=== PATIENT | male | born 1940 | race Two or more races ===

== ENCOUNTER 2024-06-25 07:15 | Emergency (ER) | payer MEDICARE, SELFPAY ==
[2024-06-25 07:17] VITALS: BP 165/66; PULSE 73; RESP 20; TEMP 37; O2SAT 99
[2024-06-25 07:27] VITALS: PULSE 68; RESP 16; O2SAT 99; BMI 21.2
[2024-06-25 08:15] VITALS: BP 168/70; PULSE 66; RESP 19; TEMP 37; O2SAT 99
--- NOTE | 2024-06-25 08:31 | XR_ITS ---
EXAMINATION: CT lumbar spine wo con ORDERING PROVIDER: Nathen Rey MD HISTORY: Lower back pain status post fall this morning. TECHNIQUE: Volumetric, helical CT was used in the non-contrast imaging acquisition of the lumbar spine with 2-D and 3-D reformats. Institutional dose reducing protocols were utilized. RADIATION DOSE: DLP 772 mGy-cm COMPARISON: 02/21/2024, CT chest abdomen pelvis. 07/25/2023, lumbar spine radiographs. FINDINGS: Compared to 02/21/2024, there has been interval development of an L2 anterior compression fracture with 35% height loss. There is no retropulsion of bony fragments. No additional fractures identified. Findings are in the setting of osteoporosis. There is L1-L2 vacuum disc phenomenon. There is a broad-based posterior disc protrusion at L3-L4. There are multilevel small to moderate syndesmophytes and osteophytes. There is mild L4-L5 left greater than right and bilateral L5-S1 facet arthrosis. There are mild osteoarthritic changes of the bilateral sacroiliac joints. 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 There is a similar appearing exophytic rounded hypodensity measuring up to 3.1 cm arising from the posterior aspect of the left kidney. Additional too small to characterize hypodensity is again seen in the superior pole of the right kidney. There is atrophy of the paraspinal musculature. IMPRESSION: Compared to 02/21/2024, interval development of moderate L2 anterior compression fracture in the setting of osteoporosis.
--- NOTE | 2024-06-25 08:33 | PD.EDBACK ---
ED Back Injury Pain RME/HPI General Chief Complaint: Back Pain/Injury Stated Complaint: BACK PAIN Time Seen by Provider: 06/25/24 08:05 Arrival date/time: 06/25/24 07:15 RME / HPI RME / HPI Narrative: Patient 84-year-old gentleman who is got Parkinson's who evidently slipped from the bed and fell on his stool striking his lumbar back as well as this was not witnessed. Besides back pain patient has no other acute problem or complaint. No fever cough runny nose no chest pain no abdominal pain he does complain of pain in his left inguinal area. states he is acting his usual self at this time. Patient is on Eliquis for previous heart issues. Related Data Home Medications ?Medication ?Instructions ?Recorded ?Confirmed simvastatin 40 mg tablet (Zocor) 40 mg PO HS CHOLESTEROL #0 tabs 06/12/14 01/20/24 tamsulosin 0.4 mg capsule (Flomax) 0.4 mg PO QDAY Prostate ##0 06/12/14 01/20/24 solifenacin 10 mg tablet 10 mg PO QDAY 03/03/22 01/20/24 Previous Rx's ?Medication ?Instructions ?Recorded apixaban 5 mg tablet (Eliquis) 5 mg PO BID #60 tabs 01/21/24 carbidopa 25 mg-levodopa 100 mg 1 tab PO TID #30 tabs 01/21/24 tablet entacapone 200 mg tablet 400 mg (2 x 200 mg) PO TID #60 tabs 01/21/24 lisinopril 5 mg tablet 5 mg PO QDAY #30 tabs 01/21/24 pregabalin 50 mg capsule 50 mg PO DAILY #30 caps 01/21/24 tramadol 50 mg tablet 50 mg PO Q8H PRN pain #12 tabs 02/23/24 Allergies Allergy/AdvReac Type Severity Reaction Status Date / Time No Known Allergies Allergy Verified 04/29/19 17:19 Review of Systems Review of Systems Narrative Review of Systems: Review of Systems: Constitutional: DENIES: Fevers,; Eyes: DENIES: Loss of vision, Head/Ear/Nose: DENIES: Loss of hearing. Throat: Denies dysphagia. Cardiovascular: Denies chest pain, Dyspnea or syncope. Respiratory: DENIES: Shortness of breath, Gastrointestinal: DENIES: Rectal bleeding or melena. Genitourinary: DENIES: Dysuria (painful or difficult urination),; Musculoskeletal: See HPI DENIES: Arthralgia (pain in a joint),; Skin: DENIES: Rash,; Neurological: Has Parkinson's see HPI DENIES: loss of function or movement,; Psychiatric: DENIES: recent major life stressor, emotional problem, illicit drug use or abuse,; Endocrinology: DENIES: Weight change,; Hematologic/Lymphatic: DENIES: Abnormal bruising. Allergic/Immunologic: DENIES: Urticaria (hives), Past Medical History Past Medical History NEUROLOGIC: Positive Neurological Disorders, Transient Ischemic Attacks (TIA) and Parkinson's Disease CARDIAC: Positive Cardiac Disorders, Coronary Artery Disease, Atherosclerotic Heart Disease and Hypertension GASTROINTESTINAL: Positive Gastrointestinal Disorders and Gastroesophageal Reflux Disease GENITOURINARY: Positive Prostate Cancer and Benign Prostatic Hyperplasia MUSCULOSKELETAL: Positive Musculoskeletal Disorders OTHER HISTORY: Positive Radiation Therapy and Prostate Cancer Surgical History SURGICAL: Positive Cardiac Surgery and Coronary Artery Bypass Graft; Negative Abdominal Surgery Social History SMOKING STATUS: Never smoker SUBSTANCE USE: does not use ED Exam Narrative Physical exam: Physical Exam: General: The vital signs were reviewed. Has bradykinesia, soft-spoken left hand arm resting tremor the patient is non-toxic, in no apparent distress and appears healthy with a patent airway, no respiratory distress and has no apparent circulatory problems. Head & Scalp: Normocephalic, atraumatic. Face: Appears normal and is without lesions, deformity. Ears: Left external pinna appears normal. Right external pinna appears normal. Eyes: The sclera is anicteric. No obvious photophobia. The Left and Right Orbit/Lid/Conjunctiva appears normal without swelling, discoloration or injection. Nose: The nose is without deformity, discharge or tenderness; Throat: Appears normal. The mucous membranes are pink and moist without exudates, redness or mass seen. The tongue appears normal. Neck: The neck is supple and no apparent mass or adenopathy. Chest: The chest wall is normal in size and symmetry and has no chest wall tenderness or crepitus. The patient displays normal ventilator effort without retractions, accessory muscle use and has adequate air movement bilaterally with no wheezes and no rales. Cardiovascular: Regular rate and rhythm; No murmurs, rubs, or gallops; Gastrointestinal: The abdomen appears normal. No obvious hernias or mass. The abdomen is soft and benign, non-distended, with no pain, no guarding and no rebound tenderness. Bowel sounds are present and normal sounding. No CVA tenderness. Genitourinary: Back/Spine: Patient has tenderness on palpation of the mid lumbar spine. The rest of the spine is nontender to palpation. There is no ecchymosis seen. There is no wound the skin is intact. Extremities/Musculoskeletal/lymphatic: The bilateral upper and lower extremities are warm. There is no evidence of arterial insufficiency. There is no evidence of venous insufficiency/edema. The patient spontaneously moves bilateral upper and lower extremities with no pain and no limitation of movement. There is no apparent, injury or trauma. Skin: The skin is warm, dry and intact. No rashes. No petechia. No purpura. No abnormal bruising. The color is appropriate with no cyanosis. Mental status/Psychiatric: Mental status is baseline for this patient The patient has no apparent delusions, visual hallucinations, no apparent audible hallucinations. The patient has no apparent suicidal thoughts/ideation and no apparent homicidal thoughts/ideation. Neurological: The patient is awake, alert, interactive, cordial, cooperative and is oriented to name and situation. The patient follows commands and answers historical question with no impairment. There is no visual disturbance apparent. The pupils are equal and reactive bilaterally with normal eye movements and no diplopia The bilateral upper and lower extremities have normal strength, normal range of motion and normal functioning. The gait, station and balance were not tested due to Parkinson's and acute back injury Course Quality Measures none Orders Category Date Time Status IV [Insert IV] NOW Care 06/25/24 08:44 Completed Miscellaneous Nursing Order NOW Care 06/25/24 14:[address] lumbar spine wo con Stat Exams 06/25/24 08:31 Completed XR HIP LT W PELVIS (DO NOT USE) Stat Exams 06/25/24 08:37 Completed CBC Stat Lab 06/25/24 09:13 Completed CRP [C-Reactive Protein] Stat Lab 06/25/24 09:13 Completed Comprehensive Metabolic Panel Stat Lab 06/25/24 09:13 Completed Lactate (Lactic Acid) Stat Lab 06/25/24 09:13 Completed Lipase Stat Lab 06/25/24 09:13 Completed Sed Rate (ESR) Stat Lab 06/25/24 09:13 Completed Troponin I Stat Lab 06/25/24 09:13 Completed Urinalysis Stat Lab 06/25/24 09:37 Completed Acetaminophen Tab [Tylenol ES Tab] Med 06/25/24 08:31 Discontinued 1,000 mg PO X1 ONE HYDROmorphone INJ [Dilaudid Inj] Med 06/25/24 12:54 Discontinued 0.5 mg IVP X1 ONE Morphine Inj Med 06/25/24 08:44 Discontinued 4 mg IVP X1 ONE Morphine Inj Med 06/25/24 16:02 Discontinued 5 mg IVP X1 ONE Ondansetron Inj [Zofran Inj] Med 06/25/24 08:31 Discontinued 4 mg IV X1 ONE fentaNYL INJ [Sublimaze Inj] Med 06/25/24 08:31 Discontinued 50 mcg IVP X1 ONE Vital Signs Vital signs: Vital Signs Temperature 98.6 F 06/25/24 07:17 Pulse Rate 73 06/25/24 07:17 Respiratory Rate 20 06/25/24 07:17 Blood Pressure 165/66 H 06/25/24 07:17 Pulse Oximetry (%) 99 06/25/24 07:17 Oxygen Delivery Method Room Air 06/25/24 07:17 Back Pain / Injury MDM Narrative MDM Narrative:: Patient slipped and fell from his bed striking his lumbar area with pain since the fall. He is got Parkinson's and walks evidently with a walker normally we will work him up to rule out back injury/fracture. He also has some left inguinal pain. Will get a pelvic x-ray all. X-ray of the pelvis and left hip reveal no fracture seen. In note the patient does move the hip quite well CT of the lumbar spine came back positive for a anterior L2 compression fracture. There is no retropulsion reported. Abnormality reported Laboratory studies show UA unremarkable. CMP reveals a sodium 138 potassium 3.5 chloride 110 CO2 is 24 renal function is normal transaminases are slightly elevated 44 and 50 range. Troponin is negative C-reactive protein slightly elevated at 4.8. Sed rate came back at 5. White count 6.2 hemoglobin of 12.0. Reevaluation the patient at 1405 hrs. shows him to be comfortable we have not gotten up to walk yet. Had a long discussion with the and daughter and she is aware that he is can have a painful compression fracture for a week or 3. They know to follow-up with her regular doctor and return if make transfers safely. They just want to use acetaminophen at this time Patient data External records reviewed:: [facility] previous records and EMS form Clinical information provided by:: patient and EMS Social determinants that could affect healthcare access:: none Patient has the following chronic illnesses:: Parkinson's disease, TIA, CAD s/p CABG, hypertension, hyperlipidemia, BPH How is presenting disease/condition affected by chronic disease/condition?: exacerbated by Evaluation data The following diagnostics were reviewed and interpreted by me:: lab results and radiology exam(s) Lab and/or radiology exams considered but not ordered:: none Interpretation Summary: Ordering Physician: Nathen Rey MD Date of Service: 06/25/24 Procedure(s): CT lumbar spine wo con Accession Number(s): [id number] cc: Nadya Hartley MD; Tj Mariscal MD; Nathen Rey MD~ EXAMINATION: CT lumbar spine wo con ORDERING PROVIDER: Nathen Rey MD HISTORY: Lower back pain status post fall this morning. TECHNIQUE: Volumetric, helical CT was used in the non-contrast imaging acquisition of the lumbar spine with 2-D and 3-D reformats. Institutional dose reducing protocols were utilized. RADIATION DOSE: DLP 772 mGy-cm COMPARISON: 02/21/2024, CT chest abdomen pelvis. 07/25/2023, lumbar spine radiographs. FINDINGS: Compared to 02/21/2024, there has been interval development of an L2 anterior compression fracture with 35% height loss. There is no retropulsion of bony fragments. No additional fractures identified. Findings are in the setting of osteoporosis. There is L1-L2 vacuum disc phenomenon. There is a broad-based posterior disc protrusion at L3-L4. There are multilevel small to moderate syndesmophytes and osteophytes. There is mild L4-L5 left greater than right and bilateral L5-S1 facet arthrosis. There are mild osteoarthritic changes of the bilateral sacroiliac joints. 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 There is a similar appearing exophytic rounded hypodensity measuring up to 3.1 cm arising from the posterior aspect of the left kidney. Additional too small to characterize hypodensity is again seen in the superior pole of the right kidney. There is atrophy of the paraspinal musculature. IMPRESSION: Compared to 02/21/2024, interval development of moderate L2 anterior compression fracture in the setting of osteoporosis. Dictated By: Tj Mariscal MD Signed By: <Electronically signed by Tj Mariscal MD in [place]> 06/25/24 1049 rdering Physician: Nathen Rey MD Date of Service: 06/25/24 Procedure(s): XR hip LT w pelvis 2-3V Accession Number(s): [id number] cc: Nadya Hartley MD; Nathen Rey MD; Kurt Sexton MD~ Examination:Right hip AP, lateral, AP pelvis 3 views Technique: Hip AP lateral, AP pelvis, 3 views Exam date and time:June 25, 2024 0741 hrs. Indications: Patient fell today with injury to the left hip, left hip pain. Findings: No acute left hip fracture or dislocation Right hip bones of the pelvis intact Moderate bilateral hip osteoarthritis Impression: No acute hip or pelvic fracture. Dictated By: Kurt Sexton MD Signed By: <Electronically signed by Kurt Sexton MD in OV> 06/25/24 0905 Medications / Prescriptions Medications or Prescriptions considered but not ordered:: none Medication administrations:: Medication Administration History Discontinued Medications Acetaminophen (Acetaminophen 500 Mg Tablet) 1,000 mg PO X1 ONE Stop: 06/25/24 08:32 Last Admin: 06/25/24 09:19 Dose: 1,000 mg Documented By: SANNA Fentanyl Citrate (Fentanyl Cit Inj 50 Mcg/Ml Amp 2ml) 50 mcg IVP X1 ONE Stop: 06/25/24 08:32 Last Admin: 06/25/24 09:18 Dose: 50 mcg Documented By: SANNA Hydromorphone HCl (Hydromorphone Inj 2 Mg/Ml Vial) 0.5 mg IVP X1 ONE Stop: 06/25/24 12:55 Last Admin: 06/25/24 13:10 Dose: 0.5 mg Documented By: SANNA Morphine Sulfate (Morphine Sulf Inj 10 Mg/Ml Vial) 4 mg IVP X1 ONE Stop: 06/25/24 08:45 Last Admin: 06/25/24 09:28 Dose: 4 mg Documented By: SANNA Morphine Sulfate (Morphine Sulf Inj 10 Mg/Ml Vial) 5 mg IVP X1 ONE Stop: 06/25/24 16:03 Last Admin: 06/25/24 16:10 Dose: 5 mg Documented By: SANNA Ondansetron HCl (Ondansetron Inj 2 Mg/Ml Inj 2 Ml) 4 mg IV X1 ONE; Protocol Stop: 06/25/24 08:32 Last Admin: 06/25/24 09:19 Dose: 4 mg Documented By: SANNA see above Consultations Consultation(s) initiated? (list below): No Diagnosis Differential diagnosis back pain/injury: lumbar radiculopathy, sciatica, strain of lumbar region, renal colic, pyelonephritis, thoracic back pain, AAA and discitis Most likely diagnosis given after review of the tests above:: Accidental fall Parkinson's disease Closed compression fracture of L2 vertebra Admission Indicated Admission indicated?: not indicated Admission Request Was there a request for admission?: No Disposition Plan Disposition Plan: Discharge Discharge Attestation Discharge Attestation: The patient and all family members were given an opportunity to ask questions and understood the discharge instructions. Discharge instructions specifically effects, indications for sooner follow up or return to the emergency department, and the expected course of current diagnosis. Patient condition: Stable Discharge Plan Plan Patient Disposition: HOME (Self Care) Prescriptions/Referrals Prescriptions/Med Rec: No Action simvastatin [Zocor] 40 MG tablet 40 mg PO HS Qty: 0 tamsulosin [Flomax] 0.4 MG capsule,extended release 24hr 0.4 mg PO QDAY Qty: 0 carbidopa-levodopa 25-100 mg tablet 1 tab PO TID Qty: 30 2RF entacapone 200 mg Tablet 400 mg PO TID Qty: 60 1RF pregabalin 50 mg Capsule 50 mg PO DAILY Qty: 30 0RF lisinopril 5 mg tablet 5 mg PO QDAY Qty: 30 0RF Eliquis 5 mg tablet 5 mg PO BID Qty: 60 0RF solifenacin 10 mg Tablet 10 mg PO QDAY tramadol 50 mg tablet 50 mg PO Q8H PRN (Reason: pain) Qty: 12 0RF Referrals: Nadya Hartley MD [Primary Care Provider] - In 1 week Problem List Clinical Impression: Accidental fall, Parkinsons disease, Closed compression fracture of L2 vertebra Patient/Caregiver Discharge Instructions Additional Instructions: You have an L2 compression fracture with 25% loss of height on the CT scan. There is no evidence of violation of the spinal canal or the spinal cord. You may have increasing pain for the next 3 to 5 days that should last 1 to 2 months but should rapidly improve after a month. Be cautious with transfers getting from bed and going to the bathroom and back. As we discussed get assistance every time you get up and move slowly as this will hurt. You can use Tylenol for pain. Make an appointment see your regular doctor in 2 to 3 days and let them know you have an L2 compression fracture. If you are needing increasing pain medication discussed this with your doctor as this may make your Parkinson's worse. Return if you are worse. Print Language: Pashto Stand Alone Forms: [employer] Info., Patient Portal Info Letter
--- NOTE | 2024-06-25 08:37 | XR_ITS ---
Examination:Right hip AP, lateral, AP pelvis 3 views Technique: Hip AP lateral, AP pelvis, 3 views Exam date and time:June 25, 2024 0741 hrs. Indications: Patient fell today with injury to the left hip, left hip pain. Findings: No acute left hip fracture or dislocation Right hip bones of the pelvis intact Moderate bilateral hip osteoarthritis Impression: No acute hip or pelvic fracture.
[2024-06-25] MEDS: fentaNYL CIT INJ 50 mCg/ML AMP 2ML IVP (09:18)
[2024-06-25] MEDS: ACETAMINOPHEN 500 MG TABLET 1000 MG PO (09:19)
[2024-06-25] MEDS: ONDANSETRON INJ 2 MG/ML INJ 2 ML 4 MG IV (09:19)
[2024-06-25 09:22] LABS: Lactate (Lactic Acid) 0.7 mMol/L (0.4-2.0)
[2024-06-25 09:24] LABS: Basophils % (Auto) 0 % (0-2.5); Eosinophils % (Auto) 1 % (0-10); Hematocrit 32.9 % (41.0-53.0); Immature Granulocytes % (Auto) 0 % (0-0); Immature Granulocytes Auto 0.02 Thou/mm3 (0.00-0.00); Lymphocytes # (Auto) 0.7 Thou/mm3 (1.0-4.8); Lymphocytes % (Auto) 12 % (10-50); Mean Corpuscular HGB Conc 36.5 g/dl (31.0-37.0); Mean Corpuscular Hemoglobin 30.5 pg (25.0-35.0); Mean Corpuscular Volume 84 fL (80-100); Monocytes # (Auto) 0.8 Thou/mm3 (0.0-0.8); Monocytes % (Auto) 12 % (0-12); Neutrophils # (Auto) 4.7 Thou/mm3 (1.8-7.7); Neutrophils % (Auto) 75 % (37-80); Nucleated Red Blood Cell % 0 /100 WBC (0); Platelet Count 150 Thou/mm3 (140-440); RDW Standard Deviation 40.2 fL (35.1-43.9); Red Blood Count 3.93 Miln/mm3 (4.50-5.90); White Blood Count 6.2 Thou/mm3 (3.8-10.6)
[2024-06-25] MEDS: MORPHINE SULF INJ 10 MG/ML VIAL 4 MG IVP (09:28)
[2024-06-25 09:38] LABS: Sed Rate (ESR) 5 mm/hr (0-20)
[2024-06-25 09:51] LABS: Collection Type, Urine Clean Catch
[2024-06-25 10:21] LABS: Alanine Aminotransferase 50 U/L (10-49); Albumin, Serum 3.7 gm/dL (3.4-4.8); Albumin/Globulin Ratio 1.4 (1.2-2.2); Alkaline Phosphatase 93 U/L (46-116); Anion Gap 4 (7-16); Aspartate Amino Transferase 44 U/L (0-34); BUN/Creatinine Ratio 14 Ratio (12-20); Bilirubin,Total 1.2 mg/dL (0.3-1.2); Blood Urea Nitrogen 14 mg/dL (9-23); C-Reactive Protein 4.8 mg/dL (0.0-0.9); Calcium 8.8 mg/dL (8.3-10.6); Carbon Dioxide 24.4 mMol/L (20.0-31.0); Chloride 110 mMol/L (98-107); Estimated Creatinine Clearance 50.3 mL/min (>60); Globulin 2.7 gm/dL (2.3-3.5); Glucose 91 mg/dL (74-106); Lipase 26 U/L (12-53); Osmolality,Calculated 276 (275-295); Potassium 3.5 mMol/L (3.4-5.1); Sodium 138 mMol/L (136-145); Total Protein 6.4 gm/dL (5.7-8.2); Troponin I < 0.020 ng/mL (0.0-0.045); eGFR > 60 See Note
[2024-06-25 10:30] LABS: Bilirubin,Urine Negative (Negative); Blood,Urine 1+ (Negative); Clarity,Urine Clear (Clear/Hazy); Color,Urine Yellow (Lt Yel-Yel); Glucose, Urine Negative (Negative); Ketones,Urine Negative (Negative); Leukocyte Esterase,Urine Negative (Negative); Nitrite,Urine Negative (Negative); Protein,Urine Negative (Neg - Trace); RBC,Urine 4 /hpf (0-3); Specific Gravity,Urine 1.012 (1.001-1.035); Squamous Epithelial Cell,Urine < 1 /hpf (0-5); Urobilinogen,Urine Negative mg/dL (0.0-1.0); WBC,Urine < 1 /hpf (0-5)
[2024-06-25 12:13] VITALS: BP 174/72; PULSE 72; RESP 18; TEMP 36.3; O2SAT 99
--- NOTE | 2024-06-25 12:52 | PC.NURSE ---
Patient states pain 9/10. Informed ER provider and received verbal order for 0.5mg hydromorphone.
[2024-06-25] MEDS: HYDROmorphone INJ 2 MG/ML VIAL 0.5 MG IVP (13:10)
[2024-06-25 15:12] VITALS: BP 151/68; PULSE 73; RESP 17; TEMP 36.5; O2SAT 96
--- NOTE | 2024-06-25 15:58 | PC.NURSE ---
Patient states pain 7/10. ER provider informed and verbal order for 5mg morphine IV given prior to discharge.
[2024-06-25] MEDS: MORPHINE SULF INJ 10 MG/ML VIAL 5 MG IVP (16:10)
== END 2024-06-25 16:44 | disposition home or self-care (01) ==
PROVIDERS: Emergency Provider Emergency Medicine; PCP Internal Medicine
DX: S32.029A Unspecified fracture of second lumbar vertebra, initial encounter for closed fracture (principal); G20.A1 Parkinson's disease without dyskinesia, without mention of fluctuations; I25.10 Atherosclerotic heart disease of native coronary artery without angina pectoris; I10 Essential (primary) hypertension; E78.5 Hyperlipidemia, unspecified; N40.0 Benign prostatic hyperplasia without lower urinary tract symptoms; Z86.73 Personal history of transient ischemic attack (TIA), and cerebral infarction without residual deficits; Z95.1 Presence of aortocoronary bypass graft; Z92.3 Personal history of irradiation; Z85.46 Personal history of malignant neoplasm of prostate; Z79.01 Long term (current) use of anticoagulants; W06.XXXA Fall from bed, initial encounter
CPT/HCPCS: 36415; 72131; 73502; 80053; 81001; 83605; 83690; 84484; 85025; 85652; 86140; 96374; 96375; 96376; 99284; J2270; J2405; J3010; J3490; A9270

== ENCOUNTER 2024-10-01 15:38 | Inpatient (IN) | payer MEDICARE, BC, SELFPAY ==
[2024-10-01] VITALS (10 sets, daily range): BP systolic 129–147; BP diastolic 43–66; PULSE 57–85; RESP 18–96; TEMP 37.2–37.4; O2SAT 90–97; BMI 23.3
--- NOTE | 2024-10-01 | XR_ITS ---
Examinations: MRI Brain without intravenous contrast. MRA brain without intravenous contrast. MRA carotids without intravenous contrast 3-D vascular reconstructions Date and time of exam: October 01, 2024 1833 hours Indication: Focal neurologic deficit today, confusion disorientation and difficulty with balance Technique: Multiple axial and sagittal images of the brain have been obtained MRA brain carotid images without contrast obtained, including 3-D postprocessing, vascular maximum intensity projection images Findings: Sellaturcica is not enlarged. The optic chiasm and infundibular stalk are not remarkable. Prepontine and interpeduncular cisterns are not enlarged. No localized enlargement of the medulla or jackie. Fourth ventricle and cerebellar tonsils normal in position. Subacute hemorrhage is not seen. Fourth ventricle is midline. Mass in the cerebellopontine angle region is not evident. 7th and 8th nerve complexes exhibits symmetry. Globes are symmetrical with no retro-orbital mass. Increased white matter signal prominent Diffusion-weighted images demonstrate no focus of restricted diffusion Mass-effect upon the ventricular system is not identified. MRA carotid images degraded by patient motion. MRA brain images no large vessel occlusion Impression: Negative for acute hemorrhage mass effect or midline shift No acute infarct. Prominent chronic microvascular white matter change No cerebral large vessel arterial occlusions
--- NOTE | 2024-10-01 16:02 | XR_ITS ---
Examination: CTA carotids with intravenous contrast CTA brain, head with intravenous contrast. 2-D sagittal, coronal reconstructions. 3-D reconstructions. Exam date and time: October 01, 2024 1623 hours INDICATIONS: Stroke alert, onset focal neurologic deficit today CTDI: vol (mGy) 16.5 DLP: (mGycm) 462 Technique: Multiple CTA axial brain, head carotid images post intravenous contrast injection 75 cc, [id number]. 2-D sagittal, coronal reconstructions. 3-D reconstructions, 3-D post processing including vascular maximum intensity projection images. Low dose protocols were performed. One or more of the following dose reduction techniques were used; automated exposure control, adjustment of the mA and/or KV according to patient size, use of iterative reconstruction technique. Findings: No significant common carotid carotid bifurcation or internal carotid artery stenoses Dominant right vertebral artery, no critical vertebral artery stenoses in the neck Intracranial vertebral arteries and basilar artery posterior cerebral branches fill with no large vessel occlusions Juxtasellar supraclinoid portions internal carotid arteries, M1 segments middle cerebral arteries and middle cerebral artery trifurcation vessels fill, no large vessel occlusions Anterior cerebral vessels intact IMPRESSION: No significant neck arterial stenoses No cerebral large vessel arterial occlusions
--- NOTE | 2024-10-01 16:02 | XR_ITS ---
Examination: CT brain head without contrast. 2-D sagittal coronal reconstructions Date and time of exam:October 01, 2024 1610 hours INDICATIONS: Stroke alert, onset focal neurologic deficit today CTDI: vol (mGy):49.5 DLP: (mGycm):1006 Technique: Multiple CT axial sections of the brain have been obtained, 5 mm slice thickness. Contrast has not been administered. 2-D sagittal, coronal reconstructions have been obtained Low dose protocols were performed. One or more of the following dose reduction techniques were used; automated exposure control, adjustment of the mA and/or KV according to patient size, use of iterative reconstruction technique. Findings: No significant ventricular enlargement. 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 No mass effect or midline shift Basal cisterns are not remarkable. Fourth ventricle is midline. Cranial vault intact. Impression: Negative for acute hemorrhage, mass effect or midline shift
--- NOTE | 2024-10-01 16:02 | EKG_ITS ---
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
[2024-10-01 16:14] LABS: Base Excess, Venous 0 (-3-3); O2 Saturation, Venous 88 % (96-97); PCO2, Venous 33 mmHg (36-56); PO2, Venous 49 mmHg (15-58); pH, Venous 7.46 (7.33-7.66)
--- NOTE | 2024-10-01 16:22 | PD.EDAMS ---
Altered Mental Status RME/HPI General Chief Complaint: Altered Mental Status Stated Complaint: AMS & GEN PAIN STARTING THIS AFTERNOON Time Seen by Provider: 10/01/24 16:02 Arrival date/time: 10/01/24 15:38 Limitations: no limitations RME / HPI RME / HPI narrative: 84 year old male with history of Parkinson?s disease, TIA, CAD s/p CABG, hypertension, hyperlipidemia, prostate cancer presents to the ED brought in by family for concerns of altered mental status today. Per , the patient is typically at baseline conversive, and sharp. However, after eating breakfast at 09:00 AM today, she noticed he appeared to be staring blankly and confused. Prior to this, the patient was in his usual state of health yesterday. The family denies any recent infections or illnesses. The also reports that the patient is compliant with his Parkinson?s medications and took his usual doses today, both in the morning and at midday. Related Data Home Medications ?Medication ?Instructions ?Recorded ?Confirmed simvastatin 40 mg tablet (Zocor) 40 mg PO HS CHOLESTEROL #0 tabs 06/12/14 01/20/24 tamsulosin 0.4 mg capsule (Flomax) 0.4 mg PO QDAY Prostate ##0 06/12/14 01/20/24 solifenacin 10 mg tablet 10 mg PO QDAY 03/03/22 01/20/24 Previous Rx's ?Medication ?Instructions ?Recorded apixaban 5 mg tablet (Eliquis) 5 mg PO BID #60 tabs 01/21/24 carbidopa 25 mg-levodopa 100 mg 1 tab PO TID #30 tabs 01/21/24 tablet entacapone 200 mg tablet 400 mg (2 x 200 mg) PO TID #60 tabs 01/21/24 lisinopril 5 mg tablet 5 mg PO QDAY #30 tabs 01/21/24 pregabalin 50 mg capsule 50 mg PO DAILY #30 caps 01/21/24 tramadol 50 mg tablet 50 mg PO Q8H PRN pain #12 tabs 02/23/24 Allergies Allergy/AdvReac Type Severity Reaction Status Date / Time No Known Allergies Allergy Verified 10/01/24 15:43 Review of Systems Review of Systems ROS Unobtainable: unobtainable due to mental status Past Medical History Past Medical History NEUROLOGIC: Positive Neurological Disorders, Transient Ischemic Attacks (TIA) and Parkinson's Disease CARDIAC: Positive Cardiac Disorders, Coronary Artery Disease, Atherosclerotic Heart Disease and Hypertension GASTROINTESTINAL: Positive Gastrointestinal Disorders and Gastroesophageal Reflux Disease GENITOURINARY: Positive Genitourinary Disorders, Prostate Cancer and Benign Prostatic Hyperplasia MUSCULOSKELETAL: Positive Musculoskeletal Disorders OTHER HISTORY: Positive Radiation Therapy and Prostate Cancer Surgical History SURGICAL: Positive Cardiac Surgery and Coronary Artery Bypass Graft; Negative Abdominal Surgery Social History SMOKING STATUS: Never smoker SUBSTANCE USE: does not use ED Exam General Limitations: Present no limitations General appearance: Present alert and in no apparent distress Head Head exam: Present atraumatic Eye Eye exam: Present normal appearance, PERRL and EOMI ENT ENT exam: Present normal exam, normal oropharynx and mucous membranes moist Neck Neck exam: Present normal inspection, full ROM and trachea midline Chest Chest inspection: Present normal inspection and symmetric chest wall rise Respiratory Respiratory exam: Present normal lung sounds bilaterally Cardiovascular Cardiovascular exam: Present regular rate, normal rhythm and normal heart sounds Abdominal Exam Abdominal exam: Present soft and normal bowel sounds Extremities Exam Extremities exam: Present normal inspection and full ROM Back Exam Back exam: Present normal inspection and full ROM Neurological Exam Neurological exam: Present alert, oriented X3, CN II-XII intact and other (Cogwheeling, resting tremor in the left upper extremity, bradykenetic) Psychiatric Psychiatric exam: Present normal affect and normal mood Skin Skin exam: Present warm, dry, intact and normal color Course Quality Measures Suspected type of Stroke: Non Acute Last known well (date): 09/30/24 Last known well (time): 21:00 Tenecteplase given: Reason(s) TPA not given: Use of NOAC (eliquis, xarelto, or pradaxa) not given stroke Orders Category Date Time Status Bedside Blood Glucose NOW Care 10/01/24 16:02 Active COVID-19 Screening Questionnaire NOW Care 10/01/24 16:16 Active COVID-19 Screening Questionnaire NOW Care 10/01/24 17:13 Completed Electrical Development Engineer NOW Care 10/01/24 16:02 Active Continuous Pulse Oximetry NOW Care 10/01/24 16:02 Completed Decision to Admit X1 Care 10/01/24 17:13 Active EKG (ED ONLY) *Do not use* NOW Care 10/01/24 16:02 Completed In and Out Catheter NEEDED Care 10/01/24 16:02 Active Insert IV NOW Care 10/01/24 16:02 Active NIH Stroke Scale now Care 10/01/24 16:02 Active NPO NOW Care 10/01/24 16:02 Active Neuro Check Q15MIN Care 10/01/24 16:02 Active Nurse Swallow Screen x1 Care 10/01/24 16:02 Active Consult to Neurology / Tele-Neurology Routine Cons 10/01/24 16:[address] angio stroke protocol Stat Exams 10/01/24 16:[address] stroke protocol Stat Exams 10/01/24 16:02 Completed EKG (ED Only) Stat Exams 10/01/24 16:02 Draft Alcohol, Blood Medical Stat Lab 10/01/24 16:04 Completed B-Type Natriuretic Peptide Stat Lab 10/01/24 16:04 Completed CBC Stat Lab 10/01/24 16:04 Completed Comprehensive Metabolic Panel Stat Lab 10/01/24 16:04 Completed Drug Screen,Urine Stat Lab 10/01/24 17:15 Received Magnesium Stat Lab 10/01/24 16:04 Completed Partial Thromboplastin Time Stat Lab 10/01/24 16:04 Completed Prothrombin Time with INR Stat Lab 10/01/24 16:04 Completed Troponin I Stat Lab 10/01/24 16:04 Completed Urinalysis Stat Lab 10/01/24 17:15 Received Urine Culture Stat Lab 10/01/24 17:15 Received Venous Blood Gas Stat Lab 10/01/24 16:04 Completed Aspirin Med 10/01/24 17:12 Discontinued 325 mg PO X1 ONE Sodium Chloride 0.9% 1000 ml [Ns] 1,000 ml Med 10/01/24 16:15 Active IV Q10H Oxygen Delivery NOW RT 10/01/24 16:02 Active Vital Signs Vital signs: Vital Signs Temperature 98.9 F 10/01/24 15:48 Pulse Rate 79 10/01/24 15:48 Respiratory Rate 18 10/01/24 15:48 Blood Pressure 129/66 10/01/24 15:48 Pulse Oximetry (%) 95 10/01/24 15:48 Oxygen Delivery Method Room Air 10/01/24 15:48 Altered Mental Status MDM Narrative MDM Narrative:: Birgit Mercer am scribing for and in the presence of Dr. Ferrer. Patient data External records reviewed:: [facility] previous records (I reviewed ED Visit on 06/25/24 ) Clinical information provided by:: family ( and daughter ) Social determinants that could affect healthcare access:: none Patient has the following chronic illnesses:: Parkinson?s disease, TIA, CAD s/p CABG, hypertension, hyperlipidemia, prostate cancer How is presenting disease/condition affected by chronic disease/condition?: exacerbated by Evaluation data The following diagnostics were reviewed and interpreted by me:: lab results, radiology exam(s) and EKG tracing(s) (10/01/24 @ 16:36. Sinus rhythm with first degree AV block, HR 82, left axis deviation. ) Lab and/or radiology exams considered but not ordered:: None Interpretation Summary: Ordering Physician: Tray Ferrer MD Date of Service: 10/01/24 Procedure(s): CT stroke protocol Accession Number(s): [id number] cc: rTay Ferrer MD; Kurt Sexton MD~ Examination: CT brain head without contrast. 2-D sagittal coronal reconstructions Date and time of exam:October 01, 2024 1610 hours INDICATIONS: Stroke alert, onset focal neurologic deficit today CTDI: vol (mGy):49.5 DLP: (mGycm):1006 Technique: Multiple CT axial sections of the brain have been obtained, 5 mm slice thickness. Contrast has not been administered. 2-D sagittal, coronal reconstructions have been obtained Low dose protocols were performed. One or more of the following dose reduction techniques were used; automated exposure control, adjustment of the mA and/or KV according to patient size, use of iterative reconstruction technique. Findings: No significant ventricular enlargement. 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 No mass effect or midline shift Basal cisterns are not remarkable. Fourth ventricle is midline. Cranial vault intact. Impression: Negative for acute hemorrhage, mass effect or midline shift Dictated By: Kurt Sexton MD Signed By: <Electronically signed by Kurt Sexton MD in [place]> 10/01/24 1614 Ordering Physician: Tray Ferrer MD Date of Service: 10/01/24 Procedure(s): CT angio stroke protocol Accession Number(s): [id number] cc: Tray Ferrer MD; Kurt Sexton MD~ Examination: CTA carotids with intravenous contrast CTA brain, head with intravenous contrast. 2-D sagittal, coronal reconstructions. 3-D reconstructions. Exam date and time: October 01, 2024 1623 hours INDICATIONS: Stroke alert, onset focal neurologic deficit today CTDI: vol (mGy) 16.5 DLP: (mGycm) 462 Technique: Multiple CTA axial brain, head carotid images post intravenous contrast injection 75 cc, [id number]. 2-D sagittal, coronal reconstructions. 3-D reconstructions, 3-D post processing including vascular maximum intensity projection images. Low dose protocols were performed. One or more of the following dose reduction techniques were used; automated exposure control, adjustment of the mA and/or KV according to patient size, use of iterative reconstruction technique. Findings: No significant common carotid carotid bifurcation or internal carotid artery stenoses Dominant right vertebral artery, no critical vertebral artery stenoses in the neck Intracranial vertebral arteries and basilar artery posterior cerebral branches fill with no large vessel occlusions Juxtasellar supraclinoid portions internal carotid arteries, M1 segments middle cerebral arteries and middle cerebral artery trifurcation vessels fill, no large vessel occlusions Anterior cerebral vessels intact IMPRESSION: No significant neck arterial stenoses No cerebral large vessel arterial occlusions Dictated By: Kurt Sexton MD Signed By: <Electronically signed by Kurt Sexton MD in OV> 10/01/24 6713 Medications / Prescriptions Medications or Prescriptions considered but not ordered:: None Medication administrations:: Medication Administration History Sodium Chloride (Ns) 1,000 mls @ 100 mls/hr IV Q10H ARIAN Stop: 10/31/24 16:14 Last Admin: 10/01/24 17:02 Dose: 100 mls/hr Documented By: CG Discontinued Medications Aspirin (Aspirin 325 Mg Tablet) 325 mg PO X1 ONE Stop: 10/01/24 17:13 See above Consultations Consultation(s) initiated? (list below): Yes Consultation #1 (Physician, Specialty, Details): I spoke with teleneuro Dr. Carty. States patient is not a candidate for TNK due to being on Eliquis. Advised holding the Eliquis and starting patient on Aspirin. Recommends admission for further stroke work up. Time: 16:30 Consultation #2 (Physician, Specialty, Details): I spoke with hospitalist Dr. Roche. Discussed patients PMHx, HPI, ED course, exam findings, labs, and radiology results. The hospitalist agree to accept the patient for admission. Time: 17:10 Diagnosis Differential diagnosis altered mental status: altered mental status, delirium, dementia, hypoglycemia, hyponatremia, subarachnoid hemorrhage, sepsis and other Most likely diagnosis given after review of the tests above:: CVA vs TIA Exacerbation of Parkinson's disease Admission Indicated Admission indicated?: indicated Admission Request Was there a request for admission?: Yes Admission Attestation Admission request attestation: Discussed case with [] from Hospitalist service regarding admission. Discussed patients ED course, exam findings, labs, and radiology results. The Hospitalist [agrees,declines] to accept the patient for admission. Disposition Plan Disposition Plan: Admit Critical Care Time Critical Care Time Critical Care Time: Yes Total Critical Care Time (min.): 45 Attestation: The high probability of sudden, clinically significant deterioration in the patient's condition required the highest level of my preparedness to intervene urgently. The services I provided to this patient were to treat and/or prevent clinically significant deterioration. Services included the following: chart data review, reviewing nursing notes and/or old charts, documentation time, software security consultant collaboration regarding findings and treatment options, medication orders and management, direct patient care, vital sign assessments and ordering, interpreting and reviewing diagnostic studies and lab tests. Aggregate critical care time includes only time during which I was engaged in work directly related to the patient's care, as described above, whether at bedside or elsewhere in the Emergency Department. It did not include time spent performing other reported procedures or the services of residents, students, nurses or physician assistants. Discharge Plan Plan Patient Disposition: Admit Acute Care w/in Hospital Prescriptions/Referrals Prescriptions/Med Rec: No Action simvastatin [Zocor] 40 MG tablet 40 mg PO HS Qty: 0 tamsulosin [Flomax] 0.4 MG capsule,extended release 24hr 0.4 mg PO QDAY Qty: 0 carbidopa-levodopa 25-100 mg tablet 1 tab PO TID Qty: 30 2RF entacapone 200 mg Tablet 400 mg PO TID Qty: 60 1RF pregabalin 50 mg Capsule 50 mg PO DAILY Qty: 30 0RF lisinopril 5 mg tablet 5 mg PO QDAY Qty: 30 0RF Eliquis 5 mg tablet 5 mg PO BID Qty: 60 0RF solifenacin 10 mg Tablet 10 mg PO QDAY tramadol 50 mg tablet 50 mg PO Q8H PRN (Reason: pain) Qty: 12 0RF Referrals: Fany Hartley MD [Primary Care Provider] - In 1 week Problem List Clinical Impression: Parkinson's disease with fluctuating manifestations, CVA (cerebral vascular accident) Impression comment: CVA vs TIA Patient/Caregiver Discharge Instructions Print Language: Bulgarian Stand Alone Forms: [employer] Info., Patient Portal Info Letter
[2024-10-01 16:31] LABS: Basophils % (Auto) 0 % (0-2.5); Eosinophils % (Auto) 0 % (0-10); Hematocrit 32.1 % (41.0-53.0); Immature Granulocytes % (Auto) 0 % (0-0); Immature Granulocytes Auto 0.04 Thou/mm3 (0.00-0.00); Lymphocytes # (Auto) 0.9 Thou/mm3 (1.0-4.8); Lymphocytes % (Auto) 9 % (10-50); Mean Corpuscular HGB Conc 37.4 g/dl (31.0-37.0); Mean Corpuscular Hemoglobin 32.1 pg (25.0-35.0); Mean Corpuscular Volume 86 fL (80-100); Monocytes % (Auto) 10 % (0-12); Neutrophils # (Auto) 7.5 Thou/mm3 (1.8-7.7); Neutrophils % (Auto) 80 % (37-80); Nucleated Red Blood Cell % 0 /100 WBC (0); Platelet Count 166 Thou/mm3 (140-440); RDW Standard Deviation 38.7 fL (35.1-43.9); Red Blood Count 3.74 Miln/mm3 (4.50-5.90); White Blood Count 9.4 Thou/mm3 (3.8-10.6)
[2024-10-01 16:35] LABS: INR 1.1 (0.9-1.3); Partial Thromboplastin Time 30.8 Seconds (22.0-36.0); Prothrombin Time 11.5 Seconds (9.0-12.2)
[2024-10-01 16:48] LABS: Alanine Aminotransferase < 7 U/L (10-49); Albumin/Globulin Ratio 1.7 (1.2-2.2); Alcohol, Blood Medical < 10.0 mg/dL (0-10.0); Alkaline Phosphatase 73 U/L (46-116); Anion Gap 2 (7-16); Aspartate Amino Transferase 19 U/L (0-34); BUN/Creatinine Ratio 9 Ratio (12-20); Bilirubin,Total 2.2 mg/dL (0.3-1.2); Blood Urea Nitrogen 11 mg/dL (9-23); Calcium 8.6 mg/dL (8.3-10.6); Calcium (Corrected) 8.6 mg/dL (8.5-10.1); Carbon Dioxide 22.3 mMol/L (20.0-31.0); Chloride 112 mMol/L (98-107); Creatinine (Component) 1.2 mg/dL (0.6-1.3); Estimated Creatinine Clearance 42.1 mL/min (>60); Globulin 2.4 gm/dL (2.3-3.5); Glucose 114 mg/dL (74-106); Magnesium 1.9 mg/dL (1.6-2.6); Osmolality,Calculated 272 (275-295); Potassium 3.4 mMol/L (3.4-5.1); Sodium 136 mMol/L (136-145); Total Protein 6.4 gm/dL (5.7-8.2); Troponin I < 0.020 ng/mL (0.0-0.045); eGFR > 60 See Note
--- NOTE | 2024-10-01 16:52 | ESCONSULT_ITS ---
Tele Neuro Consultation Consultation Date 10/01/24 Most Recent Vital Signs Last Vital Signs Temp 98.9 F 10/01/24 15:48 Pulse 79 10/01/24 15:48 Resp 18 10/01/24 15:48 BP 129/66 10/01/24 15:48 Pulse Ox 95 10/01/24 15:48 O2 Del Method Room Air 10/01/24 15:48 Laboratory-Coagulation Panel PT 11.5 Seconds (9.0-12.2) 10/01/24 16:04 INR 1.1 (0.9-1.3) 10/01/24 16:04 APTT 30.8 Seconds (22.0-36.0) 10/01/24 16:04 Consultation Narrative [facility] Tele[facility]rology Consult [facility] Patient Name:???GENE ABEL Date of :???1940 Identification Number:??? Date of Service:???10/01/2024 16:00:57 Diagnosis:?G93.41 - Encephalopathy Metabolic ?R47.01 - Aphasia Impression: ?This is an 84-year-old male with history of Parkinson disease with limited mobility normally uses a walker for short distances and a wheelchair but no dementia. Prior history of stroke with recovery. History of hypertension, coronary artery disease. He is likely on Eliquis at least per last documentation his was unsure about his medication. His last known well was 9 PM yesterday when he went to sleep. ?This morning when he woke up around 830 his felt that he was not doing well he is confused he was having difficulty understanding her he did not eat so well. They eventually came to the emergency room. ?On his exam he was awake alert slow to respond. He was unable to tell me his age or month. ?He has no drift of his extremities his face is symmetric. He scored one on aphasia but his rate he is more slow to respond than anything. Speech is dysarthric. ? ?At baseline per he has no history of dementia but he has limited mobility and he requires a lot of help for his ADL this is all related to his limited mobility secondary to Parkinson disease. ? ?While this could be an acute ischemic stroke acute also acute metabolic encephalopathy is not ruled out. ?He is not a candidate for thrombolytic given the fact is outside the window. He had a CT angiogram as per hospital protocol but his modified Stamford scale is advanced I doubt will be a candidate for intervention. ? ?If there is no LVO will plan for admission for stroke/metabolic encephalopathy workup. ?Hold Eliquis until MRI is obtained and in mean time ASA 325 mg x1 now then tomorrow ASA 81 mg daily. if not able to swallow ASA 300 mg rectally daily. ?Brain MRI without contrast if this is positive we will do echocardiogram with bubble study, fasting lipid profile, hemoglobin A1c. ?Toxic metabolic workup as per routine. But at least consider CBC CMP UA, ammonia level, TSH, B12 and folic acid. ?PT, OT, speech. ?Permissive hypertension as below. ?Telemetry monitoring. ?DVT prophylaxis per primary team choice. ?Neuro to follow. ? ? Recommendations: ? Stroke/Telemetry Floor ? Neuro Checks (Q2) ? Bedside Swallow Eval ? DVT Prophylaxis ? IV Fluids, Normal Saline ? Head of Bed 30 Degrees ? Euglycemia and Avoid Hyperthermia (PRN Acetaminophen) ? Antihypertensives PRN if Blood pressure is greater than 220/120 or there is a concern for End organ damage/contraindications for permissive HTN. If blood pressure is greater than 220/120 give labetalol PO or IV or Vasotec IV with a goal of 15% reduction in BP during the first 24 hours. Sign Out: ? Discussed with Emergency Department Provider ? Discussed with Rapid Response Team Advanced Imaging:Advanced imaging has been ordered. Results pending. Metrics: Last Known Well: 09/30/2024 21:00:01 Dispatch Time: 10/01/2024 16:00:57 Arrival Time: 10/01/2024 15:38:00 Initial Response Time: 10/01/2024 16:04:58Symptoms: Confusion difficulty understanding. . Initial patient interaction: 10/01/2024 16:11:16 NIHSS Assessment Completed: 10/01/2024 16:19:00Patient is not a candidate for Thrombolytic. Thrombolytic Medical Decision: 10/01/2024 16:19:00Patient was not deemed candidate for Thrombolytic because of following reasons: LKW outside 4.[address] Head: CT head unremarkable for acute infarction or hemorrhage per Radiology: no acute findings. I personally reviewed all the CT images that were available to me and it showed: No acute finding but atrophy. Images were unavailable to me at the time of the exam, and I personally reviewed the study with attending radiologist. Primary Provider Notified of Diagnostic Impression and Management Plan on: 10/01/2024 16:32:00 History of Present Illness:Patient is a 84 year old Male. Patient was brought by private transportation with symptoms of Confusion difficulty understanding. . This is an 84-year-old male with history of Parkinson disease with limited mobility normally uses a walker for short distances and a wheelchair but no dementia. Prior history of stroke with recovery. History of hypertension, coronary artery disease. He is likely on Eliquis at least per last documentation his was unsure about his medication. His last known well was 9 PM yesterday when he went to sleep. This morning when he woke up around 830 his felt that he was not doing well he is confused he was having difficulty understanding her he did not eat so well. They eventually came to the emergency room. On his exam he was awake alert slow to respond. He was unable to tell me his age or month. He has no drift of his extremities his face is symmetric. He scored one on aphasia but his rate he is more slow to respond than anything. Speech is dysarthric. At baseline per he has no history of dementia but he has limited mobility and he requires a lot of help for his ADL this is all related to his limited mobility secondary to Parkinson disease. ? Past Medical History: ?Hypertension ?Coronary Artery Disease ?There is no history of Stroke Medications: Anticoagulant use:??Yes?? Eliquis. No Antiplatelet use Reviewed EMR for current medications Allergies:? Reviewed Social History: Smoking: No Alcohol Use: No Family History: There is no family history of premature cerebrovascular disease pertinent to this consultation ROS : 14 Points Review of Systems was performed and was negative except mentioned in HPI. Past Surgical History: There Is No Surgical History Contributory To Today?s Visit ? Examination: BP(157/68),?Pulse(77), 1A: Level of Consciousness - Alert; keenly responsive?+ 0 1B: Ask Month and Age - Could Not Answer Either Question Correctly?+ 2 1C: Blink Eyes & Squeeze Hands - Performs Both Tasks?+ 0 2: Test Horizontal Extraocular Movements - Normal?+ 0 3: Test Visual Patton - No Visual Loss?+ 0 4: Test Facial Palsy (Use Grimace if Obtunded) - Normal symmetry?+ 0 5A: Test Left Arm Motor Drift - No Drift for 10 Seconds?+ 0 5B: Test Right Arm Motor Drift - No Drift for 10 Seconds?+ 0 6A: Test Left Leg Motor Drift - No Drift for 5 Seconds?+ 0 6B: Test Right Leg Motor Drift - No Drift for 5 Seconds?+ 0 7: Test Limb Ataxia (FNF/Heel-Enciso) - No Ataxia?+ 0 8: Test Sensation - Normal; No sensory loss?+ 0 9: Test Language/Aphasia - Mild-Moderate Aphasia: Some Obvious Changes, Without Significant Limitation?+ 1 10: Test Dysarthria - Mild-Moderate Dysarthria: Slurring but can be understood?+ 1 11: Test Extinction/Inattention - No abnormality?+ 0 NIHSS Score:?4 Pre-Morbid Modified Stamford Scale:4 Points = Moderately severe disability; unable to walk and attend to bodily needs without assistance Spoke with :?ER provider. This consult was conducted in real time using interactive audio and video technology. Patient was informed of the technology being used for this visit and agreed to proceed. Patient located in hospital and provider located at home/office setting. Patient is being evaluated for possible acute neurologic impairment and high probability of imminent or life-threatening deterioration. I spent total of 60 minutes providing care to this patient, including time for face to face visit via telemedicine, review of medical records, imaging studies and discussion of findings with providers, the patient and/or family. Dr Kisha Carty [facility] For Inpatient follow-up with [facility] physician please call [facility] at . As we are not an outpatient service for any post hospital discharge needs please contact the hospital for assistance. If you have any questions for the [facility] physicians or need to reconsult for clinical or diagnostic changes please contact us via [facility] at . ?
[2024-10-01 17:01] LABS: B-Type Natriuretic Peptide 84 pg/mL (0-100)
[2024-10-01] MEDS: SODIUM CHLORIDE 0.9% 1000 ML 1,000 ML 100 ML IV (17:02)
[2024-10-01 17:20] LABS: Collection Type, Urine Catheter; Squamous Epithelial Cell,Urine 0 /hpf (0-5)
[2024-10-01 17:37] LABS: Bilirubin,Urine Negative (Negative); Blood,Urine Trace (Negative); Clarity,Urine Clear (Clear/Hazy); Color,Urine Drk-Yellow (Lt Yel-Yel); Glucose, Urine Negative (Negative); Ketones,Urine 1+ (Negative); Leukocyte Esterase,Urine Negative (Negative); Nitrite,Urine Negative (Negative); Protein,Urine Negative (Neg - Trace); RBC,Urine 2 /hpf (0-3); Specific Gravity,Urine 1.044 (1.001-1.035); Urobilinogen,Urine Negative mg/dL (0.0-1.0); WBC,Urine 1 /hpf (0-5)
[2024-10-01 17:47] LABS: Amphetamine/Methamp Scrn,U Negative (Negative); Barbiturate Screen,Urine Negative (Negative); Benzodiazepines Screen,Urine Negative (Negative); Benzoylecgonine Screen, Ur Negative (Negative); Fentanyl Screen,Urine Negative (Negative); Opiate Screen,Urine Positive (Negative); THC Screen,Urine Negative (Negative)
[2024-10-01] MEDS: Aspirin 325 MG TABLET PO (17:48)
--- NOTE | 2024-10-01 17:57 | ESHP_ITS ---
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 After breakfast this morning, patient appeared to be confused and unable to communicate clearly/difficult to understand. Daughter at bedside states that when she had arrived patient was disoriented, could not control his balance, and was difficult to understand and so brought him to the ED. In ED teleneurology was consulted and upon their evaluation patient was awake and alert but slow to respond, unable to tell age or month. NIHSS score of 4, patient not a candidate for thrombolytics given that last known well was approximately 9 PM night prior to admission. Patient subsequently given aspirin 325 mg x 1 and started on maintenance fluids. CT head negative for acute hemorrhage, mass effect, or midline shift but did note a small and old infarct in the left cerebellar hemisphere. CTA head/neck did not show any significant neck arterial stenoses or large vessel occlusions. EKG showed NSR with first- degree block and moderate conduction delay. Upon presentation vital signs stable, CBC unremarkable, CHEM panel showed T. bili 2.2 but otherwise unremarkable. UA showed 1+ ketones but no signs of infection. U tox positive for opiates. 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, CAD status post CABG x 3, A-flutter on Eliquis, prostate cancer, hypertension, hyperlipidemia, and GERD Medications: family at bedside did not bring medications but will bring tomorrow PSHx: CABG x3 SHx: denies smoking, alcohol, or illicit drug use Allergies: NKDA Review of Systems Review of Systems Systems Reviewed: All systems reviewed, normal except as documented Exam Vital Signs Temp Pulse Resp BP Pulse Ox O2 Del Method 98.9 F 82 26 H 147/43 H 97 Room Air 10/01/24 15:48 10/01/24 17:00 10/01/24 17:00 10/01/24 17:00 10/01/24 17:00 10/01/24 15:48 Narrative Exam General: alert and oriented to self/birthdate/place/year, no acute distress, able to speak full sentences HEENT: NC/AT, mucous membranes moist, bilateral sclera anicteric Cardiovascular: regular rate and rhythm, S1/S2 present, no murmurs appreciated Pulmonary: clear to auscultation bilaterally, no rales/rhonchi/wheezes Abdominal: soft, non-tender, non-distended, no rebound/guarding, normal bowel sounds present Musculoskeletal: normal ROM, no peripheral edema Skin: warm and dry, intact, no rashes Neuro: CN II-XII intact, no focal deficits Results: Labs 10/01/24 16:04 10/01/24 16:04 Labs: Short CBC 10/01/24 Range/Units 16:04 WBC 9.4 (3.8-10.6) Thou/mm3 Hgb 12.0 L (13.5-16.0) g/dL Hct 32.1 L (41.0-53.0) % Plt Count 166 (140-440) Thou/mm3 BMP 10/01/24 16:04 Sodium 136 Potassium 3.4 Chloride 112 H Carbon Dioxide 22.3 BUN 11 Creatinine 1.2 Glucose 114 H Calcium 8.6 Cardiac Enzymes 10/01/24 Range/Units 16:04 Troponin I < 0.020 (0.0-0.045) ng/mL Liver Function 10/01/24 Range/Units 16:04 Total Bilirubin 2.2 H (0.3-1.2) mg/dL AST 19 (0-34) U/L ALT < 7 L (10-49) U/L Alkaline Phosphatase 73 (46-116) U/L Albumin 4.0 (3.4-4.8) gm/dL ABG Interpretation ABG results: 10/01/24 16:04 VBG pH 7.46 VBG pCO2 33 L VBG pO2 49 VBG Base Excess 0 Quality Measures Quality Measures stroke Suspected type of Stroke: Non Acute Last known well (date): 09/30/24 Last known well (time): 21:00 Tenecteplase given: Reason(s) Tenecteplase not given: Use of NOAC (eliquis, xarelto, or pradaxa) not given Rehab services: PT evaluation ordered VTE Prophylaxis: pharmaceutical Antithrombotic by day 2:: not indicated (describe) Statin ordered: >75 y/o moderate or high intensity dose Anticoagulation ordered for A-fib or flutter (current or hx): not indicated Advance care planning discussed with:: patient, significant other and child Medications Home Medications and Allergies Home Medications ?Medication ?Instructions ?Recorded ?Confirmed ?Type simvastatin 40 mg tablet (Zocor) 40 mg PO HS CHOLESTER OL #0 tabs 06/12/14 01/20/24 History tamsulosin 0.4 mg capsule (Flomax) 0.4 mg PO QDAY Pros wong ##0 06/12/14 01/20/24 History solifenacin 10 mg tablet 10 mg PO QDAY 03/03/2201/19 History Allergies Allergy/AdvReac Type Severity Reaction Status Date / Time No Known Allergies Allergy Verified 10/01/24 15:43 Visit Medications Acetaminophen (Acetaminophen 325 Mg Tablet) 650 mg PO Q6H PRN PRN Reason: PAIN OR FEVER > 100.4 Stop: 10/31/24 17:48 Sodium Chloride (Ns) 1,000 mls @ 100 mls/hr IV Q10H ARIAN Stop: 10/31/24 16:14 Last Admin: 10/01/24 17:02 Dose: 100 mls/hr Ondansetron HCl (Ondansetron Inj 2 Mg/Ml Inj 2 Ml) 4 mg IVP Q6H PRN; Protocol PRN Reason: NAUSEA OR VOMITING Stop: 10/31/24 17:48 Pantoprazole Sodium (Pantoprazole Inj 40 Mg Vial) 40 mg IVP QDAY ARIAN Stop: 11/01/24 08:59 Discontinued Medications Aspirin (Aspirin 325 Mg Tablet) 325 mg PO X1 ONE Stop: 10/01/24 17:13 Last Admin: 10/01/24 17:48 Dose: 325 mg Assessment & Plan Plan Mac Brar is an 84-year-old male with a past medical history of stroke, 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 #Acute encephalopathy secondary to possible stroke #Dysarthria #History of stroke #Stroke rule-out Presented after noted being encephalopathic this morning with associated dysarthria. Initial NIHSS score of 4, not candidate for thrombolytics. Given aspirin 325 mg x [address] head negative but did note a small and old infarct in the left cerebellar hemisphere. CTA head/neck did not show any significant neck arterial stenoses or large vessel occlusions. EKG showed NSR with first- degree block and moderate conduction delay. UA showed 1+ ketones but no signs of infection. U tox positive for opiates. ? In-house neurology following, appreciate recommendations ? MR stroke protocol ? Echo with bubble study ? Aspirin 81 mg, atorvastatin 80 mg ? Follow-up TSH, A1c, lipid panel ? Every 4 hours neurochecks ? Speech therapy, n.p.o. until evaluation ? Physical therapy ? Permissive hypertension; labetalol 10 mg IV as needed if BP >2 20/120 or concern for endorgan damage #Parkinson's disease without dementa ? Pending med rec #CAD s/p CABG x3 ? On aspirin and statin as above #Atrial flutter on eliquis ? Eliquis held #Hyperlipidemia ? Atorvastatin as above #History of prostate cancer #Hypertension ? Permissive hypertension for 24 hours Hospital management: Disposition: stroke rule-out, pending MRI/echo, neuro recs Fluids: NS at 100 cc/hr Diet: NPO until speech evaluation Lines: PIV DVT prophylaxis: SCDs GI prophylaxis: pantoprazole CODE STATUS: full code ----- Plan discussed with attending physician Dr. Melchor Rodarte MD PGY-1 Internal Medicine Attending Provider Attestation/Addendum I have examined the patient, reviewed labs and imaging findings, discussed the case with the resident(s), and reviewed entered orders. I agree with the plan of care as outlined in this note, with these additional summaries/recommendations: After examination of the patient and review of the clinical data, I feel that this patient needs admission to the hospital for further treatment and evaluation. Patient is a 84-year-old male with a medical history of Parkinson's disease, primary hypertension, neuropathy, hyperlipidemia, chronic pain, previous CVA, CAD status post CABG, BPH, and on Eliquis for unknown reason presents to [facility] emergency department on 10/01/2024 with chief complaints of altered mental status. Patient seen at bedside. Stroke alert was called in the emergency room. Patient was seen by teleneurology. CT head was negative for acute hemorrhage, mass effect or midline shift. CTA head and neck showed no LVO. Teleneurology recommends admission for CVA rule out. Aspirin 325 mg p.o. x 1. Start aspirin 81 mg p.o. daily. Start high intensity statin. Consult in-house neurology, recommendations appreciated. Consult physical therapy and speech therapy. If MRI positive we will obtain echocardiogram with bubble study, lipid panel, A1c. At bedside now patient appears to be trending back towards baseline. Possible acute encephalopathy secondary to Parkinson medications. Order TSH. Urinalysis pending to rule out urinary tract infection. Order B12 and folic acid. If passes swallow screen then okay to resume home Parkinson's meds. Family is unsure why patient is taking Eliquis although we will hold now anyways until MRI brain complete. Will allow permissive hypertension for the first 24 hours. Hyperbilirubinemia present on chemistry panel although no abdominal complaints at this time. Monitor for now and will order further workup if worsens. Patient and family updated on the plan at bedside and in agreement. All questions answered to satisfaction. Please see residents note for additional details and management. Dr. Melchor MD
--- NOTE | 2024-10-01 20:13 | PC.NURSE ---
Report call to floor nurse, FORTINO Giang
--- NOTE | 2024-10-01 21:00 | PC.NURSE ---
MADE DAUGHTER TRIXIE AND PAMELA AT BEDSIDE AWARE OF TO BRING HOME MEDS/LIST FROM HOME. TRIXIE RELAYED INFORMATION TO PT'S VIA PHONE. STATES WILL BRING TOMORROW.
--- NOTE | 2024-10-01 21:00 | PC.NURSE ---
SPOKE WITH DR. ERNST, PT PASSED BEDSIDE SWALLOW. PER MD, OK TO GIVE MEDS AND ENSURE PROVIDED BY FAMILY. PT WITH COMPLAINTS OF LEFT SIDE ARM, LEG, RIB CAGE, AND MID BACK PAIN. PER FAMILY, NO RECENT FALLS THEY ARE AWARE OF. INCREASE PAIN TO BACK WITH INSPIRATION. NO OBVIOUS SIGNS OF TRAUMA. OK TO GIVE TYLENOL FOR PAIN.
--- NOTE | 2024-10-01 21:21 | PC.NURSE ---
spoke with Dr. Chin, pt coughing when taking pills one by one, sitting upright. Will make pt strict NPO at this time. Tylenol to be changed to [place].
[2024-10-01] MEDS: ATORVASTATIN CALCIUM 20 MG TABLET 80 MG PO (21:26)
[2024-10-01] MEDS: ACETAMINOPHEN SUPP 650 MG SUPP PR (22:11)
[2024-10-02] VITALS (8 sets, daily range): BP systolic 127–144; BP diastolic 54–73; PULSE 56–83; RESP 16–98; TEMP 36.6–37.4; O2SAT 94–96; BMI 22.7; BMI 12.0
--- NOTE | 2024-10-02 02:19 | PC.NURSE ---
DR. ZULETA NOTIFIED OF 1 MINUTE EPISODE OF AFLUTTER HR 155. ASYMPTOMATIC. PT NOW BACK TO SR HR 60'S. ELIQUIS ON HOLD FOR NOW. ASA 325 MG GIVEN IN ED. NO NEW ORDERS FOR NOW.
[2024-10-02] MEDS: SODIUM CHLORIDE 0.9% 1000 ML 1,000 ML 100 ML IV ×2 (04:35→16:17)
[2024-10-02 06:52] LABS: Basophils % (Auto) 0 % (0-2.5); Eosinophils % (Auto) 0 % (0-10); Hematocrit 32.8 % (41.0-53.0); Hemoglobin 12.4 g/dL (13.5-16.0); Immature Granulocytes % (Auto) 0 % (0-0); Immature Granulocytes Auto 0.04 Thou/mm3 (0.00-0.00); Lymphocytes % (Auto) 11 % (10-50); Mean Corpuscular HGB Conc 37.8 g/dl (31.0-37.0); Mean Corpuscular Hemoglobin 32.5 pg (25.0-35.0); Mean Corpuscular Volume 86 fL (80-100); Monocytes % (Auto) 10 % (0-12); Neutrophils # (Auto) 7.5 Thou/mm3 (1.8-7.7); Neutrophils % (Auto) 78 % (37-80); Nucleated Red Blood Cell % 0 /100 WBC (0); Platelet Count 135 Thou/mm3 (140-440); RDW Standard Deviation 39.2 fL (35.1-43.9); Red Blood Count 3.81 Miln/mm3 (4.50-5.90); White Blood Count 9.6 Thou/mm3 (3.8-10.6)
--- NOTE | 2024-10-02 08:19 | ESPR_ITS ---
Documentation for date of: 10/02/24 Subjective Subjective Interval history: The patient was seen and examined at the bedside. No acute overnight events. Today, the patient reported right-sided chest pain, described as musculoskeletal and worse with deep breaths. Chest X-ray showed no acute fracture but did reveal findings consistent with pneumonia. A lidocaine patch was applied for pain relief. Due to pleuritic chest pain and X-ray findings, the patient was started on azithromycin. CBC was within normal limits with no leukocytosis. CMP showed mild hypokalemia and hypophosphatemia, both of which were replaced. MRI of the brain showed no acute hemorrhage, mass, or midline shift but did reveal microvascular changes. Neurology was consulted and recommended starting Plavix; the patient will continue aspirin, atorvastatin, and home carbidopa/levodopa. Patient will also work with physical therapy. Final neurology recommendations are pending. Echo is pending The plan was discussed with the patient?s family at the bedside. Exam Vital Signs Temp Pulse Resp BP Pulse Ox O2 Del Method 98.8 F 83 22 H 144/61 H 96 Room Air 10/02/24 04:00 10/02/24 07:09 10/02/24 07:09 10/02/24 04:00 10/02/24 04:00 10/02/24 04:00 Narrative Exam General: alert and oriented to self/birthdate/place/year, no acute distress, able to speak full sentences HEENT: NC/AT, mucous membranes moist, bilateral sclera anicteric Cardiovascular: regular rate and rhythm, S1/S2 present, no murmurs appreciated Pulmonary: clear to auscultation bilaterally, no rales/rhonchi/wheezes Abdominal: soft, non-tender, non-distended, no rebound/guarding, normal bowel sounds present Musculoskeletal: normal ROM, no peripheral edema Skin: warm and dry, intact, no rashes Neuro: CN II-XII intact, no focal deficits however limited exam Objective Labs 10/02/24 06:12 10/02/24 04:37 Labs: Laboratory Results - last 24 hr 10/01/24 10/01/24 10/02/24 16:04 17:15 06:12 WBC 9.4 9.6 RBC 3.74 L 3.81 L Hgb 12.0 L 12.4 L Hct 32.1 L 32.8 L MCV 86 86 MCH 32.1 32.5 MCHC 37.4 H 37.8 H RDW Std Deviation 38.7 39.2 Plt Count 166 135 L D Neut % (Auto) 80 78 Lymph % (Auto) 9 L 11 Wirt % (Auto) 10 10 Eos % (Auto) 0 0 Baso % (Auto) 0 0 Neut # (Auto) 7.5 7.5 Lymph # (Auto) 0.9 L 1.0 Wirt # (Auto) 1.0 H 1.0 H Eos # (Auto) 0.0 0.0 Baso # (Auto) 0.0 0.0 Immature Gran # (Auto) 0.04 H 0.04 H Absolute Nucleated RBC 0.00 0.00 Immature Gran % 0 0 Nucleated RBC % 0 0 PT 11.5 INR 1.1 APTT 30.8 VBG pH 7.46 VBG pCO2 33 L VBG pO2 49 VBG O2 Sat (Jeff) 88 L VBG Base Excess 0 Sodium 136 Potassium 3.4 Chloride 112 H Carbon Dioxide 22.3 Anion Gap 2 L BUN 11 Creatinine 1.2 Estim Creat Clear Calc 42.1 L eGFR > 60 BUN/Creatinine Ratio 9 L Glucose 114 H Calculated Osmolality 272 L Calcium 8.6 Corrected Calcium 8.6 Magnesium 1.9 Total Bilirubin 2.2 H AST 19 ALT < 7 L Alkaline Phosphatase 73 Troponin I < 0.020 B-Natriuretic Peptide 84 Total Protein 6.4 Albumin 4.0 Globulin 2.4 Albumin/Globulin Ratio 1.7 Ur Collection Type Catheter Urine Color Drk-Yellow A Urine Clarity Clear Urine pH 6.0 Ur Specific [place] 1.044 H Urine Protein Negative Urine Glucose (UA) Negative Urine Ketones 1+ A Urine Blood Trace Urine Nitrite Negative Urine Bilirubin Negative Urine Urobilinogen (Auto) Negative Ur Leukocyte Esterase Negative Urine RBC 2 Urine WBC 1 Ur Squamous Epith Cells 0 Urine Bacteria None Urine Opiates Screen Positive A Urine Fentanyl Screen Negative Ur Barbiturates Screen Negative U Amphetamin/Meth Scrn Negative U Benzodiazepines Scrn Negative U Cocaine Metab Screen Negative U Marijuana (THC) Screen Negative Ethyl Alcohol < 10.0 ABG Interpretation ABG results: 10/01/24 16:04 VBG pH 7.46 VBG pCO2 33 L VBG pO2 49 VBG Base Excess 0 Quality Measures Quality Measures stroke Suspected type of Stroke: Non Acute Last known well (date): 09/30/24 Last known well (time): 08:00 Tenecteplase given: Reason(s) Tenecteplase not given: Use of NOAC (eliquis, xarelto, or pradaxa) not given Rehab services: PT evaluation ordered VTE Prophylaxis: mechanical Antithrombotic by day 2:: not indicated (describe) Statin ordered: >75 y/o moderate or high intensity dose Anticoagulation ordered for A-fib or flutter (current or hx): not indicated Advance care planning discussed with:: spouse and child Assessment & Plan Assessment Current Active Medications: Generic Name Dose Route Start Last Admin Trade Name Freq PRN Reason Stop Dose Admin Acetaminophen 650 mg 10/01/24 21:21 10/01/24 22:11 Acetaminophen Supp 650 Mg Supp NH 10/31/24 21:20 650 mg Q6HR PRN Administration Pain Or Fever > 100.4 Aspirin 81 mg 10/02/24 09:00 Aspirin Ec 81 Mg Tabec PO 11/01/24 08:59 QDAY ARIAN Atorvastatin Calcium 80 mg 10/01/24 21:00 10/01/24 21:26 Atorvastatin Calcium 20 Mg Tablet PO 10/31/24 20:59 60 mg HS ARIAN Administration Sodium Chloride 1,000 mls @ 100 mls/hr 10/01/24 16:15 10/02/24 04:35 Ns IV 10/31/24 16:14 100 mls/hr Q10H ARIAN Administration Labetalol HCl 10 mg 10/01/24 18:12 Labetalol Inj 5 Mg/Ml Vial 20 Ml IVP 10/31/24 18:14 Q6H PRN hypertention Ondansetron HCl 4 mg 10/01/24 17:49 Ondansetron Inj 2 Mg/Ml Inj 2 Ml IVP 10/31/24 17:48 Q6H PRN NAUSEA OR VOMITING Protocol Pantoprazole Sodium 40 mg 10/02/24 09:00 Pantoprazole Inj 40 Mg Vial IVP 11/01/24 08:59 QDAY ARIAN Plan aMc Brar is an 84-year-old male with a past medical history of stroke, 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 #Acute encephalopathy secondary to TIA versus metabolic?resolved #Dysarthria #History of stroke #TIA Presented after noted being encephalopathic this morning with associated dysarthria. Initial NIHSS score of 4, not candidate for thrombolytics. Given aspirin 325 mg x [address] head negative but did note a small and old infarct in the left cerebellar hemisphere. CTA head/neck did not show any significant neck arterial stenoses or large vessel occlusions. EKG showed NSR with first- degree block and moderate conduction delay. UA showed 1+ ketones but no signs of infection. U tox positive for opiates. 10/02 MRI is negative for hemorrhage, mass or midline shift revealed microvascular changes A1c, TSH within normal limits Speech therapy evaluated the patient, patient started on appropriate diet ? Follow-up echo with bubble study ? Continue aspirin 81 mg, atorvastatin 80 mg ? Started Plavix 75 mg daily ? Will follow-up with vitamin B-12 and folate ? Every 4 hours neurochecks ? Physical therapy ? Permissive hypertension; labetalol 10 mg IV as needed if BP >2 20/120 or concern for endorgan damage ? Final neurology recommendations are pending, will follow-up #Parkinson's disease without dementa ?Restarted home carbidopa levodopa per neurology recommendations #Pleuritic chest pain #PNA seen on chest x-ray ? Started azithromycin 500 mg daily for 3 more days ? Pain managed with topical lidocaine #CAD s/p CABG x3 ? On aspirin and statin as above #Atrial flutter on eliquis ? Kailash zaman, is at bedside who is primary associate store leader, stated that she is not sure if patient was on Eliquis or not, however it was listed in his home medication. Looks like patient was not actively taking them. #Hyperlipidemia ? Atorvastatin as above #History of prostate cancer #Hypertension ? Permissive hypertension for 24 hours Hospital management: Disposition: Patient is coming from home for CVA/TIA workup. Echo, PT and neuro recs Diet: Dysphagia 3 Lines: PIV DVT prophylaxis: SCDs GI prophylaxis: pantoprazole CODE STATUS: full code Patient care was discussed with attending physician Dr. Alexander Murcia MD PGY-2 Attending Provider Attestation/Addendum I attest that I was physically present for the evaluation, physical examination, lab and imaging review of the patient with the residents. I discussed the case with the residents and agree with the findings and plans of care as documented above. At bedside today, patient appears comfortable. ?Denies any new complaints.? Potassium is 3.3, phosphate 1.9, repleted accordingly.? Brain MRI with MRA came back negative for acute infarcts, only shows chronic microvascular changes.? Discussed with neurology, recommended to continue patient on aspirin, Plavix and statin.? Family stated patient is complaining of left-sided chest and back pain, EKG and troponin were negative.? We will obtain chest x-ray, will start on lidocaine patch if pain continues.? Awaiting physical therapy evaluation, echocardiography and neurology recommendations. Duane Munoz MD
[2024-10-02] MEDS: ASPIRIN EC 81 MG TABEC PO (08:42)
[2024-10-02] MEDS: PANTOPRAZOLE INJ 40 MG VIAL IVP (08:42)
--- NOTE | 2024-10-02 09:12 | PCS.ST ---
Swallow Evaluation completed. See report for details. No s/s of aspiration. Dysphagia 3 diet/Reg liquids.
[2024-10-02 09:15] LABS: Glucose Estimated Average 71 mg/dL (80-131); Hemoglobin A1C 4.1 % Hgb (4.8-6.0)
[2024-10-02 09:32] LABS: Alanine Aminotransferase 11 U/L (10-49)
[2024-10-02 09:33] LABS: Alkaline Phosphatase 63 U/L (46-116); Anion Gap 2 (7-16); Aspartate Amino Transferase 17 U/L (0-34); BUN/Creatinine Ratio 11 Ratio (12-20); Blood Urea Nitrogen 10 mg/dL (9-23); Calcium 8.5 mg/dL (8.3-10.6); Carbon Dioxide 25.2 mMol/L (20.0-31.0); Cardiac Risk Estimate 2.9 RATIO (4.0-6.7); Chloride 113 mMol/L (98-107); Cholesterol 102 mg/dL (132-200); Creatinine (Component) 0.9 mg/dL (0.6-1.3); Estimated Creatinine Clearance 56.1 mL/min (>60); Glucose 104 mg/dL (74-106); HDL Cholesterol 35 mg/dL (40-60); LDL Cholesterol,Calculated 53 mg/dL (0-130); Magnesium 2.1 mg/dL (1.6-2.6); Osmolality,Calculated 278 (275-295); Phosphorous 1.9 mg/dL (2.4-5.1); Potassium 3.3 mMol/L (3.4-5.1); Sodium 140 mMol/L (136-145); Total Protein 5.7 gm/dL (5.7-8.2); Triglycerides 68 mg/dL (30-150); eGFR > 60 See Note
--- NOTE | 2024-10-02 09:36 | PC.NURSE ---
PATIENT'S BROUGHT IN AN INCOMPLETE HAND WRITTEN MEDIATION LIST, WAS ASK TO BRING THE MEDICATION BOTTLES, SHE VERBALIZE UNDERSTANDING.
[2024-10-02 10:00] LABS: Albumin, Serum 3.4 gm/dL (3.4-4.8); Albumin/Globulin Ratio 1.5 (1.2-2.2); Calcium (Corrected) 8.8 mg/dL (8.5-10.1); Globulin 2.3 gm/dL (2.3-3.5)
--- NOTE | 2024-10-02 10:02 | PC.SS ---
Update: Echo is pending. Neurology is consulting.
--- NOTE | 2024-10-02 10:37 | XR_ITS ---
Examination: AP chest single view Technique one AP portable semiupright chest single view Date and time: 02/01/2025 1051 hours Comparison January 18, 2024 INDICATIONS: Acute chest pain today. FINDINGS: Significant pneumonia left base obscuring detail left hemidiaphragm Small to moderate left pleural effusion No significant cardiac enlargement Median sternotomy wires Mild vascular congestion IMPRESSION: Significant pneumonia left base
[2024-10-02] MEDS: CLOPIDOGREL BISULFATE 75 MG TABLET PO (11:37)
[2024-10-02] MEDS: LIDOCAINE 5% 1 PATCH TOP (12:08)
[2024-10-02] MEDS: NAPH,KPH MBDB 1 PACKET (1.5 GM) PO (14:28)
[2024-10-02] MEDS: AZITHROMYCIN 250 MG TABLET 500 MG PO (14:28)
[2024-10-02] MEDS: POTASSIUM CHLORIDE 20 mEq TABCR 40 MEQ PO (14:28)
--- NOTE | 2024-10-02 14:29 | PC.PT ---
Patient is okay to transfer to bedside commode with a FWW and 1 staff assist. RN made aware.
--- NOTE | 2024-10-02 16:44 | PC.SS ---
HAND BLOCKER conducted bedside contact with the patient conduct initial assessment and to discuss discharge planning.? At bedside with patient was spouse, Marlen Brar .? Information obtained from spouse.? Patient resides at home with spouse.? Patient is retired.? Patient utilizes a walker to assist with ambulation.? Patient does not utilize home oxygen. ?Patient requires assistance with the completion of ADL?s.? Patient?s spouse assists the patient with completion of ADL?s. Patient?s surrogate medical decision maker is spouse, Marlen Brar.? Patient?s PCP is Dr. Hartley.? Patient?s actuarial trainee is Dr. Allan.? Dr. Oakes is the patient?s neurologist.? Patient utilizes [facility] for medication services.? Spouse informed HAND BLOCKER that patient is aligned with [facility].? Spouse wants to resume hospice services upon the patient?s discharge.? Plan is for the patient to return home at the time of discharge.? Family will provide transportation on behalf of the patient. ?No further discharge needs identified by the patient.? No further intervention required at this time, school social worker will be available to address any further concerns.? Next of Kin: Marlen Caminoza D/C Plan: Home
--- NOTE | 2024-10-02 17:54 | ECHO_ITS ---
Transthoracic Echo Report Ht (in): 66 Wt (lb): 140 Exam Location: Echo Lab Status: Inpatient Product Communications Manager: Princess Parish Indications: Procedure Performed: BP: 144 / 61 HR: 65 Technical Quality: Adequate MEASUREMENTS (Male / Female) Normal Values 2D ECHO LV Diastolic Diameter PLAX 4.1 cm 4.2 - 5.9 / 3.9 - 5.3 cm LV Systolic Diameter PLAX 3.1 cm IVS Diastolic Thickness 0.9 cm 0.6 - 1.0 / 0.6 - 0.9 cm LVPW Diastolic Thickness 0.9 cm 0.6 - 1.0 / 0.6 - 0.9 cm LV Relative Wall Thickness 0.4 LVOT Diameter 2.1 cm LA Volume Index 40.7 cm?/m? 16 - 28 cm?/m? DOPPLER AV Peak Velocity 133.0 cm/s AV Peak Gradient 7.1 mmHg AI Peak Velocity 361.0 cm/s AI Peak Gradient 52.1 mmHg AI Pressure Half Time 399.0 ms LVOT Peak Velocity 64.5 cm/s LVOT Peak Gradient 1.7 mmHg AV Area Cont Eq pk 1.7 cm? MV Area PHT 3.1 cm? Mitral E Point Velocity 61.6 cm/s Mitral A Point Velocity 83.9 cm/s Mitral E to A Ratio 0.7 LV E' Lateral Velocity 6.0 cm/s Mitral E to LV E' Lateral Ratio 10.3 LV E' Septal Velocity 4.6 cm/s Mitral E to LV E' Septal Ratio 13.5 TR Peak Velocity 228.5 cm/s TR Peak Gradient 20.9 mmHg PV Peak Velocity 132.0 cm/s PV Peak Gradient 7.0 mmHg FINDINGS Left Ventricle Normal left ventricular size, wall thickness, systolic function with no obvious regional wall motion abnormalities. Normal left ventricular diastolic filling pattern for age. The ejection fraction is visually estimated at 55%. Right Ventricle The right ventricle is normal in size with moderately reduced systolic function. The estimated right ventricular systolic pressure, 27 mmHg. RAP 5mmHg. Left Atrium The left atrium is moderate left atrial enlargement. Right Atrium The right atrium is severe right atrial enlargement. Atrial Septum Aneursmal atrial septum without shunt per color Doppler. Agitated saline bubble study negative for PFO/ASD. Aorta The aorta is normal by two-dimensional, color flow and Doppler interrogation. Mitral Valve The mitral valve is normal by two-dimensional, color flow and Doppler interrogation. There is trace mitral regurgitation. Aortic Valve The aortic valve is trileaflet and normal by two-dimensional, color flow and Doppler interrogation. There is trace aortic regurgitation. Tricuspid Valve The tricuspid valve is normal by two-dimensional, color flow and Doppler interrogation. There is trace tricuspid regurgitation. Pulmonic Valve The pulmonic valve is not well visualized. There is no significant pulmonic valve regurgitation. Vessels The pulmonary artery appears normal. The inferior vena cava pulmonary and hepatic veins appear normal. Pericardium The pericardium is normal by two-dimensional imaging. There is no significant pericardial effusion. CONCLUSIONS Indications: CVA Normal left ventricular size and function. Approximate ejection fraction is 50-55%. Normal size RV with moderate systolic dysfunction. RVSP 27mmHg. RAP 5mmHg. Trace mitral and trace tricuspid regurgitation noted. Bubble study negative for PFO/ASD. No pericardial effusion. Maura Lambert (Electronically Signed) Final Date: 02 October 2024 23:58
[2024-10-02 19:19] LABS: Thyroid Stimulating Hormone 2.55 uIU/mL (0.55-4.78)
[2024-10-02] MEDS: ATORVASTATIN CALCIUM 20 MG TABLET 80 MG PO (21:14)
--- NOTE | 2024-10-02 21:27 | PC.NURSE ---
PT'S COLT CONTACTED FOR HOME MED [id number] AND SHE WILL BRING IN MED IN AM. DR. ERNST NOTIFIED OF MED UNOBTAINABLE TONIGHT AND OK TO START IN AM WHEN AVAILABLE.
--- NOTE | 2024-10-02 22:01 | PD.NEUROPROG ---
Documentation for date of: 10/02/24 Subjective Subjective Interval history: Patient was seen in telemetry today without any new symptoms, significant improvement noted in mental status, less tremors and more stengthening of his limbs. Exam - Neurology Vital Signs Temp Pulse Resp BP Pulse Ox O2 Del Method 98.9 F 67 16 128/59 L 95 Room Air 10/02/24 20:00 10/02/24 20:00 10/02/24 20:00 10/02/24 20:00 10/02/24 20:00 10/02/24 20:00 Narrative Exam GENERAL APPEARANCE: Well hydrated, well-nourished in no acute distress. HEENT: Normocephalic, atraumatic, extraocular movements intact. Pupils: Equal reacting to light and accommodation, tympanic membranes are bilaterally intact. There is no bulge or retraction. Throat without erythema or exudate. Moist oral mucosa. NECK: Supple, no JVD or bruits. CARDIOVASULAR: Heart: S1, S2 heard, regular without S3-S4 or murmur no rubs or gallops. LUNGS/CHEST: Clear to auscultation bilaterally. No rails, rhonchi, or wheezing. Normal inspection. ABDOMEN: Soft, nontender, with normal bowel sounds. No pulsatile masses. No rebound, rigidity, or guarding. Normal inspection and palpation. EXTREMITIES: Normal inspection and palpation. No edema, clubbing or cyanosis. SKIN: Warm and dry without rashes. Normal inspection. MUSCULOSKELETAL: No cervical, thoracic, lumbar or midline bony tenderness. Normal inspection. NEURO: Alert, awake and oriented x3. Cranial nerves: II through XII grossly intact. Speech and language: Normal with no dysarthria or dysphasia. Motor system: Tone and bulk: Normal: Strength: moves all 4 extremities; No pronator drift noted. Deep tendon reflexes: 2+ bilaterally symmetrical. Plantar reflex: Downgoing bilaterally. Sensory system: Intact to all modalities of sensation bilaterally. Coordination: Intact to mrenbb-ulql-nxvkc and cesk-rfji-nasv test bilaterally. No ataxia, no dysmetria, or dysdiadochokinesia noted. He has resting UE tremors noted. Gait: walks with walker when he stood up with assistance. No signs of meningeal irritation noted. PSYCHIATRIC: Normal mood and affect. Objective Labs 10/02/24 06:12 10/02/24 04:37 Labs: Laboratory Results - last 24 hr 10/02/24 10/02/24 04:37 06:12 WBC 9.6 RBC 3.81 L Hgb 12.4 L Hct 32.8 L MCV 86 MCH 32.5 MCHC 37.8 H RDW Std Deviation 39.2 Plt Count 135 L D Neut % (Auto) 78 Lymph % (Auto) 11 Pershing % (Auto) 10 Eos % (Auto) 0 Baso % (Auto) 0 Neut # (Auto) 7.5 Lymph # (Auto) 1.0 Pershing # (Auto) 1.0 H Eos # (Auto) 0.0 Baso # (Auto) 0.0 Immature Gran # (Auto) 0.04 H Absolute Nucleated RBC 0.00 Immature Gran % 0 Nucleated RBC % 0 Sodium 140 Potassium 3.3 L Chloride 113 H Carbon Dioxide 25.2 Anion Gap 2 L BUN 10 Creatinine 0.9 Estim Creat Clear Calc 56.1 L eGFR > 60 BUN/Creatinine Ratio 11 L Glucose [address] Glu mg/dL 71 L Hemoglobin A1c 4.1 L Calculated Osmolality 278 Calcium 8.5 Corrected Calcium 8.8 Phosphorus 1.9 L Magnesium 2.1 Total Bilirubin 2.0 H AST 17 ALT 11 Alkaline Phosphatase 63 Total Protein 5.7 Albumin 3.4 D Globulin 2.3 Albumin/Globulin Ratio 1.5 Triglycerides 68 Cholesterol 102 L LDL Cholesterol, Calc 53 HDL Cholesterol 35 L Cholesterol/HDL Ratio 2.9 L TSH 2.55 ABG Interpretation ABG results: 10/01/24 16:04 VBG pH 7.46 VBG pCO2 33 L VBG pO2 49 VBG Base Excess 0 Assessment & Plan Assessment and plan (1) Parkinsons disease: Status: Chronic Additional Assessment & Plan Additional Plan: reassurance given to the patient that the he has improvement overall Patient is stable on Sinement and Comtan for discharge. Work with home health PT MRI brain: neg for acute infarction.
[2024-10-03] VITALS: BP 153/80; PULSE 65; PULSE 66; RESP 18; TEMP 36.4; O2SAT 98
[2024-10-03] MEDS: SODIUM CHLORIDE 0.9% 1000 ML 1,000 ML 100 ML IV (01:01)
--- NOTE | 2024-10-03 03:30 | PC.NURSE ---
pt awake,alert to self,place,. pt denies pain. no acute distress. multiple attempts to get out of bed without using call light ,and dangling legs on rail. pt reoriented with fair outcome. telesitter in room, for pt safety pt moved to 271 on bed with belongings.
[2024-10-03 04:00] VITALS: BP 144/62; PULSE 65; PULSE 70; RESP 16; TEMP 36.4; O2SAT 96
[2024-10-03 04:56] VITALS: BMI 22.8
[2024-10-03 05:58] LABS: Basophils % (Auto) 0 % (0-2.5); Eosinophils % (Auto) 1 % (0-10); Hematocrit 30.9 % (41.0-53.0); Hemoglobin 11.6 g/dL (13.5-16.0); Immature Granulocytes % (Auto) 1 % (0-0); Immature Granulocytes Auto 0.08 Thou/mm3 (0.00-0.00); Lymphocytes # (Auto) 0.8 Thou/mm3 (1.0-4.8); Lymphocytes % (Auto) 13 % (10-50); Mean Corpuscular HGB Conc 37.5 g/dl (31.0-37.0); Mean Corpuscular Volume 85 fL (80-100); Monocytes # (Auto) 0.4 Thou/mm3 (0.0-0.8); Monocytes % (Auto) 7 % (0-12); Neutrophils # (Auto) 4.6 Thou/mm3 (1.8-7.7); Neutrophils % (Auto) 77 % (37-80); Nucleated Red Blood Cell % 0 /100 WBC (0); Platelet Count 145 Thou/mm3 (140-440); RDW Standard Deviation 38.9 fL (35.1-43.9); Red Blood Count 3.62 Miln/mm3 (4.50-5.90); White Blood Count 5.9 Thou/mm3 (3.8-10.6)
[2024-10-03 05:59] LABS: Alanine Aminotransferase 14 U/L (10-49); Albumin, Serum 3.4 gm/dL (3.4-4.8); Albumin/Globulin Ratio 1.5 (1.2-2.2); Alkaline Phosphatase 70 U/L (46-116); Anion Gap -1 (7-16); Aspartate Amino Transferase 19 U/L (0-34); BUN/Creatinine Ratio 13 Ratio (12-20); Bilirubin,Total 1.4 mg/dL (0.3-1.2); Blood Urea Nitrogen 10 mg/dL (9-23); Calcium 8.4 mg/dL (8.3-10.6); Calcium (Corrected) 8.9 mg/dL (8.5-10.1); Carbon Dioxide 23.8 mMol/L (20.0-31.0); Chloride 116 mMol/L (98-107); Creatinine (Component) 0.8 mg/dL (0.6-1.3); Estimated Creatinine Clearance 63.1 mL/min (>60); Globulin 2.3 gm/dL (2.3-3.5); Glucose 108 mg/dL (74-106); Magnesium 1.9 mg/dL (1.6-2.6); Osmolality,Calculated 277 (275-295); Phosphorous 1.3 mg/dL (2.4-5.1); Potassium 3.4 mMol/L (3.4-5.1); Sodium 139 mMol/L (136-145); Total Protein 5.7 gm/dL (5.7-8.2); eGFR > 60 See Note
[2024-10-03 07:16] VITALS: PULSE 65; RESP 20; RESP 97
[2024-10-03 08:00] VITALS: BP 148/59; PULSE 67; RESP 20; TEMP 36.4; O2SAT 96
[2024-10-03] MEDS: AZITHROMYCIN 250 MG TABLET 500 MG PO (08:47)
[2024-10-03] MEDS: NAPH,KPH MBDB 1 PACKET (1.5 GM) 2 PACKET PO (08:47)
[2024-10-03] MEDS: POTASSIUM CHLORIDE 10% 20 MEQ/15 ML UDC 40 MEQ PO (08:47)
[2024-10-03] MEDS: PANTOPRAZOLE 40 MG TABLET PO (08:47)
[2024-10-03] MEDS: CLOPIDOGREL BISULFATE 75 MG TABLET PO (08:47)
[2024-10-03] MEDS: ASPIRIN EC 81 MG TABEC PO (08:48)
[2024-10-03] MEDS: ENTACAPONE 200MG TABLET PO (09:42)
--- NOTE | 2024-10-03 09:46 | PD.RESDS ---
Planned Discharge Date 10/03/24 DS: Providers Provider Date of admission: 10/01/24 17:48 Primary care physician: Fany Hartley MD Admitting Provider: Shen Roche MD Attending Provider on Admission: Duane Munoz MD Consults: 10/01/24 16:02 Consult to Neurology / Tele-Neurology Routine Comment: Consulting Provider: [facility] 10/01/24 17:55 Consult to Neurology / Tele-Neurology Routine Comment: CVA rule-out Consulting Provider: Peter Coronado Referral Physical Therapy Routine Comment: Physician Instructions: Referral Speech Therapy Routine Comment: 10/01/24 23:54 Health [facility] Referral - Knowledge Deficit Routine Comment: Positive screening for knowledge deficit needs. Attending Provider on DC: José Rodarte MD Discharging Provider: José Rodarte MD DS: Diagnosis Problem List Completed Was Problem List Reviewed/Reconciled?: Yes Hospital Course Hospital Course Hospital course: Mac Brar is an 84-year-old male with a past medical history of stroke, Parkinson's without dementia, CAD status post CABG x 3, A-flutter on Eliquis, prostate cancer, hypertension, hyperlipidemia, and GERD who presents on 10/01 for confusion and dysarthria. After breakfast, patient appeared to be confused and unable to communicate clearly/difficult to understand. Daughter at bedside states that when she had arrived patient was disoriented, could not control his balance, and was difficult to understand and so brought him to the ED. In ED teleneurology consulted and upon their evaluation patient was awake and alert but slow to respond, unable to tell age or month. NIHSS score of 4, not candidate for thrombolytics given that last known well was approximately 9 PM night prior to admission. Subsequently given aspirin 325 mg x 1 and started on maintenance fluids. CT head negative for acute hemorrhage, mass effect, or midline shift but did note a small and old infarct in the left cerebellar hemisphere. CTA head/neck did not show any significant neck arterial stenoses or large vessel occlusions. EKG showed NSR with first-degree block and moderate conduction delay. Upon presentation vital signs stable, CBC unremarkable, CHEM panel showed T. bili 2.2 but otherwise unremarkable. UA showed 1+ ketones but no signs of infection. U tox positive for opiates. Throughout hospital course, patient's mentation appeared to wax and wane and suspected to be due to in part to delirium as MRI/MRA was also neggative for acute infarcts but did note prominent, chronic microvascular white matter change. Echo showed EF 50 to 55% and negative bubble study for PFO/ASD. Discussed with cardiology and suspect presentation may be due to Parkinson drugs but given that MRI and echo were negative, patient was deemed stable for discharge on carbidopa-levodopa and entacapone. Physical therapy evaluated patient and recommended SNF as he is a high fall risk with Parkinson but family adamantly denied SNF placement due to previous poor experience and thus will be discharged with home health PT. Given that patient is high fall risk, instructed patient and family to not take Eliquis given history of atrial flutter and to schedule an appointment with wildlife ecology professor (Dr. Nur) soon to discuss risks and benefits. Otherwise, vital signs stable, CBC stable and unremarkable, CHEM panel showed K 3.4 that was repleted and hypophosphatemia that was also repleted and cleared for discharge back to home with home health PT as noted previously. Diagnoses during admission: #Acute encephalopathy secondary to TIA versus metabolic?resolved #Dysarthria #History of stroke #Parkinson's disease without dementa #Pleuritic chest pain #PNA seen on chest x-ray #CAD s/p CABG x3 #Atrial flutter on eliquis #Hyperlipidemia #History of prostate cancer #Hypertension Discharge instructions: ? Take atorvastatin 80 mg daily ? Take only one tablet of azithromycin 400 mg to complete treatment of pneumonia ? Do NOT take eliquis, at least until you follow-up with you wildlife ecology professor, Dr. Nur due to risk of fall and bleeding ? Continue taking all other home medications as prescribed ? Follow-up with neurologist, Dr. Coronado, outpatient within 1-2 weeks of discharge ? Follow-up with wildlife ecology professor, Dr. Nur, outpatient within 1-2 weeks of discharge ? Follow-up with PCP within 1-2 weeks of discharge ? If you do not have a PCP, you can follow-up at the [facility] (you can call [phone] to make an appointment) ? If you wish to follow-up with Dr. Rodarte, schedule appointment on Tuesday afternoons ? Return to ED if symptoms worsen or recur Time Spent with Patient Time attestation: Total time spent providing and/or coordinating discharge services: Time spent: Greater than 30 minutes Home Health Home Health Referral Orders: 10/03/24 07:59 Home Health Referral Routine Reason For Exam: Parkinson's disease Home-Bound The patient must either because of illness or injury, need the aid of supportive devices such as crutches, canes, wheelchairs, and walkers; the use of special transportation; or the assistance of another person in order to leave their place of residence; OR have a condition such that leaving his or her home is medically contraindicated. In addition, the patient also meets the following criteria: patient is normally unable to leave the home and leaving home requires considerable taxing effort. Addendum to Home Health Certification Practitioner's Certification: I certify that the patient has been under my care in the hospital and the care of attending physician (see below). We had a nepy-vc-yaoc encounter on (see date below). My clinical findings indicate that the patient is home bound per the above criteria and the Home Health Services noted in these orders are medically necessary. The primary reason for the clan-wx-pmuu encounter is related to the fact that the patient requires home health services. Date Certifying Rgci-mf-Jhxi Physician Encounter: 10/01/24 Physician's Name who will Assume Oversight for Services: Fany Hartley Physician's Phone No.who will Assume Oversight for Service: REVENUE CYCLE ANALYST - Community Resources: No PT to Evaluate: Yes PT to evaluate and provide a treatmnet plan to increase patient's mobility and strength. Wound Care: No IV Therapy: No RN Safety Evaluation: Yes RN to evaluate and create a plan of care that will produce positive outcomes. Palliative Treatment: No Palliative treatment and evaluate the need for hospice. Home Health Aide - Personal Care: No Home Health Aide to assist with any ADL's. Exam Vital Signs Temp Pulse Resp BP Pulse Ox O2 Del Method 97.6 F 67 20 148/59 H 96 Room Air 10/03/24 08:00 10/03/24 08:00 10/03/24 08:00 10/03/24 08:00 10/03/24 08:00 10/03/24 08:00 Narrative Exam General: alert but tired, able to speak in full sentences, in no acute distress HEENT: NC/AT, mucous membranes moist, bilateral sclera anicteric Cardiovascular: regular rate and rhythm, S1/S2 present, no murmurs appreciated Pulmonary: clear to auscultation bilaterally, no rales/rhonchi/wheezes Abdominal: soft, non-tender, non-distended, no rebound/guarding, normal bowel sounds present Musculoskeletal: normal ROM, no peripheral edema Skin: warm and dry, intact, no rashes Neuro: CN II-XII intact, no focal deficits Discharge Plan Plan Patient Disposition: Home w/HOSPICE Care Plan Goals: ? Take atorvastatin 80 mg daily ? Take only one tablet of azithromycin 400 mg to complete treatment of pneumonia ? Do NOT take eliquis, at least until you follow-up with you wildlife ecology professor, Dr. Nur due to risk of fall and bleeding ? Continue taking all other home medications as prescribed ? Follow-up with neurologist, Dr. Coronado, outpatient within 1-2 weeks of discharge ? Follow-up with wildlife ecology professor, Dr. Nur, outpatient within 1-2 weeks of discharge ? Follow-up with PCP within 1-2 weeks of discharge ? If you do not have a PCP, you can follow-up at the [facility] (you can call [phone] to make an appointment) ? If you wish to follow-up with Dr. Rodarte, schedule appointment on Tuesday afternoons ? Return to ED if symptoms worsen or recur Prescriptions/Referrals Prescriptions/Med Rec: New atorvastatin 80 mg tablet 80 mg PO HS 30 Days Qty: 30 0RF azithromycin 500 mg tablet 500 mg PO QDAY Qty: 3 0RF Continued tamsulosin [Flomax] 0.4 MG capsule,extended release 24hr 0.4 mg PO QDAY Qty: 0 pregabalin 50 mg Capsule 50 mg PO DAILY Qty: 30 0RF lisinopril 5 mg tablet 5 mg PO QDAY Qty: 30 0RF kppqxhjms-hnxieroy-osazyfxkqd 12.5-50-200 mg tablet 2 tab PO .FOUR TIMES acetaminophen-codeine 300-15 mg tablet 1 tab PO Q6H PRN (Reason: pain) sennosides [Black-Draught Lax-Senna] 8.6 mg tablet 8.6 mg PO QDAY PRN (Reason: constipation) furosemide 40 mg tablet 20 mg PO DAILY acetaminophen 650 mg tablet extended release 650 mg PO .DAILY PRN (Reason: pain) Patient Comments: PLEASE SEE ATTACHED FOR DETAILED DIRECTIONS solifenacin 10 mg Tablet 10 mg PO QDAY Discontinued simvastatin [Zocor] 40 MG tablet 40 mg PO HS Qty: 0 Eliquis 5 mg tablet 5 mg PO BID Qty: 60 0RF entacapone 200 mg Tablet 200 mg PO TID carbidopa-levodopa 25-100 mg tablet 2 tab PO .FOUR TIMES tramadol 50 mg tablet 50 mg PO Q8H PRN (Reason: pain) Qty: 12 0RF Referrals: Fany Hartley MD [Primary Care Provider] - Patient/Caregiver Discharge Instructions Education Materials: Preventing Pneumonia, Exercise for Parkinson Disease, Healthy Lifestyle to Prevent ..., Parkinson Disease: Home Safety, ED Stroke, Completed, ED Pneumonia (Adult) Print Language: Azerbaijani Stand Alone Forms: [employer] Award Info., Patient Portal Info Letter Discharge Order Discharge Orders: Discharge (Routine); Ordered 10/03/24 Ordered By: José Rodarte Quality Discharge Quality Measures stroke Statin ordered >75 y/o:moderate or high intensity dose on DC: yes Statin ordered <75 y/o: high intensity dose on DC: n/a Anticoagulation ordered for A-fib or flutter (current or hx): not indicated Antithrombotic ordered on DC: contraindicated (describe) (Increased risk bleeding due to high fall risk) Attestestation MD Attestation I attest that I was physically present for the evaluation, physical examination, lab and imaging review of the patient with the residents. I discussed the case with the residents and agree with the findings and plans of care as documented above. Duane Munoz MD
[2024-10-03 10:49] VITALS: BMI 12.0
[2024-10-03 12:00] VITALS: BP 142/63; PULSE 69; PULSE 75; RESP 20; TEMP 36.7; O2SAT 98
[2024-10-03] MEDS: ENTACAPONE PO (12:27)
[2024-10-03] MEDS: LEVODOPA PO (12:27)
[2024-10-03] MEDS: CARBIDOPA PO (12:27)
[2024-10-03 13:05] VITALS: BP 142/63; PULSE 75; RESP 20; TEMP 36.7; O2SAT 98
--- NOTE | 2024-10-03 13:21 | PC.SS ---
Update: Plan is to d/c the patient home today.
--- NOTE | 2024-10-03 13:40 | PC.SS ---
MORGUE KEEPER, attending and resident met with patient and patient's spouse to confirm that re-establishment with hospice services upon discharge. Spouse confirmed plan to resume hospice services with [facility] upon discharge. MORGUE KEEPER informed attending of need to submit hospice order to generate hospice referral. Order pending.
--- NOTE | 2024-10-03 15:37 | PC.SS ---
TOWEL HEMMER notified resident to submit hospice order. Order not present. Order is pending.
--- NOTE | 2024-10-03 16:30 | PC.SS ---
Hospice referral to [facility] submitted on [facility]. Response is pending.
--- NOTE | 2024-10-03 18:14 | PC.CC ---
pt discharged home w/ [facility]. [facility]h ref canceled.
== END 2024-10-03 14:00 | disposition hospice, home (50) | DRG 70 ==
LOC: SERX 17:22 → SERHOLD 18:11 → S2NX 20:22
PROVIDERS: Student in an Organized Health Care Education/Training Program; Admitting Provider Student in an Organized Health Care Education/Training Program; Emergency Provider Family Medicine; PCP Internal Medicine; Visit Provider Student in an Organized Health Care Education/Training Program
DX: G93.41 Metabolic encephalopathy (principal); J18.9 Pneumonia, unspecified organism; R47.01 Aphasia; Z86.73 Personal history of transient ischemic attack (TIA), and cerebral infarction without residual deficits; G20.A2 Parkinson's disease without dyskinesia, with fluctuations; Z95.1 Presence of aortocoronary bypass graft; I25.10 Atherosclerotic heart disease of native coronary artery without angina pectoris; Z85.46 Personal history of malignant neoplasm of prostate; I10 Essential (primary) hypertension; E78.5 Hyperlipidemia, unspecified; R47.1 Dysarthria and anarthria; K21.9 Gastro-esophageal reflux disease without esophagitis; I45.9 Conduction disorder, unspecified; E83.39 Other disorders of phosphorus metabolism; E87.6 Hypokalemia; N40.0 Benign prostatic hyperplasia without lower urinary tract symptoms; Z79.82 Long term (current) use of aspirin
CPT/HCPCS: 36415; 70450; 70496; 70498; 70544; 71045; 80053; 80061; 80307; 80320; 81001; 82607; 82746; 82803; 83036; 83735; 83880; 84100; 84443; 84484; 85025; 85610; 85730; 87086; 92610; 93005; 93306; 97162; 99291; A4649; J2470; J3490; J7030; Q9967; A9270; G0480

== ENCOUNTER 2024-10-04 12:38 | Emergency (ER) | payer MEDICARE, BC, SELFPAY ==
[2024-10-04 12:47] VITALS: PULSE 78; RESP 17; O2SAT 90; BMI 22.8
--- NOTE | 2024-10-04 12:52 | XR_ITS ---
Examination: AP chest single view Technique one AP portable semiupright chest single view Date and time: 06/06/2024 1316 hours Comparison October 02, 2024 INDICATIONS: Patient fell today with into the chest, chest pain FINDINGS: Pneumonia left base obscuring detail left hemidiaphragm No pneumothorax No significant cardiac enlargement Blunting of the left lateral costophrenic angle Ectatic thoracic aorta Median sternotomy wires Clavicles ribs appear intact IMPRESSION: No pneumothorax Opacity left base consistent with pneumonia
--- NOTE | 2024-10-04 12:52 | XR_ITS ---
Examination:Left hip AP, lateral, AP pelvis 3 views Technique: Hip AP lateral, AP pelvis, 3 views Exam date and time:06/06/2024 1313 hours INDICATIONS: Patient fell today with injury to the head, head pain FINDINGS: Acute displaced fracture left subcapital Severe osteopenia Right hip bones of the pelvis intact IMPRESSION: Acute displaced impacted left subcapital hip fracture.
--- NOTE | 2024-10-04 12:54 | EKG_ITS ---
[facility] Test Date: 2024-10-04 Pat Name: GENE ABEL Department: Room: - Gender: Male Application Support Administrator: : 1940 Requested By: Jan Pineda Order Number: [id number] Reading MD: Jan Pineda Measurements Intervals [place] Rate: 80 P: -16 [place]: 186 QRS: 53 QRSD: 104 T: 43 QT: 364 QTc: 422 Interpretive Statements SINUS RHYTHM INCOMPLETE RIGHT BUNDLE BRANCH BLOCK [90+ ms QRS DURATION, TERMINAL R IN V1/V2, 40+ ms S IN I/aVL/V4/V5/V6] SEPTAL MYOCARDIAL INFARCTION , OF INDETERMINATE AGE [40+ ms Q WAVE IN V1/V2] Compared to ECG 10/01/2024 16:36:43 Incomplete right bundle-branch block now present Myocardial infarct finding now present First degree AV block no longer present Left-axis deviation no longer present Intraventricular conduction delay no longer present T-wave abnormality no longer present /store/S0/[id number].pdf
--- NOTE | 2024-10-04 12:56 | XR_ITS ---
Examination: CT brain head without contrast. 2-D sagittal coronal reconstructions Date and time of exam:06/06/2024 1404 hours INDICATIONS: Ground-level fall today with injury to head, head pain CTDI: vol (mGy):48.4 DLP: (mGycm):964 Technique: Multiple CT axial sections of the brain have been obtained, 5 mm slice thickness. Contrast has not been administered. 2-D sagittal, coronal reconstructions have been obtained Low dose protocols were performed. One or more of the following dose reduction techniques were used; automated exposure control, adjustment of the mA and/or KV according to patient size, use of iterative reconstruction technique. Findings: No significant ventricular enlargement. Mild frontal parietal atrophy Again noted old infarct left cerebellar hemisphere Intra-axial or extra-axial hemorrhage density is not seen. No mass effect or midline shift Basal cisterns are not remarkable. Fourth ventricle is midline. Cranial vault intact. Impression: Negative for acute hemorrhage, mass effect or midline shift
--- NOTE | 2024-10-04 12:56 | PD.EDFALL ---
ED Fall Injury RME/HPI General Chief Complaint: Fall Stated Complaint: FALL Time Seen by Provider: 10/04/24 12:50 Arrival date/time: 10/04/24 12:38 RME / HPI RME / HPI Narrative: 84-year-old male patient with significant history of stroke, Parkinson, CABG, A-flutter on Eliquis, prostate cancer hypertension hyperlipidemia GERD, was brought in by EMS for evaluation regarding more confusion. Patient sustained a ground-level fall last night and since then patient is not really talking according to the family.. On my initial evaluation patient was noted to be answering simple question. He is alert and oriented x 3. Patient is complaining of pain to the left hip. No shortening noted. Denies any other complaints. Related Data Home Medications ?Medication ?Instructions ?Recorded ?Confirmed tamsulosin 0.4 mg capsule (Flomax) 0.4 mg PO QDAY Prostate ##0 06/12/14 10/02/24 solifenacin 10 mg tablet 10 mg PO QDAY 03/03/22 10/02/24 acetaminophen 300 mg-codeine 15 mg 1 tab PO Q6H PRN pain 10/02/24 10/02/24 tablet acetaminophen 650 mg 650 mg PO .DAILY PRN pain 10/02/24 10/02/24 tablet,extended release carbidopa 12.5 mg-levodopa 50 2 tab PO .FOUR TIMES 10/02/24 10/02/24 mg-entacapone 200 mg tablet furosemide 40 mg tablet 20 mg PO DAILY 10/02/24 10/02/24 sennosides 8.6 mg tablet 8.6 mg PO QDAY PRN constipation 10/02/24 10/02/24 (Black-Draught Lax-Senna) Previous Rx's ?Medication ?Instructions ?Recorded lisinopril 5 mg tablet 5 mg PO QDAY #30 tabs 01/21/24 pregabalin 50 mg capsule 50 mg PO DAILY #30 caps 01/21/24 atorvastatin 80 mg tablet 80 mg PO HS 30 days #30 tabs 10/03/24 azithromycin 500 mg tablet 500 mg PO QDAY #3 tabs 10/03/24 Allergies Allergy/AdvReac Type Severity Reaction Status Date / Time No Known Allergies Allergy Verified 10/01/24 15:43 Review of Systems Review of Systems Narrative Review of Systems: Review of system reviewed and within normal limits except mentioned in HPI ED Exam Narrative Physical exam: VITAL SIGNS: Reviewed. GENERAL APPEARANCE: Alert and interactive, follows simple commands, no acute distress, alert oriented x 3, GCS of 15 HEAD AND FACE: Non-traumatic. ENT: PERRL, pink conjunctivitis, eyelid no trauma, Mucous membrane moist. NECK: Supple, nontender, no nuchal rigidity. CHEST: No tenderness, no crepitus, no paradoxical movement, no retractions. LUNGS: Clear, well ventilated, symmetric, no rales, no wheezing, no ronchi, no stridor, good breath sounds bilaterally. HEART: Regular rate, regular rhythm, no murmur, no gallops. ABDOMEN: Soft, positive bowel sounds, nondistended, no guarding, nontender, no rebound, no masses, RECTAL: Deferred. GENITAL: Deferred. NEUROLOGICAL: Gross motor function intact sensory function intact, Appropriate for age. MUSCULOSKELETAL: low back nontender, full range of motion. EXTREMITIES: Left hip tenderness mild swelling no shortening noted no deformity noted, limited range of motion. SKIN: Color pink, dry, no rash, no lacerations, no abrasions, no contusions. LYMPHATICS: Deferred. Course Quality Measures none Orders Category Date Time Status EKG (ED ONLY) *Do not use* NOW Care 10/04/24 12:54 Completed Referral - Manufacturing Tech Stat Cons 10/04/24 14:[address] head/brain wo con Stat Exams 10/04/24 12:56 Completed EKG (ED Only) Stat Exams 10/04/24 12:54 Draft XR chest 1V Stat Exams 10/04/24 12:52 Completed XR hip LT w pelvis 2-3V Stat Exams 10/04/24 12:52 Completed Ammonia Stat Lab 10/04/24 13:04 Completed B-Type Natriuretic Peptide Stat Lab 10/04/24 13:04 Completed CBC Stat Lab 10/04/24 13:04 Completed Comprehensive Metabolic Panel Stat Lab 10/04/24 13:04 Completed Partial Thromboplastin Time Stat Lab 10/04/24 13:04 Completed Prothrombin Time with INR Stat Lab 10/04/24 13:04 Completed Troponin I Stat Lab 10/04/24 13:04 Completed Urinalysis, C/S if Indicated Stat Lab 10/04/24 13:12 Completed Morphine Inj Med 10/04/24 14:15 Discontinued 5 mg IVP X1 ONE Ondansetron Inj [Zofran Inj] Med 10/04/24 14:15 Discontinued 4 mg IVP X1 ONE Sodium Chloride 0.9% 1000 ml [Ns] 1,000 ml Med 10/04/24 12:53 Discontinued IV 999 mls/hr Vital Signs Vital signs: Vital Signs Temperature 97.6 F 10/04/24 13:03 Pulse Rate 84 10/04/24 13:03 Respiratory Rate 17 10/04/24 13:03 Blood Pressure 147/67 H 10/04/24 13:03 Pulse Oximetry (%) 96 10/04/24 13:03 Oxygen Delivery Method Room Air 10/04/24 13:03 Fall MDM Narrative MDM Narrative:: 84-year-old male patient with significant history of stroke, Parkinson, CABG, A-flutter on Eliquis, prostate cancer hypertension hyperlipidemia GERD, was brought in by EMS for evaluation regarding more confusion. Patient sustained a ground-level fall last night and since then patient is not really talking according to the family.. On my initial evaluation patient was noted to be answering simple question. He is alert and oriented x 3. Patient is complaining of pain to the left hip. No shortening noted. Denies any other complaints. EKG as interpreted by me showed sinus rhythm, ventricular rate of 80 bpm, no ST segment elevation depression noted. Laboratory workup is significant for total bili of 2.9 urinalysis no UTI. Chest x-ray showed opacity consistent with pneumonia. Currently patient is taking azithromycin. X-ray of the left hip showed subcapital femoral neck fracture. CT scan of the head came back unremarkable. Spoke with transfer center from [facility], and accepted the patient. Patient data External records reviewed:: None Clinical information provided by:: patient and family Social determinants that could affect healthcare access:: none Patient has the following chronic illnesses:: Parkinson, A-flutter, prostate cancer hypertension hyperlipidemia GERD How is presenting disease/condition affected by chronic disease/condition?: exacerbated by Evaluation data The following diagnostics were reviewed and interpreted by me:: lab results, radiology exam(s) and EKG tracing(s) Lab and/or radiology exams considered but not ordered:: None Interpretation Summary: See results MDM Medications / Prescriptions Medications or Prescriptions considered but not ordered:: None Medication administrations:: Medication Administration History Discontinued Medications Sodium Chloride (Ns) 1,000 mls @ 999 mls/hr IV .Q1H1M ONE Stop: 10/04/24 13:53 Last Infusion: 10/04/24 14:10 Dose: Infused Documented By: Admin: 10/04/24 13:09 Dose: 999 mls/hr Documented By: EF Morphine Sulfate (Morphine Sulf Inj 10 Mg/Ml Vial) 5 mg IVP X1 ONE Stop: 10/04/24 14:16 Last Admin: 10/04/24 14:26 Dose: 5 mg Documented By: EF Ondansetron HCl (Ondansetron Inj 2 Mg/Ml Inj 2 Ml) 4 mg IVP X1 ONE; Protocol Stop: 10/04/24 14:16 Last Admin: 10/04/24 14:27 Dose: 4 mg Documented By: EF Morphine, IV fluids, Zofran Consultations Consultation(s) initiated? (list below): Yes Consultation #1 (Physician, Specialty, Details): Transfer center for transfer due to hip fracture Diagnosis Fall Differential Diagnosis: other (Hip fracture, fall, confusion) Most likely diagnosis given after review of the tests above:: Hip fracture, fall, confusion Admission Indicated Admission indicated?: indicated Explain why admission is indicated or not indicated:: Transferred to higher level care Admission Request Was there a request for admission?: No Disposition Plan Disposition Plan: Transfer Discharge Plan Plan Patient Disposition: [facility] Facility Pt Being Transferred to: [facility] Prescriptions/Referrals Prescriptions/Med Rec: No Action tamsulosin [Flomax] 0.4 MG capsule,extended release 24hr 0.4 mg PO QDAY Qty: 0 pregabalin 50 mg Capsule 50 mg PO DAILY Qty: 30 0RF lisinopril 5 mg tablet 5 mg PO QDAY Qty: 30 0RF lppmouzza-pynolrvc-qaymrtcbxo 12.5-50-200 mg tablet 2 tab PO .FOUR TIMES acetaminophen-codeine 300-15 mg tablet 1 tab PO Q6H PRN (Reason: pain) sennosides [Black-Draught Lax-Senna] 8.6 mg tablet 8.6 mg PO QDAY PRN (Reason: constipation) furosemide 40 mg tablet 20 mg PO DAILY acetaminophen 650 mg tablet extended release 650 mg PO .DAILY PRN (Reason: pain) Patient Comments: PLEASE SEE ATTACHED FOR DETAILED DIRECTIONS atorvastatin 80 mg tablet 80 mg PO HS 30 Days Qty: 30 0RF azithromycin 500 mg tablet 500 mg PO QDAY Qty: 3 0RF solifenacin 10 mg Tablet 10 mg PO QDAY Referrals: Nadya Hartley MD [Primary Care Provider] - In 1 week Problem List Clinical Impression: Closed hip fracture, Hyperbilirubinemia, Confusion Patient/Caregiver Discharge Instructions Print Language: Hungarian Stand Alone Forms: [employer] Award Info., Patient Portal Info Letter
[2024-10-04 13:03] VITALS: BP 147/67; PULSE 84; RESP 17; TEMP 36.4; O2SAT 96
[2024-10-04] MEDS: SODIUM CHLORIDE 0.9% 1000 ML 1,000 ML 999 ML IV (13:09)
[2024-10-04 13:14] LABS: Basophils % (Auto) 0 % (0-2.5); Eosinophils # (Auto) 0.1 Thou/mm3 (0.0-0.5); Eosinophils % (Auto) 2 % (0-10); Hematocrit 29.1 % (41.0-53.0); Hemoglobin 10.7 g/dL (13.5-16.0); Immature Granulocytes % (Auto) 0 % (0-0); Immature Granulocytes Auto 0.01 Thou/mm3 (0.00-0.00); Lymphocytes # (Auto) 0.6 Thou/mm3 (1.0-4.8); Lymphocytes % (Auto) 12 % (10-50); Mean Corpuscular HGB Conc 36.8 g/dl (31.0-37.0); Mean Corpuscular Hemoglobin 31.7 pg (25.0-35.0); Mean Corpuscular Volume 86 fL (80-100); Monocytes # (Auto) 0.4 Thou/mm3 (0.0-0.8); Monocytes % (Auto) 8 % (0-12); Neutrophils # (Auto) 4.1 Thou/mm3 (1.8-7.7); Neutrophils % (Auto) 78 % (37-80); Nucleated Red Blood Cell % 0 /100 WBC (0); Platelet Count 164 Thou/mm3 (140-440); RDW Standard Deviation 39.8 fL (35.1-43.9); Red Blood Count 3.38 Miln/mm3 (4.50-5.90); White Blood Count 5.3 Thou/mm3 (3.8-10.6)
[2024-10-04 13:18] LABS: Collection Type, Urine Clean Catch; Squamous Epithelial Cell,Urine 0 /hpf (0-5)
[2024-10-04 13:26] LABS: Bilirubin,Urine Negative (Negative); Blood,Urine Negative (Negative); Clarity,Urine Clear (Clear/Hazy); Color,Urine Drk-Yellow (Lt Yel-Yel); Culture Indicated,Urine Not Indicated; Glucose, Urine Negative (Negative); Hyaline Casts,Urine < 1 /hpf (0-1); Ketones,Urine Negative (Negative); Leukocyte Esterase,Urine Negative (Negative); Nitrite,Urine Negative (Negative); Protein,Urine Negative (Neg - Trace); RBC,Urine 2 /hpf (0-3); Specific Gravity,Urine 1.011 (1.001-1.035); Urobilinogen,Urine Negative mg/dL (0.0-1.0); WBC,Urine 1 /hpf (0-5)
[2024-10-04 13:31] LABS: B-Type Natriuretic Peptide 147 pg/mL (0-100)
[2024-10-04 13:32] LABS: Alanine Aminotransferase < 7 U/L (10-49); Albumin, Serum 3.9 gm/dL (3.4-4.8); Albumin/Globulin Ratio 1.6 (1.2-2.2); Alkaline Phosphatase 88 U/L (46-116); Anion Gap -3 (7-16); Aspartate Amino Transferase 32 U/L (0-34); BUN/Creatinine Ratio 10 Ratio (12-20); Bilirubin,Total 2.9 mg/dL (0.3-1.2); Blood Urea Nitrogen 10 mg/dL (9-23); Calcium 9.2 mg/dL (8.3-10.6); Calcium (Corrected) 9.3 mg/dL (8.5-10.1); Carbon Dioxide 21.5 mMol/L (20.0-31.0); Chloride 117 mMol/L (98-107); Estimated Creatinine Clearance 53.9 mL/min (>60); Globulin 2.4 gm/dL (2.3-3.5); Glucose 106 mg/dL (74-106); INR 1.1 (0.9-1.3); Osmolality,Calculated 270 (275-295); Partial Thromboplastin Time 24.7 Seconds (22.0-36.0); Potassium 3.5 mMol/L (3.4-5.1); Prothrombin Time 11.7 Seconds (9.0-12.2); Sodium 136 mMol/L (136-145); Total Protein 6.3 gm/dL (5.7-8.2); Troponin I 0.041 ng/mL (0.0-0.045); eGFR > 60 See Note
[2024-10-04 13:44] LABS: Ammonia < 10 uMol/L (11-32)
[2024-10-04] MEDS: MORPHINE SULF INJ 10 MG/ML VIAL 5 MG IVP (14:26)
[2024-10-04] MEDS: ONDANSETRON INJ 2 MG/ML INJ 2 ML 4 MG IVP (14:27)
--- NOTE | 2024-10-04 15:30 | PC.CM ---
Addendum entered by Mia Najera RN 10/04/24 18:52: I set up transport with [facility] and and leaf size picker time set for 1999. They will come sooner if they have an available unit. Packet left with ED and packet complete with 1 CD in packet. I will report off to night charge nurse. Addendum entered by Mia Najera RN 10/04/24 17:41: Patient was accepted by [facility] ED to ED with Dr. Serrano. Number to call and give report [phone]. I will get take packet to ED and set up transport. Addendum entered by Mia Najera RN 10/04/24 17:21: 1610 [facility] wanted to speak to Jan Pineda and I forwared the call. 1550 I spoke to Ángel and to [facility] and verified they received my paperwork. I pushed over images to [facility]. Original Note: 1445 I faxed information to [facility] I [facility] to [facility]. Jan SHELTON is following patient. 1415 I received a referral to transfer patient for orthopedics due to femoral neck fx.
[2024-10-04 16:19] VITALS: BP 146/60; PULSE 75; RESP 18; TEMP 36.9; O2SAT 99
[2024-10-04 18:23] VITALS: BP 155/66; PULSE 74; RESP 18; TEMP 36.8; O2SAT 98
[2024-10-04 20:00] VITALS: BP 165/61; PULSE 79; RESP 18; TEMP 36.8; O2SAT 98
--- NOTE | 2024-10-04 20:53 | PC.NURSE ---
report called to [facility] nurse [place] via telephone
== END 2024-10-04 20:58 | disposition short-term general hospital (02) ==
PROVIDERS: Nurse Practitioner Family; Emergency Provider Emergency Medicine; PCP Internal Medicine
DX: S72.012A Unspecified intracapsular fracture of left femur, initial encounter for closed fracture (principal); S09.90XA Unspecified injury of head, initial encounter; E80.6 Other disorders of bilirubin metabolism; R41.0 Disorientation, unspecified; J98.4 Other disorders of lung; I45.10 Unspecified right bundle-branch block; I10 Essential (primary) hypertension; W18.30XA Fall on same level, unspecified, initial encounter; Z75.1 Person awaiting admission to adequate facility elsewhere
CPT/HCPCS: 36415; 70450; 71045; 73502; 80053; 81001; 82140; 83880; 84484; 85025; 85610; 85730; 93005; 96361; 96374; 99285; J2270; J2405; J7030

== ENCOUNTER 2024-10-15 19:02 | Inpatient (IN) | payer MEDICARE, BC, SELFPAY ==
[2024-10-15] VITALS (7 sets, daily range): BP systolic 116–138; BP diastolic 50–109; PULSE 69–106; RESP 18–22; TEMP 36.9–38; O2SAT 95–100; BMI 17.4
--- NOTE | 2024-10-15 19:41 | XR_ITS ---
Examination: AP portable semiupright chest single view TECHNIQUE: October 15, 2024, 2111 hours Comparison October 04, 2024 INDICATIONS: Sepsis chest pain and shortness of breath today. FINDINGS: Bibasilar pneumonia, significant left base Mild enlargement left ventricle No pulmonary edema IMPRESSION: Bibasilar pneumonia, significant left base
--- NOTE | 2024-10-15 19:41 | PD.EDAMS ---
Altered Mental Status RME/HPI General Chief Complaint: Altered Mental Status Stated Complaint: ALTERED Time Seen by Provider: 10/15/24 19:36 Arrival date/time: 10/15/24 19:02 RME / HPI RME / HPI narrative: Dr. Blankenship?s Main ED Evaluation: 84yo male with a history of stroke, Parkinson's without dementia, CAD status post CABG x 3, A-flutter on Eliquis, prostate CA, HTN, HLD BIBA from [facility] presents to the ED for a chief complaint of AMS. Per EMS, patient has been increasingly getting altered for the last 3 days. Full ROS is unobtainable due to the patient being combative and being altered. Related Data Home Medications ?Medication ?Instructions ?Recorded ?Confirmed tamsulosin 0.4 mg capsule (Flomax) 0.4 mg PO QDAY Prostate ##0 06/12/14 10/02/24 solifenacin 10 mg tablet 10 mg PO QDAY 03/03/22 10/02/24 acetaminophen 300 mg-codeine 15 mg 1 tab PO Q6H PRN pain 10/02/24 10/02/24 tablet acetaminophen 650 mg 650 mg PO .DAILY PRN pain 10/02/24 10/02/24 tablet,extended release carbidopa 12.5 mg-levodopa 50 2 tab PO .FOUR TIMES 10/02/24 10/02/24 mg-entacapone 200 mg tablet furosemide 40 mg tablet 20 mg PO DAILY 10/02/24 10/02/24 sennosides 8.6 mg tablet 8.6 mg PO QDAY PRN constipation 10/02/24 10/02/24 (Black-Draught Lax-Senna) Previous Rx's ?Medication ?Instructions ?Recorded lisinopril 5 mg tablet 5 mg PO QDAY #30 tabs 01/21/24 pregabalin 50 mg capsule 50 mg PO DAILY #30 caps 01/21/24 atorvastatin 80 mg tablet 80 mg PO HS 30 days #30 tabs 10/03/24 azithromycin 500 mg tablet 500 mg PO QDAY #3 tabs 10/03/24 Allergies Allergy/AdvReac Type Severity Reaction Status Date / Time banana Allergy Verified 10/15/24 19:39 pork derived (porcine) Allergy Verified 10/15/24 19:39 Review of Systems Review of Systems ROS Unobtainable: unobtainable due to mental status ED Exam Narrative Physical exam: GEN. APPEARANCE: The patient is alerted, combative, is mumbling, does not follow commands. VITALS: All vitals were reviewed and the pulse ox is 96% on room air which is normal according to my interpretation. HEENT: Normocephalic, atraumatic. Pupils are equal and reactive. Oral mucosa is moist. Patent Nares NECK: Supple, nontender, no thyromegaly, no meningismus, no JVD CHEST: Symmetrical, atraumatic, and with equal expansion , Nontender on palpation no deformity and no crepitus. CARDIOVASCULAR: Heart regular rhythm no murmur or gallop rub or extra beats. LUNGS: Clear to auscultation bilaterally with symmetrical chest rise. No laboring tachypnea or wheezing. No intercostal subcostal retraction. No rales and no rhonchi. ABDOMEN: Soft, flat, nontender to palpation, no guarding or rebound tenderness. There are no abnormal masses palpated. Active and normal bowel sounds. EXTREMITIES: Nontender. No edema. No cyanosis. Patient is able to move all 4 extremities well, with full ROM and good CSM. SKIN: Warm and dry, no jaundice or rashes noted. NEURO: Patient is altered, Cranial nerves II through XII grossly intact. PSYCHIATRIC: Patient is in combative mood and affect. Course Course Course Narrative: 1939: Sepsis alert initiated. Orders made at this time are congruent with ED Adult Sepsis Order List. Re-evaluation is to be completed. 2025: LR IVF started. 2220: Sepsis reassessment performed consisting of lab review, vitals, physical exam including auscultation of heart, lungs, and visual evaluation of capillary refills, mucosal membranes and extremities. Patient met SIRS criteria however WBC and pro vashti are all within normal range. Reassessment complete, patient is not septic. Quality Measures Pertinent labs: 10/15/24 10/16/24 20:45 00:09 Lactic Acid 5.1 H* mMol/L 1.2 mMol/L (0.4-2.0) (0.4-2.0) Procalcitonin 0.07 ng/ml (0.0-0.49) sepsis Orders Category Date Time Status 24 HR Medical Restraints Q2HR Care 10/15/24 20:50 Active Bedside COVID-19 Antigen Test NOW Care 10/15/24 19:41 Active Bedside Influenza A&B Antigen Test NOW Care 10/15/24 19:41 Completed EKG (ED ONLY) *Do not use* NOW Care 10/15/24 21:26 Completed Lui [Urinary Catheter] QS Care 10/15/24 20:[address] head/brain wo con Stat Exams 10/15/24 19:41 Completed CXR [XR chest 1V] Stat Exams 10/15/24 19:41 Completed EKG (ED Only) Stat Exams 10/15/24 21:26 Draft Acetaminophen Stat Lab 10/15/24 20:45 Completed Ammonia Stat Lab 10/15/24 20:45 Completed Blood Culture (Lab) Stat Lab 10/15/24 20:45 Received CBC Stat Lab 10/15/24 20:45 Completed CK [Creatine Kinase] Stat Lab 10/15/24 20:45 Completed CMP [Comprehensive Metabolic Panel] Stat Lab 10/15/24 20:45 Completed Drug Screen,Urine Stat Lab 10/15/24 20:48 Ordered INR [Prothrombin Time with INR] Stat Lab 10/15/24 20:45 Completed Lactate (Lactic Acid) Stat Lab 10/15/24 20:45 Completed Lactic Acid, 3 HR Stat Lab 10/15/24 23:52 Completed Procalcitonin Stat Lab 10/15/24 20:45 Completed Salicylate Stat Lab 10/15/24 20:45 Completed T4 (Thyroxine) Stat Lab 10/15/24 20:45 Completed Thyroid Stimulating Hormone Stat Lab 10/15/24 20:45 Completed Troponin I Stat Lab 10/15/24 20:45 Completed Troponin I Stat Lab 10/16/24 03:07 Completed UA, C/S IF [Urinalysis, C/S if Indicated] Stat Lab 10/15/24 20:45 Completed UA, C/S IF [Urinalysis, C/S if Indicated] Stat Lab 10/15/24 20:48 Ordered VBG [Venous Blood Gas] Stat Lab 10/15/24 20:45 Completed ACETAMINOPHEN 325 mg SUPP [Tylenol Supp] Med 10/15/24 19:43 Discontinued 650 mg OR X1 ONE Midazolam Inj [Versed Inj] Med 10/15/24 19:48 Discontinued 1 mg IM X1 ONE Midazolam Inj [Versed Inj] Med 10/15/24 21:00 Discontinued 2 mg IVP X1 ONE Ringers Lactated 1000 ml [Lactated Ringers] 1,000 ml Med 10/15/24 19:42 Discontinued IV 999 mls/hr cefTRIAXone/D5w 1gm IV premix [Rocephin/D5w 1gm IV Med 10/15/24 19:42 Discontinued premix] 1 gm in 50 ml IV X1 Vital Signs Vital signs: Vital Signs Temperature 100.4 F 10/15/24 19:36 Pulse Rate 106 H 10/15/24 19:36 Respiratory Rate 22 H 10/15/24 19:36 Blood Pressure 138/109 H 10/15/24 19:36 Pulse Oximetry (%) 96 10/15/24 19:36 Oxygen Delivery Method Room Air 10/15/24 19:36 Altered Mental Status MDM Narrative MDM Narrative:: Scribe Attestation: 10/15/24 - Maria A Mercer am scribing for and in the presence of Dr. Blankenship. Patient data External records reviewed:: [facility] previous records (Per chart review, patient was seen here on 10/01/24 for CVA.) Clinical information provided by:: EMS Social determinants that could affect healthcare access:: housing (SNF resident) Patient has the following chronic illnesses:: stroke, Parkinson's without dementia, CAD status post CABG x 3, A-flutter on Eliquis, prostate CA, HTN, HLD How is presenting disease/condition affected by chronic disease/condition?: uneffected by Evaluation data The following diagnostics were reviewed and interpreted by me:: lab results and radiology exam(s) Lab and/or radiology exams considered but not ordered:: none Interpretation Summary: COVID/Influenza negative, CBC normal, PT/INR normal, CMP normal, Lactic Acid 5.1, Troponin normal, Procalcitonin normal, UA negative, Salicylates negative. EKG done at 2129, NSR, rate of 72, prolonged OR interval of 224, normal QT, no STEMI, according to my interpretation. [facility] Report Signed Patient: GENE ABEL [facility]. Record#: [id number] Birthdate: 1940 Age/Sex: 84 / M Location: [facility] Attending Dr: Ordering Physician: Eliza Blankenship MD Date of Service: 10/15/24 Procedure(s): XR chest 1V Accession Number(s): [id number] cc: Kurt Sexton MD; NO PRIMARY/FAMILY,PHYSICIAN; Eliza Blankenship MD~ Examination: AP portable semiupright chest single view TECHNIQUE: October 15, 2024, 2112 hours Comparison October 04, 2024 INDICATIONS: Sepsis chest pain and shortness of breath today. FINDINGS: Bibasilar pneumonia, significant left base Mild enlargement left ventricle No pulmonary edema IMPRESSION: Bibasilar pneumonia, significant left base Dictated By: Kurt Sexton MD Signed By: <Electronically signed by Kurt Sexton MD in OV> 10/15/242124 [facility] Signed Patient: GENE ABEL. Record#: [id number] Birthdate: 1940 Age/Sex: 84 / M Location: [facility] Attending Dr: Ordering Physician: Eliza Blankenship MD Date of Service: 10/15/24 Procedure(s): CT head/brain wo con Accession Number(s): [id number] cc: Kurt Sexton MD; NO PRIMARY/FAMILY,PHYSICIAN; Eliza Blankenship MD~ Examination: CT brain head without contrast. 2-D sagittal coronal reconstructions Date and time of exam:October 15, 2024 at 2149 hours Patient's: Sinus CTDI: vol (mGy):28.5 DLP: (mGycm):950 Technique: Multiple CT axial sections of the brain have been obtained, 5 mm slice thickness. Contrast has not been administered. 2-D sagittal, coronal reconstructions have been obtained Low dose protocols were performed. One or more of the following dose reduction techniques were used; automated exposure control, adjustment of the mA and/or KV according to patient size, use of iterative reconstruction technique. Findings: No significant ventricular enlargement. Small infarct left cerebellar hemisphere Intra-axial or extra-axial hemorrhage density is not seen. No mass effect or midline shift Basal cisterns are not remarkable. Fourth ventricle is midline. Cranial vault intact. Impression: Negative for acute hemorrhage, mass effect or midline shift Clinical correlation and follow-up accordingly Dictated By: Kurt Sexton MD Signed By: <Electronically signed by Kurt Sexton MD in OV> 10/15/241 Medications / Prescriptions Medications or Prescriptions considered but not ordered:: none Medication administrations:: Medication Administration History Discontinued Medications Acetaminophen (Acetaminophen Supp 325 Mg Supp) 650 mg OR X1 ONE Stop: 10/15/24 19:44 Last Admin: 10/15/24 20:27 Dose: 650 mg Documented By: EE Ceftriaxone Sodium/Dextrose (Rocephin/D5w 1gm Iv Premix) 1 gm in 50 mls @ 100 mls/hr IV X1 ONE Stop: 10/15/24 20:11 Last Infusion: 10/15/24 21:02 Dose: Infused Documented By: Admin: 10/15/24 20:27 Dose: 100 mls/hr Documented By: EE Lactated Ringer's (Lactated Ringers) 1,000 mls @ 999 mls/hr IV .Q1H1M ONE Stop: 10/15/24 20:42 Last Infusion: 10/15/24 21:51 Dose: Infused Documented By: Admin: 10/15/24 20:26 Dose: 999 mls/hr Documented By: EE Midazolam HCl (Midazolam Inj 1 Mg/Ml Vial 2 Ml) 1 mg IM X1 ONE Stop: 10/15/24 19:49 Last Admin: 10/15/24 20:07 Dose: 1 mg Documented By: EE Midazolam HCl (Midazolam Inj 1 Mg/Ml Vial 2 Ml) 2 mg IVP X1 ONE Stop: 10/15/24 21:01 Last Admin: 10/15/24 21:20 Dose: 2 mg Documented By: EE see above Consultations Consultation(s) initiated? (list below): Yes Consultation #1 (Physician, Specialty, Details): Discussed case with Dr. French from teleneurology regarding consultation. Discussed patients ED course, exam findings, labs, and radiology results. States the patient's small cerebellar infarct is an old finding, but recommends bringing in the patient for further work-up. Time: 03:36 Consultation #2 (Physician, Specialty, Details): Discussed case with the resident physician, attending Dr. Bar from Hospitalist service regarding admission. Discussed patients ED course, exam findings, labs, and radiology results. The Hospitalist agrees to accept the patient for admission. Time: 03:40 Diagnosis Differential diagnosis altered mental status: other (UTI, metabolic encephalopathy, ICH) Most likely diagnosis given after review of the tests above:: see clinical impresison below Admission Indicated Admission indicated?: indicated Admission Request Was there a request for admission?: Yes Admission Attestation Admission request attestation: Discussed case with [] from Hospitalist service regarding admission. Discussed patients ED course, exam findings, labs, and radiology results. The Hospitalist [agrees,declines] to accept the patient for admission. Disposition Plan Disposition Plan: Admit Discharge Plan Plan Patient Disposition: Admit Acute Care w/in Hospital Prescriptions/Referrals Prescriptions/Med Rec: No Action tamsulosin [Flomax] 0.4 MG capsule,extended release 24hr 0.4 mg PO QDAY Qty: 0 pregabalin 50 mg Capsule 50 mg PO DAILY Qty: 30 0RF lisinopril 5 mg tablet 5 mg PO QDAY Qty: 30 0RF ujsvbqfyo-gdgawads-ngdysongra 12.5-50-200 mg tablet 2 tab PO .FOUR TIMES acetaminophen-codeine 300-15 mg tablet 1 tab PO Q6H PRN (Reason: pain) sennosides [Black-Draught Lax-Senna] 8.6 mg tablet 8.6 mg PO QDAY PRN (Reason: constipation) furosemide 40 mg tablet 20 mg PO DAILY acetaminophen 650 mg tablet extended release 650 mg PO .DAILY PRN (Reason: pain) Patient Comments: PLEASE SEE ATTACHED FOR DETAILED DIRECTIONS atorvastatin 80 mg tablet 80 mg PO HS 30 Days Qty: 30 0RF azithromycin 500 mg tablet 500 mg PO QDAY Qty: 3 0RF solifenacin 10 mg Tablet 10 mg PO QDAY Referrals: No Primary/Family,Physician [Primary Care Provider] - In 1 week Problem List Clinical Impression: Metabolic encephalopathy Patient/Caregiver Discharge Instructions Print Language: Swedish Stand Alone Forms: [employer] Award Info., Patient Portal Info Letter
[2024-10-15] MEDS: MIDAZOLAM INJ 1 MG/ML VIAL 2 ML IM (20:07)
[2024-10-15] MEDS: RINGERS LACTATED 1000 ML 1,000 ML 999 ML IV (20:26)
[2024-10-15] MEDS: cefTRIAXone/D5w 1gm IV premix 1 GM/50 ML BAG IV (20:27)
[2024-10-15] MEDS: ACETAMINOPHEN SUPP 325 MG SUPP 650 MG PR (20:27)
[2024-10-15 20:51] LABS: Base Excess, Venous -3 (-3-3); O2 Saturation, Venous 41 % (96-97); PCO2, Venous 46 mmHg (36-56); PO2, Venous 27 mmHg (15-58); pH, Venous 7.32 (7.33-7.66)
[2024-10-15 20:56] LABS: Lactate (Lactic Acid) 5.1 mMol/L (0.4-2.0)
[2024-10-15 21:01] LABS: Basophils # (Auto) 0.0 Thou/mm3 (0.0-0.2); Basophils % (Auto) 0 % (0-2.5); Eosinophils # (Auto) 0.0 Thou/mm3 (0.0-0.5); Eosinophils % (Auto) 1 % (0-10); Hematocrit 29.1 % (41.0-53.0); Hemoglobin 10.1 g/dL (13.5-16.0); Immature Granulocytes Auto 0.03 Thou/mm3 (0.00-0.00); Lymphocytes # (Auto) 0.8 Thou/mm3 (1.0-4.8); Lymphocytes % (Auto) 13 % (10-50); Mean Corpuscular HGB Conc 34.7 g/dl (31.0-37.0); Mean Corpuscular Hemoglobin 31.2 pg (25.0-35.0); Mean Corpuscular Volume 90 fL (80-100); Monocytes # (Auto) 0.6 Thou/mm3 (0.0-0.8); Monocytes % (Auto) 9 % (0-12); Neutrophils # (Auto) 5.1 Thou/mm3 (1.8-7.7); Neutrophils % (Auto) 77 % (37-80); Nucleated Red Blood Cell # 0.00 Thou/mm3 (0.00-0.00); Nucleated Red Blood Cell % 0 /100 WBC (0); Platelet Count 393 Thou/mm3 (140-440); RDW Standard Deviation 42.0 fL (35.1-43.9); Red Blood Count 3.24 Miln/mm3 (4.50-5.90); White Blood Count 6.6 Thou/mm3 (3.8-10.6)
[2024-10-15 21:13] LABS: INR 1.1 (0.9-1.3); Prothrombin Time 12.2 Seconds (9.0-12.2)
[2024-10-15] MEDS: MIDAZOLAM INJ 1 MG/ML VIAL 2 ML 2 MG IVP (21:20)
[2024-10-15 21:21] LABS: Ammonia 36 uMol/L (11-32)
[2024-10-15 21:22] LABS: T4 (Thyroxine) 8.6 mcg/dL (4.5-10.9)
--- NOTE | 2024-10-15 21:26 | EKG_ITS ---
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: : 1940 Requested By: Eliza Valencia Order Number: [id number] Reading MD: Eliza Valencia Measurements Intervals Knickerbocker Rate: 72 P: 68 ME: 224 QRS: -24 QRSD: 122 T: 30 QT: 403 QTc: 443 Interpretive Statements SINUS RHYTHM WITH FIRST DEGREE AV BLOCK BORDERLINE LEFT AXIS DEVIATION [QRS AXIS < -20] MODERATE INTRAVENTRICULAR CONDUCTION DELAY [110+ ms QRS DURATION] Compared to ECG 10/04/2024 12:57:19 First degree AV block now present Intraventricular conduction delay now present Incomplete right bundle-branch block no longer present Myocardial infarct finding no longer present /store/S0/[id number]/[id number]
[2024-10-15 21:32] LABS: Acetaminophen 3.2 mcg/mL (10.0-20.0); Alanine Aminotransferase < 7 U/L (10-49); Albumin, Serum 3.5 gm/dL (3.4-4.8); Albumin/Globulin Ratio 1.5 (1.2-2.2); Alkaline Phosphatase 95 U/L (46-116); Anion Gap 6 (7-16); Aspartate Amino Transferase 25 U/L (0-34); BUN/Creatinine Ratio 22 Ratio (12-20); Bilirubin,Total 1.4 mg/dL (0.3-1.2); Blood Urea Nitrogen 24 mg/dL (9-23); Calcium 8.9 mg/dL (8.3-10.6); Calcium (Corrected) 9.3 mg/dL (8.5-10.1); Carbon Dioxide 22.7 mMol/L (20.0-31.0); Chloride 113 mMol/L (98-107); Creatine Kinase 253 U/L (34-171); Creatinine (Component) 1.1 mg/dL (0.6-1.3); Estimated Creatinine Clearance 39.8 mL/min (>60); Globulin 2.3 gm/dL (2.3-3.5); Glucose 96 mg/dL (74-106); Osmolality,Calculated 287 (275-295); Potassium 4.4 mMol/L (3.4-5.1); Procalcitonin 0.07 ng/ml (0.0-0.49); Salicylate < 3.0 mg/dL; Sodium 142 mMol/L (136-145); Thyroid Stimulating Hormone 3.04 uIU/mL (0.55-4.78); Total Protein 5.8 gm/dL (5.7-8.2); Troponin I 0.029 ng/mL (0.0-0.045); eGFR > 60 See Note
[2024-10-15 21:43] LABS: Collection Type, Urine Catheter; Squamous Epithelial Cell,Urine 0 /hpf (0-5)
[2024-10-15 21:55] LABS: Bilirubin,Urine Negative (Negative); Blood,Urine Negative (Negative); Clarity,Urine Clear (Clear/Hazy); Color,Urine Drk-Yellow (Lt Yel-Yel); Culture Indicated,Urine Not Indicated; Glucose, Urine Negative (Negative); Ketones,Urine Trace (Negative); Leukocyte Esterase,Urine Negative (Negative); Nitrite,Urine Negative (Negative); PH,Urine 6.0 (5.0-7.0); Protein,Urine Negative (Neg - Trace); RBC,Urine 2 /hpf (0-3); Specific Gravity,Urine 1.021 (1.001-1.035); Urobilinogen,Urine Negative mg/dL (0.0-1.0); WBC,Urine 1 /hpf (0-5)
[2024-10-15 23:52] LABS: Reflex Lactate? Y
[2024-10-16] VITALS (17 sets, daily range): BP systolic 108–162; BP diastolic 48–92; PULSE 66–77; RESP 13–98; TEMP 36.3–37.6; O2SAT 90–100
[2024-10-16 00:18] LABS: Lactic Acid, 3 HR 1.2 mMol/L (0.4-2.0)
--- NOTE | 2024-10-16 02:53 | PC.NURSE ---
Case Consult 10/16/2024 02:52:53 [facility] Case # [id number] has been created.
--- NOTE | 2024-10-16 03:07 | PC.NURSE ---
DR. TETO PETTIT FROM [facility] CALLED FOR CONSULT.
[2024-10-16 03:55] LABS: Troponin I 0.049 ng/mL (0.0-0.045)
--- NOTE | 2024-10-16 04:17 | ESCONSULT_ITS ---
Tele [facility] Consultation Consultation Date 10/16/24 Most Recent Vital Signs Last Vital Signs Temp 98.5 F 10/16/24 03:06 Pulse 66 10/16/24 03:06 Resp 16 10/16/24 03:06 BP 152/70 H 10/16/24 03:06 Pulse Ox 99 10/16/24 03:06 O2 Del Method Room Air 10/16/24 03:06 O2 Flow Rate 2 10/16/24 00:11 Laboratory-Coagulation Panel PT 12.2 Seconds (9.0-12.2) 10/15/24 20:45 INR 1.1 (0.9-1.3) 10/15/24 20:45 Consultation Narrative [facility] Consult Services Stat Consult Patient Name:???GENE ABEL Date of :???1940 Identification Number:??? Date of Service:???10/16/2024 02:52:53 Diagnosis:?R41.82 - Altered mental status, unspecified Impression 84 yo man with extensive PMH presenting for evaluation of AMS x3 days. Unclear etiology but I do think admission is reasonable. Likely should have a repeat brain MRI as he is not back to normal and has not been taking his eliquis; p otentially he has had a small infarct. Also consider EEG. While no seizures were mentioned, the agitation could be due to a post ictal state. I would not start on anti seizure medications at this time. Otherwise continue home medications. I would wait to start eliquis until MRI is complete. If no stroke noted, then likely should be restarted unless there is a contraindication. Recommendations: Our recommendations are outlined below. Diagnostic Studies :MRI brain without contrast Routine EEG Laboratory Studies :Check B12/folate TSH Ammonia Nursing Recommendations :Delirium precautions: Blinds open during the day, closed at night, frequent reorientation, minimize nighttime interruptions When possible avoid benzodiazepines, opioid pain medications, and anticholinergic medications DVT Prophylaxis :Choice of Primary Team Disposition :Neurology will follow Metrics: Dispatch Time: 10/16/2024 02:52:53 Callback Response Time: 10/16/2024 02:54:43 Primary Provider Notified of Diagnostic Impression and Management Plan on: 10/16/2024 03:33:38 CT HEAD: I personally reviewed all the CT images that were available to me and it showed:?no acute pathology, old left cerebellar infarct also seen on last head CT Chief Complaint: unable assess due to AMS History of Present Illness:Patient is a 84 year old Male. This is an 84 yo man with history of Parkinson's disease (per chart review), HTN, HLD, afib on eliquis who presents for evaluation of reported 3 days of AMS. I am told that he was quite agitated and not speaking or following commands. He required versed. By the time of my exam, he is somnolent but waking up to voice. He was oriented to person, place, age, and month. He had no focal deficits. He had some mild paucity of speech but could name and repeat. A head CT did not show any acute pathology. Per recent d/c note, his eliquis was held until he followed up with his ager tender but I am not sure if that happened. ? Past Medical History: ?Hypertension ?Hyperlipidemia ?Atrial Fibrillation ?Stroke Medications: Anticoagulant use:??Yes?eliquis No Antiplatelet use Reviewed EMR for current medications Allergies:? NKDA Social History: Smoking: No Alcohol Use: No Drug Use: No Family History: There is no family history of premature cerebrovascular disease pertinent to this consultation ROS :Review of Systems:?difficult to assess due to pt sleepy and decreased speech output ROS Past Surgical History: There Is Surgical History of:? CABG ? Examination: BP(152/70),?Pulse(67), 1A: Level of Consciousness - Arouses to minor stimulation?+ 1 1B: Ask Month and Age - Both Questions Right?+ 0 1C: Blink Eyes & Squeeze Hands - Performs Both Tasks?+ 0 2: Test Horizontal Extraocular Movements - Normal?+ 0 3: Test Visual [place] - No Visual Loss?+ 0 4: Test Facial Palsy (Use Grimace if Obtunded) - Normal symmetry?+ 0 5A: Test Left Arm Motor Drift - No Drift for 10 Seconds?+ 0 5B: Test Right Arm Motor Drift - No Drift for 10 Seconds?+ 0 6A: Test Left Leg Motor Drift - No Drift for 5 Seconds?+ 0 6B: Test Right Leg Motor Drift - No Drift for 5 Seconds?+ 0 7: Test Limb Ataxia (FNF/Heel-Enciso) - No Ataxia?+ 0 8: Test Sensation - Normal; No sensory loss?+ 0 9: Test Language/Aphasia - Mild-Moderate Aphasia: Some Obvious Changes, Without Significant Limitation?+ 1 10: Test Dysarthria - Normal?+ 0 11: Test Extinction/Inattention - No abnormality?+ 0 NIHSS Score:?2 Spoke with :?Dr. Blankenship This consult was conducted in real time using interactive audio and video technology. Patient was informed of the technology being used for this visit and agreed to proceed. Patient located in hospital and provider located at home/office setting. Patient is being evaluated for possible acute neurologic impairment and high probability of imminent or life - threatening deterioration.I spent total of 30 minutes providing care to this patient, including time for face to face visit via telemedicine, review of medical records, imaging studies and discussion of findings with providers, the patient and / or family. Dr Edward Roberto [facility] For Inpatient follow-up with [facility] physician please call [facility] at . As we are not an outpatient service for any post hospital discha rge needs please contact the hospital for assistance. If you have any questions for the [facility] physicians or need to reconsult for clinical or diagnostic changes please contact us via [facility] at . ?
--- NOTE | 2024-10-16 05:09 | XR_ITS ---
Examination: MRI brain without intravenous contrast. Date and time of exam: October 16, 2024 0949 hours Comparison April 30, 2019 INDICATIONS: Onset altered mental status beginning October 15, 2024 Technique: Multiple axial and sagittal images of the brain obtained. Siemens high-resolution 1.5 Yareli short bore scanners utilized. Sagittal sections, T1-weighted, TR 500, TE 14, are performed. Axial sections proton-density and T2-weighted have been obtained. Inversion recovery axial images, TR 9, 260, TE 111, TI 2500. Diffusion weighted images, axial sections, TR 4800, TE 128, B value 1000 Axial sections, ADC map, TR 4800, TE 128 Findings: Enlargement of the sella turcica is not present. The optic chiasm and infundibular are not remarkable. Prepontine and interpeduncular cisterns are not enlarged. There is no localized enlargement of the medulla or jackie. Fourth ventricle and cerebellar tonsils appear normal in position. No subacute area of hemorrhage density is seen. Mass in the cerebellopontine angle region is not evident. Globes symmetrical. Orbital musculature including medial lateral rectus muscles do not exhibit abnormality. Diffusion-weighted images demonstrate no focus of restricted diffusion. Increased white matter signal moderate, old infarct left cerebellar hemisphere Mass effect upon the ventricular system is not identified. Impression: Negative for acute hemorrhage, mass effect or midline shift No acute infarct. Old infarct left cerebellar hemisphere Moderate chronic microvascular white matter change
--- NOTE | 2024-10-16 05:15 | PD.RESHP ---
Documentation for date of: 10/16/24 HPI History of Present Illness Chief complaint: Altered mental status History of present illness: 84-year-old male with past medical history of CVA, Parkinson's disease, CABG x 3, a flutter, prostate cancer, hypertension, hyperlipidemia, HFpEF (EF 50 to 55% on 09/2024), and GERD was admitted to the hospital on 10/16/2024 to, to the ED with chief complaints of altered mental status. On time of assessment patient minimally responsive to verbal stimuli and likely since he was deep asleep and even with sternal rub patient was not waking up he was only retracting to pain. Patient at this time had a GCS of 8-9 and patient was protecting his airway. Given this altered mental status most of the history was taken from chart review. Patient was brought in initially because of altered mental status for around 3 days from day of admission. Initially in the ED patient was altered and combative therefore he had to be restrained and he got 2 doses of midazolam for total of 3 mg IV in the ED. This could have also contributed to the Patient's Somnolence on my assessment. Lab work was done by ED physician and did not reveal any obvious reason for patient's recent to be altered therefore teleneurology was consulted. Teleneurology stated that patient's altered mental status should be worked up and patient should be admitted to the hospital. ED course: Initially came in hypertensive, tachypneic, tachycardic, and with a low-grade fever. Initial labs were relevant for low hemoglobin (10.1), lactic acidosis (5.1 and downtrended to 1.2), mildly elevated ammonia levels at 36, elevated troponins, elevated creatinine kinase, and UA was negative for any bacteria or blood. Initial imaging included chest x-ray shows some basilar pneumonia, head CT which only showed the small old infarct, and EKG that showed sinus rhythm with first-degree AV block, but no ST changes. Of note patient was recently discharged from our hospital on 10/03/2024 due to similar symptoms and was discharged with instructions to follow-up with neurologist. Patient was also seen in the ED on 10/04/2024 for ground-level fall and he was found to have a acute displaced impacted left subcapital hip fracture and was transferred. PMH: As above Social Hx: Per chart review no smoking, alcohol, illicit drugs Allergies: NKDA Review of Systems Review of Systems ROS Unobtainable: unobtainable due to mental status Past Medical History Past Medical History NEUROLOGIC: Positive Neurological Disorders, Transient Ischemic Attacks (TIA) and Parkinson's Disease CARDIAC: Positive Cardiac Disorders, Coronary Artery Disease, Atherosclerotic Heart Disease and Hypertension GASTROINTESTINAL: Positive Gastrointestinal Disorders and Gastroesophageal Reflux Disease GENITOURINARY: Positive Genitourinary Disorders, Prostate Cancer and Benign Prostatic Hyperplasia MUSCULOSKELETAL: Positive Musculoskeletal Disorders OTHER HISTORY: Positive Radiation Therapy and Prostate Cancer Surgical History SURGICAL: Positive Cardiac Surgery and Coronary Artery Bypass Graft; Negative Abdominal Surgery Social History SMOKING STATUS: Never smoker SUBSTANCE USE: does not use Exam Vital Signs Temp Pulse Resp BP Pulse Ox O2 Del Method O2 Flow Rate 98.5 F 66 16 152/70 H 99 Room Air 2 10/16/24 03:06 10/16/24 03:06 10/16/24 03:06 10/16/24 03:06 10/16/24 03:06 10/16/24 03:06 10/16/24 00:11 Narrative Exam Physical exam Limited due to patient's current condition General: Thin frail elderly male, somnolent Eyes: PERRL, EOMI. Ears: No visible ear discharge Nose: No visible nasal discharge. Mouth/Throat: Dry mucous membranes, no redness, no lesions. Neck: Neck supple, non-tender, no cervical lymphadenopathy. Lungs: Clear LIAM to auscultation and percussion, No accessory muscle use. Cardio: Normal S1/S2, regular rhythm, no murmurs, no JVD Abdomen: Soft, non-tender, no palpable masses, peristalsis present, no guarding or rebound. Extremities: Symmetrical, no significant deformities, no peripheral edema , non-tender, peripheral pulses presents. Skin: No rashes, no lesions, warm to touch. Neuro: Patient was moving all extremities with a GCS of around 9, but was very somnolent therefore cannot assess further neurological deficits. Results: Labs 10/15/24 20:45 10/15/24 20:45 Labs: Short CBC 10/15/24 Range/Units 20:45 WBC 6.6 (3.8-10.6) Thou/mm3 Hgb 10.1 L (13.5-16.0) g/dL Hct 29.1 L (41.0-53.0) % Plt Count 393 D (140-440) Thou/mm3 BMP 10/15/24 20:45 Sodium 142 Potassium 4.4 Chloride 113 H Carbon Dioxide 22.7 BUN 24 H Creatinine 1.1 Glucose 96 Calcium 8.9 Cardiac Enzymes 10/15/24 10/16/24 Range/Units 20:45 03:07 Total Creatine Kinase 253 H (34-171) U/L Troponin I 0.029 0.049 H* (0.0-0.045) ng/mL Liver Function 10/15/24 Range/Units 20:45 Total Bilirubin 1.4 H (0.3-1.2) mg/dL AST 25 (0-34) U/L ALT < 7 L (10-49) U/L Alkaline Phosphatase 95 (46-116) U/L Albumin 3.5 (3.4-4.8) gm/dL Urine 10/15/24 Range/Units 20:45 Urine Color Drk-Yellow A (Lt Yel-Yel) Urine Clarity Clear (Clear/Hazy) Urine pH 6.0 (5.0-7.0) Ur Specific [place] 1.021 (1.001-1.035) Urine Protein Negative (Neg - Trace) Urine Glucose (UA) Negative (Negative) ABG Interpretation ABG results: 10/15/24 20:45 VBG pH 7.32 L VBG pCO2 46 VBG pO2 27 VBG Base Excess -3 Quality Measures Quality Measures sepsis Current suspected stage: ruled out Possible source: pulmonary Blood cultures ordered: yes Antibiotic ordered: Yes Advance care planning discussed with:: patient Medications Home Medications and Allergies Home Medications ?Medication ?Instructions ?Recorded ?Confirmed ?Type tamsulosin 0.4 mg capsule (Flomax) 0.4 mg PO QDAY Prostate ##0 06/12/14 10/02/24 History solifenacin 10 mg tablet 10 mg PO QDAY 03/03/22 10/02/24 History acetaminophen 300 mg-codeine 15 mg 1 tab PO Q6H PRN pain 10/02/24 10/02/24 History tablet acetaminophen 650 mg 650 mg PO .DAILY PRN pain 10/02/24 10/02/24 History tablet,extended release carbidopa 12.5 mg-levodopa 50 2 tab PO .FOUR TIMES 10/02/24 10/02/24 History mg-entacapone 200 mg tablet furosemide 40 mg tablet 20 mg PO DAILY 10/02/24 10/02/24 History sennosides 8.6 mg tablet 8.6 mg PO QDAY PRN constipation 10/02/24 10/02/24 History (Black-Draught Lax-Senna) Allergies Allergy/AdvReac Type Severity Reaction Status Date / Time banana Allergy Verified 10/15/24 19:39 pork derived (porcine) Allergy Verified 10/15/24 19:39 Visit Medications Acetaminophen (Acetaminophen Supp 650 Mg Supp) 650 mg FL Q6HR PRN PRN Reason: Pain mild 1-3 Or Fever > 100.4 Stop: 11/15/24 05:12 Heparin Sodium (Porcine) (Heparin Sod Inj 5000 Unit/Ml Vial) 5,000 unit SC Q8HR ARIAN Stop: 10/30/24 05:59 Azithromycin 500 mg/ Sodium (Chloride) 250 mls @ 250 mls/hr IV QDAY ARIAN Stop: 10/23/24 05:11 Ceftriaxone Sodium/Dextrose (Rocephin/D5w 1gm Iv Premix) 1 gm in 50 mls @ 100 mls/hr IV QDAY ARIAN Stop: 10/23/24 05:11 Ondansetron HCl (Ondansetron Inj 2 Mg/Ml Inj 2 Ml) 4 mg IVP Q6H PRN; Protocol PRN Reason: NAUSEA OR VOMITING Stop: 11/15/24 05:04 Pantoprazole Sodium (Pantoprazole Inj 40 Mg Vial) 40 mg IVP QDAY ARIAN Stop: 11/15/24 08:59 Discontinued Medications Acetaminophen (Acetaminophen Supp 325 Mg Supp) 650 mg FL X1 ONE Stop: 10/15/24 19:44 Last Admin: 10/15/24 20:27 Dose: 650 mg Ceftriaxone Sodium/Dextrose (Rocephin/D5w 1gm Iv Premix) 1 gm in 50 mls @ 100 mls/hr IV X1 ONE Stop: 10/15/24 20:11 Last Infusion: 10/15/24 21:02 Dose: Infused Lactated Ringer's (Lactated Ringers) 1,000 mls @ 999 mls/hr IV .Q1H1M ONE Stop: 10/15/24 20:42 Last Infusion: 10/15/24 21:51 Dose: Infused Midazolam HCl (Midazolam Inj 1 Mg/Ml Vial 2 Ml) 1 mg IM X1 ONE Stop: 10/15/24 19:49 Last Admin: 10/15/24 20:07 Dose: 1 mg Midazolam HCl (Midazolam Inj 1 Mg/Ml Vial 2 Ml) 2 mg IVP X1 ONE Stop: 10/15/24 21:01 Last Admin: 10/15/24 21:20 Dose: 2 mg Assessment & Plan Plan 84-year-old male with past medical history of CVA, Parkinson's disease, CABG x 3, a flutter, prostate cancer, hypertension, hyperlipidemia, HFpEF (EF 50 to 55% on 09/2024), and GERD was admitted to the hospital on 10/16/2024 for acute encephalopathy likely multifactorial. #Acute encephalopathy likely multifactorial #Community-acquired pneumonia #Normocytic normochromic anemia #Mild hyperammonemia #Seizures? #Dementia? Patient recently came in from [facility] with complaints of altered mental status. Patient encephalopathy likely multifactorial at this time given multiple factors which could have contributed including his low hemoglobin which has been steadily downtrending as compared to 10/02/2024 where was 12.4 and down trended today to 10.1. Could also not discard infectious etiology given pneumonia seen on imaging and patient initially coming in with lactic acidosis, which has since resolved. Cannot rule out either patient developing dementia versus seizures versus less likely stroke. Ammonia levels were slightly elevated at 36 which could have also contributed to his acute encephalopathy. Teleneurology saw the patient and recommended MRI given that he is not back to his baseline as well as EEG to rule out any seizures. Plan: No echo due to recent echo MRI head and brain without contrast ordered EEG ordered Azithromycin and Rocephin for patient's pneumonia Blood cultures and sputum cultures ordered Seizure precautions Neurochecks every 4 to assess patient's altered mental status Aspiration precautions Consulted neurology, appreciate recommendations Patient is strictly n.p.o. at this time given his altered mental status Speech evaluation ordered to safely start patient on diet Consider GI bleed in differentials if Hgb drops. Chronic diseases: #Hx of CVA #Hx of Parkinson disease #Hx of HFrEF (EF 50 to 55%) #Hx of hyperlipidemia #Hx of atrial flutter #Hx of prostate cancer #Hx of hypertension #Hx of CABG Pending medication reconciliation Teleneurology stated to hold Eliquis at this time until stroke is also ruled out on MRI even though less likely Disposition: Patient admitted to telemetry Diet: NPO GI prophylaxis: protonix DVT prophylaxis: Heparin subcu Code: Full code Case disclosed with Attending Dr. Min Olvera PGY1 Disclaimer: Even though this this note was dictated by speech recognition and even though it was carefully revised there may still be minor errors in inspector salvage due to voice recognition software. Attending Provider Attestation/Addendum 84-year-old male patient was admitted for acute encephalopathy. Patient has Parkinson's, CVA, uncontrolled hypertension, he has fever and tachycardia. He has possible pneumonia with lactic acidosis. Patient will be admitted for further management. I discussed with and supervised the resident physician who took care of this patient. I agree with the assessment and plan as above.
[2024-10-16] MEDS: AZITHROMYCIN INJ 500 MG in SODIUM CHLORIDE 0.9% 250 ML 250 ML 250 MG IV ×2 (05:39→09:45)
[2024-10-16 06:44] LABS: Folate 10.88 ng/mL (>5.38); Vitamin B12 303 pg/mL (211-911)
[2024-10-16 06:53] LABS: Basophils # (Auto) 0.0 Thou/mm3 (0.0-0.2); Basophils % (Auto) 1 % (0-2.5); Eosinophils # (Auto) 0.1 Thou/mm3 (0.0-0.5); Eosinophils % (Auto) 2 % (0-10); Hematocrit 28.4 % (41.0-53.0); Hemoglobin 10.1 g/dL (13.5-16.0); Immature Granulocytes Auto 0.01 Thou/mm3 (0.00-0.00); Lymphocytes # (Auto) 0.8 Thou/mm3 (1.0-4.8); Lymphocytes % (Auto) 15 % (10-50); Mean Corpuscular HGB Conc 35.6 g/dl (31.0-37.0); Mean Corpuscular Hemoglobin 31.9 pg (25.0-35.0); Mean Corpuscular Volume 90 fL (80-100); Monocytes # (Auto) 0.4 Thou/mm3 (0.0-0.8); Monocytes % (Auto) 8 % (0-12); Neutrophils # (Auto) 3.9 Thou/mm3 (1.8-7.7); Neutrophils % (Auto) 74 % (37-80); Nucleated Red Blood Cell # 0.00 Thou/mm3 (0.00-0.00); Nucleated Red Blood Cell % 0 /100 WBC (0); Platelet Count 318 Thou/mm3 (140-440); RDW Standard Deviation 42.4 fL (35.1-43.9); Red Blood Count 3.17 Miln/mm3 (4.50-5.90); White Blood Count 5.2 Thou/mm3 (3.8-10.6)
[2024-10-16 07:02] LABS: Alanine Aminotransferase 10 U/L (10-49); Albumin, Serum 3.3 gm/dL (3.4-4.8); Albumin/Globulin Ratio 1.4 (1.2-2.2); Alkaline Phosphatase 84 U/L (46-116); Anion Gap -1 (7-16); Aspartate Amino Transferase 23 U/L (0-34); BUN/Creatinine Ratio 20 Ratio (12-20); Bilirubin,Total 0.9 mg/dL (0.3-1.2); Blood Urea Nitrogen 16 mg/dL (9-23); Calcium 8.6 mg/dL (8.3-10.6); Calcium (Corrected) 9.2 mg/dL (8.5-10.1); Carbon Dioxide 25.3 mMol/L (20.0-31.0); Chloride 115 mMol/L (98-107); Creatinine (Component) 0.8 mg/dL (0.6-1.3); Estimated Creatinine Clearance 54.8 mL/min (>60); Globulin 2.4 gm/dL (2.3-3.5); Glucose 94 mg/dL (74-106); Osmolality,Calculated 278 (275-295); Potassium 4.3 mMol/L (3.4-5.1); Sodium 139 mMol/L (136-145); Total Protein 5.7 gm/dL (5.7-8.2); eGFR > 60 See Note
[2024-10-16 07:06] LABS: Troponin I 0.054 ng/mL (0.0-0.045)
[2024-10-16 12:07] LABS: Troponin I 0.042 ng/mL (0.0-0.045)
[2024-10-16] MEDS: RINGERS LACTATED 1000 ML 1,000 ML 55 ML IV (13:42)
[2024-10-16] MEDS: HEPARIN SOD INJ 5000 UNIT/ML VIAL SC ×2 (13:42→21:30)
[2024-10-16] MEDS: RINGERS LACTATED 1000 ML 1,000 ML 999 ML IV (14:03)
--- NOTE | 2024-10-16 14:23 | PCS.ST ---
Swallowing evaluation completed in the ED. See report for details. Progressive dysphagia since last admit. Recommend Dysphagia 1/MT2 liquids. Feed only when fully alert and active participation. ST will follow.
--- NOTE | 2024-10-16 15:01 | ESPR_ITS ---
<Statement entered by Vu Sheehan MD - 10/18/24 13:56> I have discussed and was present for the essential components of the history, physical examination, diagnosis, and treatment plan with the resident. I agree with the patient's care as documented by the resident and amended herein by me. Vu Sheehan MD FACP. Documentation for date of: 10/16/24 Subjective Subjective Interval history: Patient remains admitted for acute encephalopathy, likely multifactorial. When I came in this morning, he was in MRI. When I returned this afternoon, he was sleeping and, when I tried to wake him, he only stirred briefly, wanted to go back to sleep, and did not answer questions. Per nursing, he has remained mostly somnolent and minimally responsive throughout the day. He has a Lui catheter in place with urine output of about 250 mL since 7 AM (currently 3 PM). Labs: -Hgb 10.1 (prior 12.4) -Troponin trending down to 0.042 (from 0.054) -Lactic acid normalized (1.2, down from 5.1) -Strict I/Os: low output so far today Studies: -MRI head: Negative for acute hemorrhage, mass effect, midline shift, or acute infarct. Old infarct left cerebellar hemisphere. Moderate chronic microvascular white matter changes. -EEG pending. Exam Vital Signs Temp Pulse Resp BP Pulse Ox O2 Del Method O2 Flow Rate 99.3 F 71 17 118/49 L 99 Room Air 4 10/16/24 12:17 10/16/24 12:17 10/16/24 12:17 10/16/24 12:17 10/16/24 08:00 10/16/24 08:00 10/16/24 03:06 Narrative Exam PE limited ? patient in MRI this morning and sleeping this afternoon, minimally arousable, did not respond to questions. General: Thin frail elderly male, somnolent Ears: No visible ear discharge Nose: No visible nasal discharge. Lungs: Clear LIAM to auscultation, No accessory muscle use. Cardio: Normal S1/S2,? Extremities: Symmetrical, no significant deformities,? no peripheral edema. Skin: No rashes, no lesions, warm to touch.? Objective Labs 10/16/24 06:08 10/16/24 06:08 Labs: Laboratory Results - last 24 hr 10/15/24 10/16/2410/16/25 20:45 00:09 03:07 WBC 6.6 RBC 3.24 L Hgb 10.1 L Hct 29.1 L MCV 90 MCH 31.2 MCHC 34.7 RDW Std Deviation 42.0 Plt Count 393 D Neut % (Auto) 77 Lymph % (Auto) 13 [place] % (Auto) 9 Eos % (Auto) 1 Baso % (Auto) 0 Neut # (Auto) 5.1 Lymph # (Auto) 0.8 L [place] # (Auto) 0.6 Eos # (Auto) 0.0 Baso # (Auto) 0.0 Immature Gran # (Auto) 0.03 H Absolute Nucleated RBC 0.00 Immature Gran % 1 H Nucleated RBC % 0 PT 12.2 INR 1.1 VBG pH 7.32 L VBG pCO2 46 VBG pO2 27 VBG O2 Sat (Jeff) 41 L VBG Base Excess -3 Sodium 142 Potassium 4.4 Chloride 113 H Carbon Dioxide 22.7 Anion Gap 6 L BUN 24 H Creatinine 1.1 Estim Creat Clear Calc 39.8 L eGFR > 60 BUN/Creatinine Ratio 22 H Glucose 96 Calculated Osmolality 287 Lactic Acid 5.1 H* 1.2 Calcium 8.9 Corrected Calcium 9.3 Total Bilirubin 1.4 H AST 25 ALT < 7 L Alkaline Phosphatase 95 Ammonia 36 H Total Creatine Kinase 253 H Troponin I 0.029 0.049 H* Total Protein 5.8 Albumin 3.5 Globulin 2.3 Albumin/Globulin Ratio 1.5 Vitamin B12 Folate Procalcitonin 0.07 TSH 3.04 Thyroxine (T4) 8.6 Ur Collection Type Catheter Urine Color Drk-Yellow A Urine Clarity Clear Urine pH 6.0 Ur Specific [place] 1.021 Urine Protein Negative Urine Glucose (UA) Negative Urine Ketones Trace Urine Blood Negative Urine Nitrite Negative Urine Bilirubin Negative Urine Urobilinogen (Auto) Negative Ur Leukocyte Esterase Negative Urine RBC 2 Urine WBC 1 Ur Squamous Epith Cells 0 Urine Bacteria None Ur Culture Indicated? Not Indicated Salicylates < 3.0 Acetaminophen 3.2 L 10/16/24 10/16/24 06:08 11:34 WBC 5.2 RBC 3.17 L Hgb 10.1 L Hct 28.4 L MCV 90 MCH 31.9 MCHC 35.6 RDW Std Deviation 42.4 Plt Count 318 D Neut % (Auto) 74 Lymph % (Auto) 15 [place] % (Auto) 8 Eos % (Auto) 2 Baso % (Auto) 1 Neut # (Auto) 3.9 Lymph # (Auto) 0.8 L [place] # (Auto) 0.4 Eos # (Auto) 0.1 Baso # (Auto) 0.0 Immature Gran # (Auto) 0.01 H Absolute Nucleated RBC 0.00 Immature Gran % 0 Nucleated RBC % 0 PT INR VBG pH VBG pCO2 VBG pO2 VBG O2 Sat (Jeff) VBG Base Excess Sodium 139 Potassium 4.3 Chloride 115 H Carbon Dioxide 25.3 Anion Gap -1 L BUN 16 Creatinine 0.8 Estim Creat Clear Calc 54.8 L eGFR > 60 BUN/Creatinine Ratio 20 Glucose 94 Calculated Osmolality 278 Lactic Acid Calcium 8.6 Corrected Calcium 9.2 Total Bilirubin 0.9 D AST 23 ALT 10 Alkaline Phosphatase 84 Ammonia Total Creatine Kinase Troponin I 0.054 H* 0.042 Total Protein 5.7 Albumin 3.3 L Globulin 2.4 Albumin/Globulin Ratio 1.4 Vitamin B12 303 Folate 10.88 Procalcitonin TSH Thyroxine (T4) Ur Collection Type Urine Color Urine Clarity Urine pH Ur Specific [place] Urine Protein Urine Glucose (UA) Urine Ketones Urine Blood Urine Nitrite Urine Bilirubin Urine Urobilinogen (Auto) Ur Leukocyte Esterase Urine RBC Urine WBC Ur Squamous Epith Cells Urine Bacteria Ur Culture Indicated? Salicylates Acetaminophen ABG Interpretation ABG results: 10/15/24 20:45 VBG pH 7.32 L VBG pCO2 46 VBG pO2 27 VBG Base Excess -3 Quality Measures Quality Measures sepsis Current suspected stage: ruled out Possible source: pulmonary Blood cultures ordered: yes Antibiotic ordered: Yes Advance care planning discussed with:: spouse Assessment & Plan Assessment Current Active Medications: Generic Name Dose Route Start Last Admin Trade Name Freq PRN Reason Stop Dose Admin Acetaminophen 650 mg 10/16/24 05:13 Acetaminophen Supp 650 Mg Supp IN 11/15/24 05:12 Q6HR PRN Pain mild 1-3 Or Fever > 100.4 Heparin Sodium (Porcine) 5,000 unit 10/16/24 11:30 10/16/24 13:42 Heparin Sod Inj 5000 Unit/Ml Vial SC 10/30/24 11:29 5,000 unit Q8HR ARIAN Administration Azithromycin 500 mg/ Sodium 250 mls @ 250 mls/hr 10/16/24 05:12 10/16/24 13:23 Chloride IV 10/23/24 05:11 Infused QDAY ARIAN Infusion Ceftriaxone Sodium/Dextrose 1 gm in 50 mls @ 100 mls/hr 10/16/24 21:00 Rocephin/D5w 1gm Iv Premix IV 10/23/24 20:59 HS ARIAN Lactated Ringer's 1,000 mls @ 55 mls/hr 10/16/24 09:34 10/16/24 13:42 Lactated Ringers IV 10/17/24 03:44 55 mls/hr .[id number] ONE Administration Ondansetron HCl 4 mg 10/16/24 05:05 Ondansetron Inj 2 Mg/Ml Inj 2 Ml IVP 11/15/24 05:04 Q6H PRN NAUSEA OR VOMITING Protocol Pantoprazole Sodium 40 mg 10/16/24 09:00 10/16/24 09:43 Pantoprazole Inj 40 Mg Vial IVP 11/15/24 08:59 40 mg QDAY ARIAN Administration Plan #Acute encephalopathy Plan: -Multifactorial: sedative effect, infection, mild ammonia, no new stroke on MRI -Continue neuro checks q4h, seizure & aspiration precautions -Await EEG to rule out seizure -Strict NPO until speech eval clears PO -Hold Eliquis until EEG reviewed #Community-acquired pneumonia Plan: -Continue Azithromycin + Ceftriaxone -Blood & sputum cultures pending -Monitor for respiratory worsening #Anemia Plan: -Hgb 10.1, down from baseline ? 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 Sissy Schaeffer MD PGY-1 Internal Medicine Patient seen and examined at bedside, no acute overnight events. I discussed and supervised with the international travel consultant physician who took care of this patient. I personally saw and examined the patient. I agree with most of the assessment and plan. Patient presents with increased agitation and somnolence per at bedside. She notes progressive worsening of cognitive function over past year, with more acute changes for past three days. MRI negative, pending EEG and cultures. [email or web address] reports progressive dysphagia. Plan of care discussed with attending Dr. Sheehan. Beni Govea MD PGY-2
--- NOTE | 2024-10-16 15:23 | PC.SS ---
Initial assessment: patient is an 84-year old male admitted for acute encephalopathy. Patient information obtained by his daughter, Linnea Otto. Linnea informs the patient lives at home with spouse, Marlen Brar. Patient transfers with a walker at home and does not use home 02. Patient being followed by Dr. Quarles for primary care and Dr. June. [facility] Patient's emergency contact for medical decision making is , Marlen. The family is requesting SNF placement, no preferred facility as of yet. D/c plan: SNF Next of kin: Marlen
--- NOTE | 2024-10-16 17:09 | PC.SS ---
SS update: PASRR and SNF inquiry sent via [employer] transition. It should be noted patient was recently d/c home with [facility]. Family is now considering SNF placement. Pending responses on [employer].
[2024-10-16 17:50] LABS: Troponin I 0.036 ng/mL (0.0-0.045)
[2024-10-16] MEDS: RINGERS LACTATED 1000 ML 1,000 ML 70 ML IV (19:07)
[2024-10-16] MEDS: cefTRIAXone/D5w 1gm IV premix 1 GM/50 ML BAG IV (20:13)
--- NOTE | 2024-10-16 23:32 | PD.NEUROPROG ---
Documentation for date of: 10/16/24 Subjective Subjective Interval history: Patient was seen in telemetry today with family a the bedside, significant improvement noted in mental status, less tremors and more stengthening of his limbs. Exam - Neurology Vital Signs Temp Pulse Resp BP Pulse Ox O2 Del Method O2 Flow Rate 97.6 F 77 16 137/64 H 98 Room Air 4 10/16/24 20:00 10/16/24 20:00 10/16/24 20:00 10/16/24 20:00 10/16/24 20:00 10/16/24 20:00 10/16/24 03:06 Narrative Exam GENERAL APPEARANCE: Well hydrated, well-nourished in no acute distress. HEENT: Normocephalic, atraumatic, extraocular movements intact. Pupils: Equal reacting to light and accommodation NECK: Supple, no JVD or bruits. CARDIOVASULAR: Heart: S1, S2 heard, regular without S3-S4 or murmur no rubs or gallops. LUNGS/CHEST: Clear to auscultation bilaterally. No rails, rhonchi, or wheezing. Normal inspection. ABDOMEN: Soft, nontender, with normal bowel sounds. No pulsatile masses. No rebound, rigidity, or guarding. Normal inspection and palpation. EXTREMITIES: Normal inspection and palpation. No edema, clubbing or cyanosis. SKIN: Warm and dry without rashes. Normal inspection. MUSCULOSKELETAL: No cervical, thoracic, lumbar or midline bony tenderness. Normal inspection. NEURO: Alert, awake and oriented x3. Cranial nerves: II through XII grossly intact. Speech and language: Normal with no dysarthria or dysphasia. Motor system: Tone and bulk: Normal: Strength: moves all 4 extremities; No pronator drift noted. Deep tendon reflexes: 2+ bilaterally symmetrical. Plantar reflex: Downgoing bilaterally. Sensory system: Intact to all modalities of sensation bilaterally. Coordination: Intact to [id number]-xevb-vrhtc and kxzv-xlxp-hogc test bilaterally. No ataxia, no dysmetria, or dysdiadochokinesia noted. He has resting UE tremors noted. Gait: not tested. No signs of meningeal irritation noted. PSYCHIATRIC: Normal mood and affect. Objective Labs 10/16/24 06:08 10/16/24 06:08 Labs: Laboratory Results - last 24 hr 10/16/24 10/16/24 10/16/24 00:09 03:07 06:08 WBC 5.2 RBC 3.17 L Hgb 10.1 L Hct 28.4 L MCV 90 MCH 31.9 MCHC 35.6 RDW Std Deviation 42.4 Plt Count 318 D Neut % (Auto) 74 Lymph % (Auto) 15 [place] % (Auto) 8 Eos % (Auto) 2 Baso % (Auto) 1 Neut # (Auto) 3.9 Lymph # (Auto) 0.8 L [place] # (Auto) 0.4 Eos # (Auto) 0.1 Baso # (Auto) 0.0 Immature Gran # (Auto) 0.01 H Absolute Nucleated RBC 0.00 Immature Gran % 0 Nucleated RBC % 0 Sodium 139 Potassium 4.3 Chloride 115 H Carbon Dioxide 25.3 Anion Gap -1 L BUN 16 Creatinine 0.8 Estim Creat Clear Calc 54.8 L eGFR > 60 BUN/Creatinine Ratio 20 Glucose 94 Calculated Osmolality 278 Lactic Acid 1.2 Calcium 8.6 Corrected Calcium 9.2 Total Bilirubin 0.9 D AST 23 ALT 10 Alkaline Phosphatase 84 Troponin I 0.049 H* 0.054 H* Total Protein 5.7 Albumin 3.3 L Globulin 2.4 Albumin/Globulin Ratio 1.4 Vitamin B12 303 Folate 10.88 10/16/24 10/16/24 11:34 17:18 WBC RBC Hgb Hct MCV MCH MCHC RDW Std Deviation Plt Count Neut % (Auto) Lymph % (Auto) [place] % (Auto) Eos % (Auto) Baso % (Auto) Neut # (Auto) Lymph # (Auto) [place] # (Auto) Eos # (Auto) Baso # (Auto) Immature Gran # (Auto) Absolute Nucleated RBC Immature Gran % Nucleated RBC % Sodium Potassium Chloride Carbon Dioxide Anion Gap BUN Creatinine Estim Creat Clear Calc eGFR BUN/Creatinine Ratio Glucose Calculated Osmolality Lactic Acid Calcium Corrected Calcium Total Bilirubin AST ALT Alkaline Phosphatase Troponin I 0.042 0.036 Total Protein Albumin Globulin Albumin/Globulin Ratio Vitamin B12 Folate ABG Interpretation ABG results: 10/15/24 20:45 VBG pH 7.32 L VBG pCO2 46 VBG pO2 27 VBG Base Excess -3 Assessment & Plan Assessment and plan (1) Altered mental status: Status: Resolved Assessment and plan: MRI brain: Negative for acute hemorrhage, mass effect or midline shift No acute infarct. Old infarct left cerebellar hemisphere Moderate chronic microvascular white matter change continue with ASA and statin, vascular risk factor reduction (2) Parkinsons disease: Status: Chronic Additional Assessment & Plan Additional Plan: reassurance given to the patient that the he has improvement overall Patient is stable on Sinement and Comtan Vishal decide about the next step after Evaluated by PT tomorrow.
[2024-10-17] VITALS: BP 162/56; PULSE 62; PULSE 65; RESP 18; TEMP 36.4; O2SAT 97
[2024-10-17 04:00] VITALS: BP 154/66; PULSE 63; PULSE 67; RESP 18; TEMP 36.3; O2SAT 98
[2024-10-17] MEDS: HEPARIN SOD INJ 5000 UNIT/ML VIAL SC ×2 (05:02→13:50)
[2024-10-17 05:41] VITALS: BMI 17.4
[2024-10-17 06:15] LABS: Basophils # (Auto) 0.0 Thou/mm3 (0.0-0.2); Basophils % (Auto) 0 % (0-2.5); Eosinophils # (Auto) 0.1 Thou/mm3 (0.0-0.5); Eosinophils % (Auto) 1 % (0-10); Hematocrit 26.9 % (41.0-53.0); Hemoglobin 9.6 g/dL (13.5-16.0); Immature Granulocytes Auto 0.01 Thou/mm3 (0.00-0.00); Lymphocytes # (Auto) 0.8 Thou/mm3 (1.0-4.8); Lymphocytes % (Auto) 14 % (10-50); Mean Corpuscular HGB Conc 35.7 g/dl (31.0-37.0); Mean Corpuscular Hemoglobin 31.5 pg (25.0-35.0); Mean Corpuscular Volume 88 fL (80-100); Monocytes # (Auto) 0.5 Thou/mm3 (0.0-0.8); Monocytes % (Auto) 8 % (0-12); Neutrophils # (Auto) 4.5 Thou/mm3 (1.8-7.7); Neutrophils % (Auto) 76 % (37-80); Nucleated Red Blood Cell # 0.00 Thou/mm3 (0.00-0.00); Nucleated Red Blood Cell % 0 /100 WBC (0); Platelet Count 269 Thou/mm3 (140-440); RDW Standard Deviation 41.2 fL (35.1-43.9); Red Blood Count 3.05 Miln/mm3 (4.50-5.90); White Blood Count 5.9 Thou/mm3 (3.8-10.6)
[2024-10-17 07:16] LABS: Alanine Aminotransferase 18 U/L (10-49); Albumin, Serum 3.1 gm/dL (3.4-4.8); Albumin/Globulin Ratio 1.5 (1.2-2.2); Alkaline Phosphatase 78 U/L (46-116); Anion Gap 4 (7-16); Aspartate Amino Transferase 16 U/L (0-34); BUN/Creatinine Ratio 14 Ratio (12-20); Bilirubin,Total 0.6 mg/dL (0.3-1.2); Blood Urea Nitrogen 11 mg/dL (9-23); Calcium 8.1 mg/dL (8.3-10.6); Calcium (Corrected) 8.8 mg/dL (8.5-10.1); Carbon Dioxide 23.3 mMol/L (20.0-31.0); Chloride 114 mMol/L (98-107); Creatinine (Component) 0.8 mg/dL (0.6-1.3); Estimated Creatinine Clearance 54.8 mL/min (>60); Globulin 2.1 gm/dL (2.3-3.5); Glucose 91 mg/dL (74-106); Magnesium 1.9 mg/dL (1.6-2.6); Osmolality,Calculated 280 (275-295); Potassium 3.8 mMol/L (3.4-5.1); Sodium 141 mMol/L (136-145); Total Protein 5.2 gm/dL (5.7-8.2); eGFR > 60 See Note
[2024-10-17 08:00] VITALS: BP 135/54; PULSE 68; PULSE 70; RESP 13; TEMP 36.3; O2SAT 98
[2024-10-17] MEDS: AZITHROMYCIN INJ 500 MG in SODIUM CHLORIDE 0.9% 250 ML 250 ML 250 MG IV (09:00)
[2024-10-17] MEDS: CALCIUM CARBONATE 600 MG TABLET PO (09:01)
[2024-10-17 11:00] VITALS: BMI 17.4
--- NOTE | 2024-10-17 11:17 | PC.SS ---
Addendum entered by Hanna Reinoso 10/17/24 16:19: SS follow up note; SS scheduled transportation with [facility], Patient does not have [employer] transportation [place], Lolly signed YAYO. ETA is scheduled for 5:30. SS notified patient's nurse Medina and patient's , Marlen as well as Danielle from [facility]. Original Note: SS follow up note; SS met with patient's , Marlen at bedside in regards to discharge planning. Patient's reports she would like PT to evaluate patient first before she decides if patient will discharge to SNF. First choice is [facility] if patient's decides for patient to discharge to SNF. SS will follow up with patient's once PT notes is available.
[2024-10-17 12:00] VITALS: BP 129/56; PULSE 66; RESP 20; TEMP 36.6; O2SAT 97
[2024-10-17 12:05] VITALS: BP 129/56; PULSE 66
[2024-10-17] MEDS: METOPROLOL TARTRATE 25 MG TABLET 12.5 MG PO (12:05)
[2024-10-17] MEDS: ASCORBIC ACID 250 MG TABLET 500 MG PO (12:05)
[2024-10-17] MEDS: MULTIVITAMINS TABLET 1 TAB PO (12:05)
[2024-10-17] MEDS: CARBIDOPA/LEVODOPA 25/100 MG TABLET 1 TAB PO ×2 (12:05→16:44)
[2024-10-17] MEDS: ASPIRIN 81 MG CHEW PO (12:05)
[2024-10-17] MEDS: ENTACAPONE 200 MG 400 MG PO ×2 (12:07→16:44)
--- NOTE | 2024-10-17 15:40 | ESDS_ITS ---
<Statement entered by Vu Sheehan MD - 10/19/24 09:35> I have discussed and was present for the essential components of the history, physical examination, diagnosis, and treatment plan with the resident. I agree with the patient's care as documented by the resident and amended herein by me. Vu Sheehan MD FACP. <Statement entered by Beni Govea MD - 10/17/24 18:38> Patient seen and examined at bedside, no acute overnight events. I discussed and supervised with the internal medicine physician assistant physician who took care of this patient. I personally saw and examined the patient. I agree with most of the assessment and plan. Plan of care discussed with attending Dr. Sheehan. Beni Govea MD PGY-2 Planned Discharge Date 10/17/24 DS: Providers Provider Date of admission: 10/16/24 05:18 Primary care physician: Physician No Primary/Family Admitting Provider: Hi Copeland MD Attending Provider on Admission: Vu Sheehan MD Consults: 10/16/24 05:10 Consult to Neurology / Tele-Neurology Routine Comment: Consulting Provider: Peter Coronado 10/16/24 05:14 Referral Speech Therapy Routine Comment: 10/17/24 05:45 Referral Physical Therapy Routine Comment: Physician Instructions: Attending Provider on DC: RESIDENT Nickie PGY1 Discharging Provider: RESIDENT Nickie PGY1 Anticipated date of discharge: 10/17/24 DS: Diagnosis Problem List Completed Was Problem List Reviewed/Reconciled?: Yes Hospital Course Hospital Course Hospital course: Patient is an 84-year-old male with a history of CVA, Parkinson?s disease, CABG x3, atrial flutter, prostate cancer, hypertension, hyperlipidemia, and HFpEF, who was admitted on 10/16/2024 from a long term facility (SNF) where he was placed after a hip fracture repair, with a chief complaint of acute altered mental status. On admission, he was minimally responsive with GCS 8?9 after requiring restraints and midazolam in the ED due to combativeness. Initial workup showed normocytic anemia (Hgb 10.1 from baseline 12.4), mild lactic acidosis which resolved, mild hyperammonemia, mild troponin elevation, and a CXR that suggested possible basilar pneumonia. Head CT revealed only an old infarct. Teleneurology recommended MRI and EEG. During hospitalization, he was placed on seizure and aspiration precautions and kept NPO until cleared by speech therapy. MRI showed no acute infarct, hemorrhage, or mass effect ? only an old left cerebellar infarct and chronic microvascular changes. EEG was ordered but was not completed during this admission and remains pending. He was initially treated with Azithromycin and Ceftriaxone for presumed pneumonia, but with negative cultures, clear lung exam, and improving status, infection was felt unlikely, and antibiotics were stopped prior to discharge. His mental status fully returned to baseline ? awake, alert, and oriented x3, eating well. His anemia down-trended to Hgb 9.6 without signs of overt bleeding; calcium carbonate was given for mild hypocalcemia. Neurology recommended continuing ASA and statin, restarting Parkinson?s medications, and outpatient neurology follow-up in 2 weeks once cleared by PT. Discharge Diagnoses: -Acute encephalopathy, resolved (multifactorial: sedative effect, mild hyperammonemia, possible metabolic) -Normocytic normochromic anemia -History of CVA -Parkinson?s disease -Atrial flutter -Coronary artery disease s/p CABG x3 -Hypertension -Hyperlipidemia -HFpEF (EF 50?55%) -History of prostate cancer -Hip fracture s/p repair (rehab at SNF) Discharge Instructions -Lisinopril 20mg daily The following meds have been STOPPED: -Lovenox Please continue taking all other meds as previously prescribed Please follow up with neurology Dr. Coronado in 2 weeks. Please follow up with your PCP within 7-10 days. Please return to the ED if symptoms develop or worsen. ----- Plan discussed with attending physician Dr. Sissy Schaeffer MD PGY-1 Internal Medicine Time spent discussing smoking cessation with patient: more than 10 minutes Time Spent with Patient Time attestation: Total time spent providing and/or coordinating discharge services: Time spent: Greater than 30 minutes Exam Vital Signs Temp Pulse Resp BP Pulse Ox O2 Del Method O2 Flow Rate 97.9 F 66 20 129/56 L 97 Room Air 4 10/17/24 12:10/17/24 12:10/17/24 12:10/17/24 12:10/17/24 12:10/17/24 12:00 10/16/24 03:06 Narrative Exam Physical Exam on Discharge: -General: Awake, alert, oriented x3, no acute distress. -Neuro: AOx3, no focal deficits, moving all extremities well. -Respiratory: Lungs clear bilaterally, no distress. -Cardiac: Normal S1/S2, regular rate and rhythm, no murmurs, no JVD, no peripheral edema. -Abdomen: Soft, non-tender, non-distended -Extremities: No edema. -Skin: Warm, dry, intact. Discharge Plan Plan Patient Disposition: Xfer Skilled Nsg Fac (SNF) Patient condition on transfer: Stable Care Plan Goals: You have been started on the following medications: -Lisinopril 20mg daily The following meds have been STOPPED: -Lovenox Please continue taking all other meds as previously prescribed Please follow up with neurology Dr. Coronado in 2 weeks. Please follow up with your PCP within 7-10 days. Please return to the ED if symptoms develop or worsen. Prescriptions/Referrals Prescriptions/Med Rec: New lisinopril 20 mg tablet 20 mg PO QDAY Qty: 30 0RF Rx Instructions: Hold if SBP <120 and DBP <80 Continued tamsulosin [Flomax] 0.4 MG capsule,extended release 24hr 0.4 mg PO QDAY Qty: 0 [id number]-melzbxmg-[id number] 12.5-50-200 mg tablet 2 tab PO .FOUR TIMES acetaminophen-codeine 300-15 mg tablet 1 tab PO Q6H PRN (Reason: pain) ascorbic acid (vitamin C) [C-500] 500 mg tablet 500 mg PO BID docusate sodium [Colace] 100 mg capsule 100 mg PO BID pregabalin 50 mg Capsule 50 mg PO Q8H metoprolol tartrate 25 mg tablet 12.5 mg PO QDAY aspirin 81 mg tablet 81 mg PO QDAY multivitamin Tablet 1 tab PO QDAY ferrous sulfate [Feosol] 325 mg (65 mg iron) tablet 325 mg PO QDAY magnesium hydroxide 400 mg/5 mL suspension 2,400 mg PO TID PRN (Reason: constipation) bisacodyl [Dulcolax (bisacodyl)] 10 mg suppository 10 mg HI QDAY PRN (Reason: constipation) melatonin 3 mg capsule 3 mg PO HS guaifenesin [Migdalia-Tussin] 100 mg/5 mL liquid 200 mg PO Q6H PRN (Reason: sore throat) solifenacin 10 mg Tablet 10 mg PO QDAY Discontinued enoxaparin 40 mg/0.4 mL syringe 40 mg subcut QDAY lisinopril 5 mg tablet 20 mg PO QDAY Referrals: No Primary/Family,Physician [Primary Care Provider] - Patient/Caregiver Discharge Instructions Discharge Activity: as per physical therapy Education Materials: Parkinson Disease Common Sx, Dizziness Balance Probs Fainting, Parkinson Disease Caregiver Print Language: [place] Stand Alone Forms: Anno Award Info., Patient Portal Info Letter Discharge Order Discharge Orders: Discharge (Routine); Ordered 10/17/24 Ordered By: Beni Govea Quality Discharge Quality Measures VTE prophylaxis
[2024-10-17 16:00] VITALS: BP 118/54; PULSE 62; PULSE 68; RESP 18; TEMP 36.2; O2SAT 96
--- NOTE | 2024-10-17 16:40 | PC.NURSE ---
[facility] facility to monitor output. auditor supervisor time scheduled for [id number]
--- NOTE | 2024-10-17 20:12 | PD.RESPRO ---
Documentation for date of: 10/18/24 Subjective Subjective Interval history: Interval history: Patient was seen in telemetry today with a the bedside, significant improvement noted in mental status. No new concerns. Exam Vital Signs Temp Pulse Resp BP Pulse Ox O2 Del Method O2 Flow Rate 97.2 F 62 18 118/54 L 96 Room Air 4 10/17/24 16:00 10/17/24 16:00 10/17/24 16:00 10/17/24 16:00 10/17/24 16:00 10/17/24 16:00 10/16/24 03:06 Narrative Exam GENERAL APPEARANCE: Well hydrated, well-nourished in no acute distress. HEENT: Normocephalic, atraumatic, extraocular movements intact. Pupils: Equal reacting to light and accommodation NECK: Supple, no JVD or bruits. CARDIOVASULAR: Heart: S1, S2 heard, regular without S3-S4 or murmur no rubs or gallops. LUNGS/CHEST: Clear to auscultation bilaterally. No rails, rhonchi, or wheezing. Normal inspection. ABDOMEN: Soft, nontender, with normal bowel sounds. No pulsatile masses. No rebound, rigidity, or guarding. Normal inspection and palpation. EXTREMITIES: Normal inspection and palpation. No edema, clubbing or cyanosis. SKIN: Warm and dry without rashes. Normal inspection. MUSCULOSKELETAL: No cervical, thoracic, lumbar or midline bony tenderness. Normal inspection. NEURO: Alert, awake and oriented x3. Cranial nerves: II through XII grossly intact. Speech and language: Normal with no dysarthria or dysphasia. Motor system: Tone and bulk: Normal: Strength: moves all 4 extremities; No pronator drift noted. Deep tendon reflexes: 2+ bilaterally symmetrical. Plantar reflex: Downgoing bilaterally. Sensory system: Intact to all modalities of sensation bilaterally. Coordination: Intact to owskeg-scba-lnyis and qsxo-htxe-ypyi test bilaterally. No ataxia, no dysmetria, or dysdiadochokinesia noted. He has resting UE tremors noted. Gait: not tested. No signs of meningeal irritation noted. PSYCHIATRIC: Normal mood and affect. Objective Labs 10/17/24 05:38 10/17/24 05:38 ABG Interpretation ABG results: 10/15/24 20:45 VBG pH 7.32 L VBG pCO2 46 VBG pO2 27 VBG Base Excess -3 Quality Measures Quality Measures VTE prophylaxis Advance care planning discussed with:: patient and spouse Assessment & Plan Plan #Altered mental status, resolved MRI brain: Negative for acute hemorrhage, mass effect or midline shift No acute infarct. Old infarct left cerebellar hemisphere Moderate chronic microvascular white matter change Plan: - Continue with ASA and statin for vascular risk factor reduction - F/U in neuro clinic 2 weeks from discharge #Parkinsons disease, stable Plan: Stable and tolerating Sinement and Comtan No further recommendations at this time Plan discussed with Dr. Ivonne Dick, PGY1 Attending Provider Attestation/Addendum I personally have seen and examined the patient at the bedside and I agreed with resident's findings, assessment and plan of care. Patient is stable from neurology standpoint for discharge. I will see him back in 2 weeks. He is advised to continue with the Sinemet and Comtan as before.
== END 2024-10-17 17:55 | disposition skilled nursing facility (03) | DRG 70 ==
LOC: SERX 10-16 03:51 → SERHOLD 10-16 05:21 → S2NX 10-16 17:42
PROVIDERS: Admitting Provider Internal Medicine; Emergency Provider Emergency Medicine; Visit Provider Internal Medicine
DX: G93.41 Metabolic encephalopathy (principal); J18.9 Pneumonia, unspecified organism; S72.012A Unspecified intracapsular fracture of left femur, initial encounter for closed fracture; I50.42 Chronic combined systolic (congestive) and diastolic (congestive) heart failure; E87.20 Acidosis, unspecified; E72.20 Disorder of urea cycle metabolism, unspecified; I48.92 Unspecified atrial flutter; I11.0 Hypertensive heart disease with heart failure; I25.10 Atherosclerotic heart disease of native coronary artery without angina pectoris; I48.91 Unspecified atrial fibrillation; R13.10 Dysphagia, unspecified; E78.5 Hyperlipidemia, unspecified; D64.9 Anemia, unspecified; Z85.46 Personal history of malignant neoplasm of prostate; G20.A1 Parkinson's disease without dyskinesia, without mention of fluctuations; Z86.73 Personal history of transient ischemic attack (TIA), and cerebral infarction without residual deficits; Z95.1 Presence of aortocoronary bypass graft; Z78.1 Physical restraint status; Z79.01 Long term (current) use of anticoagulants; Z79.899 Other long term (current) drug therapy
CPT/HCPCS: 36415; 70450; 70551; 71045; 80053; 80307; 80329; 81001; 82140; 82550; 82607; 82746; 82803; 83605; 83735; 84145; 84436; 84443; 84484; 85025; 85610; 87040; 87081; 87205; 87400; 87811; 92526; 92610; 93005; 95816; 96361; 96365; 96366; 96367; 96372; 96375; 97162; 99285; A4314; J0456; J0696; J1644; J2250; J2470; J7050; J7120; A9270; G0480

== ENCOUNTER 2024-10-21 21:21 | Inpatient (IN) | payer MEDICARE, BC, SELFPAY ==
[2024-10-21 21:28] VITALS: BP 134/82; PULSE 92; RESP 18; TEMP 37.2; O2SAT 95
--- NOTE | 2024-10-21 21:35 | PD.EDADULT ---
ED General RME/HPI General Chief complaint: Weakness Stated complaint: WEAKNESS Time Seen by Provider: 10/21/24 21:35 Arrival date/time: 10/21/24 21:21 Related Data Home Medications ?Medication ?Instructions ?Recorded ?Confirmed tamsulosin 0.4 mg capsule (Flomax) 0.4 mg PO QDAY Prostate ##0 06/12/14 10/23/24 solifenacin 10 mg tablet 10 mg PO QDAY 03/03/22 10/23/24 carbidopa 12.5 mg-levodopa 50 2 tab PO .FOUR TIMES 10/02/24 10/23/24 mg-entacapone 200 mg tablet acetaminophen 300 mg-codeine 15 mg 1 tab PO Q6H PRN pain 10/16/24 10/23/24 tablet ascorbic acid (vitamin C) 500 mg 500 mg PO BID 10/16/24 10/23/24 tablet (C-500) aspirin 81 mg tablet 81 mg PO QDAY 10/16/24 10/23/24 bisacodyl 10 mg rectal suppository 10 mg DE QDAY PRN constipation 10/16/24 10/22/24 (Dulcolax (bisacodyl)) docusate sodium 100 mg capsule 100 mg PO BID 10/16/24 10/23/24 (Colace) ferrous sulfate 325 mg (65 mg 325 mg PO QDAY 10/16/24 10/23/24 iron) tablet (Feosol) guaifenesin 100 mg/5 mL oral 200 mg PO Q6H PRN sore throat 10/16/24 10/23/24 liquid (Migdalia-Tussin) magnesium hydroxide 400 mg/5 mL 2,400 mg PO TID PRN constipation 10/16/24 10/23/24 oral suspension melatonin 3 mg capsule 3 mg PO HS 10/16/24 10/23/24 metoprolol tartrate 25 mg tablet 12.5 mg PO QDAY 10/16/24 10/23/24 multivitamin 1 tab PO QDAY 10/16/24 10/23/24 pregabalin 50 mg capsule 50 mg PO Q8H 10/16/24 10/23/24 carbidopa 50 mg-levodopa 200 1 tab PO QID 10/22/24 10/22/24 mg-entacapone 200 mg tablet acetaminophen 300 mg-codeine 15 mg 1 tab PO Q6H PRN severe pain 10/23/24 10/23/24 tablet (scale score 7-10) artificial tears solution eye drops 1 drp ophthalmic (eye) Q2H PRN 10/23/24 10/23/24 DRYNESS pregabalin 50 mg capsule (Lyrica) 50 mg PO TID 10/23/24 10/23/24 Previous Rx's ?Medication ?Instructions ?Recorded lisinopril 20 mg tablet 20 mg PO QDAY #30 tabs 10/17/24 Allergies Allergy/AdvReac Type Severity Reaction Status Date / Time banana Allergy Verified 10/21/24 21:38 pork derived (porcine) Allergy Verified 10/21/24 21:38 Review of Systems Review of Systems Systems Reviewed: All systems reviewed, normal except as documented Course Quality Measures none Orders Category Date Time Status COVID-19 Screening Questionnaire NOW Care 10/22/24 13:58 Active Decision to Admit X1 Care 10/22/24 13:58 Completed EKG (ED ONLY) *Do not use* NOW Care 10/21/24 21:52 Completed EKG (ED ONLY) *Do not use* NOW Care 10/22/24 09:58 Completed In and Out Catheter X1 Care 10/21/24 22:32 Completed Insert IV NOW Care 10/21/24 21:38 Active MRI Screening NOW Care 10/22/24 03:06 Active Notify provider NOW Care 10/22/24 09:58 Active Consult to Cardiology Stat Cons 10/21/24 23:29 Ordered Consult to Cardiology Stat Cons 10/22/24 13:55 Ordered Consult to Gastroenterology Stat Cons 10/22/24 13:[address] abdomen pelvis wo con Stat Exams 10/21/24 23:[address] chest wo con Stat Exams 10/22/24 00:[address] head/brain wo con Stat Exams 10/21/24 23:59 Completed CXRP [XR chest 1V portable] Stat Exams 10/21/24 21:38 Completed EKG (ED Only) Stat Exams 10/21/24 21:52 Draft EKG (ED Only) Stat Exams 10/22/24 09:57 Draft MR MRCP Stat Exams 10/22/24 Completed US gall bladder Stat Exams 10/22/24 23:36 Completed Ammonia Stat Lab 10/21/24 22:12 Completed Ammonia Stat Lab 10/22/24 08:05 Completed BNP [B-Type Natriuretic Peptide] Stat Lab 10/21/24 22:12 Completed Blood Culture (Lab) Stat Lab 10/21/24 22:40 Results CBC Stat Lab 10/21/24 22:12 Completed CBC Stat Lab 10/22/24 16:00 Completed CMP [Comprehensive Metabolic Panel] Stat Lab 10/21/24 22:12 Completed CMP [Comprehensive Metabolic Panel] Stat Lab 10/22/24 16:00 Completed CRP [C-Reactive Protein] Stat Lab 10/21/24 22:12 Completed Creatine Kinase Stat Lab 10/21/24 22:12 Completed Creatine Kinase Stat Lab 10/22/24 08:05 Completed ESR [Sed Rate (ESR)] Stat Lab 10/21/24 22:12 Completed Lactic Acid [Lactate (Lactic Acid)] Stat Lab 10/21/24 22:12 Completed Lactic Acid [Lactate (Lactic Acid)] Stat Lab 10/21/24 23:22 Completed Lactic Acid, 3 HR Stat Lab 10/22/24 02:42 Completed Partial Thromboplastin Time AM DRAW Lab 10/24/24 05:00 Ordered Procalcitonin Stat Lab 10/21/24 22:12 Completed Prothrombin Time with INR AM DRAW Lab 10/24/24 05:00 Ordered Troponin I Stat Lab 10/21/24 22:12 Completed Troponin I Stat Lab 10/22/24 08:05 Completed Troponin I Stat Lab 10/22/24 16:00 Completed UA [Urinalysis] Stat Lab 10/21/24 23:10 Completed VBG [Venous Blood Gas] Stat Lab 10/21/24 23:22 Completed Ampicillin/Sulbac Inj [Unasyn Inj] 3 gm Med 10/22/24 05:24 Discontinued Sodium Chloride 0.9% (Pop) [NS 0.9% mini bag] 100 ml IV X1 Aspirin Med 10/22/24 09:57 Discontinued 325 mg PO X1 ONE Clopidogrel [Plavix] Med 10/22/24 09:57 Discontinued 150 mg PO X1 ONE Haloperidol Lactate [Haldol Inj] Med 10/21/24 22:15 Discontinued 2.5 mg IM X1 ONE Haloperidol Lactate [Haldol Inj] Med 10/21/24 22:31 Discontinued 5 mg .ROUTE .STK-MED ONE Haloperidol Lactate [Haldol Inj] Med 10/21/24 22:34 Discontinued 5 mg IM X1 ONE Heparin Inj Med 10/22/24 09:57 Discontinued 4,000 unit IV X1 ONE Sodium Chloride 0.9% 1000 ml [Ns] 1,000 ml Med 10/22/24 08:00 Discontinued IV 250 mls/hr Sodium Chloride 0.9% 250 ml [Ns] 250 ml Med 10/21/24 22:30 Discontinued IV 999 mls/hr Vital Signs Vital signs: Vital Signs Temperature 98.9 F 10/21/24 21:28 Pulse Rate 92 10/21/24 21:28 Respiratory Rate 18 10/21/24 21:28 Blood Pressure 134/82 H 10/21/24 21:28 Pulse Oximetry (%) 95 10/21/24 21:28 Oxygen Delivery Method Room Air 10/21/24 21:28 Discharge Plan Plan Patient Disposition: Admit Acute Care w/in Hospital Problem List Clinical Impression: Non-ST elevation NV (NSTEMI), Pneumonia, Rhabdomyolysis, Common bile duct dilation MDM Narrative MDM hospital course: 84 y/o M with PMHx of advanced alzheimers disease, CVA, Parkinson?s disease, CABG x3, atrial flutter, prostate cancer, hypertension, hyperlipidemia, and HFpEF was brought to the ED via ambulance [facility] for AMS. Per EMS, son was concerned of worsening dementia and wanted the patient to come to the ED to get patched up or flushed out to see if his mental status improves. 2240 Spoke to the of the patient and states that he has become more combative recently since his prior hospitalization. His Head scans from just a few days ago have been all negative. Labs reviewed lactic acid 9.5, gave 250ml Bolus of NS considering the patients hx of Heart failure. and will repeat lactate after, his CBC is unremarkable, procalcitonin elevated, elevated troponins and ammonia 2330: spoke to overlock elastic attacher Dr. Nur, due to elevated troponins and EKG changes compared to previous XR, but no acute ST changes, recommended admission and lovenox 1mg/kg Spoke to IM team request CT abdomen, VBG and CK, CT head prior to admission. 0314: CBD elevated on imaging studies, will get MRCP and sign out to Dr. Ferrer in the am. Clinical Information Provided by EMS Medical Records Reviewed [facility] Medication Administration(s) Medication Administration History Dextrose (Dextrose 50%-Water Inj 50 Ml Syringe) 25 ml IV Q15MIN PRN PRN Reason: BG 50-70 responsive npo pt Stop: 11/21/24 15:48 Dextrose (Dextrose 50%-Water Inj 50 Ml Syringe) 50 ml IV Q15MIN PRN PRN Reason: BG <50 OR BG <70 & pt unresponsive Stop: 11/21/24 15:48 Enoxaparin Sodium (Enoxaparin Sod Inj 80 Mg/0.8 Ml Syringe) 70 mg SC BID [facility] Stop: 11/05/24 20:59 Last Admin: 10/22/24 20:47 Dose: 70 mg Documented By: BLANCA Glucagon (Glucagon Inj 1 Mg Vial) 1 mg IM Q15MIN PRN PRN Reason: BG <70, and no IV access Sodium Chloride (Ns 0.45%) 1,000 mls @ 75 mls/hr IV .[id number] [facility] Stop: 11/21/24 15:50 Last Admin: 10/22/24 17:27 Dose: 75 mls/hr Documented By: SANNA Ceftriaxone Sodium/Dextrose (Rocephin/D5w 1gm Iv Premix) 1 gm in 50 mls @ 100 mls/hr IV QDAY [facility] Stop: 10/29/24 16:01 Last Admin: 10/22/24 17:27 Dose: 100 mls/hr Documented By: SANNA Metronidazole (Flagyl 500 Mg Iv) 500 mg in 100 mls @ 200 mls/hr IV Q12HR [facility] Stop: 10/29/24 20:59 Last Infusion: 10/22/24 21:20 Dose: Infused Documented By: Admin: 10/22/24 20:48 Dose: 200 mls/hr Documented By: BLANCA Insulin Human Lispro (Insulin Lispro (Admelog) 1 Unit/0.01 Ml Unit) 0 unit SC Q6HR ARIAN; Protocol Stop: 11/21/24 17:59 Last Admin: 10/22/24 23:51 Dose: Not Given Documented By: BLANCA Non-Admin Reason: Per Protocol Admin: 10/22/24 17:49 Dose: Not Given Documented By: SANNA Non-Admin Reason: Per Protocol Ondansetron HCl (Ondansetron Inj 2 Mg/Ml Inj 2 Ml) 4 mg IVP Q6H PRN; Protocol PRN Reason: NAUSEA OR VOMITING Stop: 11/21/24 15:41 Pantoprazole Sodium (Pantoprazole Inj 40 Mg Vial) 40 mg IVP QDAY ARIAN Stop: 11/21/24 15:59 Last Admin: 10/22/24 17:26 Dose: 40 mg Documented By: SANNA Discontinued Medications Aspirin (Aspirin 325 Mg Tablet) 325 mg PO X1 ONE Stop: 10/22/24 09:58 Last Admin: 10/22/24 12:12 Dose: Not Given Documented By: SANNA Non-Admin Reason: Patient Asleep Clopidogrel Bisulfate (Clopidogrel Bisulfate 75 Mg Tablet) 150 mg PO X1 ONE Stop: 10/22/24 09:58 Last Admin: 10/22/24 12:12 Dose: Not Given Documented By: SANNA Non-Admin Reason: Patient Asleep Haloperidol Lactate (Haloperidol Lact Inj 5 Mg/Ml Vial) 2.5 mg IM X1 ONE Stop: 10/21/24 22:16 Last Admin: 10/21/24 22:25 Dose: 2.5 mg Documented By: TASH Haloperidol Lactate (Haloperidol Lact Inj 5 Mg/Ml Vial) 5 mg IM X1 ONE Stop: 10/21/24 22:35 Last Admin: 10/21/24 22:46 Dose: 5 mg Documented By: TASH Haloperidol Lactate (Haloperidol Lact Inj 5 Mg/Ml Vial) Confirm Administered Dose 5 mg .ROUTE .STK-MED ONE Stop: 10/21/24 22:32 Last Admin: 10/21/24 22:50 Dose: Not Given Documented By: TASH Non-Admin Reason: Other, see note Heparin Sodium (Porcine) (Heparin Sod Inj 5000 Unit/Ml Vial) 4,000 unit IV X1 ONE Stop: 10/22/24 09:58 Last Admin: 10/22/24 12:11 Dose: 4,000 unit Documented By: SANNA Co-signed By: BAR Comments: given IV right forearm Sodium Chloride (Ns) 250 mls @ 999 mls/hr IV .Q16M ONE Stop: 10/21/24 22:45 Last Infusion: 10/21/24 23:23 Dose: Infused Documented By: Admin: 10/21/24 22:47 Dose: 999 mls/hr Documented By: TASH Ampicillin Sodium/Sulbactam (Sodium 3 gm/ Sodium Chloride) 100 mls @ 200 mls/hr IV X1 ONE Stop: 10/22/24 05:25 Last Infusion: 10/22/24 06:47 Dose: Infused Documented By: Admin: 10/22/24 06:06 Dose: 200 mls/hr Documented By: NATALY Sodium Chloride (Ns) 1,000 mls @ 250 mls/hr IV .Q4H ARIAN Stop: 11/21/24 07:59 Last Admin: 10/22/24 17:28 Dose: Not Given Documented By: SANNA Non-Admin Reason: Cancelled by Provider Admin: 10/22/24 17:28 Dose: Not Given Documented By: SANNA Non-Admin Reason: Cancelled by Provider Infusion: 10/22/24 16:15 Dose: Infused Documented By: Admin: 10/22/24 12:10 Dose: 250 mls/hr Documented By: SANNA
[2024-10-21 21:38] VITALS: PULSE 84; O2SAT 97
--- NOTE | 2024-10-21 21:38 | XR_ITS ---
Examination: AP chest single view TECHNIQUE: AP portable semiupright chest single view Date and time: October 21, 2024, 11:12 PM Comparison October 15, 2024 INDICATIONS: Coughing congestion today. FINDINGS: Pneumonia left base. Right lung clear. Normal heart size. Median sternotomy wires. IMPRESSION: Left base pneumonia
[2024-10-21 21:41] VITALS: BMI 23.7
--- NOTE | 2024-10-21 21:52 | EKG_ITS ---
[facility] Test Date: 2024-10-21 Pat Name: GENE ABEL Department: Room: - Gender: Male [employer]eping [employer]: : 1940 Requested By: Rd Magdaleno Order Number: [id number] Reading MD: Rd Magdaleno Measurements Intervals [place] Rate: 108 P: -43 GA: 220 QRS: -47 QRSD: 123 T: 57 QT: 342 QTc: 459 Interpretive Statements SINUS TACHYCARDIA WITH FIRST DEGREE AV BLOCK LEFT AXIS DEVIATION [QRS AXIS < -30] MODERATE INTRAVENTRICULAR CONDUCTION DELAY [110+ ms QRS DURATION] ST DEPRESSION, CONSIDER SUBENDOCARDIAL INJURY [0.1+ mV ST DEPRESSION] Compared to ECG 10/15/2024 21:29:11 ST (T wave) deviation now present Sinus rhythm no longer present /store/S0/[id number].pdf
--- NOTE | 2024-10-21 22:05 | PC.NURSE ---
per in and out cath not needed let pt urinate on own, iv not needed just draw labs
[2024-10-21 22:21] LABS: Basophils # (Auto) 0.0 Thou/mm3 (0.0-0.2); Basophils % (Auto) 0 % (0-2.5); Eosinophils # (Auto) 0.0 Thou/mm3 (0.0-0.5); Eosinophils % (Auto) 0 % (0-10); Hematocrit 31.9 % (41.0-53.0); Hemoglobin 11.0 g/dL (13.5-16.0); Immature Granulocytes Auto 0.05 Thou/mm3 (0.00-0.00); Lymphocytes # (Auto) 0.9 Thou/mm3 (1.0-4.8); Lymphocytes % (Auto) 9 % (10-50); Mean Corpuscular HGB Conc 34.5 g/dl (31.0-37.0); Mean Corpuscular Hemoglobin 31.3 pg (25.0-35.0); Mean Corpuscular Volume 91 fL (80-100); Monocytes # (Auto) 0.7 Thou/mm3 (0.0-0.8); Monocytes % (Auto) 7 % (0-12); Neutrophils # (Auto) 7.6 Thou/mm3 (1.8-7.7); Neutrophils % (Auto) 83 % (37-80); Nucleated Red Blood Cell # 0.00 Thou/mm3 (0.00-0.00); Nucleated Red Blood Cell % 0 /100 WBC (0); Platelet Count 282 Thou/mm3 (140-440); RDW Standard Deviation 43.0 fL (35.1-43.9); Red Blood Count 3.51 Miln/mm3 (4.50-5.90); White Blood Count 9.3 Thou/mm3 (3.8-10.6)
[2024-10-21] MEDS: HALOPERIDOL LACT INJ 5 MG/ML VIAL 2.5 MG IM (22:25)
[2024-10-21 22:27] LABS: Lactate (Lactic Acid) 9.5 mMol/L (0.4-2.0)
[2024-10-21 22:44] LABS: Ammonia 121 uMol/L (11-32)
[2024-10-21] MEDS: HALOPERIDOL LACT INJ 5 MG/ML VIAL IM (22:46)
[2024-10-21] MEDS: SODIUM CHLORIDE 0.9% 250 ML 250 ML 999 ML IV (22:47)
[2024-10-21 22:53] LABS: Alanine Aminotransferase 11 U/L (10-49); Albumin, Serum 3.6 gm/dL (3.4-4.8); Albumin/Globulin Ratio 1.2 (1.2-2.2); Alkaline Phosphatase 100 U/L (46-116); Anion Gap 11 (7-16); Aspartate Amino Transferase 106 U/L (0-34); BUN/Creatinine Ratio 12 Ratio (12-20); Bilirubin,Total 1.3 mg/dL (0.3-1.2); Blood Urea Nitrogen 14 mg/dL (9-23); C-Reactive Protein 3.3 mg/dL (0.0-0.9); Calcium 9.5 mg/dL (8.3-10.6); Calcium (Corrected) 9.8 mg/dL (8.5-10.1); Carbon Dioxide 21.5 mMol/L (20.0-31.0); Chloride 116 mMol/L (98-107); Creatinine (Component) 1.2 mg/dL (0.6-1.3); Estimated Creatinine Clearance 45.1 mL/min (>60); Globulin 2.9 gm/dL (2.3-3.5); Glucose 132 mg/dL (74-106); Osmolality,Calculated 296 (275-295); Potassium 5.2 mMol/L (3.4-5.1); Procalcitonin 0.28 ng/ml (0.0-0.49); Sodium 148 mMol/L (136-145); Total Protein 6.5 gm/dL (5.7-8.2); eGFR > 60 See Note
[2024-10-21 22:54] LABS: Troponin I 0.178 ng/mL (0.0-0.045)
[2024-10-21 22:57] LABS: Sed Rate (ESR) 13 mm/hr (0-20)
[2024-10-21 23:00] VITALS: BP 153/61; PULSE 98; RESP 18; TEMP 37.3; O2SAT 96
[2024-10-21 23:14] VITALS: TEMP 37.3
[2024-10-21 23:26] LABS: Collection Type, Urine Clean Catch; Squamous Epithelial Cell,Urine 0 /hpf (0-5)
--- NOTE | 2024-10-21 23:26 | XR_ITS ---
Examination: CT abdomen and pelvis without contrast. Coronal 3-D reconstructions. Sagittal 2-D reconstructions. Date and time of exam:October 22, 2024 0005 hours INDICATIONS: Elevated liver enzymes today CTDI: vol (mGy): 10.3. DLP: (mGycm): 633. Technique: Axial images of the abdomen have been obtained, 3 mm slice thickness Intravenous contrast material has not been administered. Low dose protocols were performed. One or more of the following dose reduction techniques were used; automated exposure control, adjustment of the mA and/or KV according to patient size, use of iterative reconstruction technique. Findings: Mild enlargement cardiac contour Small retrocardiac gastric hernia Distended gallbladder, enlarged common bile duct measuring up to 15 mm without definite stones No pancreatic mass or significantly dilated pancreatic duct Spleen is not enlarged No hydronephrosis Aorta normal size Normal appendix Air in the urinary bladder Left hip hemiarthroplasty obscures detail in the pelvis Prominent osteopenia Chronic compression L2 IMPRESSION: Distended gallbladder with significant enlargement common bile duct, recommend MRCP follow-up to exclude common bile duct stones and/or stricture in the common bile duct
[2024-10-21 23:27] LABS: Lactate (Lactic Acid) 4.6 mMol/L (0.4-2.0)
[2024-10-21 23:33] LABS: Base Excess, Venous -2 (-3-3); O2 Saturation, Venous 99 % (96-97); PCO2, Venous 22 mmHg (36-56); PO2, Venous 89 mmHg (15-58); pH, Venous 7.54 (7.33-7.66)
[2024-10-21 23:36] LABS: Bilirubin,Urine Negative (Negative); Blood,Urine Negative (Negative); Clarity,Urine Clear (Clear/Hazy); Color,Urine Drk-Yellow (Lt Yel-Yel); Glucose, Urine Negative (Negative); Hyaline Casts,Urine < 1 /hpf (0-1); Ketones,Urine Trace (Negative); Leukocyte Esterase,Urine Negative (Negative); Nitrite,Urine Negative (Negative); PH,Urine 5.5 (5.0-7.0); Protein,Urine Negative (Neg - Trace); RBC,Urine 1 /hpf (0-3); Specific Gravity,Urine 1.020 (1.001-1.035); Urobilinogen,Urine Negative mg/dL (0.0-1.0); WBC,Urine 1 /hpf (0-5)
--- NOTE | 2024-10-21 23:59 | XR_ITS ---
Examination: CT brain head without contrast. 2-D sagittal coronal reconstructions Date and time of exam:October 22, 2024, 0008 hours, comparison October 15, 2024. INDICATIONS: Altered mental status today CTDI: vol (mGy):52.1. DLP: (mGycm):994. Technique: Multiple CT axial sections of the brain have been obtained, 5 mm slice thickness. Contrast has not been administered. 2-D sagittal, coronal reconstructions have been obtained Low dose protocols were performed. One or more of the following dose reduction techniques were used; automated exposure control, adjustment of the mA and/or KV according to patient size, use of iterative reconstruction technique. Findings: No significant ventricular enlargement. Intra-axial or extra-axial hemorrhage density is not seen. No mass effect or midline shift Basal cisterns are not remarkable. Fourth ventricle is midline. Cranial vault intact. Impression: Negative for acute hemorrhage, mass effect or midline shift Advise clinical correlation and follow up accordingly
[2024-10-22] VITALS (11 sets, daily range): BP systolic 104–167; BP diastolic 49–97; PULSE 56–73; RESP 12–99; TEMP 36.1–37.5; O2SAT 96–100; BMI 19.9
--- NOTE | 2024-10-22 | XR_ITS ---
MRI abdomen, without contrast. MRCP Date and time of exam: October 22, 2024 1008 hours INDICATIONS: Distended gallbladder Enlarged common bile duct on CT abdomen study this morning Technique: Multiple axial and coronal images of the abdomen have been obtained with the Siemens 1.5T MRI scanner. Images obtained included T1 weighted transverse images, T2-weighted transverse images, T2-weighted transverse images fat-suppressed, T2 weighted haste fat suppressed transverse images, T1 weighted images, in and out of phase images, T2-weighted coronal images, breath hold, T2 weighted haze coronal images as well as T2 weighted coronal thick slab images, MRCP. Findings: Hepatomegaly 16.6 cm No focal liver lesions No gallstones, no gallbladder wall thickening Enlarged common bile duct 14 mm with abrupt tapering of the distal common bile duct No mass effect pancreatic head Spleen not enlarged Bilateral benign renal cyst Aorta normal size No ascites IMPRESSION: Enlarged common bile duct 14 mm with abrupt tapering of the distal common bile duct, recommend ERCP follow-up to exclude malignant stricture at the ampulla
[2024-10-22 00:08] LABS: B-Type Natriuretic Peptide 90 pg/mL (0-100); Creatine Kinase 1336 U/L (34-171)
--- NOTE | 2024-10-22 00:15 | XR_ITS ---
Examination: CT chest, without intravenous contrast. Sagittal and coronal 2-D reconstructions. Exam date and time: October 22, 2024 0017 hours INDICATIONS: Chest pain shortness of breath today CTDI:vol (mGy) 15.9 DLP: (mGycm) 598 Technique: Multiple 3.0 mm axial sections of the chest to been obtained. Bone and lung density settings are obtained. Sagittal and coronal 2-D reconstructions have been obtained. Low dose protocols were performed. One or more of the following dose reduction techniques were used; automated exposure control, adjustment of the mA and/or KV according to patient size, use of iterative reconstruction technique. Findings: Thoracic aortic calcification no aneurysmal dilatation Pulmonary artery segments are not enlarged Heavy calcification left anterior descending left circumflex right coronary arteries Mild to moderate enlargement cardiac contour Mild vascular congestion. No lobar pneumonia Mild opacity at the lung bases Moderate osteopenia. IMPRESSION: Mild to moderate enlargement cardiac contour. Mild vascular congestion. Mild bibasilar pneumonia, consider aspiration pneumonia
[2024-10-22 01:18] LABS: Reflex Lactate? Y
--- NOTE | 2024-10-22 01:56 | PRELIM_ITS ---
CT scan of the head without intravenous contrast (axial sections with sagittal and coronal reformats) October 22, 2024 0008 hours Clinical history: ams Compared with the prior study dated April Findings: There is no evidence of intracranial hemorrhage, mass effect or midline shift. There are periventricular white matter hypodensities, compatible with chronic small vessel ischemia. There is mild volume loss. The calvarium is unremarkable. The mastoid air cells and the visualized paranasal sinuses are clear. There is a small soft tissue hematoma in the right parietal scalp. Impression: No evidence of intracranial hemorrhage, mass effect or midline shift. Other findings as described above. Report Electronically Signed By: Josh Goodman 10/22/2024 1:55:58 AM [EST]
--- NOTE | 2024-10-22 01:58 | PRELIM_ITS ---
CT scan of the chest without intravenous contrast (axial sections with sagittal and coronal reformats) October 22, 2024 0017 hours Clinical History: Altered mental status. Comparison: No prior study is available for comparison. Findings: Bibasilar dependent atelectasis is present. There are dependent pulmonary opacities in both lower lobes, left more than right. No evidence of pleural effusion or pneumothorax. The mediastinum demonstrates no evidence of mass or lymphadenopathy. The thoracic aorta is unremarkable. There is no pericardial effusion. Median sternotomy wires are identified. Mild degenerative changes are identified in the spine. Impression: 1. Dependent pulmonary opacities in both lower lobes, left more than right, which may represent sequelae of aspiration. 2. Other findings as described above. Please refer to the report on the CT abdomen and pelvis submitted separately. Report Electronically Signed By: Josh Goodman 10/22/2024 1:58:03 AM [EST]
[2024-10-22 02:24] LABS: Reflex Lactate? Y
[2024-10-22 02:45] LABS: Lactic Acid, 3 HR 0.9 mMol/L (0.4-2.0)
--- NOTE | 2024-10-22 02:57 | PRELIM_ITS ---
Gallbladder ultrasound. October 22, 2024 0053 hours Clinical history: Elevated liver enzymes Comparison: No prior study is available for comparison. Findings: The liver is heterogeneous and hyperechoic in echotexture with smooth margins. No focal mass or intrahepatic biliary ductal dilatation is demonstrated. The gallbladder is moderately distended with borderline wall thickening measuring 3 mm. No gallbladder calculus or pericholecystic fluid is identified. The common bile duct is measured at 0.3 cm ( however the CT performed today demonstrates a dilated common bile duct of 1.5 cm in maximum diameter). The pancreas is not visualised due to overlying bowel gas. No free fluid is demonstrated on the submitted images. The inferior vena cava is unremarkable to the extent visualized. Impression: No gallstones. Moderately distended gallbladder with dilated common bile duct also seen on CT, which may be related to distal common bile duct stricture. Recommend further evaluation with MRCP, as clinically indicated. Heterogeneous and hyperechoic liver, possibly hepatic parenchymal disease. Recommend clinical correlation and follow-up. Report Electronically Signed By: Josh Goodman 10/22/2024 2:57:21 AM [EST]
--- NOTE | 2024-10-22 02:58 | PRELIM_ITS ---
CT scan of the abdomen and pelvis without intravenous contrast (axial sections with sagittal and coronal reformats) October 22, 2024 0005 hours Clinical History: Elevated liver enzymes. Correlated with the ultrasound study performed today. Findings: A small hiatal hernia is present. The gallbladder is distended. The common bile duct is dilated, measuring 1.5 cm in maximum dimension (image 135/178). There is a left renal cyst, measuring 3 cm. There is no evidence ofgallbladder or common bile duct calculus. The liver, pancreas, spleen, right kidney and adrenals are unremarkable on this noncontrast study. No evidence of bowel obstruction. A moderate amount of fecal material is present in the colon. The appendix is within normal limits (coronal images 67- 73/139). There is no mesenteric or retroperitoneal adenopathy. The urinary bladder is unremarkable. There is no free fluid or free air. Postoperative changes are noted in the left pelvis. There is chronic superior endplate compression fracture of the L2 vertebral body. Mild degenerative changes are identified in the spine. Impression: 1. Dilated gallbladder and common bile duct as described without evidence of calcified calculus, which may be related to distal common bile duct stricture. Recommend further evaluation with MRCP if clinically indicated. 2. Other findings as described above. Report on CT chest to follow. Report Electronically Signed By: Josh Goodman 10/22/2024 2:57:45 AM [EST]
[2024-10-22] MEDS: AMPICILLIN/SULBAC INJ 3 GM in SODIUM CHLORIDE 0.9% (POP) 100 ML IV (06:06)
--- NOTE | 2024-10-22 07:42 | PC.NURSE ---
Received report from Brandy FREITAS and assumed care of patient. Patient sleeping in bed and showing no signs of distress. at bedside awaiting MRCP.
[2024-10-22 08:33] LABS: Ammonia 14 uMol/L (11-32)
[2024-10-22 08:34] LABS: Creatine Kinase 906 U/L (34-171)
[2024-10-22 08:35] LABS: Troponin I 3.482 ng/mL (0.0-0.045)
--- NOTE | 2024-10-22 09:33 | EDNOTE_ITS ---
Emergency Room Addendum Addendum Narrative: 0600: Care assumed from Dr. Bautista, the previous shift emergency physician. Past medical, surgical, social and family history reviewed. Vitals and home medications reviewed. I will assume the care of the patient at this time, pending MRCP and final disposition. Please refer to the emergency department record for history and examination from initial visit.?The following addendum documentation note is intended to reflect any pending information, findings, or radiology results not included in the patient?s initial chart. 1210: Called GI Dr. Munoz, no answer and voicemail was left. 1330: I spoke with GI Dr. Munoz. Discussed patients PMHx, HPI, ED course, exam findings, labs, and radiology results. He agrees to consult. 1355: I spoke with washhouse hand Dr. Nur. Discussed patients PMHx, HPI, ED course, exam findings, labs, and EKG results. He agrees to consult. 1415: I spoke with residents working with Dr. Coy. Discussed patients PMHx, H PI, ED course, exam findings, labs, and radiology results. The hospitalist agree to accept the patient for admission. RADIOLOGY Ordering Physician: Rd Kaur MD Date of Service: 10/22/24 Procedure(s): MR MRCP Accession Number(s): [id number] cc: Gregory Hartley MD; Kurt Sexton MD; Rd Kaur MD~ MRI abdomen, without contrast. MRCP Date and time of exam: October 22, 2024 1008 hours INDICATIONS: Distended gallbladder Enlarged common bile duct on CT abdomen study this morning Technique: Multiple axial and coronal images of the abdomen have been obtained with the Siemens 1.5T MRI scanner. Images obtained included T1 weighted transverse images, T2-weighted transverse images, T2-weighted transverse images fat-suppressed, T2 weighted haste fat suppressed transverse images, T1 weighted images, in and out of phase images, T2-weighted coronal images, breath hold, T2 weighted haze coronal images as well as T2 weighted coronal thick slab images, MRCP. Findings: Hepatomegaly 16.6 cm No focal liver lesions No gallstones, no gallbladder wall thickening Enlarged common bile duct 14 mm with abrupt tapering of the distal common bile duct No mass effect pancreatic head Spleen not enlarged Bilateral benign renal cyst Aorta normal size No ascites IMPRESSION: Enlarged common bile duct 14 mm with abrupt tapering of the distal common bile duct, recommend ERCP follow-up to exclude malignant stricture at the ampulla Dictated By: Kurt Sxeton MD Signed By: <Electronically signed by Kurt Sexton MD in [place]>10/22/24 1107
--- NOTE | 2024-10-22 09:57 | EKG_ITS ---
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
[2024-10-22] MEDS: SODIUM CHLORIDE 0.9% 1000 ML 1,000 ML 250 ML IV (12:10)
[2024-10-22] MEDS: HEPARIN SOD INJ 5000 UNIT/ML VIAL 4000 UNIT IV (12:11)
--- NOTE | 2024-10-22 15:27 | PD.RESHP ---
Documentation for date of: 10/22/24 HPI History of Present Illness History of present illness: Senior Attestation: Patient is a 84-year-old male with past medical history of CAD s/p CABG X 3, Paroxysmal Atrial Flutter, not anticoagulant given risk of falls, Hypertesnion, Hyperlipidemia, Orthostatic Hypotension, Parkinson's Disease, CVA, TIAs, BPH, and prostate cancer, remote history of DM Type 2 who was admitted to the hospital due to admitted to the hospital on 10/16/2024 for acute encephalopathy and concern for cholangistis. Patient presented to the emergency room with chief complain of altered mental status, concern for possible seizure as upward gaze noted and found unresponsive at bedside, last well known time 7 PM 10/22/2024. Patient has been admitted several times within the last year for acute altered mental status. Previous EEG on 10/19/2024 for EEG abnormalities consistent with early dementia. UA negative. Patient is on several medications, possibly Carbidopa-Levodopa 2 tablets QID and Gabapentin. Given early dementia and polypharmacy, will benefit for neurology consult to re-evaluate Carbidopa-Levodpa as known to cause psychiatric behavioral abnormalities, including confusion and agitation, made worse by Gabapentin. Currently pending medication reconciliation. Consult Neuro AM. Given concern for cholangitis with MRCP (10/22/2024): Enlarged common bile duct 14 mm with elevated Total bili Dr. Munoz. Keep patient NPO for possible ERCP. History of Atrial Fibrillation, NOT anticoagulated given past medical history of falls, was discontinue on previous admission. Pending home medication reconciliation, may be taking metroprolol tartrate. History of BPH. History of Parkinson's Disease, holding Carbidopa-Levodopa as this may contributing to encephalopthy. CAD s/p CABG, resume Aspririn and Statin AM. Dr. Boom MURO consulted Lovenox 70 BID. CC: Altered Patient is a 84-year-old male with past medical history of Alzheimer's disease, CVA, Parkinson's disease, CABG x 3, atrial flutter, prostate cancer, hypertension, hyperlipidemia, HFpEF, DM2 presented to ED because of altered mental status. His daughter Mary said patient was found unresponsive, lying sideways on the bed yesterday at 7 PM. Prior to the event, patient exhibited unusual eye movement, characterized by upward and outward gaze, and was observed whispering incomprehensible words. He then became combative. These episodes reportedly began approximately 1 month ago. He was admitted a week ago due to the same reason. His daughter complained that every time he was admitted he was also diagnosed with pneumonia. She asked if the hospital can prescribe the patient antibiotics when he is discharged for recurrent pneumonia. Daughter asked to call for any updates at her phone number [phone]. Similar AMS episode in 10/03/2024. Acute displaced impacted left subcapital hip fracture for ground level fall in 10/04/2024. He is currently at rehab center and wheelchair bound. ED Course: He was brought to ED via ambulance from [facility] facility for AMS. Labs reviewed lactic acid 9.5, gave 250ml Bolus of NS considering the patients hx of Heart failure. CBC was unremarkable, procalcitonin elevated, elevated troponins and ammonia. PMH: as noted above Medication: pending medication reconciliation, Concern for Ca Surgical Hx: CABG Social Hx: Non smoker. no Substance use Review of Systems Review of Systems ROS Unobtainable: unobtainable due to mental status Exam Vital Signs Temp Pulse Resp BP Pulse Ox O2 Del Method 97.4 F 65 17 134/69 H 100 Room Air 10/22/24 14:47 10/22/24 14:47 10/22/24 14:47 10/22/24 14:47 10/22/24 14:47 10/22/24 14:47 Narrative Exam GENERAL: Appears ill, Unconscious HEENT: Normocephalic, atraumatic.? Pupils are equal and reactive.? Oral mucosa is moist. Patent Nares NECK: Supple, nontender, no thyromegaly, no meningismus, no JVD CARDIOVASCULAR: Heart regular rhythm or extra beats. LUNGS: Clear to auscultation bilaterally with symmetrical chest rise.? No laboring tachypnea or wheezing. ABDOMEN: Soft, flat, nontender to palpation, no guarding or rebound tenderness.?.? SKIN: Warm, dry, intact MUSCULOSKELETAL: No peripheral edema NEURO: Unresponsive to verbal stimuli, pupils equal, round and reactive to light. No gross asymmetry Results: Labs 10/22/24 16:00 10/22/24 16:00 Labs: Short CBC 10/21/24 Range/Units 22:12 WBC 9.3 D (3.8-10.6) Thou/mm3 Hgb 11.0 L (13.5-16.0) g/dL Hct 31.9 L (41.0-53.0) % Plt Count 282 (140-440) Thou/mm3 BMP 10/21/24 22:12 Sodium 148 H Potassium 5.2 H Chloride 116 H Carbon Dioxide 21.5 BUN 14 Creatinine 1.2 Glucose 132 H Calcium 9.5 Cardiac Enzymes 10/21/24 10/22/24 Range/Units 22:12 08:05 Total Creatine Kinase 1336 H D 906 H D (34-171) U/L Troponin I 0.178 H* 3.482 H* D (0.0-0.045) ng/mL Liver Function 10/21/24 Range/Units 22:12 Total Bilirubin 1.3 H (0.3-1.2) mg/dL AST 106 H (0-34) U/L ALT 11 (10-49) U/L Alkaline Phosphatase 100 (46-116) U/L Albumin 3.6 (3.4-4.8) gm/dL Urine 10/21/24 Range/Units 23:10 Urine Color Drk-Yellow A (Lt Yel-Yel) Urine Clarity Clear (Clear/Hazy) Urine pH 5.5 (5.0-7.0) Ur Specific [place] 1.020 (1.001-1.035) Urine Protein Negative (Neg - Trace) Urine Glucose (UA) Negative (Negative) ABG Interpretation ABG results: 10/21/24 23:22 VBG pH 7.54 VBG pCO2 22 L VBG pO2 89 H VBG Base Excess -2 Quality Measures Quality Measures none Advance care planning discussed with:: patient Medications Home Medications and Allergies Home Medications ?Medication ?Instructions ?Recorded ?Confirmed ?Type tamsulosin 0.4 mg capsule (Flomax) 0.4 mg PO QDAY Prostate ##0 06/12/14 10/23/24 History solifenacin 10 mg tablet 10 mg PO QDAY 03/03/22 10/23/24 History carbidopa 12.5 mg-levodopa 50 2 tab PO .FOUR TIMES 10/02/24 10/23/24 History mg-entacapone 200 mg tablet acetaminophen 300 mg-codeine 15 mg 1 tab PO Q6H PRN pain 10/16/24 10/23/24 History tablet ascorbic acid (vitamin C) 500 mg 500 mg PO BID 10/16/24 10/23/24 History tablet (C-500) aspirin 81 mg tablet 81 mg PO QDAY 10/16/24 10/23/24 History bisacodyl 10 mg rectal suppository 10 mg HI QDAY PRN constipation 10/16/24 10/22/24 History (Dulcolax (bisacodyl)) docusate sodium 100 mg capsule 100 mg PO BID 10/16/24 10/23/24 History (Colace) ferrous sulfate 325 mg (65 mg 325 mg PO QDAY 10/16/24 10/23/24 History iron) tablet (Feosol) guaifenesin 100 mg/5 mL oral 200 mg PO Q6H PRN sore throat 10/16/24 10/23/24 History liquid (Migdalia-Tussin) magnesium hydroxide 400 mg/5 mL 2,400 mg PO TID PRN constipation 10/16/24 10/23/24 History oral suspension melatonin 3 mg capsule 3 mg PO HS 10/16/24 10/23/24 History metoprolol tartrate 25 mg tablet 12.5 mg PO QDAY 10/16/24 10/23/24 History multivitamin 1 tab PO QDAY 10/16/24 10/23/24 History pregabalin 50 mg capsule 50 mg PO Q8H 10/16/24 10/23/24 History carbidopa 50 mg-levodopa 200 1 tab PO QID 10/22/24 10/22/24 History mg-entacapone 200 mg tablet acetaminophen 300 mg-codeine 15 mg 1 tab PO Q6H PRN severe pain 10/23/24 10/23/24 History tablet (scale score 7-10) artificial tears solution eye drops 1 drp ophthalmic (eye) Q2H PRN 10/23/24 10/23/24 History DRYNESS pregabalin 50 mg capsule (Lyrica) 50 mg PO TID 10/23/24 10/23/24 History Allergies Allergy/AdvReac Type Severity Reaction Status Date / Time banana Allergy Verified 10/21/24 21:38 pork derived (porcine) Allergy Verified 10/21/24 21:38 Visit Medications Sodium Chloride (Ns) 1,000 mls @ 250 mls/hr IV .Q4H ARIAN Stop: 11/21/24 07:59 Last Admin: 10/22/24 12:10 Dose: 250 mls/hr Discontinued Medications Aspirin (Aspirin 325 Mg Tablet) 325 mg PO X1 ONE Stop: 10/22/24 09:58 Last Admin: 10/22/24 12:12 Dose: Not Given Clopidogrel Bisulfate (Clopidogrel Bisulfate 75 Mg Tablet) 150 mg PO X1 ONE Stop: 10/22/24 09:58 Last Admin: 10/22/24 12:12 Dose: Not Given Haloperidol Lactate (Haloperidol Lact Inj 5 Mg/Ml Vial) 2.5 mg IM X1 ONE Stop: 10/21/24 22:16 Last Admin: 10/21/24 22:25 Dose: 2.5 mg Haloperidol Lactate (Haloperidol Lact Inj 5 Mg/Ml Vial) 5 mg IM X1 ONE Stop: 10/21/24 22:35 Last Admin: 10/21/24 22:46 Dose: 5 mg Heparin Sodium (Porcine) (Heparin Sod Inj 5000 Unit/Ml Vial) 4,000 unit IV X1 ONE Stop: 10/22/24 09:58 Last Admin: 10/22/24 12:11 Dose: 4,000 unit Sodium Chloride (Ns) 250 mls @ 999 mls/hr IV .Q16M ONE Stop: 10/21/24 22:45 Last Infusion: 10/21/24 23:23 Dose: Infused Ampicillin Sodium/Sulbactam (Sodium 3 gm/ Sodium Chloride) 100 mls @ 200 mls/hr IV X1 ONE Stop: 10/22/24 05:25 Last Infusion: 10/22/24 06:47 Dose: Infused Assessment & Plan Plan Patient is a 84-year-old male with past medical history of CAD s/p CABG X 3, Paroxysmal Atrial Flutter, not anticoagulated given risk of falls, Hypertesnion, Hyperlipidemia, Orthostatic Hypotension, Parkinson's Disease, CVA, TIAs, BPH, and prostate cancer who was admitted to the hospital due to admitted to the hospital on 10/16/2024 for acute encephalopathy. #Acute Metabolic encephalopathy, likely secondary to polypharmamcy #Parkinson's Disease #Early Dementia ? #Lactic Acidosis Patient has had several admissions within the last year with similar presentations, concern for poly-pharmamcy as patient is older mostly bedbound and on Carbidopa-Levodopa QID, this may be concerning as patient BMI 19.9 with gabapentin as well vs Concern seizure like activity which would explain elevated lactic acidosis, recent EEG, noted for early dementia vs less likely secondary to stroke as recent MRI negative vs infectious cause less likely as UA negative and Crx does show pneumonia but remains afebrile and no WBC elevation. Diagnostics: -UA was negative for UTI -CXR(10/21/2024): Left base pneumonia -Chest CT (10/22/2024): Mild bibasilar pneumonia, consider aspiration pneumonia -Head CT (10/22/2024): Negative for acute hemorrhage, mass effect or midline shift -EEG (10/22/2024): This EEG is abnormal with mild diffuse lowering suggestive of a diffuse encephalopathy of metabolic, degenerative, or vascular origin, consistent with early dementia. Plan: - Pending medication reconciliation -Follow up with Neurology, unclear if patient would benefit from repeat EEG or MRI. -Please hold Carbidopa-Levodopa & Gabpaentin until follow up with Neuro -Consult Neurology, Dr. Rojas, appreciate recommendations AM #Enlarged Common Bile Duct #Possible cholangitis(?) -Total Birubin (10/21/2024) 1.3 AST 106 ALT 11-->repeat Total Bilirubin (10/22/2024) 0.9 AST 71, ALT 36 -Abd/pelvis CT (10/22/2024): Distended gallbladder with significant enlargement common bile duct. -MRCP (10/22/2024): Enlarged common bile duct 14 mm with abrupt tapering of the distal common bile duct -Gallbladder US (10/22/2024): Normal gallbladder, Normal common bile duct Plan: -Normal total bilirubin, alk-phos, and gallbladder US suggests unlikely obstruction. Unlikely cholangitis - GI consulted - IV ceftriaxone 1g IV qd and IV metronidazole 500mg IV q12hr #Troponemia #NSTEMI I vs II - Pt denies chest pain - No ST elevation on EKG but troponin peaked at Plan: -Continue to monitor -Started Lovenox 70mg SC bid -Consulted with Cardiology, Dr. Nur consulted, appreciate recommendations. CAD s/p CABG X 3 Resume Aspirin and Atorvastatin tomorrow after medication reconciliation #History of Paroxysmal Atrial Fibrillation Previous admission Eliquis D/C given risk of falls. Pending Medication reconciliation. Plan -Eliquis not indicated given risk of falls/bleeding -pending medication reconciliation, maybe taking metoprolol tartrate #Hypertension #vee of orthostatic hypotension Patient presented normal tensive. Pending medication reconciliation, unclear if patient continues to take Lisinopril and Metroplol tartrate. Daughter at bedside is not primary caregiver and unsure of medication. Plan -Pending Medication reconcililation, ?Metoprolol ?Lisinopril, given history of orthostatic hypotension, may benefit from d/c lisinopril #History of Prostate Cancer #BPH Consider resuming Tamsuloin 0.4 mg once daily after medication reconciliation Disposition: Telemetry, IV abx, cardiology following Diet: NPO GI prophylaxis: Protonix DVT prophylaxis: Lovenox Code: FULL Assessment and plan discussed with my attending physician Dr. Coy and Dr. Roxanne Harding (PGY-1)- Internal medicine resident - The patient's plan was discussed with attending Dr. Anneliese Oliveira MD PGY2 Internal Medicine
[2024-10-22 16:54] LABS: Basophils # (Auto) 0.0 Thou/mm3 (0.0-0.2); Basophils % (Auto) 0 % (0-2.5); Eosinophils # (Auto) 0.0 Thou/mm3 (0.0-0.5); Eosinophils % (Auto) 1 % (0-10); Hematocrit 28.0 % (41.0-53.0); Hemoglobin 9.8 g/dL (13.5-16.0); Immature Granulocytes Auto 0.02 Thou/mm3 (0.00-0.00); Lymphocytes # (Auto) 0.7 Thou/mm3 (1.0-4.8); Lymphocytes % (Auto) 14 % (10-50); Mean Corpuscular HGB Conc 35.0 g/dl (31.0-37.0); Mean Corpuscular Hemoglobin 30.5 pg (25.0-35.0); Mean Corpuscular Volume 87 fL (80-100); Monocytes # (Auto) 0.3 Thou/mm3 (0.0-0.8); Monocytes % (Auto) 5 % (0-12); Neutrophils # (Auto) 4.0 Thou/mm3 (1.8-7.7); Neutrophils % (Auto) 80 % (37-80); Nucleated Red Blood Cell # 0.00 Thou/mm3 (0.00-0.00); Nucleated Red Blood Cell % 0 /100 WBC (0); Platelet Count 212 Thou/mm3 (140-440); RDW Standard Deviation 42.1 fL (35.1-43.9); Red Blood Count 3.21 Miln/mm3 (4.50-5.90); White Blood Count 5.0 Thou/mm3 (3.8-10.6)
[2024-10-22 17:17] LABS: Alanine Aminotransferase 36 U/L (10-49); Albumin, Serum 3.2 gm/dL (3.4-4.8); Albumin/Globulin Ratio 1.5 (1.2-2.2); Alkaline Phosphatase 89 U/L (46-116); Anion Gap 5 (7-16); Aspartate Amino Transferase 71 U/L (0-34); BUN/Creatinine Ratio 15 Ratio (12-20); Bilirubin,Total 0.9 mg/dL (0.3-1.2); Blood Urea Nitrogen 12 mg/dL (9-23); Calcium 8.1 mg/dL (8.3-10.6); Calcium (Corrected) 8.7 mg/dL (8.5-10.1); Carbon Dioxide 24.8 mMol/L (20.0-31.0); Chloride 116 mMol/L (98-107); Creatinine (Component) 0.8 mg/dL (0.6-1.3); Estimated Creatinine Clearance 67.7 mL/min (>60); Globulin 2.2 gm/dL (2.3-3.5); Glucose 88 mg/dL (74-106); Osmolality,Calculated 289 (275-295); Potassium 3.6 mMol/L (3.4-5.1); Sodium 146 mMol/L (136-145); Total Protein 5.4 gm/dL (5.7-8.2); eGFR > 60 See Note
[2024-10-22 17:20] LABS: Troponin I 2.833 ng/mL (0.0-0.045)
[2024-10-22] MEDS: cefTRIAXone/D5w 1gm IV premix 1 GM/50 ML BAG IV (17:27)
[2024-10-22] MEDS: SODIUM CHLORIDE 0.45 % 1,000 ML 75 ML IV (17:27)
--- NOTE | 2024-10-22 20:29 | ESCONSULT_ITS ---
<Statement entered by Corina Nur MD - 10/24/24 00:16> I personally evaluated examined this patient have known him for several years CAD status post CABG many years ago admitted the hospital mild troponin elevation confusion altered mental status dysphagia multiple medical problems evaluate the patient agree with treatment plan recommendation as documented by Dr. Hernandez PGY 2 will continue to monitor the patient will get a cardiac echo review upon completion patient probably may require EGD and esophageal dilation. As for the troponin appears to be type II troponin unless there is significant EKG changes are echo abnormalities. HPI Data of Consult Requesting Physician: RESIDENT Bernadine Admitting Provider: Keyana Coy MD Attending Provider: RESIDENT Bernadine Primary Care Provider: Gregory Hartley MD Consult Narrative History of present illness: Mr. Brar is a 84-year-old male past medical history significant for hypertension, hyperlipidemia, type 2 diabetes, HFpEF with EF 50-55%, CAD status post CABG x 3, A-flutter, prostate cancer, dementia, Parkinson's and history of CVA presented to the ED due to altered mental status and found unresponsive. History is obtained from daughter at bedside who states that she has noticed patient has become increasingly agitated and combative. He has had repeat hospitalizations due to similar symptoms where he is altered and found to have pneumonia and discharged on antibiotics. Patient's daughter has noticed he has poor oral intake for several months and complains about difficulty swallowing which causes him to not eat or drink as much. Patient has also lost some weight according to the daughter. Patient has been not ambulating for some time and is majority wheelchair-bound. Patient is on long time patient of Dr. Nur however in the last 6 months he has not followed up in the clinic. Patient's daughter is concerned that he is exhibiting worsening symptoms likely due to his dysphagia and failure to thrive. Otherwise patient denies any shortness of breath, palpitations, chest discomfort or pressure, denies chest pain, dizziness or syncopal episodes. Cardiology is consulted due to elevated troponin and concern for ACS PMH: hypertension, hyperlipidemia, type 2 diabetes, HFpEF with EF 50-55%, CAD status post CABG x 3, A-flutter, prostate cancer, dementia, Parkinson's and history of CVA PSH: CABG and left hip surgery in 2024 SH: Denies smoking, alcohol, illicit drugs use Allergies: NKDA Home meds: cc:: cc: Renee Harding, RESIDENT Review of Systems Review of Systems Systems Reviewed: All systems reviewed, normal except as documented Exam Vital Signs Temp Pulse Resp BP Pulse Ox O2 Del Method 97.9 F 68 14 156/74 H 98 Room Air 10/22/24 18:30 10/22/24 18:30 10/22/24 18:30 10/22/24 18:30 10/22/24 18:30 10/22/24 18:30 Narrative Exam GENERAL: A&Ox3 . elderly male, well groomed, Awake, Not in acute distress NEURO: no focal neurological deficits HEENT: Atraumatic, Normocephalic. mucous membranes moist. Eyes open, symmetrical, & clear HEART: Normal Heart Sounds LUNGS: Clear to auscultation with no wheezing or crackles. ABDOMEN: soft, non-distended, non-tender, bowel sounds heard, no guarding or rebound tenderness SKIN: No Rash or ecchymoses EXTREMITIES: No edema, tenderness, able to move all 4 extremities, pedal pulses palpated Results Labs 10/22/24 16:00 10/22/24 16:00 Labs: Short CBC 10/21/24 10/22/24 Range/Units 22:12 16:00 WBC 9.3 D 5.0 D (3.8-10.6) Thou/mm3 Hgb 11.0 L 9.8 L (13.5-16.0) g/dL Hct 31.9 L 28.0 L (41.0-53.0) % Plt Count 282 212 D (140-440) Thou/mm3 BMP 10/21/24 10/22/24 22:12 16:00 Sodium 148 H 146 H Potassium 5.2 H 3.6 D Chloride 116 H 116 H Carbon Dioxide 21.5 24.8 BUN 14 12 Creatinine 1.2 0.8 Glucose 132 H 88 Calcium 9.5 8.1 L Cardiac Enzymes 10/21/24 10/22/24 10/22/24 Range/Units 22:12 08:05 16:00 Total Creatine Kinase 1336 H D 906 H D (34-171) U/L Troponin I 0.178 H* 3.482 H* D 2.833 H* D (0.0-0.045) ng/mL Liver Function 10/21/24 10/22/24 Range/Units 22:12 16:00 Total Bilirubin 1.3 H 0.9 (0.3-1.2) mg/dL AST 106 H 71 H (0-34) U/L ALT 11 36 (10-49) U/L Alkaline Phosphatase 100 89 (46-116) U/L Albumin 3.6 3.2 L (3.4-4.8) gm/dL Urine 10/21/24 Range/Units 23:10 Urine Color Drk-Yellow A (Lt Yel-Yel) Urine Clarity Clear (Clear/Hazy) Urine pH 5.5 (5.0-7.0) Ur Specific [place] 1.020 (1.001-1.035) Urine Protein Negative (Neg - Trace) Urine Glucose (UA) Negative (Negative) ABG Interpretation ABG results: 10/21/24 23:22 VBG pH 7.54 VBG pCO2 22 L VBG pO2 89 H VBG Base Excess -2 Quality Measures Quality Measures none Advance care planning discussed with:: child Medications Home Medications and Allergies Home Medications ?Medication ?Instructions ?Recorded ?Confirmed ?Type tamsulosin 0.4 mg capsule (Flomax) 0.4 mg PO QDAY Pros wong ##0 06/12/14 10/23/24 History solifenacin 10 mg tablet 10 mg PO QDAY 03/03/2210/23 History carbidopa 12.5 mg-levodopa 50 2 tab PO .FOUR TIMES 10/23/24 History mg-entacapone 200 mg tablet acetaminophen 300 mg-codeine 15 mg 1 tab PO Q6H PRN pa in 10/16/24 10/23/24 History tablet ascorbic acid (vitamin C) 500 mg 500 mg PO BID 5 10/23/24 History tablet (C-500) aspirin 81 mg tablet 81 mg PO QDAY 10/16/2410/23 History bisacodyl 10 mg rectal suppository 10 mg [place] QDAY PRN c onstipation 10/16/24 10/22/24 History (Dulcolax (bisacodyl)) docusate sodium 100 mg capsule 100 mg PO BID 10/16/24 10/23/24 History (Colace) ferrous sulfate 325 mg (65 mg 325 mg PO QDAY 10/16/24 10/23/24 History iron) tablet (Feosol) guaifenesin 100 mg/5 mL oral 200 mg PO Q6H PRN sore th roat 10/16/24 10/23/24 History liquid (Migdalia-Tussin) magnesium hydroxide 400 mg/5 mL 2,400 mg PO TID PRN co nstipation 10/16/24 10/23/24 History oral suspension melatonin 3 mg capsule 3 mg PO HS 10/16/24 10/23/24 History metoprolol tartrate 25 mg tablet 12.5 mg PO QDAY 10/1610/23/24 History multivitamin 1 tab PO QDAY 10/16/2410/23 History pregabalin 50 mg capsule 50 mg PO Q8H 10/16/24 History carbidopa 50 mg-levodopa 200 1 tab PO QID 10/22/2411/09 History mg-entacapone 200 mg tablet acetaminophen 300 mg-codeine 15 mg 1 tab PO Q6H PRN se juan pain 10/23/24 10/23/24 History tablet (scale score 7-10) artificial tears solution eye drops 1 drp ophthalmic ( eye) Q2H PRN 10/23/24 10/23/24 History DRYNESS pregabalin 50 mg capsule (Lyrica) 50 mg PO TID 5 10/23/24 History Allergies Allergy/AdvReac Type Severity Reaction Status Date / Time banana Allergy Verified 10/21/24 21:38 pork derived (porcine) Allergy Verified 10/21/24 21:38 Visit Medications Dextrose (Dextrose 50%-Water Inj 50 Ml Syringe) 25 ml IV Q15MIN PRN PRN Reason: BG 50-70 responsive npo pt Stop: 11/21/24 15:48 Dextrose (Dextrose 50%-Water Inj 50 Ml Syringe) 50 ml IV Q15MIN PRN PRN Reason: BG <50 OR BG <70 & pt unresponsive Stop: 11/21/24 15:48 Enoxaparin Sodium (Enoxaparin Sod Inj 80 Mg/0.8 Ml Syringe) 70 mg SC BID ARIAN Stop: 11/05/24 20:59 Glucagon (Glucagon Inj 1 Mg Vial) 1 mg IM Q15MIN PRN PRN Reason: BG <70, and no IV access Sodium Chloride (Ns 0.45%) 1,000 mls @ 75 mls/hr IV .[id number] [facility] Stop: 11/21/24 15:50 Last Admin: 10/22/24 17:27 Dose: 75 mls/hr Ceftriaxone Sodium/Dextrose (Rocephin/D5w 1gm Iv Premix) 1 gm in 50 mls @ 100 mls/hr IV QDAY [facility] Stop: 10/29/24 16:01 Last Admin: 10/22/24 17:27 Dose: 100 mls/hr Metronidazole (Flagyl 500 Mg Iv) 500 mg in 100 mls @ 200 mls/hr IV Q12HR [facility] Stop: 10/29/24 20:59 Insulin Human Lispro (Insulin Lispro (Admelog) 1 Unit/0.01 Ml Unit) 0 unit SC Q6HR ARIAN; Protocol Stop: 11/21/24 17:59 Last Admin: 10/22/24 17:49 Dose: Not Given Ondansetron HCl (Ondansetron Inj 2 Mg/Ml Inj 2 Ml) 4 mg IVP Q6H PRN; Protocol PRN Reason: NAUSEA OR VOMITING Stop: 11/21/24 15:41 Pantoprazole Sodium (Pantoprazole Inj 40 Mg Vial) 40 mg IVP QDAY [facility] Stop: 11/21/24 15:59 Last Admin: 10/22/24 17:26 Dose: 40 mg Discontinued Medications Aspirin (Aspirin 325 Mg Tablet) 325 mg PO X1 ONE Stop: 10/22/24 09:58 Last Admin: 10/22/24 12:12 Dose: Not Given Clopidogrel Bisulfate (Clopidogrel Bisulfate 75 Mg Tablet) 150 mg PO X1 ONE Stop: 10/22/24 09:58 Last Admin: 10/22/24 12:12 Dose: Not Given Haloperidol Lactate (Haloperidol Lact Inj 5 Mg/Ml Vial) 2.5 mg IM X1 ONE Stop: 10/21/24 22:16 Last Admin: 10/21/24 22:25 Dose: 2.5 mg Haloperidol Lactate (Haloperidol Lact Inj 5 Mg/Ml Vial) 5 mg IM X1 ONE Stop: 10/21/24 22:35 Last Admin: 10/21/24 22:46 Dose: 5 mg Heparin Sodium (Porcine) (Heparin Sod Inj 5000 Unit/Ml Vial) 4,000 unit IV X1 ONE Stop: 10/22/24 09:58 Last Admin: 10/22/24 12:11 Dose: 4,000 unit Sodium Chloride (Ns) 250 mls @ 999 mls/hr IV .Q16M ONE Stop: 10/21/24 22:45 Last Infusion: 10/21/24 23:23 Dose: Infused Ampicillin Sodium/Sulbactam (Sodium 3 gm/ Sodium Chloride) 100 mls @ 200 mls/hr IV X1 ONE Stop: 10/22/24 05:25 Last Infusion: 10/22/24 06:47 Dose: Infused Sodium Chloride (Ns) 1,000 mls @ 250 mls/hr IV .Q4H ARIAN Stop: 11/21/24 07:59 Last Admin: 10/22/24 17:28 Dose: Not Given Assessment & Plan Plan Mr. Brar is a 84-year-old male past medical history significant for hypertension, hyperlipidemia, type 2 diabetes, HFpEF with EF 50-55%, CAD status post CABG x 3, A-flutter, prostate cancer, dementia, Parkinson's and history of CVA presented to the ED due to altered mental status and found unresponsive. #Elevated troponins liekly #NSTEMI type ll -Elevated troponins which has now downtrended are likely due to NSTEMI type II demand ischemia -Patient denies any chest pain, tightness or pressure. Patient symptoms are likely due to poor oral intake in the setting of dysphagia On admission Troponins 0.178 -> 3.482 -> 1.776 EKG: Sinus rhythm with rate of 62 and QTc [address] or T wave changes noted Plan: -Repeat echo -Since troponins have down trended, there is no indication to continue trending troponins -Close monitoring on telemetry #CAD status post CABG x 3 #Hx. of Paroxismal A-flutter,in sinus rhythm #HFpEF with EF 50-55% [id number] score is 5 HAS-BLED of 2 -Currently pt is in sinus rhythm, pt would benefit from anticoagulation with Eliquis dose adjusted to age and weight (2.5mg BID) -Pt does not appear to be in decompensated HF #type 2 diabetes #Dysphagia #Hyperlipidemia #Benign prostatic hyperplasia (BPH) #Prostate cancer #Parkinson's disease #Hx. of CVA -management as per primary team however recommend EGD due to worsening dysphagia Assessment and plan discussed with my attending physician Dr. Boom Hernandez (PGY-2)- Internal medicine resident
[2024-10-22] MEDS: ENOXAPARIN SOD INJ 80 MG/0.8 ML SYRINGE 70 MG SC (20:47)
[2024-10-22] MEDS: metroNIDAZOLE/NS 500 MG IVPB 500 MG/100 ML BAG 200 MG IV (20:48)
[2024-10-22 22:40] LABS: Troponin I 1.776 ng/mL (0.0-0.045)
--- NOTE | 2024-10-22 23:36 | XR_ITS ---
Examination: Abdomen sonogram, Limited Date and time of exam: October 22, 2024, 0053 hours INDICATIONS: Elevated liver enzymes on laboratory examination today Technique: Real-time armenta scale transabdominal sonographic images of the upper abdomen obtained. Findings: Normal gallbladder. Normal common bile duct 0.3 cm. Pancreas obscured by bowel gas. Liver 15.9 cm fatty infiltration. Normal hepatopedal portal venous flow. Patent IVC. Impression : Normal gallbladder. Normal common bile duct
[2024-10-23] VITALS (8 sets, daily range): BP systolic 130–140; BP diastolic 52–75; PULSE 53–68; RESP 12–99; TEMP 36.1–36.4; O2SAT 98–100; BMI 19.9
[2024-10-23 03:16] LABS: Basophils # (Auto) 0.0 Thou/mm3 (0.0-0.2); Basophils % (Auto) 1 % (0-2.5); Eosinophils # (Auto) 0.1 Thou/mm3 (0.0-0.5); Eosinophils % (Auto) 1 % (0-10); Hematocrit 27.7 % (41.0-53.0); Hemoglobin 10.0 g/dL (13.5-16.0); Immature Granulocytes Auto 0.01 Thou/mm3 (0.00-0.00); Lymphocytes # (Auto) 0.7 Thou/mm3 (1.0-4.8); Lymphocytes % (Auto) 12 % (10-50); Mean Corpuscular HGB Conc 36.1 g/dl (31.0-37.0); Mean Corpuscular Hemoglobin 31.4 pg (25.0-35.0); Mean Corpuscular Volume 87 fL (80-100); Monocytes # (Auto) 0.4 Thou/mm3 (0.0-0.8); Monocytes % (Auto) 6 % (0-12); Neutrophils # (Auto) 4.9 Thou/mm3 (1.8-7.7); Neutrophils % (Auto) 80 % (37-80); Nucleated Red Blood Cell # 0.00 Thou/mm3 (0.00-0.00); Nucleated Red Blood Cell % 0 /100 WBC (0); Platelet Count 203 Thou/mm3 (140-440); RDW Standard Deviation 41.1 fL (35.1-43.9); Red Blood Count 3.18 Miln/mm3 (4.50-5.90); White Blood Count 6.1 Thou/mm3 (3.8-10.6)
[2024-10-23 03:46] LABS: Alanine Aminotransferase 38 U/L (10-49); Albumin, Serum 3.0 gm/dL (3.4-4.8); Albumin/Globulin Ratio 1.4 (1.2-2.2); Alkaline Phosphatase 85 U/L (46-116); Anion Gap 6 (7-16); Aspartate Amino Transferase 52 U/L (0-34); BUN/Creatinine Ratio 15 Ratio (12-20); Bilirubin,Total 0.8 mg/dL (0.3-1.2); Blood Urea Nitrogen 12 mg/dL (9-23); Calcium 8.0 mg/dL (8.3-10.6); Calcium (Corrected) 8.8 mg/dL (8.5-10.1); Carbon Dioxide 23.1 mMol/L (20.0-31.0); Cardiac Risk Estimate 3.8 RATIO (4.0-6.7); Chloride 115 mMol/L (98-107); Cholesterol 94 mg/dL (132-200); Creatinine (Component) 0.8 mg/dL (0.6-1.3); Estimated Creatinine Clearance 58.8 mL/min (>60); Globulin 2.1 gm/dL (2.3-3.5); Glucose 79 mg/dL (74-106); HDL Cholesterol 25 mg/dL (40-60); LDL Cholesterol,Calculated 51 mg/dL (0-130); Magnesium 1.6 mg/dL (1.6-2.6); Osmolality,Calculated 285 (275-295); Phosphorous 2.4 mg/dL (2.4-5.1); Potassium 3.5 mMol/L (3.4-5.1); Sodium 144 mMol/L (136-145); Thyroid Stimulating Hormone 1.38 uIU/mL (0.55-4.78); Total Protein 5.1 gm/dL (5.7-8.2); Triglycerides 89 mg/dL (30-150); eGFR > 60 See Note
[2024-10-23 03:53] LABS: Troponin I 1.536 ng/mL (0.0-0.045)
--- NOTE | 2024-10-23 09:15 | XR_ITS ---
Examination: Nuclear medicine hepatobiliary scan, static HIDA scan Date of exam: October 24, 2024 0826 hours INDICATIONS: Altered mental status, elevated liver function tests on laboratory examination today Technique And Findings: 5.7 mCi 99m Hepatolite administered intravenously. Serial imaging obtained immediately through 60 minutes. Homogenous uptake in the liver. Common bile duct small bowel activity noted Gallbladder activity Impression: Negative for cystic duct obstruction No common bile duct obstruction, isotope activity in the small bowel
[2024-10-23 09:20] LABS: Misc Send Out* See Sep Rpt
[2024-10-23] MEDS: SODIUM CHLORIDE 0.45 % 1,000 ML 75 ML IV (09:40)
[2024-10-23] MEDS: TAMSULOSIN HCL 0.4 MG CAPSULE PO (09:42)
[2024-10-23] MEDS: cefTRIAXone/D5w 1gm IV premix 1 GM/50 ML BAG IV (09:42)
[2024-10-23] MEDS: metroNIDAZOLE/NS 500 MG IVPB 500 MG/100 ML BAG 200 MG IV ×2 (09:43→20:55)
[2024-10-23] MEDS: ENOXAPARIN SOD INJ 80 MG/0.8 ML SYRINGE 70 MG SC (09:51)
--- NOTE | 2024-10-23 11:12 | PD.IMCONS ---
HPI Data of Consult Requesting Physician: Keyana Coy MD Primary Care Provider: Gregory Hartley MD Consult Narrative History of present illness: Patient is a 34-year-old male with past medical history of CAD s/p CABG X 3, HFpEF, Paroxysmal Atrial Flutter (not on anticoagulation 2/2 fall risk), Hypertesnion, Hyperlipidemia, orthostatic Hypotension, Parkinson's Disease (On Carbidopa-Levadopa, Gabapentin), CVA, TIAs, BPH, and prostate cancer, remote history of DM Type 2 who was admitted for AMS. Patient had an MRCP done which shows upper abdominal common bile duct concerning for malignant stricture. Bilirubin was completely normal. Lactic acid normal. GI was called to evaluate the patient to rule out cholangitis and necessity for ERCP.. It is notable that daughter is the source of the history and she mentioned the patient has developed dysphagia recently. cc:: cc: Keyana Coy MD Review of Systems Review of Systems Narrative Review of Systems: Unobtainable Meds Home Medications and Allergies Home Medications ?Medication ?Instructions ?Recorded ?Confirmed ?Type tamsulosin 0.4 mg capsule (Flomax) 0.4 mg PO QDAY Prostate ##0 06/12/14 10/23/24 History solifenacin 10 mg tablet 10 mg PO QDAY 03/03/22 10/23/24 History carbidopa 12.5 mg-levodopa 50 2 tab PO .FOUR TIMES 10/02/24 10/23/24 History mg-entacapone 200 mg tablet acetaminophen 300 mg-codeine 15 mg 1 tab PO Q6H PRN pain 10/16/24 10/23/24 History tablet ascorbic acid (vitamin C) 500 mg 500 mg PO BID 10/16/24 10/23/24 History tablet (C-500) aspirin 81 mg tablet 81 mg PO QDAY 10/16/24 10/23/24 History bisacodyl 10 mg rectal suppository 10 mg [place] QDAY PRN constipation 10/16/24 10/22/24 History (Dulcolax (bisacodyl)) docusate sodium 100 mg capsule 100 mg PO BID 10/16/24 10/23/24 History (Colace) ferrous sulfate 325 mg (65 mg 325 mg PO QDAY 10/16/24 10/23/24 History iron) tablet (Feosol) guaifenesin 100 mg/5 mL oral 200 mg PO Q6H PRN sore throat 10/16/24 10/23/24 History liquid (Migdalia-Tussin) magnesium hydroxide 400 mg/5 mL 2,400 mg PO TID PRN constipation 10/16/24 10/23/24 History oral suspension melatonin 3 mg capsule 3 mg PO HS 10/16/24 10/23/24 History metoprolol tartrate 25 mg tablet 12.5 mg PO QDAY 10/16/24 10/23/24 History multivitamin 1 tab PO QDAY 10/16/24 10/23/24 History pregabalin 50 mg capsule 50 mg PO Q8H 10/16/24 10/23/24 History carbidopa 50 mg-levodopa 200 1 tab PO QID 10/22/24 10/22/24 History mg-entacapone 200 mg tablet acetaminophen 300 mg-codeine 15 mg 1 tab PO Q6H PRN severe pain 10/23/24 10/23/24 History tablet (scale score 7-10) artificial tears solution eye drops 1 drp ophthalmic (eye) Q2H PRN 10/23/24 10/23/24 History DRYNESS pregabalin 50 mg capsule (Lyrica) 50 mg PO TID 10/23/24 10/23/24 History Allergies Allergy/AdvReac Type Severity Reaction Status Date / Time banana Allergy Verified 10/21/24 21:38 pork derived (porcine) Allergy Verified 10/21/24 21:38 Exam Vital Signs Temp Pulse Resp BP Pulse Ox O2 Del Method 97.5 F 64 13 136/57 H 100 Room Air 10/23/24 08:00 10/23/24 08:00 10/23/24 08:00 10/23/24 08:00 10/23/24 08:00 10/23/24 08:00 Routine Abdominal Exam Comments: Abdominal exam benign no tenderness no rebound tenderness or sign of peritonitis no mass no hernia. Results Labs 10/23/24 02:52 10/23/24 02:52 Labs: Short CBC 10/22/24 10/23/24 Range/Units 16:00 02:52 WBC 5.0 D 6.1 (3.8-10.6) Thou/mm3 Hgb 9.8 L 10.0 L (13.5-16.0) g/dL Hct 28.0 L 27.7 L (41.0-53.0) % Plt Count 212 D 203 (140-440) Thou/mm3 BMP 10/22/24 10/23/24 16:00 02:52 Sodium 146 H 144 Potassium 3.6 D 3.5 Chloride 116 H 115 H Carbon Dioxide 24.8 23.1 BUN 12 12 Creatinine 0.8 0.8 Glucose 88 79 Calcium 8.1 L 8.0 L Cardiac Enzymes 10/22/24 10/22/24 10/23/24 Range/Units 16:00 21:58 02:52 Troponin I 2.833 H* D 1.776 H* D 1.536 H* D (0.0-0.045) ng/mL Liver Function 10/22/24 10/23/24 Range/Units 16:00 02:52 Total Bilirubin 0.9 0.8 (0.3-1.2) mg/dL AST 71 H 52 H (0-34) U/L ALT 36 38 (10-49) U/L Alkaline Phosphatase 89 85 (46-116) U/L Albumin 3.2 L 3.0 L (3.4-4.8) gm/dL ABG Interpretation ABG results: 10/21/24 23:22 VBG pH 7.54 VBG pCO2 22 L VBG pO2 89 H VBG Base Excess -2 Assessment and Plan Additional Assessment & Plan Additional Plan: Assessment: 83-year-old male with multiple medical issues with acute change in mental status GI was consulted to evaluate the patient for necessity of ERCP. MRCP shows abrupt termination of the common bile duct. Bilirubin normal. Lactic acid normal. Complains of dysphagia Plan of care: There is no evidence of cholangitis in the light of the fact that his bilirubin is completely normal To confirm patency of common bile duct will obtain HIDA scan There is no benefit in performing ERCP, patient might benefit from ERCP with spyglass evaluate the common bile duct with possible biopsy as outpatient. Check CA 19-9 Continue antibiotic Check LFT daily As patient gets cleared by cardiology we will schedule the patient for EGD to evaluate for the etiology of recent ulcer dysphagia. Will follow-up HIDA scan result.
[2024-10-23 11:17] LABS: Troponin I 0.994 ng/mL (0.0-0.045)
--- NOTE | 2024-10-23 11:23 | ESPR_ITS ---
Documentation for date of: 10/23/24 Concern for dysphagia, patient is pending EGD with Dr. Munoz. Possible oral candidiasis noted on physical exam, will hold off on treatment patient is scheduled for EGD. Patient may benefit from nystatin treatment. Pending HIDA scan. Carbidopa-levodopa resumed continue to hold pregabalin. EEG repeat. If patient exhibits any signs of seizure, order repeat lactic acid and prolactin.Continue antibiotics. Subjective Subjective Interval history: Patient was seen and examined at bedside. A.m. vitals and labs reviewed. Patient is awake but still looks low and drowsy. According to his family member who was sitting beside him, he usually coughs a lot but today he did not had any cough. Patient denies chest pain, shortness of breath, fever, chills. No acute events overnight. Exam Vital Signs Temp Pulse Resp BP Pulse Ox O2 Del Method 97.5 F 64 13 136/57 H 100 Room Air 10/23/24 08:00 10/23/24 08:00 10/23/24 08:00 10/23/24 08:00 10/23/24 08:00 10/23/24 08:00 Narrative Exam GENERAL: Awake, but still slow and drowsy HEENT: Normocephalic, atraumatic.? Pupils are equal and reactive.? Oral mucosa is moist. Patent Nares NECK: Supple, nontender, no thyromegaly, no meningismus, no JVD CARDIOVASCULAR: Heart regular rhythm or extra beats. LUNGS: Clear to auscultation bilaterally with symmetrical chest rise.? No laboring tachypnea or wheezing. ABDOMEN: Soft, flat, nontender to palpation, no guarding or rebound tenderness.?.? SKIN: Warm, dry, intact MUSCULOSKELETAL: No peripheral edema NEURO: Unresponsive to verbal stimuli, pupils equal, round and reactive to light. No gross asymmetry Objective Labs 10/23/24 02:52 10/23/24 02:52 Labs: Laboratory Results - last 24 hr 10/22/24 10/22/24 10/23/24 16:00 21:58 02:52 WBC 5.0 D 6.1 RBC 3.21 L 3.18 L Hgb 9.8 L 10.0 L Hct 28.0 L 27.7 L MCV 87 87 MCH 30.5 31.4 MCHC 35.0 36.1 RDW Std Deviation 42.1 41.1 Plt Count 212 D 203 Neut % (Auto) 80 80 Lymph % (Auto) 14 12 [place] % (Auto) 5 6 Eos % (Auto) 1 1 Baso % (Auto) 0 1 Neut # (Auto) 4.0 4.9 Lymph # (Auto) 0.7 L 0.7 L [place] # (Auto) 0.3 0.4 Eos # (Auto) 0.0 0.1 Baso # (Auto) 0.0 0.0 Immature Gran # (Auto) 0.02 H 0.01 H Absolute Nucleated RBC 0.00 0.00 Immature Gran % 0 0 Nucleated RBC % 0 0 Sodium 146 H 144 Potassium 3.6 D 3.5 Chloride 116 H 115 H Carbon Dioxide 24.8 23.1 Anion Gap 5 L 6 L BUN 12 12 Creatinine 0.8 0.8 Estim Creat Clear Calc 67.7 58.8 L eGFR > 60 > 60 BUN/Creatinine Ratio 15 15 Glucose [address] Glu mg/dL Cancelled Hemoglobin A1c Cancelled Calculated Osmolality 289 285 Calcium 8.1 L 8.0 L Corrected Calcium 8.7 8.8 Phosphorus 2.4 Magnesium 1.6 Total Bilirubin 0.9 0.8 AST 71 H 52 H ALT 36 38 Alkaline Phosphatase 89 85 Troponin I 2.833 H* D 1.776 H* D 1.536 H* D Total Protein 5.4 L 5.1 L Albumin 3.2 L 3.0 L Globulin 2.2 L 2.1 L Albumin/Globulin Ratio 1.5 1.4 Triglycerides 89 Cholesterol 94 L LDL Cholesterol, Calc 51 HDL Cholesterol 25 L Cholesterol/HDL Ratio 3.8 L TSH 1.38 10/23/24 09:46 WBC RBC Hgb Hct MCV MCH MCHC RDW Std Deviation Plt Count Neut % (Auto) Lymph % (Auto) [place] % (Auto) Eos % (Auto) Baso % (Auto) Neut # (Auto) Lymph # (Auto) [place] # (Auto) Eos # (Auto) Baso # (Auto) Immature Gran # (Auto) Absolute Nucleated RBC Immature Gran % Nucleated RBC % Sodium Potassium Chloride Carbon Dioxide Anion Gap BUN Creatinine Estim Creat Clear Calc eGFR BUN/Creatinine Ratio Glucose Estimated Ave Glu mg/dL Hemoglobin A1c Calculated Osmolality Calcium Corrected Calcium Phosphorus Magnesium Total Bilirubin AST ALT Alkaline Phosphatase Troponin I 0.994 H* D Total Protein Albumin Globulin Albumin/Globulin Ratio Triglycerides Cholesterol LDL Cholesterol, Calc HDL Cholesterol Cholesterol/HDL Ratio TSH ABG Interpretation ABG results: 10/21/24 23:22 VBG pH 7.54 VBG pCO2 22 L VBG pO2 89 H VBG Base Excess -2 Quality Measures Quality Measures none Advance care planning discussed with:: patient, spouse and child Assessment & Plan Assessment Current Active Medications: Generic Name Dose Route Start Last Admin Trade Name Javier PRN Reason Stop Dose Admin Aspirin 81 mg 10/24/24 09:00 Aspirin Ec 81 Mg Tabec PO 11/23/24 08:59 QDAY ARIAN Atorvastatin Calcium 80 mg 10/23/24 21:00 Atorvastatin Calcium 20 Mg Tablet PO 11/22/24 20:59 HS ARIAN Dextrose 25 ml 10/22/24 15:49 Dextrose 50%-Water Inj 50 Ml Syringe IV 11/21/24 15:48 Q15MIN PRN BG 50-70 responsive npo pt Dextrose 50 ml 10/22/24 15:49 Dextrose 50%-Water Inj 50 Ml Syringe IV 11/21/24 15:48 Q15MIN PRN BG <50 OR BG <70 & pt unresponsive Enoxaparin Sodium 60 mg 10/23/24 21:00 Enoxaparin Sod Inj 60 Mg/0.6 Ml Syringe SC 11/06/24 20:59 BID ARIAN Glucagon 1 mg 10/22/24 15:49 Glucagon Inj 1 Mg Vial IM Q15MIN PRN BG <70, and no IV access Sodium Chloride 1,000 mls @ 75 mls/hr 10/22/24 15:51 10/23/24 09:40 Ns 0.45% IV 11/21/24 15:50 75 mls/hr .[id number] ARIAN Administration Ceftriaxone Sodium/Dextrose 1 gm in 50 mls @ 100 mls/hr 10/22/24 16:02 10/23/24 09:42 Rocephin/D5w 1gm Iv Premix IV 10/29/24 16:01 100 mls/hr QDAY ARIAN Administration Metronidazole 500 mg in 100 mls @ 200 mls/hr 10/22/24 21:00 10/23/24 09:43 Flagyl 500 Mg Iv IV 10/29/24 20:59 200 mls/hr Q12HR ARIAN Administration Insulin Human Lispro 0 unit 10/22/24 18:00 10/23/24 07:54 Insulin Lispro (Admelog) 1 Unit/0.01 Ml Unit SC 11/21/24 17:59 Not Given Q6HR ARIAN Protocol Ondansetron HCl 4 mg 10/22/24 15:42 Ondansetron Inj 2 Mg/Ml Inj 2 Ml IVP 11/21/24 15:41 Q6H PRN NAUSEA OR VOMITING Protocol Pantoprazole Sodium 40 mg 10/22/24 16:00 10/23/24 09:41 Pantoprazole Inj 40 Mg Vial IVP 11/21/24 15:59 40 mg QDAY ARIAN Administration Tamsulosin HCl 0.4 mg 10/23/24 09:00 10/23/24 09:42 Tamsulosin Hcl 0.4 Mg Capsule PO 11/22/24 08:59 0.4 mg QDAY ARIAN Administration Plan Patient is a 84-year-old male with past medical history of CAD s/p CABG X 3, Paroxysmal Atrial Flutter, not anticoagulated given risk of falls, Hypertesnion, Hyperlipidemia, Orthostatic Hypotension, Parkinson's Disease, CVA, TIAs, BPH, and prostate cancer who was admitted to the hospital due to admitted to the hospital on 10/16/2024 for acute encephalopathy. #Dysphagia Concern for dysphagia which may be due to worsening parkinson's disease vs possible oral candidisis noted on physical exam, pending EGD report, may benefit from swish and swallow nystatin vs medication induced given acetaminophen use as home medication Plan -NPO aftermidnight -EGD #Acute Metabolic encephalopathy, likely mulit-factorial #Parkinson's Disease #Early Dementia ? #Lactic Acidosis Patient has had several admissions within the last year with similar presentations, concern for poly-pharmamcy as patient is older mostly bedbound and on gabapentin vs Concern seizure like activity which would explain elevated lactic acidosis, recent EEG, noted for early dementia vs less likely secondary to stroke as recent MRI negative vs infectious cause less likely as UA negative and Crx does show pneumonia but remains afebrile and no WBC elevation. Diagnostics: -UA was negative for UTI -CXR(10/21/2024): Left base pneumonia -Chest CT (10/22/2024): Mild bibasilar pneumonia, consider aspiration pneumonia -Head CT (10/22/2024): Negative for acute hemorrhage, mass effect or midline shift -EEG (10/22/2024): This EEG is abnormal with mild diffuse lowering suggestive of a diffuse encephalopathy of metabolic, degenerative, or vascular origin, consistent with early dementia. -According to neurology, it is unlikely that his combination drugs of carbidopa- levodopa, and gabapentin could have caused his altered mental status. Plan: -EEG ordered, per neurology recommendations -Resume Carbidopa-Levodopa and HOLD Gabpaentin. -Neurology consulted, Dr. Coronado, appreciate recommendations. #Troponemia #NSTEMI likely, Type II demand ischemia - Pt denies chest pain. No ST elevation on EKG but troponin peaked. Elevated troponin, likely NSTEMI type II demand ischemia. Plan: -Continue to monitor -Started Lovenox 60mg SC bid -Consulted with Cardiology, Dr. Nur consulted, appreciate recommendations. #Enlarged Common Bile Duct -Total Birubin (10/21/2024) 1.3 AST 106 ALT 11-->repeat Total Bilirubin (10/22/2024) 0.9 AST 71, ALT 36 -Abd/pelvis CT (10/22/2024): Distended gallbladder with significant enlargement common bile duct. -MRCP (10/22/2024): Enlarged common bile duct 14 mm with abrupt tapering of the distal common bile duct -Gallbladder US (10/22/2024): Normal gallbladder, Normal common bile duct Plan: -Normal total bilirubin, alk-phos, and gallbladder US suggests unlikely obstruction. Unlikely cholangitis - IV ceftriaxone 1g IV qd and IV metronidazole 500mg IV q12hr -Gastroenterology Consulted, Dr. Munoz, appreciate recommendations. CAD s/p CABG X 3 Resume Aspirin and Atorvastatin tomorrow after medication reconciliation #History of Paroxysmal Atrial Fibrillation Previous admission Eliquis D/C given risk of falls. Pending Medication reconciliation. Plan -Eliquis not indicated given risk of falls/bleeding -pending medication reconciliation, maybe taking metoprolol tartrate #Hypertension #vee of orthostatic hypotension Patient presented normal tensive. Pending medication reconciliation, unclear if patient continues to take Lisinopril and Metroplol tartrate. Daughter at bedside is not primary caregiver and unsure of medication. Plan -Pending Medication reconcililation, ?Metoprolol ?Lisinopril, given history of orthostatic hypotension, may benefit from d/c lisinopril #History of Prostate Cancer #BPH Consider resuming Tamsuloin 0.4 mg once daily after medication reconciliation Disposition: Telemetry, IV abx, cardiology following Diet: NPO after midnight GI prophylaxis: Protonix DVT prophylaxis: Lovenox Code: FULL Assessment and plan discussed with my attending physician Dr. Coy and Dr. Oliveira (PGY-2) Dr. Harding (PGY-1)- Internal medicine resident - The patient's plan was discussed with attending Dr. Anneliese Oliveira MD PGY2 Internal Medicine
[2024-10-23 12:25] LABS: Lactate (Lactic Acid) 1.7 mMol/L (0.4-2.0)
[2024-10-23 12:55] LABS: Alanine Aminotransferase 42 U/L (10-49); Albumin, Serum 3.4 gm/dL (3.4-4.8); Alkaline Phosphatase 92 U/L (46-116); Aspartate Amino Transferase 45 U/L (0-34); Bilirubin,Direct 0.3 mg/dL (0.0-0.3); Bilirubin,Total 0.7 mg/dL (0.3-1.2); Total Protein 5.5 gm/dL (5.7-8.2)
--- NOTE | 2024-10-23 12:56 | PD.RESCONSUL ---
HPI Data of Consult Requesting Physician: Keyana Coy MD Admitting Provider: Keyana Coy MD Attending Provider: Keyana Coy MD Primary Care Provider: Gregory Hartley MD Consult Narrative History of present illness: Mr. Fernández is a 84-year-old male with past medical history of CAD s/p CABG X 3, HFpEF, Paroxysmal Atrial Flutter (not on anticoagulation 2/2 fall risk), Hypertesnion, Hyperlipidemia, orthostatic Hypotension, Parkinson's Disease (On Carbidopa-Levadopa, Gabapentin), CVA, TIAs, BPH, and prostate cancer, remote history of DM Type 2 who was admitted for AMS. Patient presented to the emergency room 10/21 with chief complain of altered mental status, concern for possible seizure as upward gaze noted and found unresponsive at bedside. LKAW 7 PM 10/22/2024. Patient has been admitted several times within the last year for acute altered mental status, most recently discharged 10/17/24. At that time, MRI showed no acute infarct, hemorrhage, or mass effect ? only an old left cerebellar infarct and chronic microvascular changes. Mental status returned to baseline, AAOx3, and tolerating PO intake. Discharged with lisinopril 20 mg daily and f/u in outpatient neuro clinic. Today, patient accompanied by daughter and who assisted in providing history. Patient was at SNF when he began having agitation and confusion. Since admission, his mentation has improved but not returned to baseline. He denies headache, dizziness, pain, changes in vision, or anxiety. Mary (daughter): [phone] cc:: cc: Keyana Coy MD Review of Systems Review of Systems Narrative Review of Systems: 14 point ROS negative other than HPI Exam Vital Signs Temp Pulse Resp BP Pulse Ox O2 Del Method 97.4 F 65 19 133/62 H 100 Room Air 10/23/24 12:10/23/24 12:10/23/24 12:10/23/24 12:10/23/24 12:10/23/24 12:00 Narrative Exam General: No acute distress, lying in bed Eye: PERRL, EOMI, normal conjunctiva, no scleral icterus HENT: Normocephalic, atraumatic, hearing intact to conversation at normal volume, moist oral mucosa Neck: Supple, non-tender, no JVD, no lymphadenopathy Lungs: Non-labored respirations, symmetric chest rise Heart: Peripheral pulses intact bilaterally Abdomen: Soft, non-tender, non-distended Musculoskeletal: Normal range of motion and strength Skin: Skin is warm, dry, no rashes or lesions. Psychiatric: Cooperative, appropriate mood and affect Neurologic: Mental status: Orientation: AOx2 Communication: Patient is cooperative and can follow simple instructions Language: Speech fluent, decreased volume, comprehension intact Cranial nerves: CN II: Visual morris intact CN III: Pupils equal, round, and reactive to light CN III, IV, : No gaze deviation, no nystagmus Horizontal pursuit: intact Vertical pursuit: intact Ptosis: none CN V: Facial sensation to light touch intact bilaterally at the forehead, cheeks, and jaw line CN VII: Face symmetric, no facial droop appreciated CN VIII: Able to hear and respond to conversation at normal volume, intact to finger rub CN IX, X: Palate elevation symmetric, uvula midline CN XI: Head turn and shoulder shrug strong, symmetric bilaterally CN XII: Normal tongue protrusion without deviation, no fasciculations Motor: No abnormal movements or fasciculations Muscle strength: Shoulder abduction: R 5/5 L 5/5 Elbow flexion: R 5/5 L 5/5 Elbow extension: R 5/5 L 5/5 Hip flexion: R 5/5 L 5/5 Hip extension: R 5/5 L 5/5 Knee flexion: R 5/5 L 5/5 Knee extension: R 5/5 L 5/5 Sensory: RUE: Light touch intact LUE: Light touch intact RLE: Light touch intact LLE: Light touch intact Reflexes: Biceps (C5-6): R 2+ L 2+ Brachioradialis (C5-6): R 2+ L 2+ Triceps (C7-8): R 2+ L 2+ Patellae (L3-4): R 2+ L 2+ No clonus Cerebellum: RUE: No dysmetria (finger to nose) LUE: No dysmetria (finger to nose) Romberg: deferred Gait: deferred Results Labs 10/23/24 02:52 10/23/24 02:52 Labs: Short CBC 10/22/24 10/23/24 Range/Units 16:00 02:52 WBC 5.0 D 6.1 (3.8-10.6) Thou/mm3 Hgb 9.8 L 10.0 L (13.5-16.0) g/dL Hct 28.0 L 27.7 L (41.0-53.0) % Plt Count 212 D 203 (140-440) Thou/mm3 BMP 10/22/24 10/23/24 16:00 02:52 Sodium 146 H 144 Potassium 3.6 D 3.5 Chloride 116 H 115 H Carbon Dioxide 24.8 23.1 BUN 12 12 Creatinine 0.8 0.8 Glucose 88 79 Calcium 8.1 L 8.0 L Cardiac Enzymes 10/22/24 10/22/24 10/23/24 Range/Units 16:00 21:58 02:52 Troponin I 2.833 H* D 1.776 H* D 1.536 H* D (0.0-0.045) ng/mL 10/23/24 Range/Units 09:46 Troponin I 0.994 H* D (0.0-0.045) ng/mL Liver Function 10/22/24 10/23/24 10/23/24 Range/Units 16:00 02:52 12:02 Total Bilirubin 0.9 0.8 0.7 (0.3-1.2) mg/dL Direct Bilirubin 0.3 (0.0-0.3) mg/dL AST 71 H 52 H 45 H (0-34) U/L ALT 36 38 42 (10-49) U/L Alkaline Phosphatase 89 85 92 (46-116) U/L Albumin 3.2 L 3.0 L 3.4 (3.4-4.8) gm/dL ABG Interpretation ABG results: 10/21/24 23:22 VBG pH 7.54 VBG pCO2 22 L VBG pO2 89 H VBG Base Excess -2 Quality Measures Quality Measures none Advance care planning discussed with:: patient, spouse and child Medications Home Medications and Allergies Home Medications ?Medication ?Instructions ?Recorded ?Confirmed ?Type tamsulosin 0.4 mg capsule (Flomax) 0.4 mg PO QDAY Prostate ##0 06/12/14 10/23/24 History solifenacin 10 mg tablet 10 mg PO QDAY 03/03/22 10/23/24 History carbidopa 12.5 mg-levodopa 50 2 tab PO .FOUR TIMES 10/02/24 10/23/24 History mg-entacapone 200 mg tablet acetaminophen 300 mg-codeine 15 mg 1 tab PO Q6H PRN pain 10/16/24 10/23/24 History tablet ascorbic acid (vitamin C) 500 mg 500 mg PO BID 10/16/24 10/23/24 History tablet (C-500) aspirin 81 mg tablet 81 mg PO QDAY 10/16/24 10/23/24 History bisacodyl 10 mg rectal suppository 10 mg RI QDAY PRN constipation 10/16/24 10/22/24 History (Dulcolax (bisacodyl)) docusate sodium 100 mg capsule 100 mg PO BID 10/16/24 10/23/24 History (Colace) ferrous sulfate 325 mg (65 mg 325 mg PO QDAY 10/16/24 10/23/24 History iron) tablet (Feosol) guaifenesin 100 mg/5 mL oral 200 mg PO Q6H PRN sore throat 10/16/24 10/23/24 History liquid (Migdalia-Tussin) magnesium hydroxide 400 mg/5 mL 2,400 mg PO TID PRN constipation 10/16/24 10/23/24 History oral suspension melatonin 3 mg capsule 3 mg PO HS 10/16/24 10/23/24 History metoprolol tartrate 25 mg tablet 12.5 mg PO QDAY 10/16/24 10/23/24 History multivitamin 1 tab PO QDAY 10/16/24 10/23/24 History pregabalin 50 mg capsule 50 mg PO Q8H 10/16/24 10/23/24 History carbidopa 50 mg-levodopa 200 1 tab PO QID 10/22/24 10/22/24 History mg-entacapone 200 mg tablet acetaminophen 300 mg-codeine 15 mg 1 tab PO Q6H PRN severe pain 10/23/24 10/23/24 History tablet (scale score 7-10) artificial tears solution eye drops 1 drp ophthalmic (eye) Q2H PRN 10/23/24 10/23/24 History DRYNESS pregabalin 50 mg capsule (Lyrica) 50 mg PO TID 10/23/24 10/23/24 History Allergies Allergy/AdvReac Type Severity Reaction Status Date / Time banana Allergy Verified 10/21/24 21:38 pork derived (porcine) Allergy Verified 10/21/24 21:38 Visit Medications Aspirin (Aspirin Ec 81 Mg Tabec) 81 mg PO QDAY [facility] Stop: 11/23/24 08:59 Atorvastatin Calcium (Atorvastatin Calcium 20 Mg Tablet) 80 mg PO HS [facility] Stop: 11/22/24 20:59 Dextrose (Dextrose 50%-Water Inj 50 Ml Syringe) 25 ml IV Q15MIN PRN PRN Reason: BG 50-70 responsive npo pt Stop: 11/21/24 15:48 Dextrose (Dextrose 50%-Water Inj 50 Ml Syringe) 50 ml IV Q15MIN PRN PRN Reason: BG <50 OR BG <70 & pt unresponsive Stop: 11/21/24 15:48 Enoxaparin Sodium (Enoxaparin Sod Inj 60 Mg/0.6 Ml Syringe) 60 mg SC BID [facility] Stop: 11/06/24 20:59 Glucagon (Glucagon Inj 1 Mg Vial) 1 mg IM Q15MIN PRN PRN Reason: BG <70, and no IV access Sodium Chloride (Ns 0.45%) 1,000 mls @ 75 mls/hr IV .[id number] [facility] Stop: 11/21/24 15:50 Last Admin: 10/23/24 09:40 Dose: 75 mls/hr Ceftriaxone Sodium/Dextrose (Rocephin/D5w 1gm Iv Premix) 1 gm in 50 mls @ 100 mls/hr IV QDAY [facility] Stop: 10/29/24 16:01 Last Admin: 10/23/24 09:42 Dose: 100 mls/hr Metronidazole (Flagyl 500 Mg Iv) 500 mg in 100 mls @ 200 mls/hr IV Q12HR [facility] Stop: 10/29/24 20:59 Last Admin: 10/23/24 09:43 Dose: 200 mls/hr Insulin Human Lispro (Insulin Lispro (Admelog) 1 Unit/0.01 Ml Unit) 0 unit SC Q6HR ARIAN; Protocol Stop: 11/21/24 17:59 Last Admin: 10/23/24 12:10 Dose: Not Given Ondansetron HCl (Ondansetron Inj 2 Mg/Ml Inj 2 Ml) 4 mg IVP Q6H PRN; Protocol PRN Reason: NAUSEA OR VOMITING Stop: 11/21/24 15:41 Pantoprazole Sodium (Pantoprazole Inj 40 Mg Vial) 40 mg IVP QDAY [facility] Stop: 11/21/24 15:59 Last Admin: 10/23/24 09:41 Dose: 40 mg Tamsulosin HCl (Tamsulosin Hcl 0.4 Mg Capsule) 0.4 mg PO QDAY [facility] Stop: 11/22/24 08:59 Last Admin: 10/23/24 09:42 Dose: 0.4 mg Discontinued Medications Aspirin (Aspirin 325 Mg Tablet) 325 mg PO X1 ONE Stop: 10/22/24 09:58 Last Admin: 10/22/24 12:12 Dose: Not Given Clopidogrel Bisulfate (Clopidogrel Bisulfate 75 Mg Tablet) 150 mg PO X1 ONE Stop: 10/22/24 09:58 Last Admin: 10/22/24 12:12 Dose: Not Given Enoxaparin Sodium (Enoxaparin Sod Inj 80 Mg/0.8 Ml Syringe) 70 mg SC BID [facility] Stop: 11/05/24 20:59 Last Admin: 10/23/24 09:51 Dose: 70 mg Haloperidol Lactate (Haloperidol Lact Inj 5 Mg/Ml Vial) 2.5 mg IM X1 ONE Stop: 10/21/24 22:16 Last Admin: 10/21/24 22:25 Dose: 2.5 mg Haloperidol Lactate (Haloperidol Lact Inj 5 Mg/Ml Vial) 5 mg IM X1 ONE Stop: 10/21/24 22:35 Last Admin: 10/21/24 22:46 Dose: 5 mg Heparin Sodium (Porcine) (Heparin Sod Inj 5000 Unit/Ml Vial) 4,000 unit IV X1 ONE Stop: 10/22/24 09:58 Last Admin: 10/22/24 12:11 Dose: 4,000 unit Sodium Chloride (Ns) 250 mls @ 999 mls/hr IV .Q16M ONE Stop: 10/21/24 22:45 Last Infusion: 10/21/24 23:23 Dose: Infused Ampicillin Sodium/Sulbactam (Sodium 3 gm/ Sodium Chloride) 100 mls @ 200 mls/hr IV X1 ONE Stop: 10/22/24 05:25 Last Infusion: 10/22/24 06:47 Dose: Infused Sodium Chloride (Ns) 1,000 mls @ 250 mls/hr IV .Q4H [facility] Stop: 11/21/24 07:59 Last Admin: 10/22/24 17:28 Dose: Not Given Assessment & Plan Plan #Altered mental status, improving Initial presentation 10/22: altered mental status, concern for possible seizure as upward gaze noted and found unresponsive at bedside. MARLENAW 7 PM 10/22/2024. Patient has had multiple admissions for AMS / acute encephalopathy, most recently discharged 10/17 Afebrile, WBC WNL, BP stable with appropriate MAPs, VBG pH WNL, lactic acid WNL, mildly elevated AST (downtrending), procalcitonin WNL, TSH WNL, UA negative Total CK high (906) Troponin high (3.482), now downtrending CT head w/o 10/21: Negative for acute hemorrhage, mass effect or midline shift MRI brain w/o 10/16: Negative for acute hemorrhage, mass effect or midline shift. No acute infarct. Old infarct left cerebellar hemisphere Moderate chronic microvascular white matter change EEG 10/22: Mild diffuse slowing. No epileptiform discharges EKG NSR, QTc WNL Gallbladder US (indication: abnormal LFT): Normal gallbladder. Normal common bile duct MRCP: Enlarged common bile duct 14 mm with abrupt tapering of the distal common bile duct, recommend ERCP follow-up to exclude malignant stricture at the ampulla DDX: seizure, delirium, dementia, polypharmacy, infection Plan: - Routine spot EEG - No need for repeat imaging at this time #Hx CVA #Hyperlipidemia Home meds: ASA 81 mg daily Triglycerides WNL, Cholesterol low (94), LDL WNL, HDL low (25) Started on Atorvastatin 80 mg daily by primary No home statin Plan: - Continue ASA 81 mg daily - Continue high intensity statin - Atorvastatin 80 mg daily #Parkinson's disease #Dementia Stable on Carbidopa-Levadopa and Entacapone, Pregabalin 50 mg TID Plan: - Continue Carbidopa-Levadopa and Entacapone - Can hold Pregabalin 2/2 concern for AMS #Dysphagia Albumin WNL, total protein mildly low (5.5) Plan: - Management per primary team - EGD scheduled 10/24 #NSTEMI type ll demand ischemia -Patient denies any chest pain, tightness or pressure. Patient symptoms are likely due to poor oral intake in the setting of dysphagia On admission Troponins 0.178 -> 3.482 -> 1.776 EKG: Sinus rhythm with rate of 62 and QTc [address] or T wave changes noted Plan: - Pending TTE - Close monitoring on telemetry #CAD status post CABG x 3 #Hx of Paroxismal A-flutter,in sinus rhythm #HFpEF with EF 50-55% [id number] score is 5 HAS-BLED of 2 -Currently pt is in sinus rhythm, pt would benefit from anticoagulation with Eliquis dose adjusted to age and weight (2.5mg BID) -Pt does not appear to be in decompensated HF #Type 2 diabetes A1C 10/02/24: 4.1 Plan: - Management per primary team - SSI Plan discussed with Dr. Ivonne Dick, PGY1 Attending Provider Attestation/Addendum I personally have seen and examined the patient at the bedside and agreed with resident findings, assessment and plan of care. Will continue with the Sinemet and Comtan. Follow-up with the EEG As a presenting symptom is suspicious for a seizure. Continue with the physical therapy.
[2024-10-23 13:02] LABS: Procalcitonin 0.12 ng/ml (0.0-0.49)
--- NOTE | 2024-10-23 13:30 | ESPR_ITS ---
<Statement entered by Corina Nur MD - 10/24/24 00:30> I personally examined evaluated the patient appears to be clinically doing much better cardiac echo showed normal wall motion though troponin level is slightly elevated do not think this is due to acute myocardial infarction possible type II troponin since left ventricle wall motion normal patient has dysphagia with esophageal motility disorder EGD was recommended and given clearance for EGD by Dr. Munoz. Evaluated patient with resident physician Dr. Hernandez PGY 2 agree with the treatment plan recommendations. Documentation for date of: 10/23/24 Subjective Subjective Interval history: Pt is seen at bedside. Family (including and daughter) are at bedside. Pt appears to be doing much better today, denies any cardiac complaints. Pt had a swallow eval during which he had difficulty swallowing. Pt states when he eats he feels pain in his throat and difficulty with swallowing. which according to the family members have been going on for a while. Primary team consulted GI, who requested Cardiac clearance fpr EGD scheduled for tomorrow. Pt had a repeat echo with EF 55% and normal echo findings. Pt is cleared for endoscopy tomorrow. Exam Vital Signs Temp Pulse Resp BP Pulse Ox O2 Del Method 97.4 F 65 19 133/62 H 100 Room Air 10/23/24 12:00 10/23/24 12:00 10/23/24 12:00 10/23/24 12:00 10/23/24 12:00 10/23/24 12:00 Narrative Exam GENERAL: A&Ox3 . elderly male, well groomed, Awake, Not in acute distress NEURO: no focal neurological deficits HEENT: Atraumatic, Normocephalic. mucous membranes moist. Eyes open, symmetrical, & clear HEART: Normal Heart Sounds LUNGS: Clear to auscultation with no wheezing or crackles. ABDOMEN: soft, non-distended, non-tender, bowel sounds heard, no guarding or rebound tenderness SKIN: No Rash or ecchymoses EXTREMITIES: No edema, tenderness, able to move all 4 extremities, pedal pulses palpated Objective Labs 10/23/24 02:52 10/23/24 02:52 Labs: Laboratory Results - last 24 hr 10/22/24 10/22/24 10/23/24 16:00 21:58 02:52 WBC 5.0 D 6.1 RBC 3.21 L 3.18 L Hgb 9.8 L 10.0 L Hct 28.0 L 27.7 L MCV 87 87 MCH 30.5 31.4 MCHC 35.0 36.1 RDW Std Deviation 42.1 41.1 Plt Count 212 D 203 Neut % (Auto) 80 80 Lymph % (Auto) 14 12 [place] % (Auto) 5 6 Eos % (Auto) 1 1 Baso % (Auto) 0 1 Neut # (Auto) 4.0 4.9 Lymph # (Auto) 0.7 L 0.7 L [place] # (Auto) 0.3 0.4 Eos # (Auto) 0.0 0.1 Baso # (Auto) 0.0 0.0 Immature Gran # (Auto) 0.02 H 0.01 H Absolute Nucleated RBC 0.00 0.00 Immature Gran % 0 0 Nucleated RBC % 0 0 Sodium 146 H 144 Potassium 3.6 D 3.5 Chloride 116 H 115 H Carbon Dioxide 24.8 23.1 Anion Gap 5 L 6 L BUN 12 12 Creatinine 0.8 0.8 Estim Creat Clear Calc 67.7 58.8 L eGFR > 60 > 60 BUN/Creatinine Ratio 15 15 Glucose [address] Glu mg/dL Cancelled Hemoglobin A1c Cancelled Calculated Osmolality 289 285 Lactic Acid Calcium 8.1 L 8.0 L Corrected Calcium 8.7 8.8 Phosphorus 2.4 Magnesium 1.6 Total Bilirubin 0.9 0.8 Direct Bilirubin AST 71 H 52 H ALT 36 38 Alkaline Phosphatase 89 85 Troponin I 2.833 H* D 1.776 H* D 1.536 H* D Total Protein 5.4 L 5.1 L Albumin 3.2 L 3.0 L Globulin 2.2 L 2.1 L Albumin/Globulin Ratio 1.5 1.4 Triglycerides 89 Cholesterol 94 L LDL Cholesterol, Calc 51 HDL Cholesterol 25 L Cholesterol/HDL Ratio 3.8 L Procalcitonin TSH 1.38 10/23/24 10/23/24 09:46 12:02 WBC RBC Hgb Hct MCV MCH MCHC RDW Std Deviation Plt Count Neut % (Auto) Lymph % (Auto) [place] % (Auto) Eos % (Auto) Baso % (Auto) Neut # (Auto) Lymph # (Auto) [place] # (Auto) Eos # (Auto) Baso # (Auto) Immature Gran # (Auto) Absolute Nucleated RBC Immature Gran % Nucleated RBC % Sodium Potassium Chloride Carbon Dioxide Anion Gap BUN Creatinine Estim Creat Clear Calc eGFR BUN/Creatinine Ratio Glucose Estimated Ave Glu mg/dL Hemoglobin A1c Calculated Osmolality Lactic Acid 1.7 Calcium Corrected Calcium Phosphorus Magnesium Total Bilirubin 0.7 Direct Bilirubin 0.3 AST 45 H ALT 42 Alkaline Phosphatase 92 Troponin I 0.994 H* D Total Protein 5.5 L Albumin 3.4 Globulin Albumin/Globulin Ratio Triglycerides Cholesterol LDL Cholesterol, Calc HDL Cholesterol Cholesterol/HDL Ratio Procalcitonin 0.12 TSH ABG Interpretation ABG results: 10/21/24 23:22 VBG pH 7.54 VBG pCO2 22 L VBG pO2 89 H VBG Base Excess -2 Quality Measures Quality Measures none Advance care planning discussed with:: patient and child Assessment & Plan Assessment Current Active Medications: Generic Name Dose Route Start Last Admin Trade Name Freq PRN Reason Stop Dose Admin Aspirin 81 mg 10/24/24 09:00 Aspirin Ec 81 Mg Tabec PO 11/23/24 08:59 QDAY ARIAN Atorvastatin Calcium 80 mg 10/23/24 21:00 Atorvastatin Calcium 20 Mg Tablet PO 11/22/24 20:59 HS ARIAN Dextrose 25 ml 10/22/24 15:49 Dextrose 50%-Water Inj 50 Ml Syringe IV 11/21/24 15:48 Q15MIN PRN BG 50-70 responsive npo pt Dextrose 50 ml 10/22/24 15:49 Dextrose 50%-Water Inj 50 Ml Syringe IV 11/21/24 15:48 Q15MIN PRN BG <50 OR BG <70 & pt unresponsive Enoxaparin Sodium 60 mg 10/23/24 21:00 Enoxaparin Sod Inj 60 Mg/0.6 Ml Syringe SC 11/06/24 20:59 BID ARIAN Glucagon 1 mg 10/22/24 15:49 Glucagon Inj 1 Mg Vial IM Q15MIN PRN BG <70, and no IV access Sodium Chloride 1,000 mls @ 75 mls/hr 10/22/24 15:51 10/23/24 09:40 Ns 0.45% IV 11/21/24 15:50 75 mls/hr .[id number] ARIAN Administration Ceftriaxone Sodium/Dextrose 1 gm in 50 mls @ 100 mls/hr 10/22/24 16:02 10/23/24 09:42 Rocephin/D5w 1gm Iv Premix IV 10/29/24 16:01 100 mls/hr QDAY ARIAN Administration Metronidazole 500 mg in 100 mls @ 200 mls/hr 10/22/24 21:00 10/23/24 09:43 Flagyl 500 Mg Iv IV 10/29/24 20:59 200 mls/hr Q12HR ARIAN Administration Insulin Human Lispro 0 unit 10/22/24 18:00 10/23/24 12:10 Insulin Lispro (Admelog) 1 Unit/0.01 Ml Unit SC 11/21/24 17:59 Not Given Q6HR ARIAN Protocol Ondansetron HCl 4 mg 10/22/24 15:42 Ondansetron Inj 2 Mg/Ml Inj 2 Ml IVP 11/21/24 15:41 Q6H PRN NAUSEA OR VOMITING Protocol Pantoprazole Sodium 40 mg 10/22/24 16:00 10/23/24 09:41 Pantoprazole Inj 40 Mg Vial IVP 11/21/24 15:59 40 mg QDAY ARIAN Administration Tamsulosin HCl 0.4 mg 10/23/24 09:00 10/23/24 09:42 Tamsulosin Hcl 0.4 Mg Capsule PO 11/22/24 08:59 0.4 mg QDAY ARIAN Administration Plan Mr. Brar is a 84-year-old male past medical history significant for hypertension, hyperlipidemia, type 2 diabetes, HFpEF with EF 50-55%, CAD status post CABG x 3, A-flutter, prostate cancer, dementia, Parkinson's and history of CVA presented to the ED due to altered mental status and found unresponsive. #Elevated troponins likely #NSTEMI type ll -Elevated troponins which has now downtrended are likely due to NSTEMI type II demand ischemia -Patient denies any chest pain, tightness or pressure. Patient symptoms are likely due to poor oral intake in the setting of dysphagia On admission Troponins 0.178 -> 3.482 -> 1.776 EKG: Sinus rhythm with rate of 62 and QTc [address] or T wave changes noted Plan: -Repeat echo -Since troponins have down trended, there is no indication to continue trending troponins -Close monitoring on telemetry #CAD status post CABG x 3 #Hx. of Paroxismal A-flutter,in sinus rhythm #HFpEF with EF 50-55% [id number] score is 5 HAS-BLED of 2 -Currently pt is in sinus rhythm, pt would benefit from anticoagulation with Eliquis dose adjusted to age and weight (2.5mg BID) -Pt does not appear to be in decompensated CHF #Dysphagia #Type 2 diabetes #Hyperlipidemia #Benign prostatic hyperplasia (BPH) #Prostate cancer #Parkinson's disease #Hx. of CVA -management as per primary team however recommend EGD due to worsening dysphagia Assessment and plan discussed with my attending physician Dr. Boom Hernandez (PGY-2)- Internal medicine resident
[2024-10-23] MEDS: CARBIDOPA/LEVODOPA CR 50/200 TABCR 1 TAB PO (15:38)
[2024-10-23 15:50] LABS: Troponin I 0.806 ng/mL (0.0-0.045)
--- NOTE | 2024-10-23 18:50 | ECHO_ITS ---
Transthoracic Echo Report Ht (in): 68 Wt (lb): 131 Exam Location: Echo Lab Status: Inpatient Emergency Room Specialist: Princess Parish Indications: Procedure Performed: BP: 140 / 75 HR: 53 Technical Quality: Adequate MEASUREMENTS (Male / Female) Normal Values 2D ECHO LV Diastolic Diameter PLAX 4.9 cm 4.2 - 5.9 / 3.9 - 5.3 cm LV Systolic Diameter PLAX 3.7 cm IVS Diastolic Thickness 0.8 cm 0.6 - 1.0 / 0.6 - 0.9 cm LVPW Diastolic Thickness 0.7 cm 0.6 - 1.0 / 0.6 - 0.9 cm LV Relative Wall Thickness 0.3 LVOT Diameter 2.0 cm LA Volume Index 41.5 cm?/m? 16 - 28 cm?/m? Ascending Aorta Diameter 2.9 cm M-MODE AV Cusp Separation MM 1.8 cm DOPPLER AV Peak Velocity 122.0 cm/s AV Peak Gradient 6.0 mmHg AI Peak Velocity 338.0 cm/s AI Peak Gradient 45.7 mmHg AI Pressure Half Time 481.0 ms LVOT Peak Velocity 89.7 cm/s LVOT Peak Gradient 3.2 mmHg AV Area Cont Eq pk 2.3 cm? MV Area PHT 3.9 cm? Mitral E Point Velocity 77.6 cm/s Mitral A Point Velocity 80.0 cm/s Mitral E to A Ratio 1.0 LV E' Lateral Velocity 9.7 cm/s Mitral E to LV E' Lateral Ratio 8.0 LV E' Septal Velocity 4.8 cm/s Mitral E to LV E' Septal Ratio 16.2 TR Peak Velocity 226.0 cm/s TR Peak Gradient 20.4 mmHg PV Peak Velocity 181.0 cm/s PV Peak Gradient 13.1 mmHg FINDINGS Left Ventricle Normal left ventricular size, wall thickness, systolic function with no obvious regional wall motion abnormalities. Normal left ventricular diastolic filling pattern for age. The ejection fraction is visually estimated at 55 %. Right Ventricle The right ventricle is normal in size. Moderate systolic dysfunction. The estimated right ventricular systolic pressure, 20 mmHg. Left Atrium The left atrium is normal by two-dimensional, color flow and Doppler imaging with no structural abnormalities, no thrombus formation present. Right Atrium The right atrium is normal by two-dimensional imaging, color flow and Doppler imaging with no structural abnormalities, no thrombus formation present. Atrial Septum The interatrial septum appears normal with no evidence of a shunt. Aorta The aorta is normal by two-dimensional, color flow and Doppler interrogation. Mitral Valve The mitral valve is normal by two-dimensional, color flow and Doppler interrogation. There is trace mitral regurgitation. Aortic Valve The aortic valve is trileaflet and normal by two-dimensional, color flow and Doppler interrogation. There is trace aortic regurgitation. Tricuspid Valve The tricuspid valve is normal by two-dimensional, color flow and Doppler interrogation. There is mild tricuspid regurgitation. Pulmonic Valve The pulmonic valve is not well visualized. There is no significant pulmonic valve regurgitation. Vessels The pulmonary artery appears normal. The inferior vena cava pulmonary and hepatic veins appear normal. Pericardium The pericardium is normal by two-dimensional imaging. There is no significant pericardial effusion. CONCLUSIONS Indications: Elevated Troponins The transthoracic study is normal by two-dimensional, color flow imaging and Doppler interrogation. Normal left ventricular size and function. No wall motion abnormalities noted. Mild aortic regurgitation Maura Lambert (Electronically Signed) Final Date: 23 October 2024 19:09
[2024-10-23] MEDS: ATORVASTATIN CALCIUM 20 MG TABLET 80 MG PO (20:55)
[2024-10-23] MEDS: ENOXAPARIN SOD INJ 60 MG/0.6 ML SYRINGE SC (20:55)
[2024-10-24] VITALS (18 sets, daily range): BP systolic 133–171; BP diastolic 57–73; PULSE 50–67; RESP 13–99; TEMP 36.1–37.5; O2SAT 97–100; BMI 19.9
[2024-10-24] MEDS: SODIUM CHLORIDE 0.45 % 1,000 ML 75 ML IV ×2 (00:08→15:02)
[2024-10-24 06:10] LABS: Basophils # (Auto) 0.0 Thou/mm3 (0.0-0.2); Basophils % (Auto) 0 % (0-2.5); Eosinophils # (Auto) 0.1 Thou/mm3 (0.0-0.5); Eosinophils % (Auto) 3 % (0-10); Hematocrit 27.8 % (41.0-53.0); Hemoglobin 9.7 g/dL (13.5-16.0); Immature Granulocytes Auto 0.02 Thou/mm3 (0.00-0.00); Lymphocytes # (Auto) 0.8 Thou/mm3 (1.0-4.8); Lymphocytes % (Auto) 21 % (10-50); Mean Corpuscular HGB Conc 34.9 g/dl (31.0-37.0); Mean Corpuscular Hemoglobin 31.3 pg (25.0-35.0); Mean Corpuscular Volume 90 fL (80-100); Monocytes # (Auto) 0.3 Thou/mm3 (0.0-0.8); Monocytes % (Auto) 9 % (0-12); Neutrophils # (Auto) 2.6 Thou/mm3 (1.8-7.7); Neutrophils % (Auto) 66 % (37-80); Nucleated Red Blood Cell # 0.00 Thou/mm3 (0.00-0.00); Nucleated Red Blood Cell % 0 /100 WBC (0); Platelet Count 203 Thou/mm3 (140-440); RDW Standard Deviation 42.2 fL (35.1-43.9); Red Blood Count 3.10 Miln/mm3 (4.50-5.90); White Blood Count 3.8 Thou/mm3 (3.8-10.6)
[2024-10-24 06:19] LABS: INR 1.2 (0.9-1.3); Partial Thromboplastin Time 36.3 Seconds (22.0-36.0); Prothrombin Time 12.6 Seconds (9.0-12.2)
[2024-10-24 06:45] LABS: Alanine Aminotransferase < 7 U/L (10-49); Albumin, Serum 2.8 gm/dL (3.4-4.8); Albumin/Globulin Ratio 1.5 (1.2-2.2); Alkaline Phosphatase 80 U/L (46-116); Anion Gap 5 (7-16); Aspartate Amino Transferase 27 U/L (0-34); BUN/Creatinine Ratio 14 Ratio (12-20); Bilirubin,Total 0.7 mg/dL (0.3-1.2); Blood Urea Nitrogen 10 mg/dL (9-23); Calcium 7.8 mg/dL (8.3-10.6); Calcium (Corrected) 8.8 mg/dL (8.5-10.1); Carbon Dioxide 24.4 mMol/L (20.0-31.0); Chloride 112 mMol/L (98-107); Creatinine (Component) 0.7 mg/dL (0.6-1.3); Estimated Creatinine Clearance 67.2 mL/min (>60); Globulin 1.9 gm/dL (2.3-3.5); Glucose 104 mg/dL (74-106); Magnesium 1.6 mg/dL (1.6-2.6); Osmolality,Calculated 280 (275-295); Phosphorous 1.8 mg/dL (2.4-5.1); Potassium 3.0 mMol/L (3.4-5.1); Sodium 141 mMol/L (136-145); Total Protein 4.7 gm/dL (5.7-8.2); eGFR > 60 See Note
--- NOTE | 2024-10-24 08:55 | PC.SS ---
Follow up note: EGD and Hida scan is pending.
--- NOTE | 2024-10-24 09:52 | PD.RESPRO ---
Documentation for date of: 10/24/24 Subjective Subjective Interval history: Patient seen at bedside, reports that he feels good today and wants to go home. Accompanied by and daughter. Mary (daughter): [phone] Exam Vital Signs Temp Pulse Resp BP Pulse Ox O2 Del Method 97.0 F 56 L 13 142/61 H 99 Room Air 10/24/24 08:00 10/24/24 08:00 10/24/24 08:00 10/24/24 08:00 10/24/24 08:00 10/24/24 08:00 Narrative Exam General: No acute distress, lying in bed Eye: PERRL, EOMI, normal conjunctiva, no scleral icterus HENT: Normocephalic, atraumatic, hearing intact to conversation at normal volume, moist oral mucosa Neck: Supple, non-tender, no JVD, no lymphadenopathy Lungs: Non-labored respirations, symmetric chest rise Heart: Peripheral pulses intact bilaterally Abdomen: Soft, non-tender, non-distended Musculoskeletal: Normal range of motion and strength Skin: Skin is warm, dry, no rashes or lesions. Psychiatric: Cooperative, appropriate mood and affect Neurologic: Mental status: Orientation: AOx2 Communication: Patient is cooperative and can follow simple instructions Language: Speech fluent, decreased volume, comprehension intact Cranial nerves: CN II: Visual morris intact CN III: Pupils equal, round, and reactive to light CN III, IV, : No gaze deviation, no nystagmus Horizontal pursuit: intact Vertical pursuit: intact Ptosis: none CN V: Facial sensation to light touch intact bilaterally at the forehead, cheeks, and jaw line CN VII: Face symmetric, no facial droop appreciated CN VIII: Able to hear and respond to conversation at normal volume, intact to finger rub CN IX, X: Palate elevation symmetric, uvula midline CN XI: Head turn and shoulder shrug strong, symmetric bilaterally CN XII: Normal tongue protrusion without deviation, no fasciculations Motor: No abnormal movements or fasciculations Muscle strength: Shoulder abduction: R 5/5 L 5/5 Elbow flexion: R 5/5 L 5/5 Elbow extension: R 5/5 L 5/5 Hip flexion: R 5/5 L 5/5 Hip extension: R 5/5 L 5/5 Knee flexion: R 5/5 L 5/5 Knee extension: R 5/5 L 5/5 Sensory: RUE: Light touch intact LUE: Light touch intact RLE: Light touch intact LLE: Light touch intact Reflexes: Biceps (C5-6): R 2+ L 2+ Brachioradialis (C5-6): R 2+ L 2+ Triceps (C7-8): R 2+ L 2+ Patellae (L3-4): R 2+ L 2+ No clonus Cerebellum: RUE: No dysmetria (finger to nose) LUE: No dysmetria (finger to nose) Romberg: deferred Gait: Patient sat on edge of bed, stood with walker, and took several steps with support Objective Labs 10/24/24 04:43 10/24/24 04:43 Labs: Laboratory Results - last 24 hr 10/23/24 10/23/24 10/23/24 09:46 12:02 15:02 WBC RBC Hgb Hct MCV MCH MCHC RDW Std Deviation Plt Count Neut % (Auto) Lymph % (Auto) [place] % (Auto) Eos % (Auto) Baso % (Auto) Neut # (Auto) Lymph # (Auto) [place] # (Auto) Eos # (Auto) Baso # (Auto) Immature Gran # (Auto) Absolute Nucleated RBC Immature Gran % Nucleated RBC % PT INR APTT Sodium Potassium Chloride Carbon Dioxide Anion Gap BUN Creatinine Estim Creat Clear Calc eGFR BUN/Creatinine Ratio Glucose Calculated Osmolality Lactic Acid 1.7 Calcium Corrected Calcium Phosphorus Magnesium Total Bilirubin 0.7 Direct Bilirubin 0.3 AST 45 H ALT 42 Alkaline Phosphatase 92 Troponin I 0.994 H* D 0.806 H* Total Protein 5.5 L Albumin 3.4 Globulin Albumin/Globulin Ratio Procalcitonin 0.12 10/24/24 04:43 WBC 3.8 RBC 3.10 L Hgb 9.7 L Hct 27.8 L MCV 90 MCH 31.3 MCHC 34.9 RDW Std Deviation 42.2 Plt Count 203 Neut % (Auto) 66 Lymph % (Auto) 21 [place] % (Auto) 9 Eos % (Auto) 3 Baso % (Auto) 0 Neut # (Auto) 2.6 Lymph # (Auto) 0.8 L [place] # (Auto) 0.3 Eos # (Auto) 0.1 Baso # (Auto) 0.0 Immature Gran # (Auto) 0.02 H Absolute Nucleated RBC 0.00 Immature Gran % 1 H Nucleated RBC % 0 PT 12.6 H INR 1.2 APTT 36.3 H D Sodium 141 Potassium 3.0 L D Chloride 112 H Carbon Dioxide 24.4 Anion Gap 5 L BUN 10 Creatinine 0.7 Estim Creat Clear Calc 67.2 eGFR > 60 BUN/Creatinine Ratio 14 Glucose 104 Calculated Osmolality 280 Lactic Acid Calcium 7.8 L Corrected Calcium 8.8 Phosphorus 1.8 L Magnesium 1.6 Total Bilirubin 0.7 Direct Bilirubin AST 27 ALT < 7 L Alkaline Phosphatase 80 Troponin I Total Protein 4.7 L Albumin 2.8 L D Globulin 1.9 L Albumin/Globulin Ratio 1.5 Procalcitonin ABG Interpretation ABG results: 10/21/24 23:22 VBG pH 7.54 VBG pCO2 22 L VBG pO2 89 H VBG Base Excess -2 Quality Measures Quality Measures none Advance care planning discussed with:: patient and spouse Assessment & Plan Assessment Current Active Medications: Generic Name Dose Route Start Last Admin Trade Name Freq PRN Reason Stop Dose Admin Apixaban 2.5 mg 10/24/24 09:00 Apixaban 2.5 Mg Tablet PO 11/23/24 08:59 BID ARIAN Aspirin 81 mg 10/24/24 09:00 Aspirin Ec 81 Mg Tabec PO 11/23/24 08:59 QDAY ARIAN Atorvastatin Calcium 80 mg 10/23/24 21:00 10/23/24 20:55 Atorvastatin Calcium 20 Mg Tablet PO 11/22/24 20:59 80 mg HS ARIAN Administration Carbidopa/Levodopa 1 tab 10/24/24 12:00 Carbidopa/Levodopa Cr 50/200 Tabcr PO 11/23/24 11:59 QID ARIAN Dextrose 25 ml 10/22/24 15:49 Dextrose 50%-Water Inj 50 Ml Syringe IV 11/21/24 15:48 Q15MIN PRN BG 50-70 responsive npo pt Dextrose 50 ml 10/22/24 15:49 Dextrose 50%-Water Inj 50 Ml Syringe IV 11/21/24 15:48 Q15MIN PRN BG <50 OR BG <70 & pt unresponsive Glucagon 1 mg 10/22/24 15:49 Glucagon Inj 1 Mg Vial IM Q15MIN PRN BG <70, and no IV access Sodium Chloride 1,000 mls @ 75 mls/hr 10/22/24 15:51 10/24/24 00:08 Ns 0.45% IV 11/21/24 15:50 75 mls/hr .[id number] ARIAN Administration Ceftriaxone Sodium/Dextrose 1 gm in 50 mls @ 100 mls/hr 10/22/24 16:02 10/23/24 09:42 Rocephin/D5w 1gm Iv Premix IV 10/29/24 16:01 100 mls/hr QDAY ARIAN Administration Metronidazole 500 mg in 100 mls @ 200 mls/hr 10/22/24 21:00 10/23/24 21:25 Flagyl 500 Mg Iv IV 10/29/24 20:59 Infused Q12HR ARIAN Infusion Potassium Phosphate 15 mmol in 250 mls @ 62.5 mls/hr 10/24/24 08:02 Pot Phos 15 Mmol In Ns 250 Ml IV 10/24/24 16:01 Q4H ARIAN Insulin Human Lispro 0 unit 10/22/24 18:00 10/24/24 00:09 Insulin Lispro (Admelog) 1 Unit/0.01 Ml Unit SC 11/21/24 17:59 Not Given Q6HR ARIAN Protocol Metoprolol Tartrate 12.5 mg 10/24/24 09:00 Metoprolol Tartrate 25 Mg Tablet PO 11/23/24 08:59 QDAY ARIAN Ondansetron HCl 4 mg 10/22/24 15:42 Ondansetron Inj 2 Mg/Ml Inj 2 Ml IVP 11/21/24 15:41 Q6H PRN NAUSEA OR VOMITING Protocol Pantoprazole Sodium 40 mg 10/22/24 16:00 10/23/24 09:41 Pantoprazole Inj 40 Mg Vial IVP 11/21/24 15:59 40 mg QDAY ARIAN Administration Tamsulosin HCl 0.4 mg 10/23/24 09:00 10/23/24 09:42 Tamsulosin Hcl 0.4 Mg Capsule PO 11/22/24 08:59 0.4 mg QDAY ARIAN Administration Plan #Altered mental status, improving Initial presentation 10/22: altered mental status, concern for possible seizure as upward gaze noted and found unresponsive at bedside. KRISTIAN 7 PM 10/22/2024. Patient has had multiple admissions for AMS / acute encephalopathy, most recently discharged 10/17 Afebrile, WBC WNL, BP stable with appropriate MAPs, VBG pH WNL, lactic acid WNL, mildly elevated AST (downtrending), procalcitonin WNL, TSH WNL, UA negative Total CK high (906) Troponin high (3.482), now downtrending CT head w/o 10/21: Negative for acute hemorrhage, mass effect or midline shift MRI brain w/o 10/16: Negative for acute hemorrhage, mass effect or midline shift. No acute infarct. Old infarct left cerebellar hemisphere Moderate chronic microvascular white matter change EEG 10/22: Mild diffuse slowing. No epileptiform discharges EKG NSR, QTc WNL DDX: seizure, delirium, dementia, polypharmacy, infection Plan: - Routine spot EEG - No need for repeat imaging at this time - Continue with PT #Hx CVA #Hyperlipidemia Home meds: ASA 81 mg daily Triglycerides WNL, Cholesterol low (94), LDL WNL, HDL low (25) Started on Atorvastatin 80 mg daily by primary No home statin Plan: - Continue ASA 81 mg daily - Continue high intensity statin - Atorvastatin 80 mg daily #Parkinson's disease #Dementia Stable on Carbidopa-Levadopa and Entacapone, Pregabalin 50 mg TID Plan: - Continue Carbidopa-Levadopa and Entacapone (patient's family will bring in Entacapone as pharmacy does not carry) - Can hold Pregabalin 2/2 concern for AMS #Dysphagia Albumin and total protein low Per SL: pharyngeal/esophageal dysphagia, improved swallow with this liquids since last admit Plan: - Management per primary team #NSTEMI type ll demand ischemia -Patient denies any chest pain, tightness or pressure. Patient symptoms are likely due to poor oral intake in the setting of dysphagia On admission Troponins 0.178 -> 3.482 -> 1.776 EKG: Sinus rhythm with rate of 62 and QTc [address] or T wave changes noted Plan: - Pending TTE - Close monitoring on telemetry #CAD status post CABG x 3 #Hx of Paroxismal A-flutter,in sinus rhythm #HFpEF with EF 50-55% -Currently pt is in sinus rhythm, pt would benefit from anticoagulation with Eliquis dose adjusted to age and weight (2.5mg BID) -Pt does not appear to be in decompensated HF Plan: - Management per primary team #Type 2 diabetes A1C 10/02/24: 4.1 Plan: - Management per primary team #Enlarged Common Bile Duct -Abd/pelvis CT (10/22/2024): Distended gallbladder with significant enlargement common bile duct. -MRCP (10/22/2024): Enlarged common bile duct 14 mm with abrupt tapering of the distal common bile duct -Gallbladder US (10/22/2024): Normal gallbladder, Normal common bile duct Plan: - Management per primary team and GI - EGD scheduled 10/24 followed by [facility] per GI Plan discussed with Dr. Ivonne Dick, PGY1 Attending Provider Attestation/Addendum I personally have seen and examined the patient at the bedside and I agreed with resident's findings, assessment and plan of care. Patient's mental status is improved and is back to baseline. He was able to sit up with minimal assistance and stand with support using the walker. Continue with the Sinemet and Comtan as before.
[2024-10-24] MEDS: ASPIRIN EC 81 MG TABEC PO (10:10)
[2024-10-24] MEDS: TAMSULOSIN HCL 0.4 MG CAPSULE PO (10:10)
[2024-10-24] MEDS: METOPROLOL TARTRATE 25 MG TABLET 12.5 MG PO ×2 (10:10→20:57)
[2024-10-24] MEDS: cefTRIAXone/D5w 1gm IV premix 1 GM/50 ML BAG IV (10:11)
[2024-10-24] MEDS: metroNIDAZOLE/NS 500 MG IVPB 500 MG/100 ML BAG 200 MG IV ×2 (10:25→20:37)
[2024-10-24] MEDS: POT PHOS 15 mMol in NS 250 ML 15 MMOL/250 ML BAG 62.5 MMOL IV ×2 (10:46→14:58)
[2024-10-24] MEDS: Magnesium Sulfate 2 GM Ivpb 2 GM/50 ML BAG IV (10:58)
--- NOTE | 2024-10-24 13:26 | ESPR_ITS ---
Documentation for date of: 10/24/24 No overnight events. Patient continues to be NPO for scheduled EGD and HIDA with Dr. Munoz. HIDA negative for cystic duct obstruction and no common bile duct obstruction. Status post EEG, noted for esophagitis and gastritis recommendations of 40 mg IV twice daily Protonix and transition to Protonix 40 mg p.o. twice daily as outpatient for the next 3 months. Continue to take carbidopa-levodopa/nectar upon as outpatient. Inactive prone not part of inpatient formulary, recommended patient bring in their own medication if they wish to continue. Continue to hold gabapentin. EEG noted for diffuse encephalopathy of metabolic, degenerative or vascular origin consistent with early dementia. Plan to discharge patient within the next 24 hours. Hospice referral based. Subjective Subjective Interval history: Patient was seen and examined at bedside. A.m. vitals and labs reviewed. No over night event. Patient denies any chest pain, shortness of breathe, fever or chills. EGD scheduled today to evaluate dysphagia Exam Vital Signs Temp Pulse Resp BP Pulse Ox O2 Del Method 97.0 F 51 L 13 140/63 H 99 Room Air 10/24/24 08:00 10/24/24 12:00 10/24/24 08:00 10/24/24 10:10 10/24/24 08:00 10/24/24 08:00 Narrative Exam GENERAL: Awake, but still slow and drowsy HEENT: Normocephalic, atraumatic.? Pupils are equal and reactive.? Oral mucosa is moist. Patent Nares NECK: Supple, nontender, no thyromegaly, no meningismus, no JVD CARDIOVASCULAR: Heart regular rhythm or extra beats. LUNGS: Clear to auscultation bilaterally with symmetrical chest rise.? No laboring tachypnea or wheezing. ABDOMEN: Soft, flat, nontender to palpation, no guarding or rebound tenderness.?.? SKIN: Warm, dry, intact MUSCULOSKELETAL: No peripheral edema NEURO: Unresponsive to verbal stimuli, pupils equal, round and reactive to light. No gross asymmetry Objective Labs 10/24/24 04:43 10/24/24 04:43 Labs: Laboratory Results - last 24 hr 10/23/24 10/24/24 15:02 04:43 WBC 3.8 RBC 3.10 L Hgb 9.7 L Hct 27.8 L MCV 90 MCH 31.3 MCHC 34.9 RDW Std Deviation 42.2 Plt Count 203 Neut % (Auto) 66 Lymph % (Auto) 21 [place] % (Auto) 9 Eos % (Auto) 3 Baso % (Auto) 0 Neut # (Auto) 2.6 Lymph # (Auto) 0.8 L [place] # (Auto) 0.3 Eos # (Auto) 0.1 Baso # (Auto) 0.0 Immature Gran # (Auto) 0.02 H Absolute Nucleated RBC 0.00 Immature Gran % 1 H Nucleated RBC % 0 PT 12.6 H INR 1.2 APTT 36.3 H D Sodium 141 Potassium 3.0 L D Chloride 112 H Carbon Dioxide 24.4 Anion Gap 5 L BUN 10 Creatinine 0.7 Estim Creat Clear Calc 67.2 eGFR > 60 BUN/Creatinine Ratio 14 Glucose 104 Calculated Osmolality 280 Calcium 7.8 L Corrected Calcium 8.8 Phosphorus 1.8 L Magnesium 1.6 Total Bilirubin 0.7 AST 27 ALT < 7 L Alkaline Phosphatase 80 Troponin I 0.806 H* Total Protein 4.7 L Albumin 2.8 L D Globulin 1.9 L Albumin/Globulin Ratio 1.5 ABG Interpretation ABG results: 10/21/24 23:22 VBG pH 7.54 VBG pCO2 22 L VBG pO2 89 H VBG Base Excess -2 Quality Measures Quality Measures none Advance care planning discussed with:: patient and spouse Assessment & Plan Assessment Current Active Medications: Generic Name Dose Route Start Last Admin Trade Name Freq PRN Reason Stop Dose Admin Apixaban 2.5 mg 10/24/24 09:00 10/24/24 10:10 Apixaban 2.5 Mg Tablet PO 11/23/24 08:59 2.5 mg BID ARIAN Administration Aspirin 81 mg 10/24/24 09:00 10/24/24 10:10 Aspirin Ec 81 Mg Tabec PO 11/23/24 08:59 81 mg QDAY ARIAN Administration Atorvastatin Calcium 80 mg 10/23/24 21:00 10/23/24 20:55 Atorvastatin Calcium 20 Mg Tablet PO 11/22/24 20:59 80 mg HS ARIAN Administration Carbidopa/Levodopa 1 tab 10/24/24 12:00 10/24/24 12:22 Carbidopa/Levodopa Cr 50/200 Tabcr PO 11/23/24 11:59 Not Given QID ARIAN Dextrose 25 ml 07/07/25 15:49 Dextrose 50%-Water Inj 50 Ml Syringe IV 11/21/24 15:48 Q15MIN PRN BG 50-70 responsive npo pt Dextrose 50 ml 10/22/24 15:49 Dextrose 50%-Water Inj 50 Ml Syringe IV 11/21/24 15:48 Q15MIN PRN BG <50 OR BG <70 & pt unresponsive Glucagon 1 mg 10/22/24 15:49 Glucagon Inj 1 Mg Vial IM Q15MIN PRN BG <70, and no IV access Sodium Chloride 1,000 mls @ 75 mls/hr 10/22/24 15:51 10/24/24 00:08 Ns 0.45% IV 11/21/24 15:50 75 mls/hr .[id number] ARIAN Administration Ceftriaxone Sodium/Dextrose 1 gm in 50 mls @ 100 mls/hr 10/22/24 16:02 10/24/24 10:11 Rocephin/D5w 1gm Iv Premix IV 10/29/24 16:01 100 mls/hr QDAY ARIAN Administration Metronidazole 500 mg in 100 mls @ 200 mls/hr 10/22/24 21:00 10/24/24 10:25 Flagyl 500 Mg Iv IV 10/29/24 20:59 200 mls/hr Q12HR ARIAN Administration Potassium Phosphate 15 mmol in 250 mls @ 62.5 mls/hr 10/24/24 08:02 10/24/24 10:46 Pot Phos 15 Mmol In Ns 250 Ml IV 10/24/24 16:01 62.5 mls/hr Q4H ARIAN Administration Insulin Human Lispro 0 unit 10/22/24 18:00 10/24/24 00:09 Insulin Lispro (Admelog) 1 Unit/0.01 Ml Unit SC 11/21/24 17:59 Not Given Q6HR ARIAN Protocol Metoprolol Tartrate 12.5 mg 10/24/24 09:00 10/24/24 10:10 Metoprolol Tartrate 25 Mg Tablet PO 11/23/24 08:59 12.5 mg QDAY ARIAN Administration Ondansetron HCl 4 mg 10/22/24 15:42 Ondansetron Inj 2 Mg/Ml Inj 2 Ml IVP 11/21/24 15:41 Q6H PRN NAUSEA OR VOMITING Protocol Pantoprazole Sodium 40 mg 10/22/24 16:00 10/24/24 10:09 Pantoprazole Inj 40 Mg Vial IVP 11/21/24 15:59 40 mg QDAY ARIAN Administration Tamsulosin HCl 0.4 mg 10/23/24 09:00 10/24/24 10:10 Tamsulosin Hcl 0.4 Mg Capsule PO 11/22/24 08:59 0.4 mg QDAY ARIAN Administration Plan Patient is a 84-year-old male with past medical history of CAD s/p CABG X 3, Paroxysmal Atrial Flutter, not anticoagulated given risk of falls, Hypertesnion, Hyperlipidemia, Orthostatic Hypotension, Parkinson's Disease, CVA, TIAs, BPH, and prostate cancer who was admitted to the hospital due to admitted to the hospital on 10/16/2024 for acute encephalopathy. #Esophagitits #Gastritis #Small Hiatal Hernia #s/p EGD #Dysphagia Concern for dysphagia which may be due to worsening parkinson's disease vs possible oral candidisis noted on physical exam, pending EGD report, may benefit from swish and swallow nystatin vs medication induced given acetaminophen use as home medication Plan -Protonix 40 mg IV BID -Protonix 40 mg PO BID, next three months (outpatient) -Recommending H. Pylori test, likely after protonix use has been d/c as outpatient -Gastroenterology consulted, appreciate recommendations, Dr. Munoz. #Acute Metabolic encephalopathy, likely mulit-factorial #Parkinson's Disease #Early Dementia #Lactic Acidosis, resolved. Patient has had several admissions within the last year with similar presentations, concern for poly-pharmamcy as patient is older mostly bedbound and on gabapentin vs Concern seizure like activity which would explain elevated lactic acidosis, recent EEG, noted for early dementia vs less likely secondary to stroke as recent MRI negative vs infectious cause less likely as UA negative and Crx does show pneumonia but remains afebrile and no WBC elevation. Diagnostics: -UA was negative for UTI -CXR(10/21/2024): Left base pneumonia -Chest CT (10/22/2024): Mild bibasilar pneumonia, consider aspiration pneumonia -Head CT (10/22/2024): Negative for acute hemorrhage, mass effect or midline shift -EEG (10/22/2024): This EEG is abnormal with mild diffuse lowering suggestive of a diffuse encephalopathy of metabolic, degenerative, or vascular origin, consistent with early dementia. -According to neurology, it is unlikely that his combination drugs of carbidopa- levodopa, and gabapentin could have caused his altered mental status. Plan: -HOLD Gabpaentin. -Resume Carbidopa-Levodopa -Entacapone, not part of hospital formulary, adviced at bedside to bring in home medication. -Neurology consulted, Dr. Coronado, appreciate recommendations. #Troponemia #NSTEMI likely, Type II demand ischemia - Pt denies chest pain. No ST elevation on EKG but troponin peaked. Elevated troponin, likely NSTEMI type II demand ischemia. Plan: -Continue to monitor -Started Lovenox 60mg SC bid -Consulted with Cardiology, Dr. Nur consulted, appreciate recommendations. #Enlarged Common Bile Duct -Total Birubin (10/21/2024) 1.3 AST 106 ALT 11-->repeat Total Bilirubin (10/22/2024) 0.9 AST 71, ALT 36 -Abd/pelvis CT (10/22/2024): Distended gallbladder with significant enlargement common bile duct. -MRCP (10/22/2024): Enlarged common bile duct 14 mm with abrupt tapering of the distal common bile duct -Gallbladder US (10/22/2024): Normal gallbladder, Normal common bile duct -HIDA scan (10/23/2024): Negative for cystic duct obstruction, No common bile duct obstruction, isotope activity in the small bowel Plan: -Normal total bilirubin, alk-phos, and gallbladder US suggests unlikely obstruction. Unlikely cholangitis - IV ceftriaxone 1g IV qd and IV metronidazole 500mg IV q12hr, DC antibiotics after 48 hours. -Gastroenterology Consulted, Dr. Munoz, appreciate recommendations. CAD s/p CABG X 3 Resume Aspirin and Atorvastatin tomorrow after medication reconciliation #History of Paroxysmal Atrial Fibrillation Previous admission Eliquis D/C given risk of falls. Pending Medication reconciliation. Plan -Eliquis not indicated given risk of falls/bleeding -Metoprolol Tartrate 12.5 mg QDay-->increased to Metoprolol Tartrate 12.5 mg BID-Hold dose if systolic BP <120 #Hypertension #vee of orthostatic hypotension Patient presented normal tensive. Pending medication reconciliation, unclear if patient continues to take Lisinopril and Metroplol tartrate. Daughter at bedside is not primary caregiver and unsure of medication. Plan -Pending Medication reconcililation, ?Metoprolol ?Lisinopril, given history of orthostatic hypotension, may benefit from d/c lisinopril #History of Prostate Cancer #BPH Consider resuming Tamsuloin 0.4 mg once daily after medication reconciliation Disposition: Telemetry, IV abx, cardiology following Diet: Full liquid diet GI prophylaxis: Protonix DVT prophylaxis: Lovenox Code: FULL Assessment and plan discussed with my attending physician Dr. Coy and Dr. Oliveira (PGY-2) Dr. Harding (PGY-1)- Internal medicine resident - The patient's plan was discussed with attending Dr. Anneliese Oliveira MD PGY2 Internal Medicine
--- NOTE | 2024-10-24 15:16 | PD.RESPRO ---
Documentation for date of: 10/24/24 Subjective Subjective Interval history: Pt is seen at bedside. is at bedside, Pt is currently NPO, waiting for EGD scheduled for today. US and nuclear scan of the gallbladder has normal findings. Pt denies any cardiac complaints. vitals are stable currently saturating on room air. Telemetry reviewed pt is in afib rate controlled with HR of 50's to 60's. labs are significant for Hgb 9.7, Hct 27.8, potassium 3.0, phos 1.8, mag 1.6, T josefina and AST, ALT are wnl. All electrolytes are repleted. pending EGD Exam Vital Signs Temp Pulse Resp BP Pulse Ox O2 Del Method 96.9 F 53 L 13 155/59 H 100 Room Air 10/24/24 12:00 10/24/24 12:00 10/24/24 12:00 10/24/24 12:00 10/24/24 12:00 10/24/24 12:00 Narrative Exam GENERAL: A&Ox3 . elderly male, well groomed, Awake, Not in acute distress NEURO: no focal neurological deficits HEENT: Atraumatic, Normocephalic. mucous membranes moist. Eyes open, symmetrical, & clear HEART: Normal Heart Sounds LUNGS: Clear to auscultation with no wheezing or crackles. ABDOMEN: soft, non-distended, non-tender, bowel sounds heard, no guarding or rebound tenderness SKIN: No Rash or ecchymoses EXTREMITIES: No edema, tenderness, able to move all 4 extremities, pedal pulses palpated Objective Labs 10/24/24 04:43 10/24/24 04:43 Labs: Laboratory Results - last 24 hr 10/23/24 10/24/24 15:02 04:43 WBC 3.8 RBC 3.10 L Hgb 9.7 L Hct 27.8 L MCV 90 MCH 31.3 MCHC 34.9 RDW Std Deviation 42.2 Plt Count 203 Neut % (Auto) 66 Lymph % (Auto) 21 [place] % (Auto) 9 Eos % (Auto) 3 Baso % (Auto) 0 Neut # (Auto) 2.6 Lymph # (Auto) 0.8 L [place] # (Auto) 0.3 Eos # (Auto) 0.1 Baso # (Auto) 0.0 Immature Gran # (Auto) 0.02 H Absolute Nucleated RBC 0.00 Immature Gran % 1 H Nucleated RBC % 0 PT 12.6 H INR 1.2 APTT 36.3 H D Sodium 141 Potassium 3.0 L D Chloride 112 H Carbon Dioxide 24.4 Anion Gap 5 L BUN 10 Creatinine 0.7 Estim Creat Clear Calc 67.2 eGFR > 60 BUN/Creatinine Ratio 14 Glucose 104 Calculated Osmolality 280 Calcium 7.8 L Corrected Calcium 8.8 Phosphorus 1.8 L Magnesium 1.6 Total Bilirubin 0.7 AST 27 ALT < 7 L Alkaline Phosphatase 80 Troponin I 0.806 H* Total Protein 4.7 L Albumin 2.8 L D Globulin 1.9 L Albumin/Globulin Ratio 1.5 ABG Interpretation ABG results: 10/21/24 23:22 VBG pH 7.54 VBG pCO2 22 L VBG pO2 89 H VBG Base Excess -2 Quality Measures Quality Measures none Advance care planning discussed with:: patient and spouse Assessment & Plan Assessment Current Active Medications: Generic Name Dose Route Start Last Admin Trade Name Freq PRN Reason Stop Dose Admin Apixaban 2.5 mg 10/24/24 09:00 10/24/24 10:10 Apixaban 2.5 Mg Tablet PO 11/23/24 08:59 2.5 mg BID ARIAN Administration Aspirin 81 mg 10/24/24 09:00 10/24/24 10:10 Aspirin Ec 81 Mg Tabec PO 11/23/24 08:59 81 mg QDAY ARIAN Administration Atorvastatin Calcium 80 mg 10/23/24 21:00 10/23/24 20:55 Atorvastatin Calcium 20 Mg Tablet PO 11/22/24 20:59 80 mg HS ARIAN Administration Carbidopa/Levodopa 1 tab 10/24/24 12:00 10/24/24 12:22 Carbidopa/Levodopa Cr 50/200 Tabcr PO 11/23/24 11:59 Not Given QID ARIAN Dextrose 25 ml 10/22/24 15:49 Dextrose 50%-Water Inj 50 Ml Syringe IV 11/21/24 15:48 Q15MIN PRN BG 50-70 responsive npo pt Dextrose 50 ml 10/22/24 15:49 Dextrose 50%-Water Inj 50 Ml Syringe IV 11/21/24 15:48 Q15MIN PRN BG <50 OR BG <70 & pt unresponsive Glucagon 1 mg 10/22/24 15:49 Glucagon Inj 1 Mg Vial IM Q15MIN PRN BG <70, and no IV access Sodium Chloride 1,000 mls @ 75 mls/hr 10/22/24 15:51 10/24/24 15:02 Ns 0.45% IV 11/21/24 15:50 75 mls/hr .[id number] ARIAN Administration Ceftriaxone Sodium/Dextrose 1 gm in 50 mls @ 100 mls/hr 10/22/24 16:02 10/24/24 10:11 Rocephin/D5w 1gm Iv Premix IV 10/29/24 16:01 100 mls/hr QDAY ARIAN Administration Metronidazole 500 mg in 100 mls @ 200 mls/hr 10/22/24 21:00 10/24/24 10:25 Flagyl 500 Mg Iv IV 10/29/24 20:59 200 mls/hr Q12HR ARIAN Administration Potassium Phosphate 15 mmol in 250 mls @ 62.5 mls/hr 10/24/24 08:02 10/24/24 14:58 Pot Phos 15 Mmol In Ns 250 Ml IV 10/24/24 16:01 62.5 mls/hr Q4H ARIAN Administration Insulin Human Lispro 0 unit 10/22/24 18:00 10/24/24 00:09 Insulin Lispro (Admelog) 1 Unit/0.01 Ml Unit SC 11/21/24 17:59 Not Given Q6HR ARIAN Protocol Metoprolol Tartrate 12.5 mg 10/24/24 09:00 10/24/24 10:10 Metoprolol Tartrate 25 Mg Tablet PO 11/23/24 08:59 12.5 mg QDAY ARIAN Administration Ondansetron HCl 4 mg 10/22/24 15:42 Ondansetron Inj 2 Mg/Ml Inj 2 Ml IVP 11/21/24 15:41 Q6H PRN NAUSEA OR VOMITING Protocol Pantoprazole Sodium 40 mg 10/22/24 16:00 10/24/24 10:09 Pantoprazole Inj 40 Mg Vial IVP 11/21/24 15:59 40 mg QDAY ARIAN Administration Tamsulosin HCl 0.4 mg 10/23/24 09:00 10/24/24 10:10 Tamsulosin Hcl 0.4 Mg Capsule PO 11/22/24 08:59 0.4 mg QDAY ARIAN Administration Plan Mr. Brar is a 84-year-old male past medical history significant for hypertension, hyperlipidemia, type 2 diabetes, HFpEF with EF 50-55%, CAD status post CABG x 3, A-flutter, prostate cancer, dementia, Parkinson's and history of CVA presented to the ED due to altered mental status and found unresponsive. #Elevated troponins likely #NSTEMI type ll -Elevated troponins which has now downtrended are likely due to NSTEMI type II demand ischemia -Patient denies any chest pain, tightness or pressure. Patient symptoms are likely due to poor oral intake in the setting of dysphagia On admission Troponins 0.178 -> 3.482 -> 1.776 EKG: Sinus rhythm with rate of 62 and QTc [address] or T wave changes noted Plan: -Repeat echo findings are normal, EF of 55% -Since troponins have down trended, there is no indication to continue trending troponins -Close monitoring on telemetry #CAD status post CABG x 3 #Hx. of Paroxismal A-flutter,in sinus rhythm #HFpEF with EF 50-55% [id number]-EFLo score is 5 HAS-BLED of 2 -Currently pt is in sinus rhythm, pt would benefit from anticoagulation with Eliquis dose adjusted to age and weight (2.5mg BID) -Pt does not appear to be in decompensated CHF -Contineu aspirin and statin -Continue metoprolol 12.5 BID if BP tolerates #Dysphagia #Type 2 diabetes #Hyperlipidemia #Benign prostatic hyperplasia (BPH) #Prostate cancer #Parkinson's disease #Hx. of CVA -Management as per primary team however recommend EGD due to worsening dysphagia Thank you for the consult and allowing us to participate in the care of the patient. Cardiology will continue to follow. Assessment and plan discussed with my attending physician Dr. Boom Hernandez (PGY-2)- Internal medicine resident
--- NOTE | 2024-10-24 16:45 | SUR.PHASEI ---
pt received to [facility]. vss. breathing even and unlabored. sedated. report from dr pabon and nurse marco a.
--- NOTE | 2024-10-24 17:15 | SUR.PHASEI ---
report called to nurse kamilah. vss. breathing even and unlabored. denies pain and nausea. transported to room via [facility]
[2024-10-24] MEDS: CARBIDOPA/LEVODOPA CR 50/200 TABCR 1 TAB PO ×2 (18:03→20:36)
[2024-10-24] MEDS: ATORVASTATIN CALCIUM 20 MG TABLET 80 MG PO (20:36)
[2024-10-24] MEDS: APIXABAN 2.5 MG TABLET PO (20:37)
[2024-10-25] VITALS (8 sets, daily range): BP systolic 114–154; BP diastolic 65–83; PULSE 51–80; RESP 10–99; TEMP 36.1–36.3; O2SAT 97–100; BMI 19.7
[2024-10-25] MEDS: CARBIDOPA/LEVODOPA CR 50/200 TABCR 1 TAB PO ×2 (05:07→12:16)
[2024-10-25 05:10] LABS: Basophils # (Auto) 0.0 Thou/mm3 (0.0-0.2); Basophils % (Auto) 0 % (0-2.5); Eosinophils # (Auto) 0.1 Thou/mm3 (0.0-0.5); Eosinophils % (Auto) 2 % (0-10); Hematocrit 28.0 % (41.0-53.0); Hemoglobin 10.3 g/dL (13.5-16.0); Immature Granulocytes Auto 0.02 Thou/mm3 (0.00-0.00); Lymphocytes # (Auto) 0.6 Thou/mm3 (1.0-4.8); Lymphocytes % (Auto) 16 % (10-50); Mean Corpuscular HGB Conc 36.8 g/dl (31.0-37.0); Mean Corpuscular Hemoglobin 31.8 pg (25.0-35.0); Mean Corpuscular Volume 86 fL (80-100); Monocytes # (Auto) 0.4 Thou/mm3 (0.0-0.8); Monocytes % (Auto) 10 % (0-12); Neutrophils # (Auto) 2.8 Thou/mm3 (1.8-7.7); Neutrophils % (Auto) 72 % (37-80); Nucleated Red Blood Cell # 0.00 Thou/mm3 (0.00-0.00); Nucleated Red Blood Cell % 0 /100 WBC (0); Platelet Count 174 Thou/mm3 (140-440); RDW Standard Deviation 41.2 fL (35.1-43.9); Red Blood Count 3.24 Miln/mm3 (4.50-5.90); White Blood Count 3.9 Thou/mm3 (3.8-10.6)
[2024-10-25 05:31] LABS: Alanine Aminotransferase < 7 U/L (10-49); Albumin, Serum 2.9 gm/dL (3.4-4.8); Albumin/Globulin Ratio 1.5 (1.2-2.2); Alkaline Phosphatase 81 U/L (46-116); Anion Gap 3 (7-16); Aspartate Amino Transferase 24 U/L (0-34); BUN/Creatinine Ratio 10 Ratio (12-20); Bilirubin,Total 0.8 mg/dL (0.3-1.2); Blood Urea Nitrogen 6 mg/dL (9-23); Calcium 7.8 mg/dL (8.3-10.6); Calcium (Corrected) 8.7 mg/dL (8.5-10.1); Carbon Dioxide 24.9 mMol/L (20.0-31.0); Chloride 113 mMol/L (98-107); Creatinine (Component) 0.6 mg/dL (0.6-1.3); Estimated Creatinine Clearance 78.4 mL/min (>60); Globulin 2.0 gm/dL (2.3-3.5); Glucose 101 mg/dL (74-106); Magnesium 1.7 mg/dL (1.6-2.6); Osmolality,Calculated 278 (275-295); Phosphorous 1.9 mg/dL (2.4-5.1); Potassium 3.6 mMol/L (3.4-5.1); Sodium 141 mMol/L (136-145); Total Protein 4.9 gm/dL (5.7-8.2); eGFR > 60 See Note
[2024-10-25] MEDS: SODIUM CHLORIDE 0.45 % 1,000 ML 75 ML IV (06:20)
[2024-10-25] MEDS: TAMSULOSIN HCL 0.4 MG CAPSULE PO (08:13)
[2024-10-25] MEDS: APIXABAN 2.5 MG TABLET PO (08:13)
[2024-10-25] MEDS: ASPIRIN EC 81 MG TABEC PO (08:13)
[2024-10-25] MEDS: METOPROLOL TARTRATE 25 MG TABLET 12.5 MG PO (08:14)
[2024-10-25] MEDS: metroNIDAZOLE/NS 500 MG IVPB 500 MG/100 ML BAG 200 MG IV (08:15)
[2024-10-25] MEDS: cefTRIAXone/D5w 1gm IV premix 1 GM/50 ML BAG IV (08:15)
[2024-10-25] MEDS: NAPH,KPH MBDB 1 PACKET (1.5 GM) PO (08:21)
--- NOTE | 2024-10-25 10:07 | PD.IMPROG ---
Documentation for date of: 10/25/24 Subjective Subjective Interval history: Patient was seen and examined today, tolerated EGD very well yesterday, severe ulcerated esophagitis Exam Vital Signs Temp Pulse Resp BP Pulse Ox O2 Del Method O2 Flow Rate 97.1 F 59 L 10 L 154/77 H 98 Room Air 2 10/25/24 08:00 10/25/24 08:14 10/25/24 08:00 10/25/24 08:14 10/25/24 08:00 10/25/24 08:00 10/25/24 04:00 Routine Abdominal Exam Comments: Abdominal exam benign no tenderness on rebound tenderness Objective Labs 10/25/24 04:31 10/25/24 04:31 Labs: Laboratory Results - last 24 hr 10/25/24 04:31 WBC 3.9 RBC 3.24 L Hgb 10.3 L Hct 28.0 L MCV 86 MCH 31.8 MCHC 36.8 RDW Std Deviation 41.2 Plt Count 174 Neut % (Auto) 72 Lymph % (Auto) 16 [place] % (Auto) 10 Eos % (Auto) 2 Baso % (Auto) 0 Neut # (Auto) 2.8 Lymph # (Auto) 0.6 L [place] # (Auto) 0.4 Eos # (Auto) 0.1 Baso # (Auto) 0.0 Immature Gran # (Auto) 0.02 H Absolute Nucleated RBC 0.00 Immature Gran % 1 H Nucleated RBC % 0 Sodium 141 Potassium 3.6 D Chloride 113 H Carbon Dioxide 24.9 Anion Gap 3 L BUN 6 L Creatinine 0.6 Estim Creat Clear Calc 78.4 eGFR > 60 BUN/Creatinine Ratio 10 L Glucose 101 Calculated Osmolality 278 Calcium 7.8 L Corrected Calcium 8.7 Phosphorus 1.9 L Magnesium 1.7 Total Bilirubin 0.8 AST 24 ALT < 7 L Alkaline Phosphatase 81 Total Protein 4.9 L Albumin 2.9 L Globulin 2.0 L Albumin/Globulin Ratio 1.5 ABG Interpretation ABG results: 10/21/24 23:22 VBG pH 7.54 VBG pCO2 22 L VBG pO2 89 H VBG Base Excess -2 Assessment & Plan A&P Narrative Assessment: 83-year-old male with multiple medical issues with acute change in mental status GI was consulted to evaluate the patient for necessity of ERCP. MRCP shows abrupt termination of the common bile duct. Bilirubin normal. Lactic acid normal. Complains of dysphagia status post EGD showed severe ulcerated esophagitis. Plan of care: Check Helicobacter pylori Patient needs to be on PPI 40 mg twice daily for 3 months We need to repeat EGD in 8 to 12 weeks to confirm healing of ulcerative esophagitis. There is no evidence of cholangitis in the light of the fact that his bilirubin is completely normal To confirm patency of common bile duct will obtain HIDA scan There is no benefit in performing ERCP, patient might benefit from ERCP with spyglass evaluate the common bile duct with possible biopsy as outpatient. Check CA 19-9 Continue antibiotic Check LFT daily Patient needs to follow-up with Dr. Munoz's office in 2 to 4 weeks. Call GI with any questions Time Spent With Patient Time: Total time spent is greater than 50% in coordination of care (as documented) at patient's floor/unit and/or counseling patient:
--- NOTE | 2024-10-25 11:24 | PC.SS ---
FRUIT DUMPER conducted bedside contact with the patient conduct initial assessment and to discuss discharge planning.? At bedside with patient was patient?s spouse.? Information obtained from the patient?s spouse, Marlen Brar .? The patient is retired.? Patient is a resident from [facility].? At facility patient utilizes a walker to assist with ambulation.? Patient does not require the use of oxygen at the facility.? Patient requires assistance with completion of ADL?s.? Patient?s surrogate medical decision maker is spouse, Marlen Brar.? The patient?s PCP is Dr. Hartley.? Patient?s structural steel detailer is Dr. Allan.? Dr. Oakes is the patient?s neurologist.? Discharge plan is for the patient to return to [facility] at the time of discharge.? Patient is aligned with [facility].? Plan is for the patient to resume hospice services at the time of discharge.? technical services assistant to assist with transportation on behalf of the patient.? No discharge needs identified by the patient.? No further intervention required at this time, renal social worker will be available to address any further concerns.? Next of Kin: Marlen Caminoza D/C Plan: SNF
--- NOTE | 2024-10-25 12:42 | PD.RESPRO ---
Documentation for date of: 10/25/24 Subjective Subjective Interval history: Patient seen at bedside with family members. No new concerns at this time. Exam Vital Signs Temp Pulse Resp BP Pulse Ox O2 Del Method O2 Flow Rate 97.1 F 66 12 154/77 H 98 Room Air 2 10/25/24 08:00 10/25/24 11:43 10/25/24 10:40 10/25/24 08:14 10/25/24 08:00 10/25/24 08:00 10/25/24 04:00 Narrative Exam General: No acute distress, lying in bed Eye: PERRL, EOMI, normal conjunctiva, no scleral icterus HENT: Normocephalic, atraumatic, hearing intact to conversation at normal volume, moist oral mucosa Neck: Supple, non-tender, no JVD, no lymphadenopathy Lungs: Non-labored respirations, symmetric chest rise Heart: Peripheral pulses intact bilaterally Abdomen: Soft, non-tender, non-distended Musculoskeletal: Normal range of motion and strength Skin: Skin is warm, dry, no rashes or lesions. Psychiatric: Cooperative, appropriate mood and affect Neurologic: Mental status: Orientation: AOx2 (baseline) Communication: Patient is cooperative and can follow simple instructions Language: Speech fluent, decreased volume, comprehension intact Cranial nerves: CN II: Visual morris intact CN III: Pupils equal, round, and reactive to light CN III, IV, : No gaze deviation, no nystagmus Horizontal pursuit: intact Vertical pursuit: intact Ptosis: none CN V: Facial sensation to light touch intact bilaterally at the forehead, cheeks, and jaw line CN VII: Face symmetric, no facial droop appreciated CN VIII: Able to hear and respond to conversation at normal volume, intact to finger rub CN IX, X: Palate elevation symmetric, uvula midline CN XI: Head turn and shoulder shrug strong, symmetric bilaterally CN XII: Normal tongue protrusion without deviation, no fasciculations Motor: No abnormal movements or fasciculations Muscle strength: Shoulder abduction: R 5/5 L 5/5 Elbow flexion: R 5/5 L 5/5 Elbow extension: R 5/5 L 5/5 Hip flexion: R 5/5 L 5/5 Hip extension: R 5/5 L 5/5 Knee flexion: R 5/5 L 5/5 Knee extension: R 5/5 L 5/5 Sensory: RUE: Light touch intact LUE: Light touch intact RLE: Light touch intact LLE: Light touch intact Reflexes: Biceps (C5-6): R 2+ L 2+ Brachioradialis (C5-6): R 2+ L 2+ Triceps (C7-8): R 2+ L 2+ Patellae (L3-4): R 2+ L 2+ Romberg: deferred Gait: Patient sat on edge of bed, stood with walker, and took several steps Objective Labs 10/25/24 04:31 10/25/24 04:31 Labs: Laboratory Results - last 24 hr 10/25/24 04:31 WBC 3.9 RBC 3.24 L Hgb 10.3 L Hct 28.0 L MCV 86 MCH 31.8 MCHC 36.8 RDW Std Deviation 41.2 Plt Count 174 Neut % (Auto) 72 Lymph % (Auto) 16 [place] % (Auto) 10 Eos % (Auto) 2 Baso % (Auto) 0 Neut # (Auto) 2.8 Lymph # (Auto) 0.6 L [place] # (Auto) 0.4 Eos # (Auto) 0.1 Baso # (Auto) 0.0 Immature Gran # (Auto) 0.02 H Absolute Nucleated RBC 0.00 Immature Gran % 1 H Nucleated RBC % 0 Sodium 141 Potassium 3.6 D Chloride 113 H Carbon Dioxide 24.9 Anion Gap 3 L BUN 6 L Creatinine 0.6 Estim Creat Clear Calc 78.4 eGFR > 60 BUN/Creatinine Ratio 10 L Glucose 101 Calculated Osmolality 278 Calcium 7.8 L Corrected Calcium 8.7 Phosphorus 1.9 L Magnesium 1.7 Total Bilirubin 0.8 AST 24 ALT < 7 L Alkaline Phosphatase 81 Total Protein 4.9 L Albumin 2.9 L Globulin 2.0 L Albumin/Globulin Ratio 1.5 ABG Interpretation ABG results: 10/21/24 23:22 VBG pH 7.54 VBG pCO2 22 L VBG pO2 89 H VBG Base Excess -2 Quality Measures Quality Measures none Advance care planning discussed with:: patient, spouse and child Assessment & Plan Assessment Current Active Medications: Generic Name Dose Route Start Last Admin Trade Name Freq PRN Reason Stop Dose Admin Apixaban 2.5 mg 10/24/24 09:00 10/25/24 08:13 Apixaban 2.5 Mg Tablet PO 11/23/24 08:59 2.5 mg BID ARIAN Administration Aspirin 81 mg 10/24/24 09:00 10/25/24 08:13 Aspirin Ec 81 Mg Tabec PO 11/23/24 08:59 81 mg QDAY ARIAN Administration Atorvastatin Calcium 80 mg 10/23/24 21:00 10/24/24 20:36 Atorvastatin Calcium 20 Mg Tablet PO 11/22/24 20:59 80 mg HS ARIAN Administration Carbidopa/Levodopa 1 tab 10/24/24 12:00 10/25/24 12:16 Carbidopa/Levodopa Cr 50/200 Tabcr PO 11/23/24 11:59 1 tab QID ARIAN Administration Dextrose 25 ml 10/22/24 15:49 Dextrose 50%-Water Inj 50 Ml Syringe IV 11/21/24 15:48 Q15MIN PRN BG 50-70 responsive npo pt Dextrose 50 ml 10/22/24 15:49 Dextrose 50%-Water Inj 50 Ml Syringe IV 11/21/24 15:48 Q15MIN PRN BG <50 OR BG <70 & pt unresponsive Glucagon 1 mg 10/22/24 15:49 Glucagon Inj 1 Mg Vial IM Q15MIN PRN BG <70, and no IV access Hydralazine HCl 5 mg 10/24/24 16:53 Hydralazine Inj 20 Mg/Ml Vial IV Q20MIN PRN SEE COMMENTS Sodium Chloride 1,000 mls @ 75 mls/hr 10/22/24 15:51 10/25/24 06:20 Ns 0.45% IV 11/21/24 15:50 75 mls/hr .[id number] ARIAN Administration Ceftriaxone Sodium/Dextrose 1 gm in 50 mls @ 100 mls/hr 10/22/24 16:02 10/25/24 08:15 Rocephin/D5w 1gm Iv Premix IV 10/29/24 16:01 100 mls/hr QDAY ARIAN Administration Metronidazole 500 mg in 100 mls @ 200 mls/hr 10/22/24 21:00 10/25/24 08:15 Flagyl 500 Mg Iv IV 10/29/24 20:59 200 mls/hr Q12HR ARIAN Administration Insulin Human Lispro 0 unit 10/24/24 21:00 10/25/24 11:40 Insulin Lispro (Admelog) 1 Unit/0.01 Ml Unit SC 11/23/24 20:59 Not Given ACHS ARIAN Protocol Metoprolol Tartrate 1 mg 10/24/24 16:54 Metoprolol Tartrate Inj 1 Mg/Ml Amp 5 Ml IVP Q5MIN PRN TACHYCARDIA Metoprolol Tartrate 12.5 mg 10/24/24 21:00 10/25/24 08:14 Metoprolol Tartrate 25 Mg Tablet PO 11/23/24 20:59 12.5 mg BID ARIAN Administration Midazolam HCl 1 mg 10/24/24 16:53 Midazolam Inj 1 Mg/Ml Vial 2 Ml IVP 10/25/24 16:52 Q5MIN PRN ANXIETY Ondansetron HCl 4 mg 10/22/24 15:42 Ondansetron Inj 2 Mg/Ml Inj 2 Ml IVP 11/21/24 15:41 Q6H PRN NAUSEA OR VOMITING Protocol Pantoprazole Sodium 40 mg 10/24/24 21:00 10/25/24 08:14 Pantoprazole Inj 40 Mg Vial IVP 11/23/24 20:59 40 mg BID ARIAN Administration Potassium Phos/Sodium Phos 1 packet 10/25/24 07:04 10/25/24 08:21 [facility] Mbdb 1 Packet (1.5 Gm) PO 10/25/24 19:05 1 packet Q12H ARIAN Administration Tamsulosin HCl 0.4 mg 10/23/24 09:00 10/25/24 08:13 Tamsulosin Hcl 0.4 Mg Capsule PO 11/22/24 08:59 0.4 mg QDAY ARIAN Administration Plan #Altered mental status, improving Initial presentation 10/22: altered mental status, concern for possible seizure as upward gaze noted and found unresponsive at bedside. KRISTIAN 7 PM 10/22/2024. Patient has had multiple admissions for AMS / acute encephalopathy, most recently discharged 10/17. Patient mentation back to baseline at this time Afebrile, WBC WNL, BP stable with appropriate MAPs, VBG pH WNL, lactic acid WNL, mildly elevated AST (downtrending), procalcitonin WNL, TSH WNL, UA negative Total CK high (906) Troponin high (3.482), now downtrending CT head w/o 10/21: Negative for acute hemorrhage, mass effect or midline shift MRI brain w/o 10/16: Negative for acute hemorrhage, mass effect or midline shift. No acute infarct. Old infarct left cerebellar hemisphere Moderate chronic microvascular white matter change EEG 10/22: Mild diffuse slowing. No epileptiform discharges EKG NSR, QTc WNL PT rec: SNF DDX: seizure, delirium, dementia, polypharmacy, infection Plan: - Patient mentation back to baseline, able to stand and walk with walker. Encouraged to participate in PT - No need for repeat imaging at this time - OK to discharge from neurological standpoint #Hx CVA #Hyperlipidemia Home meds: ASA 81 mg daily Triglycerides WNL, Cholesterol low (94), LDL WNL, HDL low (25) Started on Atorvastatin 80 mg daily by primary No home statin Plan: - Continue ASA 81 mg daily - Continue high intensity statin - Atorvastatin 80 mg daily #Parkinson's disease #Dementia Stable on Carbidopa-Levadopa and Entacapone, Pregabalin 50 mg TID Plan: - Continue Carbidopa-Levadopa and Entacapone (patient's family will bring in Entacapone as pharmacy does not carry) - Can hold Pregabalin 2/2 concern for AMS #Dysphagia Albumin and total protein low Per SL: pharyngeal/esophageal dysphagia, improved swallow with this liquids since last admit Plan: - Management per primary team #NSTEMI type ll demand ischemia -Patient denies any chest pain, tightness or pressure. Patient symptoms are likely due to poor oral intake in the setting of dysphagia On admission Troponins 0.178 -> 3.482 -> 1.776 EKG: Sinus rhythm with rate of 62 and QTc [address] or T wave changes noted Plan: - Management per primary team #CAD status post CABG x 3 #Hx of Paroxismal A-flutter,in sinus rhythm #HFpEF with EF 50-55% -Currently pt is in sinus rhythm, pt would benefit from anticoagulation with Eliquis dose adjusted to age and weight (2.5mg BID) -Pt does not appear to be in decompensated HF Plan: - Management per primary team #Type 2 diabetes A1C 10/02/24: 4.1 Plan: - Management per primary team #Enlarged Common Bile Duct -Abd/pelvis CT (10/22/2024): Distended gallbladder with significant enlargement common bile duct. -MRCP (10/22/2024): Enlarged common bile duct 14 mm with abrupt tapering of the distal common bile duct -Gallbladder US (10/22/2024): Normal gallbladder, Normal common bile duct - EGD positive for reflux esophagitis. Pending H pylori. Started on PPI. Plan: - Management per primary team and GI Plan discussed with Dr. Ivonne Dick, PGY1 Attending Provider Attestation/Addendum I personally have seen and examined the patient and I agree with the resident's findings, assessment and plan of care. Patient is stable for discharge to rehab on carbidopa levodopa and Comtan. Follow-up in 2 weeks
--- NOTE | 2024-10-25 13:21 | ESDS_ITS ---
Planned Discharge Date 10/25/24 DS: Providers Provider Date of admission: 10/22/24 15:42 Primary care physician: Gregory Hartley MD Admitting Provider: Keyana Coy MD Attending Provider on Admission: Keyana Coy MD Consults: 10/21/24 23:29 Consult to Cardiology Stat Comment: Consulting Provider: Corina Nur 10/22/24 13:36 Consult to Gastroenterology Stat Comment: needs ERCP Consulting Provider: Edmund Mcdowell 10/22/24 13:55 Consult to Cardiology Stat Comment: Consulting Provider: Corina Nur 10/23/24 00:26 Referral Wound Care Urgent Comment: LEFT HIP SURGICAL WOUND 10/23/24 10:21 Consult to Neurology / Tele-Neurology Urgent Comment: Consulting Provider: Peter Coronado Instructions: concern for polypharmacy with carbidopa-levodopa & gabapentin 10/23/24 12:25 Referral Speech Therapy Routine Comment: 10/24/24 14:06 Referral Hospice Routine Comment: 10/25/24 08:22 Referral Physical Therapy Stat Comment: Physician Instructions: Attending Provider on DC: RESIDENT Bernadine Discharging Provider: RESIDENT Bernadine DS: Diagnosis Problem List Completed Was Problem List Reviewed/Reconciled?: Yes Hospital Course Hospital Course Hospital course: Patient is a 84-year-old male with past medical history of CAD s/p CABG X 3, history of Paroxysmal Atrial Flutter (resumed on this admission) Hypertesnion, Hyperlipidemia, Orthostatic Hypotension, Parkinson's Disease, CVA, TIAs, BPH, and prostate cancer, and remote history of DM Type 2 who was admitted to the hospital due to admitted to the hospital on 10/16/2024 for acute encephalopathy and concern for cholangitis. It suspected pregablin was the cause of the acute encephalopathy after which the medication is discontinued. Based on the lab values, cholangitis was ruled out, and EGD showed Esophagitis in upper GI. Discharged with PPI and repeat upper endoscopy in 3 month. ED Course: He was brought to ED via ambulance from [facility] for AMS. Labs reviewed lactic acid 9.5, gave 250ml Bolus of NS considering the patients hx of Heart failure. CBC was unremarkable, procalcitonin elevated, elevated troponins and ammonia. Hospital Course: Upon admission, Unrine analysis was negative for UTI, CXR showed left base pneumonia, Chest CT shwed bibasilar pneumonia, but patient remained afebrile and no WBC elevation. Head CT was negative for acute hemorrhage, EEG showed early dementia. Held pregablin due to concern for the cause of his altered mental status. Continued Carbidopa-levodpa. Pt was given lovenox 60mg SC bid for 2 d ays and started on aspirin 81mg, Eliquis 2.5 mg, atorvastatin 80 mg due to hx of CAD s/p CABG X 3. Patient suspected to have cholangitis, but with normal total bilirubin and alk-phos level, and normal gall bladder US, It was unlikely. He received EGD to examine dysphagia which showed gastritis, esophagitis, and erythematous duodenopathy. #Esophagitits #Gastritis #Small Hiatal Hernia #s/p EGD #Dysphagia #Acute Metabolic encephalopathy, likely mulit-factorial #Parkinson's Disease #Early Dementia #Lactic Acidosis, resolved. #Troponemia #NSTEMI likely, Type II demand ischemia #Enlarged Common Bile Duct #CAD s/p CABG X 3 #History of Paroxysmal Atrial Fibrillation #Hypertension #Hx of orthostatic hypotension #History of Prostate Cancer #BPH Instructions: -Please take Protonix 40 mg orally twice daily, for the next 3 moths, please follow up with Dr. Munoz for repeat EGD -STOP Metoprolol Tartrate 12.5 mg once daily CHANGE dose to Metoprlolol Tartrate 12.5 twice daily -Please monitor blood pressure at home, if systolic blood pressure less than 120, hold that dose -STOP LYRICA -Please follow up with your primary care provider within one week of discharge -If your symptoms worsen,please seek immediate medical attention and return to your nearest emergency room -If you do not have a primary care provider, [facility] [address], [place] [address], Safe to discharge to SNF. Assessment and plan discussed with my attending physician Dr. Coy and Dr. Oliveira (PGY-2) Dr. Harding (PGY-1)- Internal medicine resident - The patient's plan was discussed with attending Dr. Anneliese Oliveira MD PGY2 Internal Medicine Time Spent with Patient Time attestation: Total time spent providing and/or coordinating discharge services: Time spent: Greater than 30 minutes Exam Vital Signs Temp Pulse Resp BP Pulse Ox O2 Del Method O2 Flow Rate 97.1 F 66 12 154/77 H 98 Room Air 2 10/25/24 08:00 10/25/24 11:43 10/25/24 10:40 10/25/24 08:14 10/25/24 08:00 10/25/24 08:00 10/25/24 04:00 Narrative Exam GENERAL: Awake, but still slow and drowsy HEENT: Normocephalic, atraumatic.? Pupils are equal and reactive.? Oral mucosa is moist. Patent Nares NECK: Supple, nontender, no thyromegaly, no meningismus, no JVD CARDIOVASCULAR: Heart regular rhythm or extra beats. LUNGS: Clear to auscultation bilaterally with symmetrical chest rise.? No laboring tachypnea or wheezing. ABDOMEN: Soft, flat, nontender to palpation, no guarding or rebound tenderness.?.? SKIN: Warm, dry, intact MUSCULOSKELETAL: No peripheral edema NEURO: Unresponsive to verbal stimuli, pupils equal, round and reactive to light. No gross asymmetry Discharge Plan Plan Patient Disposition: Xfer Skilled Nsg Fac (SNF) Patient condition on transfer: Stable Care Plan Goals: Instructions: -Please take Protonix 40 mg orally twice daily, for the next 3 moths, please follow up with Dr. Munoz for repeat EGD -Please follow up with CA19 result with Dr. Munoz in the office or your primary care provider -STOP Metoprolol Tartrate 12.5 mg once daily CHANGE dose to Metoprlolol Tartrate 12.5 twice daily -Please monitor blood pressure at home, if systolic blood pressure less than 120, hold that dose -STOP LYRICA -Please follow up with your primary care provider within one week of discharge -If your symptoms worsen,please seek immediate medical attention and return to your nearest emergency room -If you do not have a primary care provider, you may follow up at the [facility] at [address], [place] [address], Prescriptions/Referrals Prescriptions/Med Rec: New atorvastatin 20 mg Tablet 80 mg PO HS 30 Days Qty: 120 0RF metoprolol tartrate 25 mg Tablet 12.5 mg PO BID 30 Days Qty: 30 0RF Eliquis 2.5 mg Tablet 2.5 mg PO BID 30 Days Qty: 60 0RF pantoprazole [Protonix] 40 mg tablet,delayed release (DR/EC) 40 mg PO BID 21 Days Qty: 42 0RF Continued tamsulosin [Flomax] 0.4 MG capsule,extended release 24hr 0.4 mg PO QDAY Qty: 0 ascorbic acid (vitamin C) [C-500] 500 mg tablet 500 mg PO BID docusate sodium [Colace] 100 mg capsule 100 mg PO BID aspirin 81 mg tablet 81 mg PO QDAY multivitamin Tablet 1 tab PO QDAY ferrous sulfate [Feosol] 325 mg (65 mg iron) tablet 325 mg PO QDAY magnesium hydroxide 400 mg/5 mL suspension 2,400 mg PO TID PRN (Reason: constipation) bisacodyl [Dulcolax (bisacodyl)] 10 mg suppository 10 mg MI QDAY PRN (Reason: constipation) melatonin 3 mg capsule 3 mg PO HS guaifenesin [Migdalia-Tussin] 100 mg/5 mL liquid 200 mg PO Q6H PRN (Reason: sore throat) lisinopril 20 mg tablet 20 mg PO QDAY Qty: 30 0RF Rx Instructions: Hold if SBP <120 and DBP <80 xctdbtqui-kmchpiat-rdvawrxixa 50-200-200 mg tablet 1 tab PO QID acetaminophen-codeine 300-15 mg tablet 1 tab PO Q6H PRN (Reason: severe pain (scale score 7-10)) solifenacin 10 mg Tablet 10 mg PO QDAY Discontinued wzjsapbwd-bdzmsfbx-ewudokhgeh 12.5-50-200 mg tablet 2 tab PO .FOUR TIMES acetaminophen-codeine 300-15 mg tablet 1 tab PO Q6H PRN (Reason: pain) pregabalin 50 mg Capsule 50 mg PO Q8H metoprolol tartrate 25 mg tablet 12.5 mg PO QDAY artificial tears solution Drops 1 drp ophthalmic (eye) Q2H PRN (Reason: DRYNESS) pregabalin [Lyrica] 50 mg capsule 50 mg PO TID Referrals: Gregory Hartley MD [Primary Care Provider] - Edmund Mcdowell MD [Physician] - Corina Nur MD [Physician] - Peter Coronado MD [Physician] - Patient/Caregiver Discharge Instructions Education Materials: AFL/Afib, ED Esophagitis, Cammie Print Language: Italian Stand Alone Forms: [employer] Award Info., Patient Portal Info Letter Discharge Order Discharge Orders: Discharge (Routine); Ordered 10/25/24 Ordered By: Timur Malone Quality Discharge Quality Measures VTE prophylaxis
--- NOTE | 2024-10-25 13:32 | PC.PT ---
Patient is safe to stand pivot transfer to the bedside commode with a FWW and 1 staff assist. RN made aware.
--- NOTE | 2024-10-25 14:27 | PC.SS ---
ASSET ADMINISTRATOR informed by [facility] admissions staff, Danielle; that facility will need to talk to patient's family prior to patient's return to facility. Per [facility] staff, family interaction with SNF staff basis of need for discussion. ASSET ADMINISTRATOR informed SNF staff that plan is to discharge patient today.
--- NOTE | 2024-10-25 14:40 | PC.SS ---
CLOCK ASSEMBLER confirmed that patient is not aligned with hospice while placed at [facility]. CLOCK ASSEMBLER confirmed with [facility] staff. CLOCK ASSEMBLER provided update to the patient's spouse. Spouse confirmed that patient was aligned with [facility] while at home. CLOCK ASSEMBLER explained that patient does not possess insurance coverage for SNF and hospice services simultaneously. Spouse acknowledged that hospice would not be accessible while patient in SNF placement.
--- NOTE | 2024-10-25 16:50 | PC.SS ---
PASSR completed. Meets Level I criteria. Results submitted to [employer] on [employer].
--- NOTE | 2024-10-25 17:05 | PC.SS ---
PASSR submitted on [employer] SNF facility stated inability to access results on [employer].
--- NOTE | 2024-10-25 17:06 | PC.SS ---
Ambulance transport scheduled for 06:30 pm. HAT BLOCKING MACHINE OPERATOR notified patient's family, SNF and bedside nurse.
--- NOTE | 2024-10-25 17:31 | PC.NURSE ---
Report given to nurse Tinajero at [facility]
== END 2024-10-25 19:04 | disposition skilled nursing facility (03) | DRG 70 ==
LOC: SERX 10-22 14:32 → SERHOLD 10-22 15:57 → S2NX 10-22 18:15
PROVIDERS: Emergency Medicine; Internal Medicine Gastroenterology; Student in an Organized Health Care Education/Training Program; Admitting Provider Internal Medicine; Emergency Provider Family Medicine; PCP Internal Medicine; Visit Provider Internal Medicine
PROC: 0DB38ZX Excision of Lower Esophagus, Via Natural or Artificial Opening Endoscopic, Diagnostic (ICD-10-PCS; CPT 43239; principal; 2024-10-24 18:15)
DX: G93.41 Metabolic encephalopathy (principal); I21.A1 Myocardial infarction type 2; J18.9 Pneumonia, unspecified organism; E87.20 Acidosis, unspecified; I50.32 Chronic diastolic (congestive) heart failure; I48.92 Unspecified atrial flutter; M62.82 Rhabdomyolysis; K21.00 Gastro-esophageal reflux disease with esophagitis, without bleeding; E78.5 Hyperlipidemia, unspecified; Z95.1 Presence of aortocoronary bypass graft; I11.0 Hypertensive heart disease with heart failure; G30.9 Alzheimer's disease, unspecified; F02.80 Dementia in other diseases classified elsewhere, unspecified severity, without behavioral disturbance, psychotic disturbance, mood disturbance, and anxiety; E11.9 Type 2 diabetes mellitus without complications; I25.10 Atherosclerotic heart disease of native coronary artery without angina pectoris; G20.A1 Parkinson's disease without dyskinesia, without mention of fluctuations; K29.70 Gastritis, unspecified, without bleeding; N40.0 Benign prostatic hyperplasia without lower urinary tract symptoms; I48.0 Paroxysmal atrial fibrillation; I95.1 Orthostatic hypotension; R62.7 Adult failure to thrive; R13.14 Dysphagia, pharyngoesophageal phase; K44.9 Diaphragmatic hernia without obstruction or gangrene; Z85.46 Personal history of malignant neoplasm of prostate; K31.89 Other diseases of stomach and duodenum; Z79.82 Long term (current) use of aspirin; Z79.899 Other long term (current) drug therapy; Z99.3 Dependence on wheelchair; Z86.73 Personal history of transient ischemic attack (TIA), and cerebral infarction without residual deficits; Z91.81 History of falling
CPT/HCPCS: 36415; 70450; 71045; 71250; 74176; 76705; 78227; 80053; 80061; 80076; 81001; 82140; 82550; 82803; 83036; 83605; 83735; 83880; 84100; 84145; 84443; 84484; 85025; 85610; 85652; 85730; 86140; 86301; 87040; 87081; 87338; 87811; 92526; 92610; 93306; 97162; A9537; J0295; J0696; J1630; J1644; J1650; J2470; J3475; J3490; J7030; J7050; J7999; S8037; 74181; A9270; J1836

== ENCOUNTER 2024-11-07 02:37 | Inpatient (IN) | payer MEDICARE, BC, SELFPAY ==
[2024-11-07] VITALS (11 sets, daily range): BP systolic 114–163; BP diastolic 51–66; PULSE 54–89; RESP 16–100; TEMP 36.3–37.9; O2SAT 97–100; BMI 21.4
--- NOTE | 2024-11-07 03:34 | EKG_ITS ---
[facility] Test Date: 2024-11-07 Pat Name: GENE ABEL Department: Room: - Gender: Male Health Promotion Coordinator: : 1940 Requested By: Jen Barakat Order Number: [id number] Reading MD: Jen Barakat Measurements Intervals [place] Rate: 76 P: 108 NC: 227 QRS: 0 QRSD: 120 T: 53 QT: 381 QTc: 431 Interpretive Statements SINUS RHYTHM WITH FIRST DEGREE AV BLOCK POSSIBLE RIGHT VENTRICULAR CONDUCTION DELAY [RSR (QR) IN V1/V2] SEPTAL MYOCARDIAL INFARCTION , OF INDETERMINATE AGE [40+ ms Q WAVE IN V1/V2] Compared to ECG 10/22/2024 12:03:47 Myocardial infarct finding now present Sinus arrhythmia no longer present Intraventricular conduction delay no longer present /store/S0/[id number].pdf
--- NOTE | 2024-11-07 03:34 | XR_ITS ---
Examination: AP chest single view Technique one AP portable semiupright chest single view Date and time: November 07, 2024, 0351 hours INDICATIONS: Chest pain today. FINDINGS: Pneumonia left base. Normal heart size Median sternotomy wires. No pulmonary edema. Intact osseous structures IMPRESSION: Early pneumonia left base
[2024-11-07 04:00] LABS: Basophils # (Auto) 0.0 Thou/mm3 (0.0-0.2); Basophils % (Auto) 0 % (0-2.5); Eosinophils # (Auto) 0.0 Thou/mm3 (0.0-0.5); Eosinophils % (Auto) 0 % (0-10); Hematocrit 29.8 % (41.0-53.0); Hemoglobin 11.0 g/dL (13.5-16.0); Immature Granulocytes Auto 0.04 Thou/mm3 (0.00-0.00); Lymphocytes # (Auto) 0.3 Thou/mm3 (1.0-4.8); Lymphocytes % (Auto) 3 % (10-50); Mean Corpuscular HGB Conc 36.9 g/dl (31.0-37.0); Mean Corpuscular Hemoglobin 31.4 pg (25.0-35.0); Mean Corpuscular Volume 85 fL (80-100); Monocytes # (Auto) 0.8 Thou/mm3 (0.0-0.8); Monocytes % (Auto) 7 % (0-12); Neutrophils # (Auto) 9.6 Thou/mm3 (1.8-7.7); Neutrophils % (Auto) 89 % (37-80); Nucleated Red Blood Cell # 0.00 Thou/mm3 (0.00-0.00); Nucleated Red Blood Cell % 0 /100 WBC (0); Platelet Count 181 Thou/mm3 (140-440); RDW Standard Deviation 41.3 fL (35.1-43.9); Red Blood Count 3.50 Miln/mm3 (4.50-5.90); White Blood Count 10.8 Thou/mm3 (3.8-10.6)
[2024-11-07 04:06] LABS: Lactate (Lactic Acid) 4.5 mMol/L (0.4-2.0)
--- NOTE | 2024-11-07 04:06 | EDNOTE_ITS ---
Altered Mental Status RME/HPI General Chief Complaint: Altered Mental Status Stated Complaint: AMS Time Seen by Provider: 11/07/24 03:33 Arrival date/time: 11/07/24 02:37 RME / HPI RME / HPI narrative: DR. SHERIFF MAIN ED EVALUATION: 84 y/o male with Hx of Dementia and Alzheimer's BIBA from home with presents to ED c/ altered mental status x 3 days. Per patient has not been responding to her when she speaks to him and has been attentively pulling strings from the the sofa. Patient is reported to sometimes become agitated and may try to bite. reports patient has felt warm to touch, but did not take a formal temperature. Denies any nausea and vomiting. Patient's voice is also beginning to fade. also reports patient recently had left hip surgery and has an upcoming appointment with his Orthopedist this upcoming week. Bandage has not been removed since the procedure, but states the bandage appears clean with no noted discharge or redness to the area. Related Data Home Medications ?Medication ?Instructions ?Recorded ?Confirmed tamsulosin 0.4 mg capsule (Flomax) 0.4 mg PO QDAY Pros wong ##0 06/12/14 11/08/24 solifenacin 10 mg tablet 10 mg PO QDAY 03/03/2210/23 aspirin 81 mg tablet 81 mg PO QDAY 10/16/2411/08 docusate sodium 100 mg capsule 100 mg PO BID 10/16/24 10/23/24 (Colace) ferrous sulfate 325 mg (65 mg 325 mg PO QDAY 10/16/24 10/23/24 iron) tablet (Feosol) guaifenesin 100 mg/5 mL oral 200 mg PO Q6H PRN sore th roat 10/16/24 10/23/24 liquid (Migdalia-Tussin) magnesium hydroxide 400 mg/5 mL 2,400 mg PO TID PRN co nstipation 10/16/24 10/23/24 oral suspension melatonin 3 mg capsule 3 mg PO HS 10/16/24 10/23/24 multivitamin 1 tab PO QDAY 10/16/2410/23 carbidopa 50 mg-levodopa 200 1 tab PO QID 10/22/24 mg-entacapone 200 mg tablet acetaminophen 300 mg-codeine 15 mg 1 tab PO Q6H PRN se juan pain 10/23/24 11/08/24 tablet (scale score 7-10) oxybutynin chloride 10 mg 10 mg PO QDAY 11/08/2411/08 tablet,extended release 24 hr Previous Rx's ?Medication ?Instructions ?Recorded lisinopril 20 mg tablet 20 mg PO QDAY #30 tabs 10/17 apixaban 2.5 mg tablet (Eliquis) 2.5 mg PO BID 30 days #60 tabs 10/25/24 Held on 11/10/24. Instructions: Resume on 12/11/24. hold for a month per cardiology recommendations metoprolol tartrate 25 mg tablet 12.5 mg (1/2 x 25 mg) PO BID 30 10/25/24 days #30 tabs ascorbic acid (vitamin C) 500 mg 500 mg PO BID #90 cap s 11/10/24 capsule atorvastatin 40 mg tablet 40 mg PO QPM #90 tabs clopidogrel 75 mg tablet 75 mg PO QDAY #180 tabs 10/17 10/10 Allergies Allergy/AdvReac Type Severity Reaction Status Date / Time banana Allergy Verified 11/15/24 23:49 pork derived (porcine) Allergy Verified 11/15/24 23:49 Review of Systems Review of Systems Systems Reviewed: All systems reviewed, normal except as documented Past Medical History Past Medical History NEUROLOGIC: Positive Neurological Disorders, Cerebrovascular Accident, Transient Ischemic Attacks (TIA), Dementia, Alzheimer's Disease and Parkinson's Disease CARDIAC: Positive Cardiac Disorders (a flutter), Atrial Fibrillation (A FLUTTER), Angina, Coronary Artery Disease, Atherosclerotic Heart Disease, Congestive Heart Failure and Hypertension GASTROINTESTINAL: Positive Gastrointestinal Disorders and Gastroesophageal Reflux Disease GENITOURINARY: Positive Genitourinary Disorders, Prostate Cancer and Benign Prostatic Hyperplasia MUSCULOSKELETAL: Positive Musculoskeletal Disorders and Fractures HEMATOLOGIC: Positive Anemia OTHER HISTORY: Positive Hospitalization, Falls, Radiation Therapy and Prostate Cancer Surgical History SURGICAL: Positive Cardiac Surgery and Coronary Artery Bypass Graft ED Exam Narrative Physical exam: GENERAL APPEARANCE: alert and oriented x 4, well-developed, well-nourished, no acute distress VITALS: All vitals were reviewed and the pulse ox is 97% on room air, which is normal according to my interpretation. HEENT: Normocephalic, atraumatic; pupils equal, round, reactive to light; EOMI; mucous membranes pink, moist; oropharynx clear NECK: Supple LUNGS: CTABL; no wheezes, no rales, no rhonchi HEART: Regular rate, regular rhythm; normal S1, S2; no murmurs ABDOMEN: non distended; normal BS; soft, no tenderness, no guarding, no rebound; no masses, no organomegaly, no hernia BACK: no CVA tenderness EXTREMITIES: atraumatic; no edema NEUROLOGIC: awake; alert and oriented x4; cranial nerves II-XII grossly intact; no focal sensory or motor deficits PSYCHIATRIC: appropriate mood and affect SKIN: warm, dry, normal color; no rashes Course Course Course Narrative: CXR is ordered for determining the etiology of shortness of breath. Quality Measures none Orders Category Date Time Status CT Screening NOW Care 11/07/24 07:[address] Screening NOW Care 11/07/24 07:54 Completed [employer] NOW Care 11/07/24 03:34 Completed EKG (ED ONLY) *Do not use* NOW Care 11/07/24 03:[address] chest abdomen pelvis w Stat Exams 11/07/24 07:[address] head/brain wo con Stat Exams 11/07/24 04:42 Completed EKG (ED Only) Stat Exams 11/07/24 03:34 Draft XR chest 1V portable Stat Exams 11/07/24 03:34 Completed B-Type Natriuretic Peptide Stat Lab 11/07/24 03:43 Completed Blood Culture (Lab) Stat Lab 11/07/24 03:43 Completed CBC Stat Lab 11/07/24 03:43 Completed Comprehensive Metabolic Panel Stat Lab 11/07/24 03:43 Completed Lactate (Lactic Acid) Stat Lab 11/07/24 03:43 Completed Lactic Acid, 3 HR Stat Lab 11/07/24 07:32 Completed Lipase Stat Lab 11/07/24 03:43 Completed Magnesium Stat Lab 11/07/24 03:43 Completed Partial Thromboplastin Time Stat Lab 11/07/24 03:43 Completed Procalcitonin Stat Lab 11/07/24 03:43 Completed Prothrombin Time with INR Stat Lab 11/07/24 03:43 Completed Troponin I Stat Lab 11/07/24 03:43 Completed Urinalysis Stat Lab 11/07/24 05:44 Completed Urine Culture Stat Lab 11/07/24 05:44 Completed Azithromycin Inj [Zithromax Inj] 500 mg Med 11/08/24 09:00 Discontinued Sodium Chloride 0.9% 250 ml [Ns] 250 ml IV QDAY Azithromycin Inj [Zithromax Inj] 500 mg Med 11/07/24 08:00 Discontinued Sodium Chloride 0.9% 250 ml [Ns] 250 ml IV X1 Magnesium Sulfate 2 GM Ivpb [Magnesium Sulfate Ivpb] Med 11/07/24 05:38 Discontinued 2 gm in 50 ml IV X1 POTASSIUM CHL 10 mEq IVPB [Kcl Ivpb] Med 11/07/24 05:38 Discontinued 10 meq in 100 ml IV Q1H Sodium Chloride 0.9% 1000 ml [Ns] 1,000 ml Med 11/07/24 04:06 Discontinued IV 999 mls/hr cefTRIAXone/D5w 1gm IV premix [Rocephin/D5w 1gm IV Med 11/07/24 07:55 Discontinued premix] 1 gm in 50 ml IV NOW Vital Signs Vital signs: Vital Signs Temperature 100.2 F 11/07/24 02:57 Pulse Rate 89 11/07/24 02:57 Respiratory Rate 18 11/07/24 02:57 Blood Pressure 140/51 H 11/07/24 02:57 Pulse Oximetry (%) 97 11/07/24 02:57 Oxygen Delivery Method Room Air 11/07/24 02:57 Altered Mental Status MDM Narrative MDM Narrative:: Scribe Attestation: Molly Mercer am scribing for and in the presence of Dr. Sheriff. Provider Notation: Although this document has been carefully reviewed, there may still be some phonetic and other typographical errors.? These errors are purely grammatical due to imperfections in the software program and should not be construed in any way to? compromise the substance of the patient's medical care during this visit. Pending CT, CXR, and UA. Patient will be signed-out to oncoming ED physician at 6 AM. Patient data External records reviewed:: [facility] previous records (Reviewed prior ED records from 10/22/24. Patient was seen for Common bile duct dilation.) and EMS form Clinical information provided by:: patient and EMS Social determinants that could affect healthcare access:: none Patient has the following chronic illnesses:: Dementia, Alzheimer's Disease, Parkinson's Disease, Atrial Fibrillation, Angina, Coronary Artery Disease, Atherosclerotic Heart Disease, Congestive Heart Failure, Hypertension, Gastroesophageal Reflux Disease, Prostate Cancer, Benign Prostatic Hyperplasia, Anemia How is presenting disease/condition affected by chronic disease/condition?: exacerbated by Evaluation data The following diagnostics were reviewed and interpreted by me:: lab results, radiology exam(s) and EKG tracing(s) (EKG manual reading, my interpretation: sinus rhythm, rate: 76 bpm, first degree AV block, slight ST elevation in V2 and V3, IVCD, and T wave in V1, V2.) Lab and/or radiology exams considered but not ordered:: None Interpretation Summary: RADIOLOGY Chest X-Ray: Pending official radiology report. Head/Brain CT: Pending official radiology report. Medications / Prescriptions Medications or Prescriptions considered but not ordered:: None Medication administrations:: Medication Administration History Discontinued Medications Acetaminophen (Acetaminophen 325 Mg Tablet) 650 mg PO Q6H PRN PRN Reason: Fever >101.5 Stop: 12/07/24 13:57 Acetaminophen (Acetaminophen 325 Mg Tablet) 650 mg PO Q6H PRN PRN Reason: PAIN SCALE 1-3 (mild Stop: 12/07/24 13:57 Apixaban (Apixaban 2.5 Mg Tablet) 2.5 mg PO BID ARIAN Stop: 12/08/24 08:59 Ascorbic Acid (Ascorbic Acid 250 Mg Tablet) 500 mg PO BID ARIAN Stop: 12/07/24 20:59 Last Admin: 11/10/24 10:11 Dose: 500 mg Documented By: Admin: 11/09/24 20:27 Dose: 500 mg Documented By: Admin: 11/09/24 08:16 Dose: 500 mg Documented By: Admin: 11/08/24 20:32 Dose: 500 mg Documented By: Admin: 11/08/24 08:58 Dose: 500 mg Documented By: Admin: 11/07/24 21:32 Dose: Not Given Documented By: AM Non-Admin Reason: NPO Aspirin (Aspirin Ec 81 Mg Tabec) 81 mg PO QDAY ARIAN Stop: 12/08/24 08:59 Last Admin: 11/10/24 10:11 Dose: 81 mg Documented By: Admin: 11/09/24 08:17 Dose: 81 mg Documented By: R Admin: 11/08/24 08:58 Dose: 81 mg Documented By: R Atorvastatin Calcium (Atorvastatin Calcium 20 Mg Tablet) 20 mg PO HS [facility] Stop: 12/07/24 20:59 Last Admin: 11/09/24 20:29 Dose: 20 mg Documented By: Admin: 11/08/24 20:32 Dose: 20 mg Documented By: Admin: 11/07/24 21:32 Dose: Not Given Documented By: AM Non-Admin Reason: NPO Atropine Sulfate (Atropine Sulf Inj 1 Mg/Ml Vial) Confirm Administered Dose 1 mg .ROUTE .STK-MED ONE Stop: 11/09/24 10:32 Last Admin: 11/09/24 11:22 Dose: Not Given Documented By: CU Non-Admin Reason: Override Medication Carbidopa/Levodopa (Carbidopa/Levodopa Cr 50/200 Tabcr) 1 tab PO QDAY ARIAN Stop: 12/08/24 08:59 Last Admin: 11/10/24 10:11 Dose: 1 tab Documented By: Admin: 11/09/24 08:16 Dose: 1 tab Documented By: Admin: 11/08/24 08:58 Dose: 1 tab Documented By: JODY Clopidogrel Bisulfate (Clopidogrel Bisulfate 75 Mg Tablet) 75 mg PO QDAY ARIAN Stop: 12/07/24 19:29 Last Admin: 11/10/24 10:11 Dose: 75 mg Documented By: Admin: 11/09/24 08:19 Dose: 75 mg Documented By: Admin: 11/08/24 08:58 Dose: 75 mg Documented By: Admin: 11/07/24 21:32 Dose: Not Given Documented By: AM Non-Admin Reason: NPO Clopidogrel Bisulfate (Clopidogrel Bisulfate 75 Mg Tablet) Confirm Administered Dose 300 mg .ROUTE .STK-MED ONE Stop: 11/09/24 12:24 Last Admin: 11/09/24 14:28 Dose: Not Given Documented By: CU Non-Admin Reason: Override Medication Clopidogrel Bisulfate (Clopidogrel Bisulfate 75 Mg Tablet) 300 mg PO X1 ONE Stop: 11/09/24 13:39 Last Admin: 11/09/24 13:39 Dose: 300 mg Documented By: EG Nitroglycerin 50 mg/ Sodium (Chloride 240 ml) 0 mg INTRA-WAYNE X1 ONE Stop: 11/09/24 10:36 Dextrose (Dextrose 50%-Water Inj 50 Ml Syringe) 25 ml IV Q15MIN PRN PRN Reason: BG 50-70 responsive npo pt Stop: 12/07/24 14:04 Dextrose (Dextrose 50%-Water Inj 50 Ml Syringe) 50 ml IV Q15MIN PRN PRN Reason: BG <50 OR BG <70 & pt unresponsive Stop: 12/07/24 14:04 Enoxaparin Sodium (Enoxaparin Sod Inj 60 Mg/0.6 Ml Syringe) 60 mg SC QDAY [facility] Stop: 11/22/24 08:59 Last Admin: 11/08/24 08:59 Dose: 60 mg Documented By: JODY Enoxaparin Sodium (Enoxaparin Sod Inj 40 Mg/0.4 Ml Syringe) 40 mg SC QDAY [facility] Stop: 11/24/24 08:59 Last Admin: 11/10/24 10:11 Dose: 40 mg Documented By: GRUPO Epinephrine HCl (Epinephrine Inj 0.1 Mg/Ml Syringe 10ml) Confirm Administered Dose 1 mg .ROUTE .STK-MED ONE Stop: 11/09/24 10:33 Last Admin: 11/09/24 11:22 Dose: Not Given Documented By: CU Non-Admin Reason: Override Medication Fentanyl Citrate (Fentanyl Cit Inj 50 Mcg/Ml Amp 2ml) Confirm Administered Dose 100 mcg .ROUTE .STK-MED ONE Stop: 11/09/24 11:34 Last Admin: 11/09/24 14:27 Dose: Not Given Documented By: CU Non-Admin Reason: Override Medication Flumazenil (Flumazenil Inj 0.1 Mg/Ml Vial 10 Ml) Confirm Administered Dose 1 mg .ROUTE .STK-MED ONE Stop: 11/09/24 10:33 Last Admin: 11/09/24 11:22 Dose: Not Given Documented By: CU Non-Admin Reason: Override Medication Glucagon (Glucagon Inj 1 Mg Vial) 1 mg IM Q15MIN PRN PRN Reason: BG <70, and no IV access Heparin Sodium (Porcine) (Heparin Sod Inj 1000 Unit/Ml Vial 10 Ml) Confirm Administered Dose 20,000 unit .ROUTE .STK-MED ONE Stop: 11/09/24 10:33 Last Admin: 11/09/24 11:22 Dose: Not Given Documented By: CU Non-Admin Reason: Override Medication Sodium Chloride (Ns) 1,000 mls @ 999 mls/hr IV .Q1H1M ONE Stop: 11/07/24 05:06 Last Infusion: 11/07/24 07:04 Dose: Infused Documented By: Admin: 11/07/24 04:11 Dose: 999 mls/hr Documented By: FLAKITA Magnesium Sulfate (Magnesium Sulfate Ivpb) 2 gm in 50 mls @ 25 mls/hr IV X1 ONE Stop: 11/07/24 07:37 Last Infusion: 11/07/24 07:57 Dose: Infused Documented By: Admin: 11/07/24 05:57 Dose: 25 mls/hr Documented By: MARIA TERESA Potassium Chloride (Kcl Ivpb) 10 meq in 100 mls @ 100 mls/hr IV Q1H ARIAN Stop: 11/07/24 09:37 Last Infusion: 11/07/24 11:44 Dose: Infused Documented By: Admin: 11/07/24 10:44 Dose: 100 mls/hr Documented By: Infusion: 11/07/24 10:36 Dose: Infused Documented By: Admin: 11/07/24 09:36 Dose: 100 mls/hr Documented By: Infusion: 11/07/24 09:33 Dose: Infused Documented By: Admin: 11/07/24 08:17 Dose: 100 mls/hr Documented By: Infusion: 11/07/24 07:04 Dose: Infused Documented By: Admin: 11/07/24 05:57 Dose: 100 mls/hr Documented By: CG Ceftriaxone Sodium/Dextrose (Rocephin/D5w 1gm Iv Premix) 1 gm in 50 mls @ 100 mls/hr IV NOW ONE Stop: 11/07/24 08:24 Last Infusion: 11/07/24 08:33 Dose: Infused Documented By: Admin: 11/07/24 08:03 Dose: 100 mls/hr Documented By: EF Azithromycin 500 mg/ Sodium (Chloride) 250 mls @ 250 mls/hr IV QDAY ARIAN Stop: 11/15/24 08:59 Last Admin: 11/10/24 09:45 Dose: 250 mls/hr Documented By: Infusion: 11/09/24 11:24 Dose: Infused Documented By: Admin: 11/09/24 08:42 Dose: 250 mls/hr Documented By: Infusion: 11/08/24 10:51 Dose: Infused Documented By: Admin: 11/08/24 09:51 Dose: 250 mls/hr Documented By: JRR Azithromycin 500 mg/ Sodium (Chloride) 250 mls @ 250 mls/hr IV X1 ONE Stop: 11/07/24 08:59 Last Infusion: 11/07/24 09:50 Dose: Infused Documented By: Admin: 11/07/24 08:19 Dose: 250 mls/hr Documented By: EF Sodium Chloride (Ns) 1,000 mls @ 75 mls/hr IV .[id number] ARIAN Stop: 12/07/24 13:59 Last Admin: 11/07/24 16:00 Dose: 75 mls/hr Documented By: DL Ceftriaxone Sodium/Dextrose (Rocephin/D5w 1gm Iv Premix) 1 gm in 50 mls @ 100 mls/hr IV QDAY ARIAN Stop: 11/11/24 08:59 Last Admin: 11/10/24 09:40 Dose: 100 mls/hr Documented By: Infusion: 11/09/24 08:48 Dose: Infused Documented By: Admin: 11/09/24 08:18 Dose: 100 mls/hr Documented By: Infusion: 11/08/24 10:25 Dose: Infused Documented By: Admin: 11/08/24 09:55 Dose: 100 mls/hr Documented By: JRR Doxycycline Hyclate 100 mg/ (Sodium Chloride) 100 mls @ 100 mls/hr IV BID ARIAN Stop: 11/10/24 14:14 Last Admin: 11/10/24 09:40 Dose: 100 mls/hr Documented By: Infusion: 11/09/24 21:27 Dose: Infused Documented By: Admin: 11/09/24 20:27 Dose: 100 mls/hr Documented By: Infusion: 11/09/24 09:15 Dose: Infused Documented By: Admin: 11/09/24 08:15 Dose: 100 mls/hr Documented By: Infusion: 11/08/24 21:32 Dose: Infused Documented By: Admin: 11/08/24 20:32 Dose: 100 mls/hr Documented By: Infusion: 11/08/24 10:11 Dose: Infused Documented By: Admin: 11/08/24 09:11 Dose: 100 mls/hr Documented By: R Infusion: 11/07/24 16:59 Dose: Infused Documented By: Admin: 11/07/24 15:59 Dose: 100 mls/hr Documented By: DL Magnesium Sulfate (Magnesium Sulfate Ivpb) 4 gm in 50 mls @ 12.5 mls/hr IV X1 ONE Stop: 11/07/24 18:03 Last Admin: 11/07/24 16:00 Dose: 12.5 mls/hr Documented By: OSCAR Dextrose/Lactated Ringer's (D5-Lr) 1,000 mls @ 75 mls/hr IV .[id number] ARIAN Stop: 12/07/24 16:59 Last Admin: 11/08/24 06:45 Dose: 75 mls/hr Documented By: Infusion: 11/08/24 06:45 Dose: Infused Documented By: Admin: 11/07/24 17:40 Dose: 75 mls/hr Documented By: OSCAR Sodium Phosphate 15 mmol/ (Sodium Chloride) 255 mls @ 62.5 mls/hr IV X1 ONE Stop: 11/08/24 11:25 Last Admin: 11/08/24 08:57 Dose: 62.5 mls/hr Documented By: JODY Magnesium Sulfate (Magnesium Sulfate Ivpb) 4 gm in 50 mls @ 12.5 mls/hr IV X1 ONE Stop: 11/09/24 11:42 Last Infusion: 11/09/24 14:25 Dose: Infused Documented By: Admin: 11/09/24 08:18 Dose: 12.5 mls/hr Documented By: JODY Sodium Chloride (Ns) 1,000 mls @ 100 mls/hr IV .Q10H [facility] Stop: 11/10/24 09:44 Last Admin: 11/10/24 00:09 Dose: 100 mls/hr Documented By: Infusion: 11/09/24 23:36 Dose: Infused Documented By: Admin: 11/09/24 13:36 Dose: 100 mls/hr Documented By: CU Lidocaine HCl (Lidocaine Inj Pf 1% 30 Ml Vial) Confirm Administered Dose 30 ml .ROUTE .STK-MED ONE Stop: 11/09/24 10:33 Last Admin: 11/09/24 11:22 Dose: Not Given Documented By: CU Non-Admin Reason: Override Medication Melatonin (Melatonin 3 Mg Tablet) 3 mg PO HS [facility] Stop: 12/07/24 20:59 Last Admin: 11/09/24 20:29 Dose: 3 mg Documented By: Admin: 11/08/24 20:34 Dose: Not Given Documented By: AM Non-Admin Reason: Patient Refused Admin: 11/07/24 21:32 Dose: Not Given Documented By: AM Non-Admin Reason: NPO Metoprolol Tartrate (Metoprolol Tartrate 25 Mg Tablet) 25 mg PO BID [facility] Stop: 12/08/24 08:59 Metoprolol Tartrate (Metoprolol Tartrate 25 Mg Tablet) 12.5 mg PO BID [facility] Stop: 12/08/24 20:59 Last Admin: 11/10/24 10:10 Dose: 12.5 mg Documented By: Admin: 11/09/24 20:29 Dose: Not Given Documented By: SD Non-Admin Reason: Vital Signs Admin: 11/09/24 08:18 Dose: Not Given Documented By: JODY Non-Admin Reason: Vital Signs Admin: 11/08/24 20:34 Dose: 12.5 mg Documented By: AM Metoprolol Tartrate (Metoprolol Tartrate Inj 1 Mg/Ml Amp 5 Ml) Confirm Administered Dose 15 mg .ROUTE .STK-MED ONE Stop: 11/09/24 10:32 Last Admin: 11/09/24 11:22 Dose: Not Given Documented By: CU Non-Admin Reason: Override Medication Midazolam HCl (Midazolam Inj 1 Mg/Ml Vial 2 Ml) Confirm Administered Dose 2 mg .ROUTE .STK-MED ONE Stop: 11/09/24 11:34 Last Admin: 11/09/24 14:28 Dose: Not Given Documented By: CU Non-Admin Reason: Override Medication Multivitamins (Multivitamins Tablet) 1 tab PO QDAY ARIAN Stop: 12/08/24 10:44 Last Admin: 11/10/24 10:11 Dose: 1 tab Documented By: Admin: 11/09/24 08:16 Dose: 1 tab Documented By: Admin: 11/08/24 11:52 Dose: 1 tab Documented By: JODY Naloxone HCl (Naloxone Inj 0.4 Mg/Ml Vial) Confirm Administered Dose 1.2 mg .ROUTE .STK-MED ONE Stop: 11/09/24 10:32 Last Admin: 11/09/24 11:22 Dose: Not Given Documented By: CU Non-Admin Reason: Override Medication Ondansetron HCl (Ondansetron Inj 2 Mg/Ml Inj 2 Ml) 4 mg IVP Q6H PRN; Protocol PRN Reason: NAUSEA OR VOMITING Stop: 12/07/24 13:57 Pantoprazole Sodium (Pantoprazole Inj 40 Mg Vial) 40 mg IVP QDAY [facility] Stop: 12/07/24 13:59 Last Admin: 11/09/24 08:17 Dose: 40 mg Documented By: Admin: 11/08/24 08:58 Dose: 40 mg Documented By: Admin: 11/07/24 16:00 Dose: 40 mg Documented By: OSCAR Pantoprazole Sodium (Pantoprazole 40 Mg Tablet) 40 mg PO QDAY [facility] Stop: 12/10/24 08:59 Last Admin: 11/10/24 10:10 Dose: 40 mg Documented By: GRUPO Phenylephrine HCl (Phenylephrine Inj In Ns 100 Mcg/Ml 10 Ml Syringe) Confirm Administered Dose 1,000 mcg .ROUTE .STK-MED ONE Stop: 11/09/24 10:33 Last Admin: 11/09/24 11:22 Dose: Not Given Documented By: CU Non-Admin Reason: Override Medication Potassium Phos/Sodium Phos (Naph,[facility] Mbdb 1 Packet (1.5 Gm)) 1 packet PO X1 ONE Stop: 11/09/24 07:44 Last Admin: 11/09/24 08:17 Dose: 1 packet Documented By: JOYD Sennosides (Senna Tablet) 1 tab PO QDAY PRN; Protocol PRN Reason: constipation Stop: 12/07/24 13:57 Tamsulosin HCl (Tamsulosin Hcl 0.4 Mg Capsule) 0.4 mg PO HS ARIAN Stop: 12/07/24 20:59 Last Admin: 11/09/24 20:29 Dose: 0.4 mg Documented By: Admin: 11/08/24 20:32 Dose: 0.4 mg Documented By: Admin: 11/07/24 21:32 Dose: Not Given Documented By: AM Non-Admin Reason: NPO See above Consultations Consultation(s) initiated? (list below): No Diagnosis Differential diagnosis altered mental status: altered mental status, delirium, dementia, hypoglycemia, hyponatremia, subarachnoid hemorrhage and sepsis Most likely diagnosis given after review of the tests above:: Altered mental status. Admission Indicated Admission indicated?: not indicated Explain why admission is indicated or not indicated:: Pending CT, CXR, and UA. Admission Request Was there a request for admission?: No Disposition Plan Disposition Plan: other (specify) (Signed-out to oncoming ED physician at 6 AM.) Discharge Plan Plan Patient Disposition: Admit Acute Care w/in Hospital Patient condition on transfer: Stable Problem List Clinical Impression: Altered mental status, Pneumonia, Hematuria, Acute kidney injury, Elevated lactic acid level, Osteopenia Patient/Caregiver Discharge Instructions Discharge Activity: as per physical therapy Other Activity Instructions:: Take aspirin 81 mg once daily, Plavix 75 mg once daily and atorvastatin 40 mg at night indefinitely as new stents were placed during hospital stay Do not take eliquis for a month per cardio recs Take all other home medications as prescribed You have been prescribed doxycycline for 2 more days to complete antibiotic course for community-acquired pneumonia In case you have excessive bleeding from nose or teeth or any other site im mediately come back to the ER for medical attention Follow-up with your PCP as outpatient within a week Follow-up with pipe setter, Dr. Nur as outpatient within a week In case of emergency, call 911 or come back to the ED
[2024-11-07] MEDS: SODIUM CHLORIDE 0.9% 1000 ML 1,000 ML 999 ML IV (04:11)
[2024-11-07 04:12] LABS: INR 1.1 (0.9-1.3); Partial Thromboplastin Time 26.6 Seconds (22.0-36.0); Prothrombin Time 11.9 Seconds (9.0-12.2)
[2024-11-07 04:14] LABS: B-Type Natriuretic Peptide 49 pg/mL (0-100)
[2024-11-07 04:37] LABS: Alanine Aminotransferase < 7 U/L (10-49); Albumin, Serum 3.8 gm/dL (3.4-4.8); Albumin/Globulin Ratio 1.5 (1.2-2.2); Alkaline Phosphatase 102 U/L (46-116); Anion Gap 8 (7-16); Aspartate Amino Transferase 29 U/L (0-34); BUN/Creatinine Ratio 12 Ratio (12-20); Bilirubin,Total 1.1 mg/dL (0.3-1.2); Blood Urea Nitrogen 17 mg/dL (9-23); Calcium 9.2 mg/dL (8.3-10.6); Calcium (Corrected) 9.4 mg/dL (8.5-10.1); Carbon Dioxide 22.3 mMol/L (20.0-31.0); Chloride 103 mMol/L (98-107); Creatinine (Component) 1.4 mg/dL (0.6-1.3); Estimated Creatinine Clearance 34.1 mL/min (>60); Globulin 2.5 gm/dL (2.3-3.5); Glucose 137 mg/dL (74-106); Lipase 32 U/L (12-53); Magnesium 1.3 mg/dL (1.6-2.6); Osmolality,Calculated 269 (275-295); Potassium 3.3 mMol/L (3.4-5.1); Procalcitonin 0.09 ng/ml (0.0-0.49); Sodium 133 mMol/L (136-145); Total Protein 6.3 gm/dL (5.7-8.2); eGFR 50 See Note
[2024-11-07 04:41] LABS: Troponin I 0.133 ng/mL (0.0-0.045)
--- NOTE | 2024-11-07 04:42 | XR_ITS ---
Examination: CT brain head without contrast. 2-D sagittal coronal reconstructions Date and time of exam:November 07, 2024, 0511 hours INDICATIONS: Onset altered mental status today CTDI: vol (mGy):46.9. DLP: (mGycm):926. Technique: Multiple CT axial sections of the brain have been obtained, 5 mm slice thickness. Contrast has not been administered. 2-D sagittal, coronal reconstructions have been obtained Low dose protocols were performed. One or more of the following dose reduction techniques were used; automated exposure control, adjustment of the mA and/or KV according to patient size, use of iterative reconstruction technique. Findings: No significant ventricular enlargement. Intra-axial or extra-axial hemorrhage density is not seen. No mass effect or midline shift Basal cisterns are not remarkable. Fourth ventricle is midline. Cranial vault intact. Impression: Negative for acute hemorrhage, mass effect or midline shift Advise clinical correlation and follow-up coronary
[2024-11-07 05:51] LABS: Collection Type, Urine Clean Catch; Squamous Epithelial Cell,Urine 0 /hpf (0-5)
[2024-11-07] MEDS: POTASSIUM CHL 10 mEq IVPB 10 MEQ/100 ML BAG 100 MEQ IV ×4 (05:57→10:44)
[2024-11-07] MEDS: Magnesium Sulfate 2 GM Ivpb 2 GM/50 ML BAG IV (05:57)
--- NOTE | 2024-11-07 06:03 | PRELIM_ITS ---
CT scan of the head without intravenous contrast (axial sections with sagittal and coronal reformats) November 07, 2024 0519 hours Clinical history: AMS Comparison: No prior study is available for comparison. Findings: There is no evidence of intracranial hemorrhage, mass effect or midline shift. There are periventricular white matter hypodensities, compatible with chronic small vessel ischemia. There is mild volume loss. The calvarium is unremarkable. The mastoid air cells and the visualized paranasal sinuses are clear. Impression: No evidence of intracranial hemorrhage, mass effect or midline shift. Periventricular chronic small vessel ischemia and volume loss. Report Electronically Signed By: Johnny Ryan 11/07/2024 6:02:58 AM [EST]
[2024-11-07 06:21] LABS: Amorphous Crystals,Urine Present (Absent); Bilirubin,Urine Negative (Negative); Blood,Urine 3+ (Negative); Clarity,Urine Clear (Clear/Hazy); Color,Urine Drk-Yellow (Lt Yel-Yel); Glucose, Urine Negative (Negative); Hyaline Casts,Urine < 1 /hpf (0-1); Ketones,Urine Negative (Negative); Leukocyte Esterase,Urine Negative (Negative); Nitrite,Urine Negative (Negative); PH,Urine 5.5 (5.0-7.0); Protein,Urine Negative (Neg - Trace); RBC,Urine 3 /hpf (0-3); Specific Gravity,Urine 1.013 (1.001-1.035); Urobilinogen,Urine Negative mg/dL (0.0-1.0); WBC,Urine 2 /hpf (0-5)
[2024-11-07 06:52] LABS: Reflex Lactate? Y
[2024-11-07 07:42] LABS: Lactic Acid, 3 HR 1.4 mMol/L (0.4-2.0)
--- NOTE | 2024-11-07 07:54 | XR_ITS ---
Examination: CT chest with intravenous contrast CT abdomen with intravenous contrast CT pelvis with intravenous contrast 2-D coronal and sagittal reconstructions Time of exam: November 07, 2024 0838 hours Comparison October 22, 2024 INDICATIONS: Congestion difficulty breathing this week, altered mental status CTDI: vol (mGy) : 9.15 DLP: (mGycm): 724 Technique: Multiple axial images of the chest, abdomen and pelvis with intravenous contrast, 3.0 mm slice thickness. Images obtained post intravenous injection Isovue 370 60 cc. 2-D sagittal and coronal reconstructions. Low dose protocols were performed. One or more of the following dose reduction techniques were used; automated exposure control, adjustment of the mA and/or KV according to patient size, use of iterative reconstruction technique. Findings: No thoracic aortic aneurysm dilatation Pulmonary artery segments are not enlarged Heavy calcification left anterior descending coronary artery Mild enlargement cardiac contour Atelectasis versus pneumonia both bases No visualized liver or splenic lesions Gallbladder is distended, common hepatic duct common bile duct 10 mm No pancreatic mass No hydronephrosis or renal calculi Bilateral renal cysts, the largest 3 cm posterior left kidney Aorta normal size No bowel obstruction No diverticulitis Urinary bladder intact Severe osteopenia Chronic osteoporotic compression L2, moderate Left hip bipolar hemiarthroplasty with satisfactory alignment IMPRESSION: Heavy calcification left anterior descending coronary artery Atelectasis versus mild pneumonia both bases, clinical correlation advised Distended gallbladder, enlarged common bile duct 10 mm, recommend hepatobiliary sonography follow-up Chronic osteoporotic compression L2, moderate
[2024-11-07] MEDS: cefTRIAXone/D5w 1gm IV premix 1 GM/50 ML BAG IV (08:03)
[2024-11-07] MEDS: AZITHROMYCIN INJ 500 MG in SODIUM CHLORIDE 0.9% 250 ML 250 ML 250 MG IV (08:19)
--- NOTE | 2024-11-07 09:19 | PD.EDADDENDU ---
Emergency Room Addendum <Birgit Urena - Last Filed: 11/07/24 09:29> Addendum Narrative: 0600: Care assumed from Dr. Sheriff, the previous shift emergency physician. Past medical, surgical, social and family history reviewed. Vitals and home medications reviewed. I will assume the care of the patient at this time, pending CT, labs, and reassessment. Please refer to the emergency department record for history and examination from initial visit.?The following addendum documentation note is intended to reflect any pending information, findings, or radiology results not included in the patient?s initial chart. 0800: 84 year old male who is non mobile with history of Parkinson's disease, lives with , presented to the ED for altered mental status today, decreased po intake and weight loss. reports the patient has had a cough recently and also reported recent hip surgery. On examination, the hip surgery wound is healing well c/d/i, no signs of infection. RADIOLOGY Ordering Physician: Eliza Blankenship MD Date of Service: 11/07/24 Procedure(s): CT chest abdomen pelvis w Accession Number(s): [id number] cc: Nadya Hartley MD; Kurt Sexton MD; Eliza Blankenship MD~ Examination: CT chest with intravenous contrast CT abdomen with intravenous contrast CT pelvis with intravenous contrast 2-D coronal and sagittal reconstructions Time of exam: November 07, 2024 0838 hours Comparison October 22, 2024 INDICATIONS: Congestion difficulty breathing this week, altered mental status CTDI: vol (mGy) : 9.15 DLP: (mGycm): 724 Technique: Multiple axial images of the chest, abdomen and pelvis with intravenous contrast, 3.0 mm slice thickness. Images obtained post intravenous injection Isovue 370 60 cc. 2-D sagittal and coronal reconstructions. Low dose protocols were performed. One or more of the following dose reduction techniques were used; automated exposure control, adjustment of the mA and/or KV according to patient size, use of iterative reconstruction technique. Findings: No thoracic aortic aneurysm dilatation Pulmonary artery segments are not enlarged Heavy calcification left anterior descending coronary artery Mild enlargement cardiac contour Atelectasis versus pneumonia both bases No visualized liver or splenic lesions Gallbladder is distended, common hepatic duct common bile duct 10 mm No pancreatic mass No hydronephrosis or renal calculi Bilateral renal cysts, the largest 3 cm posterior left kidney Aorta normal size No bowel obstruction No diverticulitis Urinary bladder intact Severe osteopenia Chronic osteoporotic compression L2, moderate Left hip bipolar hemiarthroplasty with satisfactory alignment IMPRESSION: Heavy calcification left anterior descending coronary artery Atelectasis versus mild pneumonia both bases, clinical correlation advised Distended gallbladder, enlarged common bile duct 10 mm, recommend hepatobiliary sonography follow-up Chronic osteoporotic compression L2, moderate Dictated By: Kurt Sexton MD Signed By: <Electronically signed by Kurt Sexton MD in [place]> 11/07/24 0906 <Eliza Blankenship MD - Last Filed: 11/07/24 09:39> Addendum Narrative: 0600: Care assumed from Dr. Sheriff, the previous shift emergency physician. Past medical, surgical, social and family history reviewed. Vitals and home medications reviewed. I will assume the care of the patient at this time, pending CT, labs, and reassessment. Please refer to the emergency department record for history and examination from initial visit.?The following addendum documentation note is intended to reflect any pending information, findings, or radiology results not included in the patient?s initial chart. 0800: 84 year old male who is non mobile with history of Parkinson's disease, lives with , presented to the ED for altered mental status today, decreased po intake and weight loss. reports the patient has had a cough recently and also reported recent hip surgery. On examination, the hip surgery wound is healing well c/d/i, no signs of infection. Patient presents with cough, shortness of breath and acute confusion. Patient has a history of Parkinson's disease. He is chronically bedbound. Patient recently had a hip surgery, has been healing well. No fever at home. No belly pain. Prior provider ordered labs, antibiotics and fluids. Patient with a white count, left shift also with acute kidney injury, elevated lactic acid 4, down trended following fluids and antibiotics. Chest x-ray with evidence of pneumonia. Antibiotics provided. Urinalysis with evidence of hematuria and crystals. Ordered CT chest abdomen and pelvis with contrast. CT chest with evidence of pneumonia, abdomen with bilateral renal cysts otherwise no other abnormalities. CT brain unremarkable. Given patient with acute decompensation of his mental state, and metabolic derangements, consulted hospitalist for admission. RADIOLOGY Ordering Physician: Eliza Blankenship MD Date of Service: 11/07/24 Procedure(s): CT chest abdomen pelvis w Accession Number(s): [id number] cc: Nadya Hartley MD; Kurt Sexton MD; Eliza Blankenship MD~ Examination: CT chest with intravenous contrast CT abdomen with intravenous contrast CT pelvis with intravenous contrast 2-D coronal and sagittal reconstructions Time of exam: November 07, 2024 0838 hours Comparison October 22, 2024 INDICATIONS: Congestion difficulty breathing this week, altered mental status CTDI: vol (mGy) : 9.15 DLP: (mGycm): 724 Technique: Multiple axial images of the chest, abdomen and pelvis with intravenous contrast, 3.0 mm slice thickness. Images obtained post intravenous injection Isovue 370 60 cc. 2-D sagittal and coronal reconstructions. Low dose protocols were performed. One or more of the following dose reduction techniques were used; automated exposure control, adjustment of the mA and/or KV according to patient size, use of iterative reconstruction technique. Findings: No thoracic aortic aneurysm dilatation Pulmonary artery segments are not enlarged Heavy calcification left anterior descending coronary artery Mild enlargement cardiac contour Atelectasis versus pneumonia both bases No visualized liver or splenic lesions Gallbladder is distended, common hepatic duct common bile duct 10 mm No pancreatic mass No hydronephrosis or renal calculi Bilateral renal cysts, the largest 3 cm posterior left kidney Aorta normal size No bowel obstruction No diverticulitis Urinary bladder intact Severe osteopenia Chronic osteoporotic compression L2, moderate Left hip bipolar hemiarthroplasty with satisfactory alignment IMPRESSION: Heavy calcification left anterior descending coronary artery Atelectasis versus mild pneumonia both bases, clinical correlation advised Distended gallbladder, enlarged common bile duct 10 mm, recommend hepatobiliary sonography follow-up Chronic osteoporotic compression L2, moderate Dictated By: Kurt Sexton MD Signed By: <Electronically signed by Kurt Sexton MD in [place]> 11/07/24 0906 Critical care time <Birgit Urena - Last Filed: 11/07/24 09:29> Critical Care Time Total Critical Care Time (min.): 40 Attestation: The high probability of sudden, clinically significant deterioration in the patient's condition required the highest level of my preparedness to intervene urgently. The services I provided to this patient were to treat and/or prevent clinically significant deterioration. Services included the following: chart data review, reviewing nursing notes and/or old charts, documentation time, leadership development consultant collaboration regarding findings and treatment options, medication orders and management, direct patient care, vital sign assessments and ordering, interpreting and reviewing diagnostic studies and lab tests. Aggregate critical care time includes only time during which I was engaged in work directly related to the patient's care, as described above, whether at bedside or elsewhere in the Emergency Department. It did not include time spent performing other reported procedures or the services of residents, students, nurses or physician assistants.
--- NOTE | 2024-11-07 13:00 | PC.NURSE ---
Called Dr. Bui to change IP to Tele do to elevated troponin, per Dr. Bui will place order for tele.
[2024-11-07 15:32] LABS: Troponin I 2.474 ng/mL (0.0-0.045)
[2024-11-07] MEDS: DOXYCYCLINE INJ 100 MG in SODIUM CHLORIDE 0.9% (POP) 100 ML IV (15:59)
[2024-11-07] MEDS: SODIUM CHLORIDE 0.9% 1000 ML 1,000 ML 75 ML IV (16:00)
[2024-11-07] MEDS: Magnesium Sulfate 4 GM Ivpb 4 GM/50 ML BAG IV (16:00)
--- NOTE | 2024-11-07 16:03 | ESHP_ITS ---
<Statement entered by Beni Govea MD - 11/07/24 19:49> Patient seen and examined at bedside. I discussed and supervised with the bakery pastry internship physician who took care of this patient. I personally saw and examined the patient. I agree with most of the assessment and plan. Patient presented with failure to thrive, with decreased appetite, generalized weakness/fatigue, slowed cognition. IVF for JELENA. Troponin elevated, likely demand ischemia, cardiology consulted. Will correct electrolyte abnormalities, cultures pending to rule out infection. NPO pending speech eval. Dietary consult placed. Plan of care discussed with attending Dr. Bui. Beni Govea MD PGY-2 Documentation for date of: 11/07/24 HPI History of Present Illness Chief complaint: AMS/ Fall History of present illness: 84-year-old male with a history of dementia, Parkinson?s disease, CAD s/p CABG x3, atrial flutter (not anticoagulated due to fall risk), HFpEF, BPH, and prior admissions for encephalopathy presents from home with his for altered mental status over the past 3 days. Per , patient had been inattentive, pulling at strings from the sofa, and agitated when redirected ? with behavior described as ?hard-headed? and wanting things his way. No seizure activity or incontinence reported. also notes a fall yesterday, which patient recalls and attributes to walker issues; no head trauma or LOC. He denies headache, dizziness, chest pain, or shortness of breath. reports slight cough and softening of voice, but no fever, chills, nausea, vomiting, or GI bleeding. Appetite has been poor ? only takes a few bites per meal. He is on his previous medication regimen with no recent changes. He is currently alert and oriented at bedside and engaging appropriately. ED Course: 84-year-old male with history of dementia, Parkinson?s, CAD s/p CABG x3, and prior admissions for AMS presented with 3 days of confusion and behavioral changes. He was alert and oriented in ED. reported poor appetite, mild cough, and a recent fall without injury. Labs notable for JELENA (Cr 1.4 from baseline 0.6), electrolyte abnormalities (Na 133, K 3.3, Mg 1.3), lactic acid 4.5 --> 1.4, and troponin peaked at 2.474. UA with +3 blood, culture pending. CXR showed LLL pneumonia, CT showed bibasilar atelectasis vs mild pneumonia and CBD dilation to 10 mm. EKG showed 1? AV block, possible RBBB, no acute ischemia. Started on IV ceftriaxone and doxycycline for possible aspiration pneumonia. Electrolyte repletion initiated. Cardiology consulted?recommendations pending. Patient admitted to telemetry for monitoring. Past Medical History (PMH): * Parkinson?s disease * Dementia / Alzheimer?s * Coronary artery disease s/p CABG x3 * Paroxysmal atrial flutter * CVA / TIA * HFpEF * BPH * Prostate cancer * Hypertension * Hyperlipidemia * Type 2 diabetes mellitus (remote) * Chronic anemia * Orthostatic hypotension Past Surgical History (PSH): * Coronary artery bypass graft x3 * Left hip surgery (recent, date ~10/04/24) * Remote prostate cancer treatment * No reported abdominal surgeries Medications: * Carbidopa-levodopa * Aspirin * Atorvastatin * Protonix * (Possibly) metoprolol tartrate * Gabapentin (held on prior admission) * No recent med changes per Allergies: * No known drug allergies (NKDA) Family History (FH): * Non-contributory per chart review Social History (SH): * Lives at home with * Previously at SNF after hip fracture * Wheelchair-bound, uses walker with supervision * Never smoker * No alcohol or substance use ROS: * Constitutional: Denies fever, chills * Neuro: Denies headache, dizziness, seizures; alert and oriented today * GI: Denies N/V, no melena or hematemesis, poor PO intake * Respiratory: Mild cough, no SOB or chest pain * : No dysuria; urine +3 blood on UA * Psych: Behavioral changes at home per * MSK: Fall yesterday, no pain or injury reported * Skin/Wound: Surgical site covered; states dressing is clean with no drainage Exam Vital Signs Temp Pulse Resp BP Pulse Ox O2 Del Method 97.7 F 60 18 114/59 L 97 Room Air 11/07/24 12:22 11/07/24 14:31 11/07/24 14:31 11/07/24 12:22 11/07/24 12:11/07/24 07:17 Narrative Exam General: Alert and oriented x4, no acute distress HEENT: PERRL, EOMI, moist mucous membranes, oropharynx clear Neck: Supple, no JVD, no meningismus Cardiac: Regular rhythm, no murmurs Respiratory: Lungs clear bilaterally, no rales/wheezes GI: Soft, non-tender, no guarding or rebound Skin: Warm, dry, no rashes Extremities: No edema Neuro: CN II-XII grossly intact, no focal deficits Psych: Appropriate mood and affect per interaction Surgical Site: Dressing intact over left hip, no visible erythema or drainage Results: Labs 11/08/24 02:34 11/08/24 02:34 Labs: Short CBC 11/07/24 Range/Units 03:43 WBC 10.8 H (3.8-10.6) Thou/mm3 Hgb 11.0 L (13.5-16.0) g/dL Hct 29.8 L (41.0-53.0) % Plt Count 181 (140-440) Thou/mm3 BMP 11/07/24 03:43 Sodium 133 L Potassium 3.3 L Chloride 103 Carbon Dioxide 22.3 BUN 17 Creatinine 1.4 H Glucose 137 H Calcium 9.2 Cardiac Enzymes 11/07/24 11/07/24 Range/Units 03:43 14:41 Troponin I 0.133 H* 2.474 H* D (0.0-0.045) ng/mL Liver Function 11/07/24 Range/Units 03:43 Total Bilirubin 1.1 (0.3-1.2) mg/dL AST 29 (0-34) U/L ALT < 7 L (10-49) U/L Alkaline Phosphatase 102 (46-116) U/L Albumin 3.8 (3.4-4.8) gm/dL Urine 11/07/24 Range/Units 05:44 Urine Color Drk-Yellow A (Lt Yel-Yel) Urine Clarity Clear (Clear/Hazy) Urine pH 5.5 (5.0-7.0) Ur Specific [place] 1.013 (1.001-1.035) Urine Protein Negative (Neg - Trace) Urine Glucose (UA) Negative (Negative) Quality Measures Quality Measures VTE prophylaxis Advance care planning discussed with:: patient and spouse Medications Home Medications and Allergies Home Medications ?Medication ?Instructions ?Recorded ?Confirmed ?Type tamsulosin 0.4 mg capsule (Flomax) 0.4 mg PO QDAY Pros wong ##0 06/12/14 11/08/24 History solifenacin 10 mg tablet 10 mg PO QDAY 03/03/2210/23 History aspirin 81 mg tablet 81 mg PO QDAY 10/16/2411/08 History docusate sodium 100 mg capsule 100 mg PO BID 10/16/24 10/23/24 History (Colace) ferrous sulfate 325 mg (65 mg 325 mg PO QDAY 10/16/24 10/23/24 History iron) tablet (Feosol) guaifenesin 100 mg/5 mL oral 200 mg PO Q6H PRN sore th roat 10/16/24 10/23/24 History liquid (Migdalia-Tussin) magnesium hydroxide 400 mg/5 mL 2,400 mg PO TID PRN co nstipation 10/16/24 10/23/24 History oral suspension melatonin 3 mg capsule 3 mg PO HS 10/16/24 10/23/24 History multivitamin 1 tab PO QDAY 10/16/2410/23 History carbidopa 50 mg-levodopa 200 1 tab PO QID 10/22/24 History mg-entacapone 200 mg tablet acetaminophen 300 mg-codeine 15 mg 1 tab PO Q6H PRN se juan pain 10/23/24 11/08/24 History tablet (scale score 7-10) oxybutynin chloride 10 mg 10 mg PO QDAY 11/08/2411/08 History tablet,extended release 24 hr oxybutynin chloride 10 mg 10 mg PO QDAY 11/08/2411/08 History tablet,extended release 24 hr Allergies Allergy/AdvReac Type Severity Reaction Status Date / Time banana Allergy Verified 10/21/24 21:38 pork derived (porcine) Allergy Verified 10/21/24 21:38 Visit Medications Acetaminophen (Acetaminophen 325 Mg Tablet) 650 mg PO Q6H PRN PRN Reason: Fever >101.5 Stop: 12/07/24 13:57 Acetaminophen (Acetaminophen 325 Mg Tablet) 650 mg PO Q6H PRN PRN Reason: PAIN SCALE 1-3 (mild Stop: 12/07/24 13:57 Ascorbic Acid (Ascorbic Acid 250 Mg Tablet) 500 mg PO BID ARIAN Stop: 12/07/24 20:59 Atorvastatin Calcium (Atorvastatin Calcium 20 Mg Tablet) 20 mg PO HS ARIAN Stop: 12/07/24 20:59 Carbidopa/Levodopa (Carbidopa/Levodopa Cr 50/200 Tabcr) 1 tab PO QDAY ARIAN Stop: 12/08/24 08:59 Dextrose (Dextrose 50%-Water Inj 50 Ml Syringe) 25 ml IV Q15MIN PRN PRN Reason: BG 50-70 responsive npo pt Stop: 12/07/24 14:04 Dextrose (Dextrose 50%-Water Inj 50 Ml Syringe) 50 ml IV Q15MIN PRN PRN Reason: BG <50 OR BG <70 & pt unresponsive Stop: 12/07/24 14:04 Glucagon (Glucagon Inj 1 Mg Vial) 1 mg IM Q15MIN PRN PRN Reason: BG <70, and no IV access Azithromycin 500 mg/ Sodium (Chloride) 250 mls @ 250 mls/hr IV QDAY ARIAN Stop: 11/15/24 08:59 Sodium Chloride (Ns) 1,000 mls @ 75 mls/hr IV .[id number] ARIAN Stop: 12/07/24 13:59 Ceftriaxone Sodium/Dextrose (Rocephin/D5w 1gm Iv Premix) 1 gm in 50 mls @ 100 mls/hr IV QDAY ARIAN Stop: 11/15/24 08:59 Doxycycline Hyclate 100 mg/ (Sodium Chloride) 100 mls @ 100 mls/hr IV BID ARIAN Stop: 11/14/24 14:14 Magnesium Sulfate (Magnesium Sulfate Ivpb) 4 gm in 50 mls @ 12.5 mls/hr IV X1 ONE Stop: 11/07/24 18:03 Melatonin (Melatonin 3 Mg Tablet) 3 mg PO HS ARIAN Stop: 12/07/24 20:59 Metoprolol Tartrate (Metoprolol Tartrate 25 Mg Tablet) 25 mg PO BID ARIAN Stop: 12/08/24 08:59 Ondansetron HCl (Ondansetron Inj 2 Mg/Ml Inj 2 Ml) 4 mg IVP Q6H PRN; Protocol PRN Reason: NAUSEA OR VOMITING Stop: 12/07/24 13:57 Pantoprazole Sodium (Pantoprazole Inj 40 Mg Vial) 40 mg IVP QDAY ARIAN Stop: 12/07/24 13:59 Sennosides (Senna Tablet) 1 tab PO QDAY PRN; Protocol PRN Reason: constipation Stop: 12/07/24 13:57 Tamsulosin HCl (Tamsulosin Hcl 0.4 Mg Capsule) 0.4 mg PO HS ARIAN Stop: 12/07/24 20:59 Discontinued Medications Sodium Chloride (Ns) 1,000 mls @ 999 mls/hr IV .Q1H1M ONE Stop: 11/07/24 05:06 Last Infusion: 11/07/24 07:04 Dose: Infused Magnesium Sulfate (Magnesium Sulfate Ivpb) 2 gm in 50 mls @ 25 mls/hr IV X1 ONE Stop: 11/07/24 07:37 Last Infusion: 11/07/24 07:57 Dose: Infused Potassium Chloride (Kcl Ivpb) 10 meq in 100 mls @ 100 mls/hr IV Q1H ARIAN Stop: 11/07/24 09:37 Last Infusion: 11/07/24 11:44 Dose: Infused Ceftriaxone Sodium/Dextrose (Rocephin/D5w 1gm Iv Premix) 1 gm in 50 mls @ 100 mls/hr IV NOW ONE Stop: 11/07/24 08:24 Last Infusion: 11/07/24 08:33 Dose: Infused Azithromycin 500 mg/ Sodium (Chloride) 250 mls @ 250 mls/hr IV X1 ONE Stop: 11/07/24 08:59 Last Infusion: 11/07/24 09:50 Dose: Infused Assessment & Plan Plan 84M with dementia, Parkinson?s, CAD s/p CABG x3, and prior AMS admissions, presenting with recurrent AMS, JELENA, type II NSTEMI (troponin 2.4), possible aspiration pneumonia, electrolyte abnormalities, and CBD dilation on imaging. #Acute metabolic encephalopathy #Altered mental status 84M with baseline dementia and Parkinson?s, presents with 3-day AMS, now alert/oriented, no focal deficits Head CT: no acute infarct, bleed, or mass EEG (prior): showed diffuse slowing, early dementia pattern Electrolyte abnormalities, elevated lactic acid Plan: * Continue neuro checks * Monitor for further episodes or decline * Consider repeat EEG only if worsening * Maintain fall and aspiration precautions #Acute kidney injury (JELENA) Creatinine 1.4 from baseline 0.6-0.7, likely multifactorial (dehydration, poor PO intake) Cr 1.4, BUN Na 133, K 3.3, Mg 1.3 Plan: * IV fluid hydration (gentle, given CAD/HF hx) * Monitor I/Os and trend renal panel daily * Replete electrolytes: K and Mg * Avoid nephrotoxins #Troponinemia / NSTEMI (type II) Elevated troponin to 2.474 with no chest pain, EKG NSR w/ 1? AV block, likely demand-related Troponin: 0.133 --> 2.474 EKG: NSR, 1? AVB, RBBB, septal infarct (old) BNP 49 Plan: * Cardiology consulted, appreciate recs * Continue statin * Continue telemetry monitoring #Possible aspiration pneumonia Cough with CXR showing left base pneumonia, afebrile, WBC normal CXR: early left base infiltrate Chest CT: bibasilar atelectasis vs mild pneumonia Plan: * Start IV ceftriaxone + doxy * Maintain aspiration precautions * Monitor for fevers, WBC trend, oxygen needs #Electrolyte abnormalities #Hypokalemia, hypomagnesemia, hyponatremia ? likely due to poor intake/dehydration Na 133, K 3.3, Mg 1.3 Plan: * Replete K and Mg * Monitor BMP and Mg daily * Encourage PO intake if safe #History of Parkinson?s / Dementia Currently back to baseline, continued behavioral symptoms at home Plan: * Continue carbidopa-levodopa if tolerated * Monitor for worsening agitation * Neurology f/u outpatient #History of gallbladder disease / CBD dilation CT A/P: CBD 10 mm, distended GB, but normal bilirubin and LFTs Plan: * Recommend RUQ ultrasound (hepatobiliary sono) * Monitor for abdominal pain, LFTs * GI consult if new symptoms or abnormal RUQ sono #Anemia Hgb 11, Hct 29.8, stable from prior; likely chronic Plan: * Monitor CBC * No signs of active bleeding * Trend if clinically indicated #Fall risk Recent fall, no injury, related to walker mechanics Plan: * PT consult for gait/safety evaluation * Maintain fall precautions #UTI unlikely / Hematuria UA: +3 blood, urine culture pending Plan: * Monitor for dysuria, fever * Review culture results when back * Consider urology f/u if persistent hematuria Health maintenance: Telemetry admission for monitoring (AMS, troponin, JELENA, pneumonia) Diet: NPO pending swallow evaluation or if aspiration concern continues DVT prophylaxis: Eliquis GI prophylaxis: Protonix Code status: Full ----- Plan discussed with attending physician Dr. Bui and senior resident Dr. Robyn MD PGY-1 Internal Medicine Attending Provider Attestation/Addendum I, Natalia Bui, DO, attest that I was physically present for the beltre portions of the service and evaluated the patient with the resident and I reviewed and discussed the case with the resident and agree with the resident's findings and plans of care as documented above Patient is an 84-year-old male with past medical history of dementia, Parkinson's disease, CAD status post CABG, a flutter, HFpEF, BPH who was brought to ED after sustaining a fall at home. Patient appeared to have a mechanical fall but was confused following the fall and was subsequent brought to ED. Patient has been having poor oral intake at home. He was recently admitted for dehydration and encephalopathy which appears to be similar presentation in the past. Of note, patient was found to have acute kidney injury with creatinine 1.4 from baseline of 0.6 and lactic acidosis of 4.5. Troponin was detectable but negative, but uptrending to 2.474. Patient denies any active chest pain or shortness of breath. Chest x-ray showed early left lobe pneumonia. He does have a history of CBD dilatation of 10 mm. However, patient underwent extensive GI workup and was referred to outpatient workup for biliary dilatation. Patient does not appear to be cholangitic. LFTs are within normal limits. Will start patient on empiric antibiotics for community-acquired pneumonia. Will also consult cardiology due to concern for NSTEMI. Patient appears to be at baseline upon evaluation in the ED. Will admit patient to telemetry for further workup medical management of NSTEMI and acute metabolic encephalopathy. UA has been negative, will follow-up with infectious workup. Will have physical therapy work with patient and continue IV fluid hydration.
[2024-11-07] MEDS: DEXTROSE 5%-LACTATED RINGERS 1,000 ML 75 ML IV (17:40)
--- NOTE | 2024-11-07 19:30 | ESCONSULT_ITS ---
<Statement entered by Corina Nur MD - 11/11/24 12:32> I personally evaluated examined the patient who is very well-known to me along signs of CAD bypass graft surgery 2008 x 2 recently hospitalized discharged home with possible sepsis and dehydration and type II troponin elevation and elevation they did not have any chest pain at that time patient was doing well came back again again acutely ill with lactic acidosis he does not have any chest pain but appears to have tightness in the chest shortness of breath with elevated troponin persistently elevated troponin with significant delta Trope concerned about acute non-ST segment elevation microinfarction. Will treat this episode as type I non-ST segment elevation myocardial infarction because of known CAD coronary artery bypass graft l surgery and unexplained elevation of troponin levels and nonspecific ST changes on EKG. Patient be continued on Lovenox and aspirin Plavix will be started in preparation for coronary angiogram and cardiac catheterization. Evaluate the patient with resident physician Dr. Hernandez agree with the treatment plan recommendation as documented HPI Data of Consult Requesting Physician: Natalia Bui DO Admitting Provider: Natalia Bui DO Attending Provider: Natalia Bui DO Primary Care Provider: Nadya Hartley MD Consult Narrative History of present illness: Mr. Brar is a 84-year-old male past medical history significant for hypertension, hyperlipidemia, type 2 diabetes, HFpEF with EF 50-55%, CAD status post CABG x 3, A-flutter, prostate cancer, dementia, Parkinson's and history of CVA presented to the ED complaining of failure to thrive and generalized weakness. Patient is a poor historian and unable to give any history other than stating he does not have any chest pain palpitations pressure or shortness of breath. Patient denied any orthopnea or PND, dizziness or syncopal episodes. The remainder of history is obtained from chart reviewing and speaking to primary team. Patient has had repeat hospitalization in the last 2 to 3 months for similar symptoms. Each time patient has come to the hospital due to altered mental status with decreased p.o. intake and was found to have elevated troponins which downtrends during hospitalization and elevation in the lactic acid. During this hospital admission patient has very similar symptoms labs show elevated troponin and lactic acid patient was given IV fluids and lactic acid is back to normal. Cardiology is consulted due to elevated troponin PMH: hypertension, hyperlipidemia, type 2 diabetes, HFpEF with EF 50-55%, CAD status post CABG x 3, A-flutter, prostate cancer, dementia, Parkinson's and history of CVA PSH: CABG and left hip surgery in 2024 SH: Denies smoking, alcohol, illicit drugs use Allergies: NKDA cc:: cc: Natalia Bui DO Review of Systems Review of Systems Systems Reviewed: All systems reviewed, normal except as documented Exam Vital Signs Temp Pulse Resp BP Pulse Ox O2 Del Method 97.3 F 60 19 147/60 H 99 Room Air 11/07/24 16:00 11/07/24 16:00 11/07/24 16:00 11/07/24 16:00 11/07/24 16:00 11/07/24 16:00 Narrative Exam GENERAL: A&Ox3 . elderly male, well groomed, Awake, Not in acute distress NEURO: no focal neurological deficits HEENT: Atraumatic, Normocephalic. mucous membranes moist. Eyes open, symmetrical, & clear HEART: Normal Heart Sounds LUNGS: Clear to auscultation with no wheezing or crackles. ABDOMEN: soft, non-distended, non-tender, bowel sounds heard, no guarding or rebound tenderness SKIN: No Rash or ecchymoses EXTREMITIES: No edema, tenderness, able to move all 4 extremities, pedal pulses palpated Results Labs 11/07/24 03:43 11/07/24 03:43 Labs: Short CBC 11/07/24 Range/Units 03:43 WBC 10.8 H (3.8-10.6) Thou/mm3 Hgb 11.0 L (13.5-16.0) g/dL Hct 29.8 L (41.0-53.0) % Plt Count 181 (140-440) Thou/mm3 BMP 11/07/24 03:43 Sodium 133 L Potassium 3.3 L Chloride 103 Carbon Dioxide 22.3 BUN 17 Creatinine 1.4 H Glucose 137 H Calcium 9.2 Cardiac Enzymes 11/07/24 11/07/24 Range/Units 03:43 14:41 Troponin I 0.133 H* 2.474 H* D (0.0-0.045) ng/mL Liver Function 11/07/24 Range/Units 03:43 Total Bilirubin 1.1 (0.3-1.2) mg/dL AST 29 (0-34) U/L ALT < 7 L (10-49) U/L Alkaline Phosphatase 102 (46-116) U/L Albumin 3.8 (3.4-4.8) gm/dL Urine 11/07/24 Range/Units 05:44 Urine Color Drk-Yellow A (Lt Yel-Yel) Urine Clarity Clear (Clear/Hazy) Urine pH 5.5 (5.0-7.0) Ur Specific [place] 1.013 (1.001-1.035) Urine Protein Negative (Neg - Trace) Urine Glucose (UA) Negative (Negative) Quality Measures Quality Measures VTE prophylaxis Advance care planning discussed with:: other Medications Home Medications and Allergies Home Medications ?Medication ?Instructions ?Recorded ?Confirmed ?Type tamsulosin 0.4 mg capsule (Flomax) 0.4 mg PO QDAY Pros wong ##0 06/12/14 10/23/24 History solifenacin 10 mg tablet 10 mg PO QDAY 03/03/2210/23 History ascorbic acid (vitamin C) 500 mg 500 mg PO BID 5 10/23/24 History tablet (C-500) aspirin 81 mg tablet 81 mg PO QDAY 10/16/2410/23 History bisacodyl 10 mg rectal suppository 10 mg SD QDAY PRN c onstipation 10/16/24 10/22/24 History (Dulcolax (bisacodyl)) docusate sodium 100 mg capsule 100 mg PO BID 10/16/24 10/23/24 History (Colace) ferrous sulfate 325 mg (65 mg 325 mg PO QDAY 10/16/24 10/23/24 History iron) tablet (Feosol) guaifenesin 100 mg/5 mL oral 200 mg PO Q6H PRN sore th roat 10/16/24 10/23/24 History liquid (Migdalia-Tussin) magnesium hydroxide 400 mg/5 mL 2,400 mg PO TID PRN co nstipation 10/16/24 10/23/24 History oral suspension melatonin 3 mg capsule 3 mg PO HS 10/16/24 10/23/24 History multivitamin 1 tab PO QDAY 10/16/2410/23 History carbidopa 50 mg-levodopa 200 1 tab PO QID 10/22/2411/09 History mg-entacapone 200 mg tablet acetaminophen 300 mg-codeine 15 mg 1 tab PO Q6H PRN se juan pain 10/23/24 10/23/24 History tablet (scale score 7-10) Allergies Allergy/AdvReac Type Severity Reaction Status Date / Time banana Allergy Verified 10/21/24 21:38 pork derived (porcine) Allergy Verified 10/21/24 21:38 Visit Medications Acetaminophen (Acetaminophen 325 Mg Tablet) 650 mg PO Q6H PRN PRN Reason: Fever >101.5 Stop: 12/07/24 13:57 Acetaminophen (Acetaminophen 325 Mg Tablet) 650 mg PO Q6H PRN PRN Reason: PAIN SCALE 1-3 (mild Stop: 12/07/24 13:57 Ascorbic Acid (Ascorbic Acid 250 Mg Tablet) 500 mg PO BID ARIAN Stop: 12/07/24 20:59 Aspirin (Aspirin Ec 81 Mg Tabec) 81 mg PO QDAY ARIAN Stop: 12/08/24 08:59 Atorvastatin Calcium (Atorvastatin Calcium 20 Mg Tablet) 20 mg PO HS ARIAN Stop: 12/07/24 20:59 Carbidopa/Levodopa (Carbidopa/Levodopa Cr 50/200 Tabcr) 1 tab PO QDAY ARIAN Stop: 12/08/24 08:59 Clopidogrel Bisulfate (Clopidogrel Bisulfate 75 Mg Tablet) 75 mg PO QDAY [facility] Stop: 12/07/24 19:29 Dextrose (Dextrose 50%-Water Inj 50 Ml Syringe) 25 ml IV Q15MIN PRN PRN Reason: BG 50-70 responsive npo pt Stop: 12/07/24 14:04 Dextrose (Dextrose 50%-Water Inj 50 Ml Syringe) 50 ml IV Q15MIN PRN PRN Reason: BG <50 OR BG <70 & pt unresponsive Stop: 12/07/24 14:04 Enoxaparin Sodium (Enoxaparin Sod Inj 60 Mg/0.6 Ml Syringe) 60 mg SC QDAY ARIAN Stop: 11/22/24 08:59 Glucagon (Glucagon Inj 1 Mg Vial) 1 mg IM Q15MIN PRN PRN Reason: BG <70, and no IV access Azithromycin 500 mg/ Sodium (Chloride) 250 mls @ 250 mls/hr IV QDAY ARIAN Stop: 11/15/24 08:59 Ceftriaxone Sodium/Dextrose (Rocephin/D5w 1gm Iv Premix) 1 gm in 50 mls @ 100 mls/hr IV QDAY ARIAN Stop: 11/15/24 08:59 Doxycycline Hyclate 100 mg/ (Sodium Chloride) 100 mls @ 100 mls/hr IV BID ARIAN Stop: 11/14/24 14:14 Last Admin: 11/07/24 15:59 Dose: 100 mls/hr Dextrose/Lactated Ringer's (D5-Lr) 1,000 mls @ 75 mls/hr IV .[id number] ARIAN Stop: 12/07/24 16:59 Last Admin: 11/07/24 17:40 Dose: 75 mls/hr Melatonin (Melatonin 3 Mg Tablet) 3 mg PO HS ARIAN Stop: 12/07/24 20:59 Metoprolol Tartrate (Metoprolol Tartrate 25 Mg Tablet) 25 mg PO BID ARIAN Stop: 12/08/24 08:59 Ondansetron HCl (Ondansetron Inj 2 Mg/Ml Inj 2 Ml) 4 mg IVP Q6H PRN; Protocol PRN Reason: NAUSEA OR VOMITING Stop: 12/07/24 13:57 Pantoprazole Sodium (Pantoprazole Inj 40 Mg Vial) 40 mg IVP QDAY ARIAN Stop: 12/07/24 13:59 Last Admin: 11/07/24 16:00 Dose: 40 mg Sennosides (Senna Tablet) 1 tab PO QDAY PRN; Protocol PRN Reason: constipation Stop: 12/07/24 13:57 Tamsulosin HCl (Tamsulosin Hcl 0.4 Mg Capsule) 0.4 mg PO HS ARIAN Stop: 12/07/24 20:59 Discontinued Medications Apixaban (Apixaban 2.5 Mg Tablet) 2.5 mg PO BID ARIAN Stop: 12/08/24 08:59 Sodium Chloride (Ns) 1,000 mls @ 999 mls/hr IV .Q1H1M ONE Stop: 11/07/24 05:06 Last Infusion: 11/07/24 07:04 Dose: Infused Magnesium Sulfate (Magnesium Sulfate Ivpb) 2 gm in 50 mls @ 25 mls/hr IV X1 ONE Stop: 11/07/24 07:37 Last Infusion: 11/07/24 07:57 Dose: Infused Potassium Chloride (Kcl Ivpb) 10 meq in 100 mls @ 100 mls/hr IV Q1H ARIAN Stop: 11/07/24 09:37 Last Infusion: 11/07/24 11:44 Dose: Infused Ceftriaxone Sodium/Dextrose (Rocephin/D5w 1gm Iv Premix) 1 gm in 50 mls @ 100 mls/hr IV NOW ONE Stop: 11/07/24 08:24 Last Infusion: 11/07/24 08:33 Dose: Infused Azithromycin 500 mg/ Sodium (Chloride) 250 mls @ 250 mls/hr IV X1 ONE Stop: 11/07/24 08:59 Last Infusion: 11/07/24 09:50 Dose: Infused Sodium Chloride (Ns) 1,000 mls @ 75 mls/hr IV .[id number] ARIAN Stop: 12/07/24 13:59 Last Admin: 11/07/24 16:00 Dose: 75 mls/hr Magnesium Sulfate (Magnesium Sulfate Ivpb) 4 gm in 50 mls @ 12.5 mls/hr IV X1 ONE Stop: 11/07/24 18:03 Last Admin: 11/07/24 16:00 Dose: 12.5 mls/hr Assessment & Plan Plan Mr. Brar is a 84-year-old male past medical history significant for hypertension, hyperlipidemia, type 2 diabetes, HFpEF with EF 50-55%, CAD status post CABG x 3, A-flutter, prostate cancer, dementia, Parkinson's and history of CVA presented to the ED complaining of failure to thrive and generalized weakness. Cardiology is consulted due to elevated troponin #Elevated troponins #NSTEMI, type I versus type II #Dehydration #CAD status post CABG x 3 - Differential losses include possible graft occlusion - Patient has a history of bypass graft 1 arterial and 2 venous therefore due to repeat hospitalizations with elevated troponins and patient continues to have generalized weakness although he is a bad historian and cannot give history on his chest pain or pressure we are highly suspect patient is of at least one of the venous graft occlusion. -troponins on admission 0.133 -> 2.474 -> 2.418 -lactic acid 4.5 -> 1.4 -EKG sinus rhythm with rate of 76 and QTc 431, first degree AV block -Echo from October 23- Normal left ventricular size and function. No wall motion abnormalities noted. Mild aortic regurgitation. EF 55% -In the ED pt was given 3L of fluids Plan: -Discontinue home Eliquis for now -Due to high suspicion of graft occlusion will start Pt on plavix, aspirin and lovenox -Continue to monitor telemetry closely and troponins -Possible cardiac cath will be scheduled for Tuesday morning #Paroxysmal A-flutter,in sinus rhythm #HFpEF with EF 50-55% [id number] score is 5 HAS-BLED of 2 -Currently pt is in sinus rhythm, will hold pt's home eliquis for now until after cardiac cath -Pt does not appear to be in decompensated CHF -Continue metoprolol 12.5 BID if BP tolerates #Type 2 diabetes #Hyperlipidemia #Benign prostatic hyperplasia (BPH) #Prostate cancer #Parkinson's disease #Hx. of CVA -Management as per primary team Thank you for the consult and allowing us to participate in the care of the patient. Cardiology will continue to follow. Assessment and plan discussed with my attending physician Dr. Boom Hernandez (PGY-2)- Internal medicine resident
[2024-11-07 20:44] LABS: Troponin I 2.418 ng/mL (0.0-0.045)
[2024-11-08] VITALS (10 sets, daily range): BP systolic 112–133; BP diastolic 46–73; PULSE 48–71; RESP 14–98; TEMP 36.1–36.6; O2SAT 96–100; BMI 21.4; BMI 11.0
[2024-11-08 02:49] LABS: Basophils # (Auto) 0.0 Thou/mm3 (0.0-0.2); Basophils % (Auto) 1 % (0-2.5); Eosinophils # (Auto) 0.1 Thou/mm3 (0.0-0.5); Eosinophils % (Auto) 2 % (0-10); Hematocrit 29.5 % (41.0-53.0); Hemoglobin 10.5 g/dL (13.5-16.0); Immature Granulocytes Auto 0.00 Thou/mm3 (0.00-0.00); Lymphocytes # (Auto) 0.9 Thou/mm3 (1.0-4.8); Lymphocytes % (Auto) 22 % (10-50); Mean Corpuscular HGB Conc 35.6 g/dl (31.0-37.0); Mean Corpuscular Hemoglobin 31.6 pg (25.0-35.0); Mean Corpuscular Volume 89 fL (80-100); Monocytes # (Auto) 0.4 Thou/mm3 (0.0-0.8); Monocytes % (Auto) 10 % (0-12); Neutrophils # (Auto) 2.7 Thou/mm3 (1.8-7.7); Neutrophils % (Auto) 65 % (37-80); Nucleated Red Blood Cell # 0.00 Thou/mm3 (0.00-0.00); Nucleated Red Blood Cell % 0 /100 WBC (0); Platelet Count 178 Thou/mm3 (140-440); RDW Standard Deviation 43.8 fL (35.1-43.9); Red Blood Count 3.32 Miln/mm3 (4.50-5.90); White Blood Count 4.1 Thou/mm3 (3.8-10.6)
[2024-11-08 03:04] LABS: INR 1.1 (0.9-1.3); Partial Thromboplastin Time 27.7 Seconds (22.0-36.0); Prothrombin Time 11.7 Seconds (9.0-12.2)
[2024-11-08 03:16] LABS: Alanine Aminotransferase 31 U/L (10-49); Albumin, Serum 3.3 gm/dL (3.4-4.8); Albumin/Globulin Ratio 1.5 (1.2-2.2); Alkaline Phosphatase 83 U/L (46-116); Anion Gap 4 (7-16); Aspartate Amino Transferase 127 U/L (0-34); BUN/Creatinine Ratio 8 Ratio (12-20); Bilirubin,Total 0.8 mg/dL (0.3-1.2); Blood Urea Nitrogen 6 mg/dL (9-23); Calcium 8.4 mg/dL (8.3-10.6); Calcium (Corrected) 9.0 mg/dL (8.5-10.1); Carbon Dioxide 25.9 mMol/L (20.0-31.0); Chloride 109 mMol/L (98-107); Creatinine (Component) 0.8 mg/dL (0.6-1.3); Estimated Creatinine Clearance 59.7 mL/min (>60); Globulin 2.2 gm/dL (2.3-3.5); Glucose 149 mg/dL (74-106); Magnesium 2.0 mg/dL (1.6-2.6); Osmolality,Calculated 278 (275-295); Phosphorous 2.3 mg/dL (2.4-5.1); Potassium 4.5 mMol/L (3.4-5.1); Sodium 139 mMol/L (136-145); Total Protein 5.5 gm/dL (5.7-8.2); eGFR > 60 See Note
[2024-11-08 03:21] LABS: Troponin I 1.666 ng/mL (0.0-0.045)
[2024-11-08 03:44] LABS: Ferritin 123 ng/mL (10.5-307.3); Iron 56 mcg/dL (65-175); Percent Iron Saturation 28 % (20-55); Total Iron Binding Capacity 196 mcg/dL (250-425); Unsaturated Iron Binding 140 (225-295)
[2024-11-08] MEDS: DEXTROSE 5%-LACTATED RINGERS 1,000 ML 75 ML IV (06:45)
--- NOTE | 2024-11-08 07:33 | PCS.ST ---
Swallow Evaluation competed. See report for details. Recommend Soft chopped Dysphagia 3/regular liquids.
[2024-11-08] MEDS: SOD PHOS ADDITIVE 15 MMOL in SODIUM CHLORIDE 0.9% 250 ML 250 ML 62.5 MMOL IV (08:57)
[2024-11-08] MEDS: CARBIDOPA/LEVODOPA CR 50/200 TABCR 1 TAB PO (08:58)
[2024-11-08] MEDS: ASPIRIN EC 81 MG TABEC PO (08:58)
[2024-11-08] MEDS: CLOPIDOGREL BISULFATE 75 MG TABLET PO (08:58)
[2024-11-08] MEDS: ASCORBIC ACID 250 MG TABLET 500 MG PO ×2 (08:58→20:32)
[2024-11-08] MEDS: ENOXAPARIN SOD INJ 60 MG/0.6 ML SYRINGE SC (08:59)
[2024-11-08] MEDS: DOXYCYCLINE INJ 100 MG in SODIUM CHLORIDE 0.9% (POP) 100 ML IV ×2 (09:11→20:32)
[2024-11-08] MEDS: AZITHROMYCIN INJ 500 MG in SODIUM CHLORIDE 0.9% 250 ML 250 ML 250 MG IV (09:51)
[2024-11-08] MEDS: cefTRIAXone/D5w 1gm IV premix 1 GM/50 ML BAG IV (09:55)
--- NOTE | 2024-11-08 09:56 | ESPR_ITS ---
<Statement entered by Beni Govea MD - 11/08/24 15:48> Patient seen and examined at bedside. I discussed and supervised with the internet sales consultant physician who took care of this patient. I personally saw and examined the patient. I agree with most of the assessment and plan. Plan for cardiac cath tomorrow, held anticoags. Plan of care discussed with attending Dr. Bui. Beni Govea MD PGY-2 Documentation for date of: 11/08/24 Subjective Subjective Interval history: Patient states he feels well today. He is alert and oriented. He reports no chest pain, shortness of breath, dizziness, or palpitations. He passed his swallow evaluation this morning and was cleared to eat; he finished his meal without difficulty. He denies nausea, vomiting, or abdominal pain. No new bowel or bladder complaints. Lui remains in place. No fevers, chills, or cough. He is aware of his upcoming procedures and does not express any concerns. Exam Vital Signs Temp Pulse Resp BP Pulse Ox O2 Del Method 97.0 F 71 14 131/73 H 100 Room Air 11/08/24 08:00 11/08/24 08:00 11/08/24 08:00 11/08/24 08:00 11/08/24 08:00 11/08/24 08:00 Narrative Exam General: Alert and oriented x4, no acute distress HEENT: PERRL, EOMI, moist mucous membranes, oropharynx clear Neck: Supple, no JVD, no meningismus Cardiac: Regular rhythm, no murmurs Respiratory: Lungs clear bilaterally, no rales/wheezes GI: Soft, non-tender, no guarding or rebound Skin: Warm, dry, no rashes Extremities: No edema Neuro: CN II-XII grossly intact, no focal deficits Psych: Appropriate mood and affect per interaction Surgical Site: Dressing intact over left hip, no visible erythema or drainage Objective Labs 11/08/24 02:34 11/08/24 02:34 Labs: Laboratory Results - last 24 hr 11/07/24 11/07/24 11/08/24 14:41 20:14 02:34 WBC 4.1 D RBC 3.32 L Hgb 10.5 L Hct 29.5 L MCV 89 MCH 31.6 MCHC 35.6 RDW Std Deviation 43.8 Plt Count 178 Neut % (Auto) 65 Lymph % (Auto) 22 [place] % (Auto) 10 Eos % (Auto) 2 Baso % (Auto) 1 Neut # (Auto) 2.7 Lymph # (Auto) 0.9 L [place] # (Auto) 0.4 Eos # (Auto) 0.1 Baso # (Auto) 0.0 Immature Gran # (Auto) 0.00 Absolute Nucleated RBC 0.00 Immature Gran % 0 Nucleated RBC % 0 PT 11.7 INR 1.1 APTT 27.7 Sodium 139 Potassium 4.5 D Chloride 109 H Carbon Dioxide 25.9 Anion Gap 4 L BUN 6 L Creatinine 0.8 D Estim Creat Clear Calc 59.7 L eGFR > 60 BUN/Creatinine Ratio 8 L Glucose 149 H Calculated Osmolality 278 Calcium 8.4 Corrected Calcium 9.0 Phosphorus 2.3 L Magnesium 2.0 Iron 56 L TIBC 196 L Iron Saturation 28 Unsat Iron Binding 140 L Ferritin 123 Total Bilirubin 0.8 AST 127 H ALT 31 Alkaline Phosphatase 83 Troponin I 2.474 H* D 2.418 H* 1.666 H* D Total Protein 5.5 L Albumin 3.3 L D Globulin 2.2 L Albumin/Globulin Ratio 1.5 Quality Measures Quality Measures VTE prophylaxis Advance care planning discussed with:: patient Assessment & Plan Assessment Current Active Medications: Generic Name Dose Route Start Last Admin Trade Name Freq PRN Reason Stop Dose Admin Acetaminophen 650 mg 11/07/24 13:58 Acetaminophen 325 Mg Tablet PO 12/07/24 13:57 Q6H PRN Fever >101.5 Acetaminophen 650 mg 11/07/24 13:58 Acetaminophen 325 Mg Tablet PO 12/07/24 13:57 Q6H PRN PAIN SCALE 1-3 (mild Ascorbic Acid 500 mg 11/07/24 21:00 11/08/24 08:58 Ascorbic Acid 250 Mg Tablet PO 12/07/24 20:59 500 mg BID ARIAN Administration Aspirin 81 mg 11/08/24 09:00 11/08/24 08:58 Aspirin Ec 81 Mg Tabec PO 12/08/24 08:59 81 mg QDAY ARIAN Administration Atorvastatin Calcium 20 mg 11/07/24 21:00 11/07/24 21:32 Atorvastatin Calcium 20 Mg Tablet PO 12/07/24 20:59 Not Given HS ARIAN Carbidopa/Levodopa 1 tab 11/08/24 09:00 11/08/24 08:58 Carbidopa/Levodopa Cr 50/200 Tabcr PO 12/08/24 08:59 1 tab QDAY ARIAN Administration Clopidogrel Bisulfate 75 mg 11/07/24 19:30 11/08/24 08:58 Clopidogrel Bisulfate 75 Mg Tablet PO 12/07/24 19:29 75 mg QDAY ARIAN Administration Dextrose 25 ml 11/07/24 14:05 Dextrose 50%-Water Inj 50 Ml Syringe IV 12/07/24 14:04 Q15MIN PRN BG 50-70 responsive npo pt Dextrose 50 ml 11/07/24 14:05 Dextrose 50%-Water Inj 50 Ml Syringe IV 12/07/24 14:04 Q15MIN PRN BG <50 OR BG <70 & pt unresponsive Enoxaparin Sodium 60 mg 11/08/24 09:00 11/08/24 08:59 Enoxaparin Sod Inj 60 Mg/0.6 Ml Syringe SC 11/22/24 08:59 60 mg QDAY ARIAN Administration Glucagon 1 mg 11/07/24 14:05 Glucagon Inj 1 Mg Vial IM Q15MIN PRN BG <70, and no IV access Azithromycin 500 mg/ Sodium 250 mls @ 250 mls/hr 11/08/24 09:00 11/08/24 09:51 Chloride IV 11/15/24 08:59 250 mls/hr QDAY ARIAN Administration Ceftriaxone Sodium/Dextrose 1 gm in 50 mls @ 100 mls/hr 11/08/24 09:00 11/08/24 09:55 Rocephin/D5w 1gm Iv Premix IV 11/15/24 08:59 100 mls/hr QDAY ARIAN Administration Doxycycline Hyclate 100 mg/ 100 mls @ 100 mls/hr 11/07/24 14:15 11/08/24 09:11 Sodium Chloride IV 11/14/24 14:14 100 mls/hr BID ARIAN Administration Sodium Phosphate 15 mmol/ 255 mls @ 62.5 mls/hr 11/08/24 07:21 11/08/24 08:57 Sodium Chloride IV 11/08/24 11:25 62.5 mls/hr X1 ONE Administration Melatonin 3 mg 11/07/24 21:00 11/07/24 21:32 Melatonin 3 Mg Tablet PO 12/07/24 20:59 Not Given HS ARIAN Metoprolol Tartrate 12.5 mg 11/08/24 21:00 Metoprolol Tartrate 25 Mg Tablet PO 12/08/24 20:59 BID ARIAN Ondansetron HCl 4 mg 11/07/24 13:58 Ondansetron Inj 2 Mg/Ml Inj 2 Ml IVP 12/07/24 13:57 Q6H PRN NAUSEA OR VOMITING Protocol Pantoprazole Sodium 40 mg 11/07/24 14:00 11/08/24 08:58 Pantoprazole Inj 40 Mg Vial IVP 12/07/24 13:59 40 mg QDAY ARIAN Administration Sennosides 1 tab 11/07/24 13:58 Senna Tablet PO 12/07/24 13:57 QDAY PRN constipation Protocol Tamsulosin HCl 0.4 mg 11/07/24 21:00 11/07/24 21:32 Tamsulosin Hcl 0.4 Mg Capsule PO 12/07/24 20:59 Not Given HS ARIAN Plan 84M with dementia, Parkinson?s, CAD s/p CABG x3, and prior AMS admissions, presenting with recurrent AMS, JELENA, type II NSTEMI (troponin 2.4), possible aspiration pneumonia, electrolyte abnormalities, and CBD dilation on imaging. #Troponinemia / NSTEMI (type II) #CAD s/p CABG x3 Elevated troponin to 2.474 with no chest pain, EKG NSR w/ 1? AV block, likely demand-related Troponin: Peaked at 2.474, now trending down EKG: NSR, 1? AVB, RBBB, septal infarct (old) BNP 49 Plan: * Cardiology consulted, appreciate recs * Continue statin * Continue telemetry monitoring * Continue aspirin, Plavix, and Lovenox per cardiology * Monitor telemetry and troponin levels * Cardiac cath scheduled for Tuesday * N.p.o. after midnight * Hold Eliquis for now per cardiology #Acute metabolic encephalopathy #Altered mental status 84M with baseline dementia and Parkinson?s, presents with 3-day AMS, now alert/oriented, no focal deficits Head CT: no acute infarct, bleed, or mass EEG (prior): showed diffuse slowing, early dementia pattern Electrolyte abnormalities, elevated lactic acid Plan: * Monitor for further episodes or decline * Consider repeat EEG only if worsening * Maintain fall and aspiration precautions #Acute kidney injury (resolved) Creatinine creatinine now at baseline 0.8 Plan: * No longer considered active issue * Continue to avoid nephrotoxins and monitor renal function * Replete electrolytes: K and Mg as needed #Possible aspiration pneumonia Cough with CXR showing left base pneumonia, afebrile, WBC normal CXR: early left base infiltrate Chest CT: bibasilar atelectasis vs mild pneumonia Plan: * Continue IV ceftriaxone + doxy * Maintain aspiration precautions * Monitor for fevers, WBC trend, oxygen needs #Electrolyte abnormalities #Hypokalemia, hypomagnesemia, hyponatremia ? likely due to poor intake/dehydration Na 133, K 3.3, Mg 1.3 Plan: * Replete K and Mg * Monitor BMP and Mg daily * Encourage PO intake if safe #History of Parkinson?s / Dementia Currently back to baseline, continued behavioral symptoms at home Plan: * Continue carbidopa-levodopa * Monitor for worsening agitation * Neurology f/u outpatient #Malnutrition/Failure to thrive ? improving Plan: * Patient passed swallow eval and is now eating orally * Started patient on multivitamin * Continue regular diet and monitor PO intake * Monitor weight, albumin, and appetite daily #History of gallbladder disease / CBD dilation CT A/P: CBD 10 mm, distended GB, but normal bilirubin and LFTs Plan: * Recommend RUQ ultrasound (hepatobiliary sono) * Monitor for abdominal pain, LFTs * GI consult if new symptoms or abnormal RUQ sono #HFpEF (EF 50?55%) ? clinically compensated Plan: * Monitor volume status * Continue metoprolol * BMP daily #Anemia Hgb 10.5, Hct 29.8, stable from prior; likely chronic Plan: * Monitor CBC * No signs of active bleeding * Trend if clinically indicated #Fall risk Recent fall, no injury, related to walker mechanics Plan: * PT consult for gait/safety evaluation * Maintain fall precautions #UTI unlikely / Hematuria UA: +3 blood, urine culture pending Plan: * Monitor for dysuria, fever * Review culture results when back * Consider urology f/u if persistent hematuria Health maintenance: Telemetry admission for monitoring (AMS, troponin, JELENA, pneumonia) Diet: Now on oral diet DVT prophylaxis: Lovenox will be held after today's dose GI prophylaxis: Protonix Code status: Full ----- Plan discussed with attending physician Dr. Bui and senior resident Dr. Robyn MD PGY-1 Internal Medicine Attending Provider Attestation/Addendum I, Natalia Bui DO, attest that I was physically present for the beltre portions of the service and evaluated the patient with the resident and I reviewed and discussed the case with the resident and agree with the resident's findings and plans of care as documented above Patient seen and eval this a.m. Patient has been eating lunch and states that he is feeling well. Patient appears to be alert and oriented x 3. is at bedside. Patient denies any active chest or abdominal pain. He states that he has had poor p.o. intake at the SNF since he did not like the food there. However, patient has been eating well this morning. Cardiology has plans for cardiac cath tomorrow. Will place patient n.p.o. after midnight otherwise. Will continue current management otherwise. Will hold Lovenox this evening due to anticipated angiogram. Patient otherwise denies any active chest pain or shortness of breath, fevers, chills, nausea or vomiting. He remains on room air and in no respiratory distress.
[2024-11-08] MEDS: MULTIVITAMINS TABLET 1 TAB PO (11:52)
--- NOTE | 2024-11-08 13:52 | PC.SS ---
Patient is a 84YO male, reason for visit: FAILURE TO THRIVE. Role and purpose of today?s contact explained to patient and spouse. Information for initial assessment provided by patient?s spouse Marlen Brar [phone]. Marlen stated she is patient?s primary medical surrogate decisionmaker. Marlen stated patient discharged from [facility] 11/04/24. ? Marlen explained patient requires maximum assistance with ADLs and she assists him. Patient utilizes a wheelchair and rollator for ambulation. Pharmacy: [facility]. PCP: Dr. Hartley, last appointment was 2 months ago. Tool Keeper: Dr. Coronado. Discharge plan: Home Next of Kin: Marlen Brar [phone]
--- NOTE | 2024-11-08 14:51 | ESPR_ITS ---
<Statement entered by Corina Nur MD - 11/11/24 12:33> I personally examined evaluated the patient clearly patient has had no known CAD coronary bypass graft surgery ANGULO to LAD vein graft to diagonal branch is in 2007 now has recurrent episodes hospitalization for NSTEMI elevated troponin levels with significant delta [place] elevation from 0.08 up to 2.5 highly suspicious for acute myocardial infarction possible graft or [place] RCA occlusion since the patient did not have any bypass graft RCA patient with recommended coronary angiogram evaluate the patient discussed with the family agree with treatment plan recommendation as documented by Dr. Hernandez continue aspirin Plavix Lovenox will be given but will be held for tomorrow procedure. Documentation for date of: 11/08/24 Subjective Subjective Interval history: Pt is seen at bedside, denies any chest pain or palpitations. Pt also denies any shortness of breath and dizziness. Pt's and daughter are at bedside and states they have noticed a gradual decline in his mentation over months. Pt also have poor oral intake. Pt and family is explained that since pt had CABG decades ago there is a possibility one of the grafts is occulted and pt may need PCI. Pt's and family are agreeable to angiogram with possible intervention. therefore pt will undergo right and left cardiac cath tomorrow. Will hold tomorrows lovenox dose and continue aspirin and plavix. vitals are otherwise stable and labs are reviewed. Pt is saturating on room air, troponins have down trended to 1.666 and Cr is normalized to 0.8 and BUN 6, GFR >60. Exam Vital Signs Temp Pulse Resp BP Pulse Ox O2 Del Method 97.6 F 59 L 17 131/69 H 100 Room Air 11/08/24 12:11/08/24 12:11/08/24 12:11/08/24 12:11/08/24 12:11/08/24 12:00 Narrative Exam GENERAL: A&Ox3 . elderly male, well groomed, Awake, Not in acute distress NEURO: no focal neurological deficits HEENT: Atraumatic, Normocephalic. mucous membranes moist. Eyes open, symmetrical, & clear HEART: Normal Heart Sounds LUNGS: Clear to auscultation with no wheezing or crackles. ABDOMEN: soft, non-distended, non-tender, bowel sounds heard, no guarding or rebound tenderness SKIN: No Rash or ecchymoses EXTREMITIES: No edema, tenderness, able to move all 4 extremities, pedal pulses palpated Objective Labs 11/08/24 02:34 11/08/24 02:34 Labs: Laboratory Results - last 24 hr 11/07/24 11/07/24 11/08/24 14:41 20:14 02:34 WBC 4.1 D RBC 3.32 L Hgb 10.5 L Hct 29.5 L MCV 89 MCH 31.6 MCHC 35.6 RDW Std Deviation 43.8 Plt Count 178 Neut % (Auto) 65 Lymph % (Auto) 22 [place] % (Auto) 10 Eos % (Auto) 2 Baso % (Auto) 1 Neut # (Auto) 2.7 Lymph # (Auto) 0.9 L [place] # (Auto) 0.4 Eos # (Auto) 0.1 Baso # (Auto) 0.0 Immature Gran # (Auto) 0.00 Absolute Nucleated RBC 0.00 Immature Gran % 0 Nucleated RBC % 0 PT 11.7 INR 1.1 APTT 27.7 Sodium 139 Potassium 4.5 D Chloride 109 H Carbon Dioxide 25.9 Anion Gap 4 L BUN 6 L Creatinine 0.8 D Estim Creat Clear Calc 59.7 L eGFR > 60 BUN/Creatinine Ratio 8 L Glucose 149 H Calculated Osmolality 278 Calcium 8.4 Corrected Calcium 9.0 Phosphorus 2.3 L Magnesium 2.0 Iron 56 L TIBC 196 L Iron Saturation 28 Unsat Iron Binding 140 L Ferritin 123 Total Bilirubin 0.8 AST 127 H ALT 31 Alkaline Phosphatase 83 Troponin I 2.474 H* D 2.418 H* 1.666 H* D Total Protein 5.5 L Albumin 3.3 L D Globulin 2.2 L Albumin/Globulin Ratio 1.5 11/08/24 09:20 WBC RBC Hgb Hct MCV MCH MCHC RDW Std Deviation Plt Count Neut % (Auto) Lymph % (Auto) [place] % (Auto) Eos % (Auto) Baso % (Auto) Neut # (Auto) Lymph # (Auto) [place] # (Auto) Eos # (Auto) Baso # (Auto) Immature Gran # (Auto) Absolute Nucleated RBC Immature Gran % Nucleated RBC % PT INR APTT Sodium Potassium Chloride Carbon Dioxide Anion Gap BUN Creatinine Estim Creat Clear Calc eGFR BUN/Creatinine Ratio Glucose Calculated Osmolality Calcium Corrected Calcium Phosphorus Magnesium Iron TIBC Iron Saturation Unsat Iron Binding Ferritin Total Bilirubin AST ALT Alkaline Phosphatase Troponin I Cancelled Total Protein Albumin Globulin Albumin/Globulin Ratio Quality Measures Quality Measures VTE prophylaxis Advance care planning discussed with:: patient Assessment & Plan Assessment Current Active Medications: Generic Name Dose Route Start Last Admin Trade Name Javier PRN Reason Stop Dose Admin Acetaminophen 650 mg 11/07/24 13:58 Acetaminophen 325 Mg Tablet PO 12/07/24 13:57 Q6H PRN Fever >101.5 Acetaminophen 650 mg 11/07/24 13:58 Acetaminophen 325 Mg Tablet PO 12/07/24 13:57 Q6H PRN PAIN SCALE 1-3 (mild Ascorbic Acid 500 mg 11/07/24 21:00 11/08/24 08:58 Ascorbic Acid 250 Mg Tablet PO 12/07/24 20:59 500 mg BID ARIAN Administration Aspirin 81 mg 11/08/24 09:00 11/08/24 08:58 Aspirin Ec 81 Mg Tabec PO 12/08/24 08:59 81 mg QDAY ARIAN Administration Atorvastatin Calcium 20 mg 11/07/24 21:00 11/07/24 21:32 Atorvastatin Calcium 20 Mg Tablet PO 12/07/24 20:59 Not Given HS ARIAN Carbidopa/Levodopa 1 tab 11/08/24 09:00 11/08/24 08:58 Carbidopa/Levodopa Cr 50/200 Tabcr PO 12/08/24 08:59 1 tab QDAY ARIAN Administration Clopidogrel Bisulfate 75 mg 11/07/24 19:30 11/08/24 08:58 Clopidogrel Bisulfate 75 Mg Tablet PO 12/07/24 19:29 75 mg QDAY AIRAN Administration Dextrose 25 ml 11/07/24 14:05 Dextrose 50%-Water Inj 50 Ml Syringe IV 12/07/24 14:04 Q15MIN PRN BG 50-70 responsive npo pt Dextrose 50 ml 11/07/24 14:05 Dextrose 50%-Water Inj 50 Ml Syringe IV 12/07/24 14:04 Q15MIN PRN BG <50 OR BG <70 & pt unresponsive Enoxaparin Sodium 60 mg 11/08/24 09:00 11/08/24 08:59 Enoxaparin Sod Inj 60 Mg/0.6 Ml Syringe SC 11/22/24 08:59 60 mg QDAY ARIAN Administration Glucagon 1 mg 11/07/24 14:05 Glucagon Inj 1 Mg Vial IM Q15MIN PRN BG <70, and no IV access Azithromycin 500 mg/ Sodium 250 mls @ 250 mls/hr 11/08/24 09:00 11/08/24 09:51 Chloride IV 11/15/24 08:59 250 mls/hr QDAY ARIAN Administration Ceftriaxone Sodium/Dextrose 1 gm in 50 mls @ 100 mls/hr 11/08/24 09:00 11/08/24 09:55 Rocephin/D5w 1gm Iv Premix IV 11/15/24 08:59 100 mls/hr QDAY ARIAN Administration Doxycycline Hyclate 100 mg/ 100 mls @ 100 mls/hr 11/07/24 14:15 11/08/24 09:11 Sodium Chloride IV 11/14/24 14:14 100 mls/hr BID ARIAN Administration Melatonin 3 mg 11/07/24 21:00 11/07/24 21:32 Melatonin 3 Mg Tablet PO 12/07/24 20:59 Not Given HS ARIAN Metoprolol Tartrate 12.5 mg 11/08/24 21:00 Metoprolol Tartrate 25 Mg Tablet PO 12/08/24 20:59 BID ARIAN Multivitamins 1 tab 11/08/24 10:45 11/08/24 11:52 Multivitamins Tablet PO 12/08/24 10:44 1 tab QDAY ARAIN Administration Ondansetron HCl 4 mg 11/07/24 13:58 Ondansetron Inj 2 Mg/Ml Inj 2 Ml IVP 12/07/24 13:57 Q6H PRN NAUSEA OR VOMITING Protocol Pantoprazole Sodium 40 mg 11/07/24 14:00 11/08/24 08:58 Pantoprazole Inj 40 Mg Vial IVP 12/07/24 13:59 40 mg QDAY ARIAN Administration Sennosides 1 tab 11/07/24 13:58 Senna Tablet PO 12/07/24 13:57 QDAY PRN constipation Protocol Tamsulosin HCl 0.4 mg 11/07/24 21:00 11/07/24 21:32 Tamsulosin Hcl 0.4 Mg Capsule PO 12/07/24 20:59 Not Given HS ARIAN Plan Mr. Brar is a 84-year-old male past medical history significant for hypertension, hyperlipidemia, type 2 diabetes, HFpEF with EF 50-55%, CAD status post CABG x 3, A-flutter, prostate cancer, dementia, Parkinson's and history of CVA presented to the ED complaining of failure to thrive and generalized weakness. Cardiology is consulted due to elevated troponin #Elevated troponins #NSTEMI, type I versus type II #Dehydration #CAD status post CABG x 3 - Differential losses include possible graft occlusion - Patient has a history of bypass graft 1 arterial and 2 venous therefore due to repeat hospitalizations with elevated troponins and patient continues to have generalized weakness although he is a bad historian and cannot give history on his chest pain or pressure we are highly suspect patient is of at least one of the venous graft occlusion. -troponins on admission 0.133 -> 2.474 -> 2.418 -lactic acid 4.5 -> 1.4 -EKG sinus rhythm with rate of 76 and QTc 431, first degree AV block -Echo from October 23- Normal left ventricular size and function. No wall motion abnormalities noted. Mild aortic regurgitation. EF 55% -In the ED pt was given 3L of fluids Plan: -Discontinue home Eliquis for now -Due to high suspicion of graft occlusion will start Pt on plavix, aspirin and lovenox (will hold lovenox dose on 11/08 for cardiac cath) -Continue to monitor telemetry closely and troponins -Cardiac cath scheduled for Tuesday #Paroxysmal A-flutter,in sinus rhythm #HFpEF with EF 50-55% [id number] score is 5 HAS-BLED of 2 -Currently pt is in sinus rhythm, will hold pt's home eliquis for now until after cardiac cath -Pt does not appear to be in decompensated CHF -Continue metoprolol 12.5 BID if BP tolerates #Type 2 diabetes #Hyperlipidemia #Benign prostatic hyperplasia (BPH) #Prostate cancer #Parkinson's disease #Hx. of CVA -Management as per primary team Thank you for the consult and allowing us to participate in the care of the patient. Cardiology will continue to follow. Assessment and plan discussed with my attending physician Dr. Boom Hernandez (PGY-2)- Internal medicine resident
[2024-11-08] MEDS: TAMSULOSIN HCL 0.4 MG CAPSULE PO (20:32)
[2024-11-08] MEDS: ATORVASTATIN CALCIUM 20 MG TABLET PO (20:32)
[2024-11-08] MEDS: METOPROLOL TARTRATE 25 MG TABLET 12.5 MG PO (20:34)
[2024-11-09] VITALS (18 sets, daily range): BP systolic 121–156; BP diastolic 52–72; PULSE 49–64; RESP 12–99; TEMP 36.1–36.6; O2SAT 95–100; BMI 21.4
[2024-11-09 06:38] LABS: Basophils # (Auto) 0.0 Thou/mm3 (0.0-0.2); Basophils % (Auto) 0 % (0-2.5); Eosinophils # (Auto) 0.1 Thou/mm3 (0.0-0.5); Eosinophils % (Auto) 3 % (0-10); Hematocrit 28.3 % (41.0-53.0); Hemoglobin 10.0 g/dL (13.5-16.0); Immature Granulocytes Auto 0.00 Thou/mm3 (0.00-0.00); Lymphocytes # (Auto) 0.8 Thou/mm3 (1.0-4.8); Lymphocytes % (Auto) 24 % (10-50); Mean Corpuscular HGB Conc 35.3 g/dl (31.0-37.0); Mean Corpuscular Hemoglobin 31.1 pg (25.0-35.0); Mean Corpuscular Volume 88 fL (80-100); Monocytes # (Auto) 0.3 Thou/mm3 (0.0-0.8); Monocytes % (Auto) 9 % (0-12); Neutrophils # (Auto) 2.1 Thou/mm3 (1.8-7.7); Neutrophils % (Auto) 64 % (37-80); Nucleated Red Blood Cell # 0.00 Thou/mm3 (0.00-0.00); Nucleated Red Blood Cell % 0 /100 WBC (0); Platelet Count 141 Thou/mm3 (140-440); RDW Standard Deviation 42.9 fL (35.1-43.9); Red Blood Count 3.22 Miln/mm3 (4.50-5.90); White Blood Count 3.3 Thou/mm3 (3.8-10.6)
[2024-11-09 06:51] LABS: INR 1.1 (0.9-1.3); Partial Thromboplastin Time 29.6 Seconds (22.0-36.0); Prothrombin Time 11.9 Seconds (9.0-12.2)
[2024-11-09 07:30] LABS: Alanine Aminotransferase 31 U/L (10-49); Albumin, Serum 3.0 gm/dL (3.4-4.8); Albumin/Globulin Ratio 1.5 (1.2-2.2); Alkaline Phosphatase 86 U/L (46-116); Anion Gap 7 (7-16); Aspartate Amino Transferase 72 U/L (0-34); BUN/Creatinine Ratio 13 Ratio (12-20); Bilirubin,Total 0.6 mg/dL (0.3-1.2); Blood Urea Nitrogen 10 mg/dL (9-23); Calcium 8.2 mg/dL (8.3-10.6); Calcium (Corrected) 9.0 mg/dL (8.5-10.1); Carbon Dioxide 25.2 mMol/L (20.0-31.0); Chloride 110 mMol/L (98-107); Creatinine (Component) 0.8 mg/dL (0.6-1.3); Estimated Creatinine Clearance 59.7 mL/min (>60); Globulin 2.0 gm/dL (2.3-3.5); Glucose 95 mg/dL (74-106); Magnesium 1.4 mg/dL (1.6-2.6); Osmolality,Calculated 282 (275-295); Phosphorous 2.3 mg/dL (2.4-5.1); Potassium 3.9 mMol/L (3.4-5.1); Sodium 142 mMol/L (136-145); Total Protein 5.0 gm/dL (5.7-8.2); eGFR > 60 See Note
[2024-11-09] MEDS: DOXYCYCLINE INJ 100 MG in SODIUM CHLORIDE 0.9% (POP) 100 ML IV ×2 (08:15→20:27)
[2024-11-09] MEDS: ASCORBIC ACID 250 MG TABLET 500 MG PO ×2 (08:16→20:27)
[2024-11-09] MEDS: MULTIVITAMINS TABLET 1 TAB PO (08:16)
[2024-11-09] MEDS: CARBIDOPA/LEVODOPA CR 50/200 TABCR 1 TAB PO (08:16)
[2024-11-09] MEDS: ASPIRIN EC 81 MG TABEC PO (08:17)
[2024-11-09] MEDS: NAPH,KPH MBDB 1 PACKET (1.5 GM) PO (08:17)
[2024-11-09] MEDS: Magnesium Sulfate 4 GM Ivpb 4 GM/50 ML BAG IV (08:18)
[2024-11-09] MEDS: cefTRIAXone/D5w 1gm IV premix 1 GM/50 ML BAG IV (08:18)
[2024-11-09] MEDS: CLOPIDOGREL BISULFATE 75 MG TABLET PO (08:19)
[2024-11-09] MEDS: AZITHROMYCIN INJ 500 MG in SODIUM CHLORIDE 0.9% 250 ML 250 ML 250 MG IV (08:42)
--- NOTE | 2024-11-09 10:56 | PC.NURSE ---
patient allergic to pork, patient has received heparin injections in previous admission to hospital, patient and stated no allergic reaction noted to past heparin injections.
[2024-11-09] MEDS: SODIUM CHLORIDE 0.9% 1000 ML 1,000 ML 100 ML IV (13:36)
--- NOTE | 2024-11-09 13:36 | ESPR_ITS ---
<Statement entered by Keyana Coy MD - 11/13/24 08:03> I reviewed above note and agree with findings and plans. I have also personally examined the patient with medicine team and went over assessment and plan with medical team including international tax manager and resident physician. <Statement entered by Beni Govea MD - 11/09/24 14:23> Patient seen and examined at bedside. I discussed and supervised with the international tax manager physician who took care of this patient. I personally saw and examined the patient. I agree with most of the assessment and plan. Patient receiving cardiac cath today. Continuing antibiotics for pneumonia. Troponin downtrended. Blood and urine cultures negative. Plan of care discussed with attending Dr. Coy. Beni Govea MD PGY-2 Documentation for date of: 11/09/24 Subjective Subjective Interval history: Patient reports he is feeling well this morning. Slept through the night, denies chest pain, SOB, palpitations, dizziness, nausea, or vomiting. States he ate well yesterday, no issues swallowing. Aware of cardiac cath today at 10 AM and is agreeable to plan. No other concerns voiced. Exam Vital Signs Temp Pulse Resp BP Pulse Ox O2 Del Method 97.9 F 62 15 153/60 H 100 Room Air 11/09/24 10:24 11/09/24 10:24 11/09/24 10:24 11/09/24 10:24 11/09/24 10:11/09/24 10:24 Narrative Exam General: Alert and oriented x4, no acute distress HEENT: PERRL, EOMI, moist mucous membranes, oropharynx clear Neck: Supple, no JVD, no meningismus Cardiac: Regular rhythm, no murmurs Respiratory: Lungs clear bilaterally, no rales/wheezes GI: Soft, non-tender, no guarding or rebound Skin: Warm, dry, no rashes Extremities: No edema Neuro: CN II-XII grossly intact, no focal deficits Psych: Appropriate mood and affect per interaction Surgical Site: Dressing intact over left hip, no visible erythema or drainage Objective Labs 11/09/24 05:11 11/09/24 05:11 Labs: Laboratory Results - last 24 hr 11/09/24 05:11 WBC 3.3 L RBC 3.22 L Hgb 10.0 L Hct 28.3 L MCV 88 MCH 31.1 MCHC 35.3 RDW Std Deviation 42.9 Plt Count 141 D Neut % (Auto) 64 Lymph % (Auto) 24 [place] % (Auto) 9 Eos % (Auto) 3 Baso % (Auto) 0 Neut # (Auto) 2.1 Lymph # (Auto) 0.8 L [place] # (Auto) 0.3 Eos # (Auto) 0.1 Baso # (Auto) 0.0 Immature Gran # (Auto) 0.00 Absolute Nucleated RBC 0.00 Immature Gran % 0 Nucleated RBC % 0 PT 11.9 INR 1.1 APTT 29.6 Sodium 142 Potassium 3.9 D Chloride 110 H Carbon Dioxide 25.2 Anion Gap 7 BUN 10 Creatinine 0.8 Estim Creat Clear Calc 59.7 L eGFR > 60 BUN/Creatinine Ratio 13 Glucose 95 D Calculated Osmolality 282 Calcium 8.2 L Corrected Calcium 9.0 Phosphorus 2.3 L Magnesium 1.4 L Total Bilirubin 0.6 AST 72 H ALT 31 Alkaline Phosphatase 86 Total Protein 5.0 L Albumin 3.0 L Globulin 2.0 L Albumin/Globulin Ratio 1.5 Quality Measures Quality Measures VTE prophylaxis Advance care planning discussed with:: patient Assessment & Plan Assessment Current Active Medications: Generic Name Dose Route Start Last Admin Trade Name Freq PRN Reason Stop Dose Admin Acetaminophen 650 mg 11/07/24 13:58 Acetaminophen 325 Mg Tablet PO 12/07/24 13:57 Q6H PRN Fever >101.5 Acetaminophen 650 mg 11/07/24 13:58 Acetaminophen 325 Mg Tablet PO 12/07/24 13:57 Q6H PRN PAIN SCALE 1-3 (mild Ascorbic Acid 500 mg 11/07/24 21:00 11/09/24 08:16 Ascorbic Acid 250 Mg Tablet PO 12/07/24 20:59 500 mg BID ARIAN Administration Aspirin 81 mg 11/08/24 09:00 11/09/24 08:17 Aspirin Ec 81 Mg Tabec PO 12/08/24 08:59 81 mg QDAY ARIAN Administration Atorvastatin Calcium 20 mg 11/07/24 21:00 11/08/24 20:32 Atorvastatin Calcium 20 Mg Tablet PO 12/07/24 20:59 20 mg HS ARIAN Administration Carbidopa/Levodopa 1 tab 11/08/24 09:00 11/09/24 08:16 Carbidopa/Levodopa Cr 50/200 Tabcr PO 12/08/24 08:59 1 tab QDAY ARIAN Administration Clopidogrel Bisulfate 75 mg 11/07/24 19:30 11/09/24 08:19 Clopidogrel Bisulfate 75 Mg Tablet PO 12/07/24 19:29 75 mg QDAY ARIAN Administration Dextrose 25 ml 11/07/24 14:05 Dextrose 50%-Water Inj 50 Ml Syringe IV 12/07/24 14:04 Q15MIN PRN BG 50-70 responsive npo pt Dextrose 50 ml 11/07/24 14:05 Dextrose 50%-Water Inj 50 Ml Syringe IV 12/07/24 14:04 Q15MIN PRN BG <50 OR BG <70 & pt unresponsive Enoxaparin Sodium 60 mg 11/08/24 09:00 11/08/24 08:59 Enoxaparin Sod Inj 60 Mg/0.6 Ml Syringe SC 11/22/24 08:59 60 mg QDAY ARIAN Administration Glucagon 1 mg 11/07/24 14:05 Glucagon Inj 1 Mg Vial IM Q15MIN PRN BG <70, and no IV access Azithromycin 500 mg/ Sodium 250 mls @ 250 mls/hr 11/08/24 09:00 11/09/24 11:24 Chloride IV 11/15/24 08:59 Infused QDAY ARIAN Infusion Ceftriaxone Sodium/Dextrose 1 gm in 50 mls @ 100 mls/hr 11/08/24 09:00 11/09/24 08:18 Rocephin/D5w 1gm Iv Premix IV 11/11/24 08:59 100 mls/hr QDAY ARIAN Administration Doxycycline Hyclate 100 mg/ 100 mls @ 100 mls/hr 11/07/24 14:15 11/09/24 08:15 Sodium Chloride IV 11/10/24 14:14 100 mls/hr BID ARIAN Administration Melatonin 3 mg 11/07/24 21:00 11/08/24 20:34 Melatonin 3 Mg Tablet PO 12/07/24 20:59 Not Given HS ARIAN Metoprolol Tartrate 12.5 mg 11/08/24 21:00 11/09/24 08:18 Metoprolol Tartrate 25 Mg Tablet PO 12/08/24 20:59 Not Given BID ARIAN Multivitamins 1 tab 11/08/24 10:45 11/09/24 08:16 Multivitamins Tablet PO 12/08/24 10:44 1 tab QDAY ARIAN Administration Ondansetron HCl 4 mg 11/07/24 13:58 Ondansetron Inj 2 Mg/Ml Inj 2 Ml IVP 12/07/24 13:57 Q6H PRN NAUSEA OR VOMITING Protocol Pantoprazole Sodium 40 mg 11/07/24 14:00 11/09/24 08:17 Pantoprazole Inj 40 Mg Vial IVP 12/07/24 13:59 40 mg QDAY ARIAN Administration Sennosides 1 tab 11/07/24 13:58 Senna Tablet PO 12/07/24 13:57 QDAY PRN constipation Protocol Tamsulosin HCl 0.4 mg 11/07/24 21:00 11/08/24 20:32 Tamsulosin Hcl 0.4 Mg Capsule PO 12/07/24 20:59 0.4 mg HS ARIAN Administration Plan 84-year-old male with CAD status post CABG x 3, HFpEF, Parkinson's disease, and dementia admitted for altered mental status and failure to thrive, now with STEMI and scheduled for cardiac catheterization today for suspected graft occlusion. #Troponinemia / NSTEMI (type I) #CAD s/p CABG x3 Elevated troponin to 2.474 with no chest pain, EKG NSR w/ 1? AV block, likely demand-related Troponin: Peaked at 2.474, now trending down to 1.666 EKG: NSR, 1? AVB, RBBB, septal infarct (old) BNP 49 Cardiac Cath report pending Plan: * Cardiology consulted, appreciate recs * Continue statin * Continue telemetry monitoring * Continue aspirin, Plavix per cardiology * Monitor telemetry * Cardiac cath Today (11/09) * Hold Eliquis for now per cardiology * Will start GDMT after echo #Acute metabolic encephalopathy #Altered mental status 84M with baseline dementia and Parkinson?s, presents with 3-day AMS, now alert/oriented, no focal deficits Head CT: no acute infarct, bleed, or mass EEG (prior): showed diffuse slowing, early dementia pattern Electrolyte abnormalities, elevated lactic acid Plan: * Monitor for further episodes or decline * Consider repeat EEG only if worsening * Maintain fall and aspiration precautions #Acute kidney injury (resolved) Creatinine creatinine now at baseline 0.8 Plan: * No longer considered active issue * Continue to avoid nephrotoxins and monitor renal function * Replete electrolytes: K and Mg as needed #Possible aspiration pneumonia Cough with CXR showing left base pneumonia, afebrile, WBC normal CXR: early left base infiltrate Chest CT: bibasilar atelectasis vs mild pneumonia Plan: * Continue IV ceftriaxone + doxy (started on 11/07) * Maintain aspiration precautions * Monitor for fevers, WBC trend, oxygen needs #Electrolyte abnormalities #Hypokalemia, hypomagnesemia, hyponatremia, hypophosphatemia ? likely due to poor intake/dehydration Mg 1.4, Phos 1.3-both repleted IV; sodium, potassium, calcium within normal Plan: * Recheck levels daily * Continue IV repletion as needed #History of Parkinson?s / Dementia Currently back to baseline, continued behavioral symptoms at home Plan: * Continue carbidopa-levodopa * Monitor for worsening agitation * Neurology f/u outpatient #Malnutrition/Failure to thrive ? improving Plan: * Patient passed swallow eval and is now eating orally * Continue patient on multivitamin * Continue regular diet and monitor PO intake * Monitor weight, albumin, and appetite daily #History of gallbladder disease / CBD dilation CT A/P: CBD 10 mm, distended GB, but normal bilirubin and LFTs Plan: * Recommend RUQ ultrasound (hepatobiliary sono) * Monitor for abdominal pain, LFTs * GI consult if new symptoms or abnormal RUQ sono #Anemia Hgb 10.5, Hct 29.8, stable from prior; likely chronic Plan: * Monitor CBC * No signs of active bleeding * Trend if clinically indicated #Fall risk Recent fall, no injury, related to walker mechanics Plan: * PT consult for gait/safety evaluation * Maintain fall precautions #UTI unlikely / Hematuria UA: +3 blood, urine culture pending Plan: * Monitor for dysuria, fever * Review culture results when back * Consider urology f/u if persistent hematuria Health maintenance: Telemetry admission for monitoring (AMS, troponin, JELENA, pneumonia) Diet: N.p.o. until cath is done DVT prophylaxis: Lovenox GI prophylaxis: Protonix Code status: Full ----- Plan discussed with attending physician Dr. Coy and senior resident Dr. Robyn MD PGY-1 Internal Medicine
--- NOTE | 2024-11-09 13:36 | PC.NURSE ---
1336 patient is awake, alert, breathing unlabored, s/p LHC with PCI, dressing to right groin dry with no bleeding or hematoma. femoral and pedal pulses strong, report received from Jacklyn FREITAS, patient to recover for 2hrs in labeling strategist and continue additional 2hr bedrest in tele inpatient room. 2L NS bolus ordered, 1st liter started now, to be completed in tele room.
[2024-11-09] MEDS: CLOPIDOGREL BISULFATE 75 MG TABLET 300 MG PO (13:39)
--- NOTE | 2024-11-09 14:10 | PC.NURSE ---
angioseal closure device information card and stent cardx2 given to
--- NOTE | 2024-11-09 14:20 | PC.NURSE ---
1420 report given to Monica FREITAS
--- NOTE | 2024-11-09 14:30 | PC.SS ---
Rounding note: patient is pending cardiology recommendations. Possible d/c tomorrow.
[2024-11-09 15:45] LABS: ACT (CATH LAB ONLY) 355.0 Seconds (89-169)
--- NOTE | 2024-11-09 16:21 | PC.NURSE ---
Patient taken to room via gurney with at bedside. Patient sleeping comfortably with no complaints. Carina RN at bedside to receive hand off, assessed groin dressing with this RN. [place] is Clean Dry and intact.
--- NOTE | 2024-11-09 18:59 | ESOP_ITS ---
RE: GENE ABEL : 1940 DATE OF OPERATION: 11/09/2024 PROCEDURES PERFORMED: 1. Diagnostic left heart cardiac catheterization, selective coronary angiogram, left ventricular angiogram, selective vein bypass graft angiogram, CPT 61522. 2. Selective cannulation of left subclavian artery, left internal mammary artery, left internal mammary artery angiogram, CPT 04459. 3. Conscious sedation for 1 hour duration, CPT code 89680. 4. Ultrasound-guided access to right femoral artery. 5. Iliofemoral angiogram followed by Angio-Seal deployment. DIAGNOSES: Acute htc-VW-ewcdglzpw elevation myocardial infarction with lactic acidosis, recurrent hospitalization for uwm-UV-jrrtxrzhz elevation myocardial infarction. HISTORY AND INDICATIONS: The patient is an 84-year-old male, who is very well known to me with longstanding history of known coronary artery disease, who did undergo coronary artery bypass graft surgery x2, ANGULO to LAD, vein graft to the diagonal branch at [facility] in 2007. He has done fairly well until recently. He has developed parkinsonism and general condition has degenerated, but recently, he was hospitalized 2 weeks ago with severe tightness, weakness and possible sepsis and possible gallbladder pathology. He was found to have elevated lactic acid and troponin levels at that time, thought to be type 2 troponin levels. The patient was discharged home in stable condition, doing fairly well. He returned again to the hospital with similar symptoms, but no abdominal pain, mostly weakness and possible temporary hypotension, lactic acidosis, which improved fairly quickly. He also had acute kidney injury and azotemia requiring hydration. The patient's renal function improved, but patient continued to have this troponin elevation with delta troponin. Initial troponin was low. Subsequent troponin went up to 2.3 with negative EKG findings. Highly suspicious for significant problems with coronary artery disease and possible acute occlusion of the coronary artery. Hence, emergency coronary angiogram and bypass graft angiogram were recommended for further evaluation and assessed if he is a candidate for PCI intervention. Class 1 indication for the procedure. DESCRIPTION OF PROCEDURE: The patient was brought to the cardiac laboratory sample carrier. He was given 2 mg of Versed and 50 mcg of fentanyl for conscious sedation. Right femoral approach was taken. Right femoral artery was cannulated by micropuncture technique and 6-Montenegrin Glidesheath was introduced and ultrasound guidance technique was used. Diagnostic selective right and left coronary angiogram was performed with JR4 and JL4 diagnostic catheter. Left heart catheterization and LV angiogram were performed with JR4 diagnostic catheter. Subsequently, vein bypass graft to the diagonal branch was performed with JR4 diagnostic catheter. Left subclavian and left internal mammary artery were engaged with the JR4 diagnostic catheter. Left internal mammary angiogram was performed. Diagnostic procedure showed the following findings: Hemodynamics: Left ventricular pressure is 137/40, EDP 12, aortic pressure 130/40, mean of 63, no gradient across the aortic valve. Left ventricular angiogram showed normal left ventricular wall motion with ejection fraction of 60%. Coronary angiogram showed the following findings. Right coronary artery is large and dominant, showed heavy calcification in the proximal, mid and distal RCA. The proximal RCA showed 80% stenosis, long lesion. The mid RCA showed heavily calcified lesion with calcified what appears to be nodular type lesion with 95% stenosis. Distal right coronary artery showed evidence of 90% eccentric stenosis with calcification. There is evidence of fairly large posterolateral branch, which goes across and another posterolateral branch and posterior descending artery. Left aortic root calcification is seen. The aortic valve showed calcification with no stenosis. Left main coronary artery showed calcification and mild disease. Left anterior descending artery is totally occluded in the mid segment after 2 diagonal branches. First diagonal branch showed a 90% stenosis and showed evidence of fairly acute angulation and second diagonal branch is small vessel, 2 mm vessel, showed 80% diffuse disease. The vein graft to 1 large diagonal and ramus intermedius is widely patent with excellent distal flow. The left internal mammary artery appears to show no stenosis. The left subclavian artery is normal. The left internal mammary artery is attached to the left anterior descending artery with ASHLY 3 flow. Following diagnostic procedure, patient was recommended PCI with stent placement. The patient was given IV heparin 5000 units. ACT was measured, found to be 350, and I proceeded with PCI. A 6-Montenegrin sheath was introduced. A 6-Montenegrin FR4 guiding catheter was used to cannulate the right coronary artery. A 0.014 Runthrough guidewire was used to cross the lesion successfully. This was a complex procedure requiring adequate guide support. Distal RCA was predilated using 2.5 mm Euphora compliant balloon. Multiple inflations up to 12 atmospheres of pressure were performed to dilate the lesion. The mid RCA lesion was then successfully dilated using the same balloon and multiple inflations were performed. Subsequently, a 3 mm Euphora balloon was used to dilate the lesions before advancing the stent. It was difficult to advance the balloons without extra support using Guidezilla for inner catheter to extra support and distal RCA lesion was stented using 2.75 x 12 mm Gratz Medtronic stent with deployed drug-eluting stent. It was postdilated using 3 mm balloon, subsequently NC balloon. The mid RCA lesion was dilated followed by stent placement with 3.0 x 15 mm Gratz Medtronic drug-eluting stent and multiple inflations were performed to 16 atmospheres of pressure. Proximal right coronary artery was predilated using the same 3 mm balloon and a 3.0 x 26 mm drug-eluting stent Kennedy was deployed in the proximal RCA with slight overlap in the mid RCA stent. A post-stent deployment high pressure angioplasty was performed using 3 mm balloon in the distal lesion and 3.0 x 15 mm balloon in the mid RCA with 18 atmospheres of pressure. Proximal RCA was also dilated with 3.5 x 15 mm noncompliant balloon up to 18 atmospheres of pressure. Final angiogram showed excellent angiographic result with 0% residual stenosis and ASHLY 3 flow. No complications. Blood loss was 0. Subsequently, iliofemoral angiogram was performed and 6-Montenegrin Angio-Seal was deployed to secure hemostasis. FINAL SUMMARY: Complex lesion involving multiple segments of large dominant RCA with stent placement of the proximal RCA. Preprocedure stenosis 80%, postprocedure 0%. Mid RCA stent placement, preprocedure stenosis was 95%, postprocedure 0%. Distal RCA stent placement, preprocedure stenosis was 90%, postprocedure 0%. Complications none. Distal pulses were excellent following the procedure. He was observed for 2 hours in the cardiac laboratory sample carrier post recovery and sent back to telemetry. The patient was already given aspirin and Plavix yesterday. We gave a loading dose additional 300 mg of Plavix in the laboratory sample carrier. We will continue the aspirin 81 mg daily and the clopidogrel 75 mg daily for discharge. If he feels well, we will plan discharge home tomorrow. We will obtain renal function and renal panel again in the morning. If there is no significant worsening of renal function, the patient can be discharged. We hydrated him extensively. Close to 1 L of fluid was given in the laboratory sample carrier and 100 mL of fluid will be given for the next 12 hours. Since EDP is low and no heart failure, patient again can be aggressive in giving IV fluids. DT: 17:49:05 TT: 18:58:00 Ref: [id number] - TID: [id number]
[2024-11-09] MEDS: ATORVASTATIN CALCIUM 20 MG TABLET PO (20:29)
[2024-11-09] MEDS: TAMSULOSIN HCL 0.4 MG CAPSULE PO (20:29)
[2024-11-09] MEDS: MELATONIN 3 MG TABLET PO (20:29)
[2024-11-10] VITALS (9 sets, daily range): BP systolic 114–140; BP diastolic 55–68; PULSE 55–72; RESP 15–99; TEMP 36.1–36.6; O2SAT 97–99; BMI 21.4
[2024-11-10] MEDS: SODIUM CHLORIDE 0.9% 1000 ML 1,000 ML 100 ML IV (00:09)
[2024-11-10 06:16] LABS: Basophils # (Auto) 0.0 Thou/mm3 (0.0-0.2); Basophils % (Auto) 0 % (0-2.5); Eosinophils # (Auto) 0.1 Thou/mm3 (0.0-0.5); Eosinophils % (Auto) 2 % (0-10); Hematocrit 28.1 % (41.0-53.0); Hemoglobin 9.8 g/dL (13.5-16.0); Immature Granulocytes Auto 0.01 Thou/mm3 (0.00-0.00); Lymphocytes # (Auto) 0.7 Thou/mm3 (1.0-4.8); Lymphocytes % (Auto) 21 % (10-50); Mean Corpuscular HGB Conc 34.9 g/dl (31.0-37.0); Mean Corpuscular Hemoglobin 31.2 pg (25.0-35.0); Mean Corpuscular Volume 90 fL (80-100); Monocytes # (Auto) 0.2 Thou/mm3 (0.0-0.8); Monocytes % (Auto) 7 % (0-12); Neutrophils # (Auto) 2.2 Thou/mm3 (1.8-7.7); Neutrophils % (Auto) 69 % (37-80); Nucleated Red Blood Cell # 0.00 Thou/mm3 (0.00-0.00); Nucleated Red Blood Cell % 0 /100 WBC (0); Platelet Count 124 Thou/mm3 (140-440); RDW Standard Deviation 43.5 fL (35.1-43.9); Red Blood Count 3.14 Miln/mm3 (4.50-5.90); White Blood Count 3.2 Thou/mm3 (3.8-10.6)
[2024-11-10 06:39] LABS: Alanine Aminotransferase 15 U/L (10-49); Albumin, Serum 2.9 gm/dL (3.4-4.8); Albumin/Globulin Ratio 1.5 (1.2-2.2); Alkaline Phosphatase 78 U/L (46-116); Anion Gap 5 (7-16); Aspartate Amino Transferase 55 U/L (0-34); BUN/Creatinine Ratio 7 Ratio (12-20); Bilirubin,Total 0.6 mg/dL (0.3-1.2); Blood Urea Nitrogen < 5 mg/dL (9-23); Calcium 8.0 mg/dL (8.3-10.6); Calcium (Corrected) 8.9 mg/dL (8.5-10.1); Carbon Dioxide 22.2 mMol/L (20.0-31.0); Chloride 111 mMol/L (98-107); Creatinine (Component) 0.7 mg/dL (0.6-1.3); Estimated Creatinine Clearance 68.2 mL/min (>60); Globulin 2.0 gm/dL (2.3-3.5); Glucose 103 mg/dL (74-106); Magnesium 1.7 mg/dL (1.6-2.6); Osmolality,Calculated 272 (275-295); Phosphorous 2.3 mg/dL (2.4-5.1); Potassium 3.8 mMol/L (3.4-5.1); Sodium 138 mMol/L (136-145); Total Protein 4.9 gm/dL (5.7-8.2); eGFR > 60 See Note
[2024-11-10] MEDS: DOXYCYCLINE INJ 100 MG in SODIUM CHLORIDE 0.9% (POP) 100 ML IV (09:40)
[2024-11-10] MEDS: cefTRIAXone/D5w 1gm IV premix 1 GM/50 ML BAG IV (09:40)
[2024-11-10] MEDS: AZITHROMYCIN INJ 500 MG in SODIUM CHLORIDE 0.9% 250 ML 250 ML 250 MG IV (09:45)
--- NOTE | 2024-11-10 09:59 | PC.NURSE ---
Provider ordered DC, pt has estevez in that is not chronic. Need to DC estevez and assess pt for post estevez urination prior to DC of pt
[2024-11-10] MEDS: METOPROLOL TARTRATE 25 MG TABLET 12.5 MG PO (10:10)
[2024-11-10] MEDS: PANTOPRAZOLE 40 MG TABLET PO (10:10)
[2024-11-10] MEDS: CLOPIDOGREL BISULFATE 75 MG TABLET PO (10:11)
[2024-11-10] MEDS: ASPIRIN EC 81 MG TABEC PO (10:11)
[2024-11-10] MEDS: CARBIDOPA/LEVODOPA CR 50/200 TABCR 1 TAB PO (10:11)
[2024-11-10] MEDS: ENOXAPARIN SOD INJ 40 MG/0.4 ML SYRINGE SC (10:11)
[2024-11-10] MEDS: ASCORBIC ACID 250 MG TABLET 500 MG PO (10:11)
[2024-11-10] MEDS: MULTIVITAMINS TABLET 1 TAB PO (10:11)
--- NOTE | 2024-11-10 10:15 | PC.SS ---
Per morning rounding, pt will d/c today. Resident is recommending SNF placement; however, family and pt do not want SNF. Recommendation is for Home Health.
--- NOTE | 2024-11-10 12:54 | ESDS_ITS ---
<Statement entered by Keyana Coy MD - 11/16/24 07:31> I reviewed above note and agree with findings and plans. I have also personally examined the patient with medicine team and went over assessment and plan with medical team including music industry intern and resident physician. Planned Discharge Date 11/10/24 DS: Providers Provider Date of admission: 11/07/24 10:48 Primary care physician: Nadya Hartley MD Admitting Provider: Natalia Bui DO Attending Provider on Admission: Natalia Bui DO Consults: 11/07/24 14:02 Referral Physical Therapy Routine Comment: Physician Instructions: 11/07/24 14:23 Referral Registered Dietitian Routine Comment: failure to thrive not eating at home poor appetite 11/07/24 16:06 Consult to Cardiology Routine Comment: Consulting Provider: Corina Nur 11/07/24 16:07 Referral Speech Therapy Routine Comment: Referral Speech Therapy Routine Comment: Attending Provider on DC: Keyana Coy MD Discharging Provider: RESIDENT Nickie DS: Diagnosis Problem List Completed Was Problem List Reviewed/Reconciled?: Yes Hospital Course Hospital Course Hospital course: 84-year-old male with extensive cardiac and neurologic history including CAD s/p CABG x3, paroxysmal atrial flutter, HFpEF (EF 50?55%), hypertension, hyperlipidemia, T2DM, prostate cancer, Parkinson?s, dementia, and prior CVA, presented with 3 days of altered mental status and poor oral intake. reported abnormal behavior including pulling at threads and reduced responsiveness. Initial workup showed elevated troponins (peak 2.474), elevated lactate (4.5), JELENA (Cr 1.4 from baseline 0.6), and mild electrolyte disturbances. Imaging revealed early pneumonia and CT head was negative. Cardiology was consulted for NSTEMI. He underwent successful cardiac catheterization with 3 stents placed to the RCA, resolving all significant lesions. Post-procedure course was uncomplicated. He received aggressive hydration with resolution of JELENA (Cr 0.7), downtrending troponins, and no evidence of recurrent ischemia or fluid overload. Swallow evaluation was passed, and patient resumed full PO intake. PT evaluated the patient and initially recommended SNF, but the patient and declined. Home Health was arranged to assist with physical therapy, medication compliance, and safety monitoring. The patient and are comfortable with discharge home. Diagnoses During Admission: #NSTEMI #CAD s/p RCA Stents #Paroxysmal Atrial Flutter #Heart Failure with Preserved Ejection Fraction #Dehydration #Acute Kidney Injury ? Resolved #Altered Mental Status #Anemia of Chronic Disease #Hypophosphatemia #Hypomagnesemia #Hypertension #Type 2 Diabetes Mellitus #Hyperlipidemia #Parkinson?s Disease #Dementia #History of CVA #History of Prostate Cancer #Benign Prostatic Hyperplasia Discharge Plans: Take aspirin 81 mg once daily, Plavix 75 mg once daily and atorvastatin 40 mg at night indefinitely as new stents were placed during hospital stay Do not take eliquis for a month per cardio recs Take all other home medications as prescribed You have been prescribed doxycycline for 2 more days to complete antibiotic course for community-acquired pneumonia In case you have excessive bleeding from nose or teeth or any other site immediately come back to the ER for medical attention Follow-up with your PCP as outpatient within a week Follow-up with business insurance agent, Dr. Nur as outpatient within a week In case of emergency, call 911 or come back to the ED ----- Plan discussed with attending physician Dr. Anneliese Schaeffer MD PGY-1 Internal Medicine Time Spent with Patient Time attestation: Total time spent providing and/or coordinating discharge services: Time spent: Greater than 30 minutes Home Health Home Health Referral Orders: 11/10/24 09:43 Home Health Referral Routine Reason For Exam: PT Home-Bound The patient must either because of illness or injury, need the aid of supportive devices such as crutches, canes, wheelchairs, and walkers; the use of special transportation; or the assistance of another person in order to leave their place of residence; OR have a condition such that leaving his or her home is medically contraindicated. In addition, the patient also meets the following criteria: patient is normally unable to leave the home and leaving home requires considerable taxing effort. Addendum to Home Health Certification Practitioner's Certification: I certify that the patient has been under my care in the hospital and the care of attending physician (see below). We had a sznx-pt-ymwx encounter on (see date below). My clinical findings indicate that the patient is home bound per the above criteria and the Home Health Services noted in these orders are medically necessary. The primary reason for the zsun-hm-aurr encounter is related to the fact that the patient requires home health services. Date Certifying Cgsh-yx-Qcvv Physician Encounter: 11/07/24 Physician's Name who will Assume Oversight for Services: Nadya Hartley Physician's Phone No.who will Assume Oversight for Service: SUPERVISOR [employer] - Community Resources: No PT to Evaluate: Yes PT to evaluate and provide a treatmnet plan to increase patient's mobility and strength. Wound Care: No IV Therapy: No RN Safety Evaluation: Yes RN to evaluate and create a plan of care that will produce positive outcomes. Palliative Treatment: No Palliative treatment and evaluate the need for hospice. Home Health Aide - Personal Care: No Home Health Aide to assist with any ADL's. Exam Vital Signs Temp Pulse Resp BP Pulse Ox O2 Del Method 97.6 F 72 19 128/62 98 Room Air 11/10/24 12:00 11/10/24 12:11/10/24 12:00 11/10/24 12:00 11/10/24 12:11/10/24 12:00 Narrative Exam Physical Exam on Discharge: General: Alert, in no acute distress HEENT: Normocephalic, atraumatic, moist mucosa Neck: Supple, no JVD Cardiac: RRR, no murmurs Lungs: Clear to auscultation bilaterally Abdomen: Soft, non-tender, no distension Extremities: No edema, pulses intact Neuro: A&O x3, non-focal Skin: Warm, dry, no rashes Access site: Clean, no bleeding or hematoma Discharge Plan Plan Patient Disposition: Home w/HOME HEALTH Patient condition on transfer: Stable Care Plan Goals: Take aspirin 81 mg once daily, Plavix 75 mg once daily and atorvastatin 40 mg at night indefinitely as new stents were placed during hospital stay Do not take eliquis for a month per cardio recs Take all other home medications as prescribed You have been prescribed doxycycline for 2 more days to complete antibiotic course for community-acquired pneumonia In case you have excessive bleeding from nose or teeth or any other site immediately come back to the ER for medical attention Follow-up with your PCP as outpatient within a week Follow-up with business insurance agent, Dr. Nur as outpatient within a week In case of emergency, call 911 or come back to the ED Prescriptions/Referrals Prescriptions/Med Rec: New ascorbic acid (vitamin C) 500 mg capsule 500 mg PO BID Qty: 90 0RF clopidogrel 75 mg Tablet 75 mg PO QDAY Qty: 180 0RF atorvastatin 40 mg tablet 40 mg PO QPM Qty: 90 0RF doxycycline monohydrate 100 mg capsule 100 mg PO BID 2 Days Qty: 4 0RF Continued tamsulosin [Flomax] 0.4 MG capsule,extended release 24hr 0.4 mg PO QDAY Qty: 0 docusate sodium [Colace] 100 mg capsule 100 mg PO BID aspirin 81 mg tablet 81 mg PO QDAY multivitamin Tablet 1 tab PO QDAY ferrous sulfate [Feosol] 325 mg (65 mg iron) tablet 325 mg PO QDAY magnesium hydroxide 400 mg/5 mL suspension 2,400 mg PO TID PRN (Reason: constipation) melatonin 3 mg capsule 3 mg PO HS guaifenesin [Migdalia-Tussin] 100 mg/5 mL liquid 200 mg PO Q6H PRN (Reason: sore throat) lisinopril 20 mg tablet 20 mg PO QDAY Qty: 30 0RF Rx Instructions: Hold if SBP <120 and DBP <80 ltpvvqded-fmnwuzqm-ubahwllmal 50-200-200 mg tablet 1 tab PO QID acetaminophen-codeine 300-15 mg tablet 1 tab PO Q6H PRN (Reason: severe pain (scale score 7-10)) metoprolol tartrate 25 mg Tablet 12.5 mg PO BID 30 Days Qty: 30 0RF pantoprazole [Protonix] 40 mg tablet,delayed release (DR/EC) 40 mg PO BID 21 Days Qty: 42 0RF solifenacin 10 mg Tablet 10 mg PO QDAY oxybutynin chloride 10 mg tablet extended release 24hr 10 mg PO QDAY Held Eliquis 2.5 mg Tablet 2.5 mg PO BID 30 Days Qty: 60 0RF Hold Instructions: Resume on 12/11/24. hold for a month per cardiology re commendations Discontinued atorvastatin 20 mg Tablet 80 mg PO HS 30 Days Qty: 120 0RF oxybutynin chloride 10 mg tablet extended release 24hr 10 mg PO QDAY Referrals: Nadya Hartley MD [Primary Care Provider] - Corina Nur MD [Physician] - Patient/Caregiver Discharge Instructions Discharge Activity: as per physical therapy Education Materials: Cardiac Rehab Exercise Program, Heart Attack Dc, Cardiac Rehab Getting Started Print Language: Ugandan Stand Alone Forms: [employer] Award Info., Patient Portal Info Letter Discharge Order Discharge Orders: Discharge (Routine); Ordered 11/10/24 Ordered By: Mark Bose Quality Discharge Quality Measures VTE prophylaxis
--- NOTE | 2024-11-12 08:09 | PC.CC ---
Addendum entered by Abdias Goddard RN 11/12/24 09:11: [facility] accepted and booked, soc 11/14 Original Note: HH ref sent, waiting for response
== END 2024-11-10 16:28 | disposition home health service (06) | DRG 321 ==
LOC: SERX 09:31 → SERHOLD 11:29 → S2NX 15:02
PROVIDERS: Emergency Medicine; Internal Medicine Cardiovascular Disease; Student in an Organized Health Care Education/Training Program; Admitting Provider Internal Medicine; Emergency Provider Emergency Medicine; PCP Internal Medicine; Visit Provider Internal Medicine
PROC: 4A023N7 Measurement of Cardiac Sampling and Pressure, Left Heart, Percutaneous Approach (ICD-10-PCS; principal; 2024-11-09 11:30)
DX: I21.4 Non-ST elevation (NSTEMI) myocardial infarction (principal); G93.41 Metabolic encephalopathy; J69.0 Pneumonitis due to inhalation of food and vomit; N17.9 Acute kidney failure, unspecified; I48.92 Unspecified atrial flutter; I50.32 Chronic diastolic (congestive) heart failure; E87.20 Acidosis, unspecified; E87.1 Hypo-osmolality and hyponatremia; E46 Unspecified protein-calorie malnutrition; R62.7 Adult failure to thrive; Z68.21 Body mass index [BMI] 21.0-21.9, adult; F02.80 Dementia in other diseases classified elsewhere, unspecified severity, without behavioral disturbance, psychotic disturbance, mood disturbance, and anxiety; G20.A1 Parkinson's disease without dyskinesia, without mention of fluctuations; I25.10 Atherosclerotic heart disease of native coronary artery without angina pectoris; Z95.1 Presence of aortocoronary bypass graft; I11.0 Hypertensive heart disease with heart failure; N40.0 Benign prostatic hyperplasia without lower urinary tract symptoms; Z91.81 History of falling; E78.5 Hyperlipidemia, unspecified; E11.9 Type 2 diabetes mellitus without complications; E86.0 Dehydration; E87.6 Hypokalemia; E83.42 Hypomagnesemia; D64.9 Anemia, unspecified; R31.9 Hematuria, unspecified; Z85.46 Personal history of malignant neoplasm of prostate; Z86.73 Personal history of transient ischemic attack (TIA), and cerebral infarction without residual deficits; D63.8 Anemia in other chronic diseases classified elsewhere; C61 Malignant neoplasm of prostate; E83.39 Other disorders of phosphorus metabolism; G30.9 Alzheimer's disease, unspecified; I25.82 Chronic total occlusion of coronary artery; I45.10 Unspecified right bundle-branch block; N28.1 Cyst of kidney, acquired; W19.XXXA Unspecified fall, initial encounter; Y92.009 Unspecified place in unspecified non-institutional (private) residence as the place of occurrence of the external cause; Z74.01 Bed confinement status; Z79.02 Long term (current) use of antithrombotics/antiplatelets; Z79.82 Long term (current) use of aspirin
CPT/HCPCS: 36415; 70450; 71045; 71260; 74177; 80053; 81001; 82728; 83540; 83550; 83605; 83690; 83735; 83880; 84100; 84145; 84484; 85025; 85347; 85610; 85730; 87040; 87081; 87086; 87811; 92610; 93005; 96361; 96365; 96366; 96375; 97162; 99152; 99153; 99284; A4649; C1725; C1760; C1769; C1874; C1887; C1894; J0168; J0456; J0461; J0696; J1643; J1650; J2250; J2310; J2371; J2470; J3010; J3475; J3480; J3490; J7030; J7050; J7121; Q9967; A9270

== ENCOUNTER 2024-11-15 23:31 | Emergency (ER) | payer MEDICARE, BC, SELFPAY ==
[2024-11-15 23:37] VITALS: BP 133/60; PULSE 86; RESP 18; TEMP 36.8; O2SAT 100
[2024-11-15 23:46] VITALS: BP 126/57; PULSE 86; RESP 27; O2SAT 97
[2024-11-15 23:49] VITALS: BP 126/57; PULSE 84; RESP 18; TEMP 37.8; O2SAT 97
[2024-11-15 23:50] VITALS: BMI 20.3
[2024-11-16] VITALS: BP 122/56; PULSE 81; RESP 18; O2SAT 98
[2024-11-16 00:22] LABS: Basophils # (Auto) 0.0 Thou/mm3 (0.0-0.2); Basophils % (Auto) 0 % (0-2.5); Eosinophils # (Auto) 0.0 Thou/mm3 (0.0-0.5); Eosinophils % (Auto) 1 % (0-10); Hematocrit 26.9 % (41.0-53.0); Hemoglobin 9.5 g/dL (13.5-16.0); Immature Granulocytes Auto 0.02 Thou/mm3 (0.00-0.00); Lymphocytes # (Auto) 0.5 Thou/mm3 (1.0-4.8); Lymphocytes % (Auto) 10 % (10-50); Mean Corpuscular HGB Conc 35.3 g/dl (31.0-37.0); Mean Corpuscular Hemoglobin 31.5 pg (25.0-35.0); Mean Corpuscular Volume 89 fL (80-100); Monocytes # (Auto) 0.4 Thou/mm3 (0.0-0.8); Monocytes % (Auto) 9 % (0-12); Neutrophils # (Auto) 3.7 Thou/mm3 (1.8-7.7); Neutrophils % (Auto) 80 % (37-80); Nucleated Red Blood Cell # 0.00 Thou/mm3 (0.00-0.00); Nucleated Red Blood Cell % 0 /100 WBC (0); Platelet Count 149 Thou/mm3 (140-440); RDW Standard Deviation 42.8 fL (35.1-43.9); Red Blood Count 3.02 Miln/mm3 (4.50-5.90); White Blood Count 4.7 Thou/mm3 (3.8-10.6)
[2024-11-16 00:33] LABS: Collection Type, Urine Voided; Squamous Epithelial Cell,Urine 0 /hpf (0-5)
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
--- NOTE | 2024-11-16 00:37 | XR_ITS ---
Examination: AP chest single view Technique : AP portable semiupright chest single view Date and time: November 16, 2024, 0106 hours INDICATIONS: Altered mental status chest pain shortness of breath in a. FINDINGS: No significant cardiac enlargement Blunting of the left lateral costophrenic angle. Median sternotomy wires. No lobar pneumonia or pulmonary edema IMPRESSION: No lobar pneumonia or pulmonary edema
[2024-11-16 00:39] LABS: Bilirubin,Urine Negative (Negative); Blood,Urine Negative (Negative); Clarity,Urine Clear (Clear/Hazy); Color,Urine Drk-Yellow (Lt Yel-Yel); Culture Indicated,Urine Not Indicated; Glucose, Urine Negative (Negative); Hyaline Casts,Urine < 1 /hpf (0-1); Ketones,Urine Negative (Negative); Leukocyte Esterase,Urine Negative (Negative); Nitrite,Urine Negative (Negative); PH,Urine 6.0 (5.0-7.0); Protein,Urine Negative (Neg - Trace); RBC,Urine 2 /hpf (0-3); Specific Gravity,Urine 1.020 (1.001-1.035); Urobilinogen,Urine Negative mg/dL (0.0-1.0); WBC,Urine 1 /hpf (0-5)
[2024-11-16 00:55] LABS: Alanine Aminotransferase < 7 U/L (10-49); Albumin, Serum 3.6 gm/dL (3.4-4.8); Albumin/Globulin Ratio 1.6 (1.2-2.2); Alkaline Phosphatase 106 U/L (46-116); Anion Gap 9 (7-16); Aspartate Amino Transferase 23 U/L (0-34); BUN/Creatinine Ratio 15 Ratio (12-20); Bilirubin,Total 0.8 mg/dL (0.3-1.2); Blood Urea Nitrogen 12 mg/dL (9-23); Calcium 8.9 mg/dL (8.3-10.6); Calcium (Corrected) 9.2 mg/dL (8.5-10.1); Carbon Dioxide 25.5 mMol/L (20.0-31.0); Chloride 107 mMol/L (98-107); Creatinine (Component) 0.8 mg/dL (0.6-1.3); Estimated Creatinine Clearance 58.4 mL/min (>60); Globulin 2.2 gm/dL (2.3-3.5); Glucose 138 mg/dL (74-106); Osmolality,Calculated 282 (275-295); Potassium 3.0 mMol/L (3.4-5.1); Sodium 141 mMol/L (136-145); Total Protein 5.8 gm/dL (5.7-8.2); eGFR > 60 See Note
[2024-11-16 01:00] VITALS: BP 120/52; PULSE 72; RESP 18; O2SAT 97
[2024-11-16 02:00] VITALS: BP 128/54; PULSE 66; RESP 10; O2SAT 100
[2024-11-16 03:00] VITALS: BP 116/64; PULSE 70; RESP 16; O2SAT 100
[2024-11-16] MEDS: SODIUM CHLORIDE 0.9% 500 ML 500 ML 999 ML IV (04:20)
[2024-11-16] MEDS: POTASSIUM CHL 10 mEq IVPB 10 MEQ/100 ML BAG 100 MEQ IV (04:21)
--- NOTE | 2024-11-16 04:38 | PC.NURSE ---
pt in NAD. no changes other than his voice is a bit more clear. resting quietly. at bedside.
[2024-11-16 04:47] VITALS: BP 122/51; PULSE 68; RESP 18; TEMP 37.3; O2SAT 100
[2024-11-16 06:37] VITALS: BP 109/58; PULSE 60; RESP 18; TEMP 37.2; O2SAT 100
== END 2024-11-16 06:53 | disposition home or self-care (01) ==
PROVIDERS: Emergency Provider Emergency Medicine; PCP Internal Medicine
DX: R41.82 Altered mental status, unspecified (principal); F03.911 Unspecified dementia, unspecified severity, with agitation; R07.9 Chest pain, unspecified; R06.02 Shortness of breath
CPT/HCPCS: 36415; 71045; 80053; 81001; 85025; 96365; 96366; 99283; J3480; J7999